=== PATIENT | female | born 1960 ===

== ENCOUNTER 2017-08-26 16:12 | Inpatient (IN) | payer OTHER ==
[~2017-08-26 16:12] MED LIST: Piperacill/Tazo 3.375gm in Dex 3.375 GM/50 ML BAG IVPB SCH
[2017-08-26 16:23] VITALS: BMI 40.3
[2017-08-26] MEDS ORDERED: Sodium Chloride 0.9% 1,000 ML ONE ×3 (16:48→23:51)
[2017-08-26] MEDS ORDERED: (Novolin R) Insulin Human Regular 100 units/ml vial ONE (16:48)
[2017-08-26] MEDS ORDERED: Sodium Chloride 0.9% 1,000 ML IV ONE ×3 (17:03→18:15)
[2017-08-26] MEDS ORDERED: Piperacillin/Tazobact 3.375 gm 100 ML IV STA (17:04)
[2017-08-26 17:17] LABS: EOS # 0.1 K/uL (0.0-0.7); EOS % 0.4 % (0.0-4.0); HEMOGLOBIN 13.6 g/dL (11.0-16.0); LYMPH # 0.3 K/uL (1.0-4.3); LYMPH % 1.9 % (20.0-40.0); MEAN CELL VOLUME 81.1 fL (81.0-99.0); MEAN CORPUSCULAR HEMOGLOBIN 29.1 pg (27.0-31.0); MEAN CORPUSCULAR HGB CONC 35.9 g/dL (33.0-37.0); MEAN PLATELET VOLUME 11.7 fL (7.2-11.7); MONO # 0.2 K/uL (0.0-0.8); MONO % 1.1 % (0.0-10.0); NEUT # 18.1 K/uL (1.8-7.0); NEUT % 96.6 % (50.0-75.0); RBC 4.66 Mil/uL (3.80-5.20); RED CELL DISTRIBUTION WIDTH 13.1 % (11.5-14.5); WHITE BLOOD COUNT 18.7 K/uL (4.8-10.8)
[2017-08-26 17:23] LABS: SQUAMOUS EPITHIAL 3 /hpf (0-5); URINE BACTERIA MANY (<OCC); URINE BILIRUBIN NEGATIVE (NEGATIVE); URINE BLOOD 3+ (NEGATIVE); URINE CLARITY Hazy (Clear); URINE COLOR Red (YELLOW); URINE GLUCOSE (UA) 3+ mg/dL (Normal); URINE LEUKOCYTE ESTERASE 2+ Leu/uL (Negative); URINE NITRATE NEGATIVE (NEGATIVE); URINE PROTEIN NEGATIVE (NEGATIVE); URINE UROBILINOGEN NORMAL mg/dL (0.2-1.0); WBC CLUMPS MOD /hpf
[2017-08-26 17:24] LABS: INR 1.2; PLATELET COUNT 41 K/uL (130-400); PROTHROMBIN TIME 13.6 SECONDS (9.7-12.2)
[2017-08-26 17:29] LABS: VENOUS BLOOD GAS BASE EXCESS 0.7 mmol/L (0.0-2.0); VENOUS BLOOD GAS PCO2 35 mmHg (40-60); VENOUS BLOOD GAS PO2 25 mm/Hg (30-55); VENOUS BLOOD PH 7.45 (7.32-7.43)
[2017-08-26 17:38] LABS: ALB/GLOB RATIO 0.8 (1.0-2.1); ALBUMIN 2.3 g/dL (3.5-5.0); ALT/SGPT 25 U/L (9-52); AST/SGOT 22 U/L (14-36); BLOOD UREA NITROGEN 14 mg/dL (7-17); CALCIUM 7.8 mg/dl (8.6-10.4); GFR AFRICAN-AMERICAN > 60; GFR NON-AFRICAN AMERICAN > 60
[2017-08-26 17:47] LABS: B-TYPE NATRIURETIC PEPTIDE 391 pg/mL (0-900)
[2017-08-26 17:59] LABS: BANDS 27 % (0-2); LYMPHOCYTE 3 % (20-40); MONOCYTE 1 % (0-10); NEUTROPHIL 68 % (50-75); PLATELET ESTIMATE MARKEDLY DECREASED (NORMAL); REACTIVE LYMPHOCYTES 1 % (0-0); TOTAL CELLS COUNTED 100
[2017-08-26] MEDS ORDERED: (Novolin R) Insulin Human Regular 100 units/ml vial IV STA (18:15)
--- NOTE | 2017-08-26 18:27 | C.PDOC ---
History Of Present Illness 56 year old female is brought to the ED from home for evaluation of fever and generalized weakness which began 8 days ago but worstening over the past 3 days. Patient has history of Diabetes with poor control. Poor PO intake due to persistent vomiting. Stopped her Metformin PO due to n/v and not taking food. + polyuria due to poor glucose control. Patient has been slumping to the ground at home without injuryies due to weakness. Lives @ home with and 3 children who have cared for her essentially bendbound except for bathroom trips. Denies abdominal pain, diarrhea. Went to [facility] 2 nights ago (Sunday night) and was evaled overnight in ED but not admitted, as glucose was brought down below 350. Time Seen by Provider: 08/26/17 16:41 Chief Complaint (Nursing): Altered Mental Status History Per: Patient History/Exam Limitations: None Current Symptoms Are (Timing): Still Present Usual Baseline: Unknown Past Medical History Reviewed: Historical Data, Nursing Documentation, Vital Signs Vital Signs: Last Vital Signs Temp 98.1 F 08/27/17 06:30 Pulse 117 H 08/27/17 11:00 Resp 16 08/27/17 11:00 BP 142/59 L 08/27/17 11:00 Pulse Ox 100 08/27/17 11:00 - Medical History PMH: No Chronic Diseases Surgical History: No Surg Hx Family History: States: Unknown Family Hx - Social History Hx Alcohol Use: Yes (''Parties'') Hx Substance Use: No - Immunization History Hx Tetanus Toxoid Vaccination: No Review Of Systems Constitutional: Positive for: Fever, Weakness Gastrointestinal: Negative for: Nausea, Vomiting, Abdominal Pain Physical Exam - Physical Exam Appears: Non-toxic Skin: Normal Color, Warm, Dry Head: Atraumatic, Normacephalic Eye(s): bilateral: Normal Inspection Throat: Other (dry oropharynx ) Neck: Supple Chest: Symmetrical, No Deformity, No Tenderness Cardiovascular: Rhythm Regular, No Murmur Respiratory: Normal Breath Sounds, No Rales, No Rhonchi, No Wheezing Extremity: Normal ROM, Capillary Refill (less than 2 seconds ) Neurological/Psych: Other (lethargic ) ED Course And Treatment - Laboratory Results Result Diagrams: 08/27/17 07:24 08/27/17 11:35 ECG: Interpreted By Me ECG Rhythm: Sinus Tachycardia ECG Interpretation: Abnormal Rate From EC O2 Sat by Pulse Oximetry: 100 (on RA) Pulse Ox Interpretation: Normal - Radiology CXR: Interpreted by Me CXR Interpretation: Yes: No Acute Disease Progress Note: Bloodwork, urinalysis, CXR, EKG, and Flu swab ordered and reviewed. Novolin IV, Zosyn IV, Tylenol IL, Zofran IVP, and IV Fluids administered. 0000: repeat labs, potassium improving, continue KCL runs ( insulin held until improved). lacate decreasing. Bandemia decreasing from 27-- > 20. Leukocytosis increasing 19--> 27. thrombocytopenia worstening plts 41-- > 29. Vanco/zosyn had been given empirically. Remains boarderline hypotensive/ tachycardic after 3L NS. LOW susp of symptomatic hyponatremia, probably acute change c/w dehydration and corrects well with increased glucose. Exam: belly benign, no further vomiting in ED, pt lethargic but not confused. urine w hematuria. diminished mental status. belly benign. slight bruising. Though pt clinically improved, labs continue concerning trends. ? TTP vs HUS considered, considering hematuria, smear pending (prob in AM). ? recent head injury due to recent falls. abd infection, though belly benign. Called to d/w Dr. Ivet Burk 0100- pending call-back. 0130: d/w ICU consult, Dr. Waters- eval pending. CT head/abd/pelvis pending Critical Care Time - Critical Care Note Total Time (in mins): 120 Documented critical care: time excludes all time spent performing seperately billable procedures. Medical Decision Making Medical Decision Making: mild hyponatremia on CMP but corrects somwhat for elevated sugar will repeat when glucose controlled. Potassium supplementation prior to repeat insulin PRN LOW susp of DKA, normal bicarb ? bacteremia Disposition Doctor Will See Patient In The: Hospital Counseled Patient/Family Regarding: Studies Performed, Diagnosis - Disposition Disposition: HOSPITALIZED Disposition Time: 18:30 Condition: GOOD - Clinical Impression Clinical Impression: Vomiting, Dehydration - Scribe Statement The provider has reviewed the documentation as recorded by the Scribe (Izabel Burk) Provider Attestation: All medical record entries made by the Scribe were at my direction and personally dictated by me. I have reviewed the chart and agree that the record accurately reflects my personal performance of the history, physical exam, medical decision making, and the department course for this patient. I have also personally directed, reviewed, and agree with the discharge instructions and disposition.
[2017-08-26 22:17] LABS: VENOUS BLOOD GAS BASE EXCESS 0.8 mmol/L (0.0-2.0); VENOUS BLOOD GAS PCO2 34 mmHg (40-60); VENOUS BLOOD GAS PO2 52 mm/Hg (30-55); VENOUS BLOOD PH 7.46 (7.32-7.43)
--- NOTE | 2017-08-26 22:37 | CP.PCM.HP ---
Past Patient History - Past Social History Smoking Status: Never Smoked - ENDOCRINE/METABOLIC Hx Endocrine Disorders: Yes Hx Diabetes Mellitus Type 2: Yes - PSYCHIATRIC Hx Substance Use: No - SURGICAL HISTORY Hx Surgeries: No Meds Allergies/Adverse Reactions: Allergies Allergy/AdvReac Type Severity Reaction Status Date / Time No Known Allergies Allergy Verified 08/26/17 16:23 Results - Vital Signs Recent Vital Signs: Last Vital Signs Temp 102.1 F H 08/26/17 16:29 Pulse 106 H 08/26/17 21:08 Resp 16 08/26/17 21:08 BP 106/54 L 08/26/17 21:08 Pulse Ox 96 08/26/17 21:08 - Labs Result Diagrams: 08/26/17 17:12 08/26/17 17:12 Labs: Laboratory Results - last 24 hr 08/26/17 08/26/17 08/26/17 16:27 17:12 17:12 WBC 18.7 H RBC 4.66 Hgb 13.6 Hct 37.8 MCV 81.1 MCH 29.1 MCHC 35.9 RDW 13.1 Plt Count 41 L MPV 11.7 Neut % (Auto) 96.6 H Lymph % (Auto) 1.9 L Ponce % (Auto) 1.1 Eos % (Auto) 0.4 Baso % (Auto) 0.0 Neut # (Auto) 18.1 H Lymph # (Auto) 0.3 L Ponce # (Auto) 0.2 Eos # (Auto) 0.1 Baso # (Auto) 0.0 Neutrophils % (Manual) 68 Band Neutrophils % 27 H* Lymphocytes % (Manual) 3 L Reactive Lymphs % 1 H Monocytes % (Manual) 1 Platelet Estimate Markedly decreased L PT 13.6 H INR 1.2 APTT 22 pO2 VBG pH VBG pCO2 VBG HCO3 VBG Total CO2 VBG O2 Sat (Calc) VBG Base Excess VBG Potassium Glucose Lactate Crit Value Called To Crit Value Called By Crit Value Read Back Blood Gas Notified Time Sodium Potassium Chloride Carbon Dioxide Anion Gap BUN Creatinine Est GFR ( Amer) Est GFR (Non-Af Amer) POC Glucose (mg/dL) 443 H* Random Glucose Calcium Total Bilirubin AST ALT Alkaline Phosphatase Troponin I NT-Pro-B Natriuret Pep Total Protein Albumin Globulin Albumin/Globulin Ratio Venous Blood Potassium Urine Color Urine Clarity Urine pH Ur Specific Fence Urine Protein Urine Glucose (UA) Urine Ketones Urine Blood Urine Nitrate Urine Bilirubin Urine Urobilinogen Ur Leukocyte Esterase Urine WBC (Auto) Urine RBC (Auto) Urine WBC Clumps (Auto) Ur Squamous Epith Cells Urine Bacteria Influenza Typ A,B (EIA) 08/26/17 08/26/17 08/26/17 17:12 17:15 17:17 WBC RBC Hgb Hct MCV MCH MCHC RDW Plt Count MPV Neut % (Auto) Lymph % (Auto) Ponce % (Auto) Eos % (Auto) Baso % (Auto) Neut # (Auto) Lymph # (Auto) Ponce # (Auto) Eos # (Auto) Baso # (Auto) Neutrophils % (Manual) Band Neutrophils % Lymphocytes % (Manual) Reactive Lymphs % Monocytes % (Manual) Platelet Estimate PT INR APTT pO2 VBG pH VBG pCO2 VBG HCO3 VBG Total CO2 VBG O2 Sat (Calc) VBG Base Excess VBG Potassium Glucose Lactate Crit Value Called To Crit Value Called By Crit Value Read Back Blood Gas Notified Time Sodium 119 L* Potassium 2.1 L* Chloride 82 L Carbon Dioxide 24 Anion Gap 15 BUN 14 Creatinine 0.6 L Est GFR ( Amer) > 60 Est GFR (Non-Af Amer) > 60 POC Glucose (mg/dL) Random Glucose 446 H* Calcium 7.8 L Total Bilirubin 0.6 AST 22 ALT 25 Alkaline Phosphatase 248 H Troponin I < 0.0120 NT-Pro-B Natriuret Pep 391 Total Protein 5.2 L Albumin 2.3 L Globulin 2.9 Albumin/Globulin Ratio 0.8 L Venous Blood Potassium Urine Color Red Urine Clarity Hazy Urine pH 6.0 Ur Specific Fence 1.008 Urine Protein Negative Urine Glucose (UA) 3+ H Urine Ketones Trace Urine Blood 3+ H Urine Nitrate Negative Urine Bilirubin Negative Urine Urobilinogen Normal Ur Leukocyte Esterase 2+ H Urine WBC (Auto) 14 H Urine RBC (Auto) 212 H Urine WBC Clumps (Auto) Mod H Ur Squamous Epith Cells 3 Urine Bacteria Many H Influenza Typ A,B (EIA) Negative for flu a/b 08/26/17 08/26/17 08/26/17 17:20 17:30 19:24 WBC RBC Hgb Hct MCV MCH MCHC RDW Plt Count MPV Neut % (Auto) Lymph % (Auto) Ponce % (Auto) Eos % (Auto) Baso % (Auto) Neut # (Auto) Lymph # (Auto) Ponce # (Auto) Eos # (Auto) Baso # (Auto) Neutrophils % (Manual) Band Neutrophils % Lymphocytes % (Manual) Reactive Lymphs % Monocytes % (Manual) Platelet Estimate PT INR APTT pO2 25 L VBG pH 7.45 H VBG pCO2 35 L VBG HCO3 24.2 VBG Total CO2 25.4 VBG O2 Sat (Calc) 57.5 VBG Base Excess 0.7 VBG Potassium 2.1 L* Glucose 407 H* Lactate 4.3 H* Crit Value Called To Crit Value Called By Rosa dorado rcp Crit Value Read Back Y Blood Gas Notified Time 1730 Sodium 125.0 L Potassium Chloride 86.0 L Carbon Dioxide Anion Gap BUN Creatinine Est GFR ( Amer) Est GFR (Non-Af Amer) POC Glucose (mg/dL) 345 H 317 H Random Glucose Calcium Total Bilirubin AST ALT Alkaline Phosphatase Troponin I NT-Pro-B Natriuret Pep Total Protein Albumin Globulin Albumin/Globulin Ratio Venous Blood Potassium 2.1 L* Urine Color Urine Clarity Urine pH Ur Specific Fence Urine Protein Urine Glucose (UA) Urine Ketones Urine Blood Urine Nitrate Urine Bilirubin Urine Urobilinogen Ur Leukocyte Esterase Urine WBC (Auto) Urine RBC (Auto) Urine WBC Clumps (Auto) Ur Squamous Epith Cells Urine Bacteria Influenza Typ A,B (EIA) 08/26/17 22:12 WBC RBC Hgb Hct MCV MCH MCHC RDW Plt Count MPV Neut % (Auto) Lymph % (Auto) Ponce % (Auto) Eos % (Auto) Baso % (Auto) Neut # (Auto) Lymph # (Auto) Ponce # (Auto) Eos # (Auto) Baso # (Auto) Neutrophils % (Manual) Band Neutrophils % Lymphocytes % (Manual) Reactive Lymphs % Monocytes % (Manual) Platelet Estimate PT INR APTT pO2 52 VBG pH 7.46 H VBG pCO2 34 L VBG HCO3 25.3 VBG Total CO2 25.2 VBG O2 Sat (Calc) 92.6 H VBG Base Excess 0.8 VBG Potassium 2.0 L* Glucose 352 H Lactate 1.4 Crit Value Called To wally Donald Crit Value Called By digna Toribio Crit Value Read Back Y Blood Gas Notified Time 2216 Sodium 131.0 L Potassium Chloride 98.0 Carbon Dioxide Anion Gap BUN Creatinine Est GFR ( Amer) Est GFR (Non-Af Amer) POC Glucose (mg/dL) Random Glucose Calcium Total Bilirubin AST ALT Alkaline Phosphatase Troponin I NT-Pro-B Natriuret Pep Total Protein Albumin Globulin Albumin/Globulin Ratio Venous Blood Potassium 2.0 L* Urine Color Urine Clarity Urine pH Ur Specific Fence Urine Protein Urine Glucose (UA) Urine Ketones Urine Blood Urine Nitrate Urine Bilirubin Urine Urobilinogen Ur Leukocyte Esterase Urine WBC (Auto) Urine RBC (Auto) Urine WBC Clumps (Auto) Ur Squamous Epith Cells Urine Bacteria Influenza Typ A,B (EIA)
[2017-08-26] MEDS ORDERED: Piperacill/Tazo 3.375gm in Dex 3.375 GM/50 ML BAG IVPB SCH (22:45)
[2017-08-26] MEDS ORDERED: Vancomycin 1 gm/NS 200 ml 1 GM/200 ML BAG IVPB SCH (22:45)
[2017-08-26 23:44] LABS: BASO # 0.1 K/uL (0.0-0.2); BASO % 0.3 % (0.0-2.0); EOS # 0.3 K/uL (0.0-0.7); HEMOGLOBIN 10.9 g/dL (11.0-16.0); LYMPH # 1.2 K/uL (1.0-4.3); LYMPH % 4.6 % (20.0-40.0); MEAN CELL VOLUME 80.5 fL (81.0-99.0); MEAN CORPUSCULAR HEMOGLOBIN 29.5 pg (27.0-31.0); MEAN CORPUSCULAR HGB CONC 36.7 g/dL (33.0-37.0); MONO # 2.3 K/uL (0.0-0.8); MONO % 8.5 % (0.0-10.0); NEUT # 23.4 K/uL (1.8-7.0); NEUT % 85.6 % (50.0-75.0); RBC 3.69 Mil/uL (3.80-5.20); RED CELL DISTRIBUTION WIDTH 12.9 % (11.5-14.5)
[2017-08-26 23:46] LABS: PLATELET COUNT 29 K/uL (130-400); WHITE BLOOD COUNT 27.3 K/uL (4.8-10.8)
[2017-08-27 00:12] LABS: ALB/GLOB RATIO 0.7 (1.0-2.1); ALBUMIN 1.9 g/dL (3.5-5.0); ALT/SGPT 28 U/L (9-52); AST/SGOT 16 U/L (14-36); BLOOD UREA NITROGEN 12 mg/dL (7-17); CALCIUM 6.8 mg/dl (8.6-10.4); GFR AFRICAN-AMERICAN > 60; GFR NON-AFRICAN AMERICAN > 60
[2017-08-27 00:14] LABS: BANDS 20 % (0-2); LYMPHOCYTE 10 % (20-40); MONOCYTE 4 % (0-10); NEUTROPHIL 65 % (50-75); PLATELET ESTIMATE MARKEDLY DECREASED (NORMAL); REACTIVE LYMPHOCYTES 1 % (0-0); TOTAL CELLS COUNTED 100
[2017-08-27] MEDS ORDERED: Sodium Chloride 0.9% 1,000 ML IV ONE ×2 (00:55→02:12)
[2017-08-27] MEDS ORDERED: Iodixanol 320 mg/ml 150 ml Bottle IV ONE (01:13)
[2017-08-27] MEDS ORDERED: Piperacill/Tazo 3.375gm in Dex 3.375 GM/50 ML BAG IVPB SCH (02:00)
[2017-08-27] MEDS ORDERED: Albumin Human 25% (12.5 gm/50 ml) IV ONE (02:11)
[2017-08-27] MEDS ORDERED: Meropenem 1 GM in Sodium Chloride 0.9% 100 ML IVPB STA (02:12)
--- NOTE | 2017-08-27 03:55 | CT ---
EXAM: CT Abdomen and Pelvis With Intravenous Contrast CLINICAL HISTORY: 56 years old, female; Pain; Abdominal pain; Chest pain; Additional info: Abd pain/n/v TECHNIQUE: Axial computed tomography images of the abdomen and pelvis with intravenous contrast. All CT scans at this facility use one or more dose reduction techniques, viz.: automated exposure control; ma/kV adjustment per patient size (including targeted exams where dose is matched to indication; i.e. head); or iterative reconstruction technique. Coronal and sagittal reformatted images were created and reviewed. CONTRAST: 100 mL of [id number] administered intravenously. COMPARISON: No relevant prior studies available. FINDINGS: The liver, spleen, pancreas, gallbladder are normal. Varices are present in the left upper quadrant. The left adrenal gland thickening. There is a fluid collection along the posterior aspect of the upper left kidney, likely subcapsular in location, measuring 14 mm in width. There are linear hypo-densities throughout the renal parenchyma radiating centrally from the fluid collection. A similar pattern can be seen with striated nephrograms of pyelonephritis. There is a small amount of perinephric stranding and fluid. There is a low attenuation lesion in the left kidney measuring 1.5 cm in diameter with units in the 20s slightly greater than would be expected for a simple cyst. Infectious etiology cannot be excluded. Pablo catheter. Urinary bladder wall is thickened and irregular partially due to under distention however underlying hemorrhage, inflammation, or neoplasm cannot be excluded. Air in the urinary bladder that may be secondary to Pablo placement. A normal appendix is identified series 6 images 123 through 143. The uterus is normal. IMPRESSION: Left renal subcapsular fluid collection with radiating linear hypodensities. Infectious/inflammatory process could produce this appearance. Resolving posttraumatic hematoma would also be possible. Infarct also in differential diagnosis. Correlation with clinical history would be helpful (history provided is pain). Correlation w urinalysis is recommended. If prior studies exist, they would be helpful as well. Left adrenal gland thickening. Thickened irregular urinary bladder wall as discussed above. EXAM: CT Chest With Intravenous Contrast EXAM DATE/TIME: 08/27/2017 12:30 AM CLINICAL HISTORY: 56 years old, female; Pain; Abdominal pain; Chest pain; Additional info: Abd pain/n/v TECHNIQUE: Axial computed tomography images of the chest with intravenous contrast. All CT scans at this facility use one or more dose reduction techniques, viz.: automated exposure control; ma/kV adjustment per patient size (including targeted exams where dose is matched to indication; i.e. head); or iterative reconstruction technique. Coronal and sagittal reformatted images were created and reviewed. CONTRAST: 100 mL of [id number] administered intravenously. COMPARISON: No relevant prior studies available. FINDINGS: There are numerous tiny air foci within the right clavicular head and within the surrounding soft tissues. There is a small amount of air in the right sternum. There is significant stranding surrounding the right clavicular head suggesting infectious etiology of the air. Multiple mediastinal lymph nodes are present. Small pleural based nodule mid right lung image 51. Small bibasilar atelectasis greater on the left. No aortic aneurysm or dissection. IMPRESSION: Numerous tiny air foci within the right clavicular head and to lesser degree in the right sternum. Numerous tiny air foci and stranding in the soft tissues surrounding the right clavicular head supportive of acute infectious/inflammatory process.
[2017-08-27 07:27] LABS: BASO % 0.1 % (0.0-2.0); EOS % 0.2 % (0.0-4.0); LYMPH # 1.1 K/uL (1.0-4.3); LYMPH % 5.2 % (20.0-40.0); MONO # 1.3 K/uL (0.0-0.8); NEUT # 19.5 K/uL (1.8-7.0); NEUT % 88.5 % (50.0-75.0); NRBC % 0.1 % (0.0-2.0)
[2017-08-27 07:37] LABS: HEMOGLOBIN 11.4 g/dL (11.0-16.0); MEAN CELL VOLUME 81.5 fL (81.0-99.0); MEAN CORPUSCULAR HEMOGLOBIN 29.3 pg (27.0-31.0); MEAN PLATELET VOLUME 11.6 fL (7.2-11.7); PLATELET COUNT 39 K/uL (130-400); RBC 3.89 Mil/uL (3.80-5.20); RED CELL DISTRIBUTION WIDTH 13.1 % (11.5-14.5)
[2017-08-27 07:42] LABS: MAGNESIUM 1.9 mg/dL (1.6-2.3)
[2017-08-27 07:57] LABS: FREE T4 0.77 ng/dL (0.78-2.19)
[2017-08-27 08:01] LABS: PROLACTIN 14.1 ng/mL (3.0-18.9)
[2017-08-27 08:29] LABS: BANDS 10 % (0-2); LYMPHOCYTE 5 % (20-40); MONOCYTE 3 % (0-10); NEUTROPHIL 82 % (50-75); PLATELET ESTIMATE DECREASED (NORMAL); TOTAL CELLS COUNTED 100
--- NOTE | 2017-08-27 08:29 | CT ---
PROCEDURE: CT HEAD WITHOUT CONTRAST. HISTORY: confusion, falls, ? SDH vs herniation COMPARISON: None available. TECHNIQUE: Axial computed tomography images were obtained through the head/brain without intravenous contrast. Radiation dose: Total exam DLP = 991.15 mGy-cm. This CT exam was performed using one or more of the following dose reduction techniques: Automated exposure control, adjustment of the mA and/or kV according to patient size, and/or use of iterative reconstruction technique. FINDINGS: HEMORRHAGE: No intracranial hemorrhage. BRAIN: Soto-white matter differentiation is preserved. There is no mass, mass effect or abnormal extra-axial fluid collection. VENTRICLES: The ventricles are normal in size, shape and configuration. There is mild asymmetry in the size of the lateral ventricles, left larger than right, an anatomic variant the CALVARIUM: There is no calvarial fracture or extracranial soft tissue swelling. PARANASAL SINUSES: Predominantly clear nges. MASTOID AIR CELLS: Predominantly clear. OTHER FINDINGS: None. IMPRESSION: No acute intracranial abnormality.
--- NOTE | 2017-08-27 08:30 | RAD ---
Chest x-ray single frontal view History: Shortness of breath. Comparison: 08/26/2017 Findings Mild venous congestion. Bilateral hilar prominence. Tortuous aorta. Degenerative changes in the spine and shoulders. Impression Mild venous congestion. Bilateral hilar prominence.
[2017-08-27] MEDS ORDERED: (Novolog) Insulin Aspart, Recombinant 100 u/ml 10 ml vial ONE ×2 (08:49→13:18)
[2017-08-27] MEDS: (Novolog) Insulin Aspart, Recombinant 100 u/ml 10 ml vial SC SCH ×4 (08:49→22:33)
[2017-08-27] MEDS ORDERED: Potassium Phosphate 15 MMOLE in Sodium Chloride 0.9% 250 ML IVPB ONE ×2 (09:00→20:15)
[2017-08-27] MEDS ORDERED: Meropenem 1 GM in Sodium Chloride 0.9% 100 ML IVPB SCH ×2 (10:00→15:00)
[2017-08-27] MEDS ORDERED: Enoxaparin 40 mg Syringe SC SCH (10:00)
--- NOTE | 2017-08-27 10:04 | CP.PCM.CON ---
History of Present Illness - History of Present Illness History of Present Illness: 56 year old female is brought to the ED from home for evaluation of fever and generalized weakness which began 8 days ago but worstening over the past 3 days. Patient has history of Diabetes with poor control. Poor PO intake due to persistent vomiting. Stopped her Metformin PO due to n/v and not taking food. + polyuria due to poor glucose control. Patient has been slumping to the ground at home without injuryies due to weakness. Lives @ home with and 3 children who have cared for her essentially bendbound except for bathroom trips. Denies abdominal pain, diarrhea. Review of Systems - Constitutional Constitutional: As Per HPI - EENT Eyes: absent: As Per HPI, Blind Spots, Blurred Vision, Change in Vision, Decreased Night Vision, Diplopia, Discharge, Dry Eye, Exophthalmos, Floaters, Irritation, Itchy Eyes, Loss of Peripheral Vision, Pain, Photophobia, Requires Corrective Lenses, Sees Flashes, Spots in Vision, Tunnel Vision, Other Visual Disturbances, Loss of Vision, Other Ears: absent: As Per HPI, Decreased Hearing, Ear Discharge, Ear Pain, Tinnitus, Abnormal Hearing, Disequilibrium, Dizziness, Other Nose/Mouth/Throat: absent: As Per HPI, Epistaxis, Nasal Congestion, Nasal Discharge, Nasal Obstruction, Nasal Trauma, Nose Pain, Post Nasal Drip, Sinus Pain, Sinus Pressure, Bleeding Gums, Change in Voice, Dental Pain, Dry Mouth, Dysphagia, Halitosis, Hoarsness, Lip Swelling, Mouth Lesions, Mouth Pain, Odynophagia, Sore Throat, Throat Swelling, Tongue Swelling, Facial Pain, Neck Pain, Neck Mass, Other - Cardiovascular Cardiovascular: absent: As Per HPI, Acrocyanosis, Chest Pain, Chest Pain at Rest , Chest Pain with Activity, Claudication, Diaphoresis, Dyspnea, Dyspnea on Exertion, Edema, Irregular Heart Rhythm, Pain Radiating to Arm/Neck/Jaw, Leg Edema, Leg Ulcers, Lightheadedness, Orthopnea, Palpitations, Paroxysmal Nocturnal Dyspnea, Pedal Edema, Radiating Pain, Rapid Heart Rate, Slow Heart Rate, Syncope, Other - Respiratory Respiratory: absent: As Per HPI, Cough, Dyspnea, Hemoptysis, Dyspnea on Exertion , Wheezing, Snoring, Stridor, Pain on Inspiration, Chest Congestion, Excessive Mucous Production, Change in Mucous Color, Pain with Coughing, Other - Gastrointestinal Gastrointestinal: absent: As Per HPI, Abdominal Pain, Belching, Bloating, Change in Bowel Habits, Change in Stool Character, Coffee Ground Emesis, Constipation, Cramping, Diarrhea, Dyspepsia, Dysphagia, Early Satiety, Excessive Flatus, Fecal Incontinence, Heartburn, Hematemesis, Hematochezia, Loose Stools, Melena, Nausea, Odynophagia, Temesmus, Vomiting, Other - Genitourinary Genitourinary: As Per HPI - Reproductive: Female Reproductive:Female: absent: As Per HPI, Amenorrhea, Amenorrhea/ Control, Currently Menstual, Cycle <21 Days, Cycle >35 Days, Cycle Variable, Menses 1-7 Days, Menses >/= 8 Days, Menses Variable, Cycle > 4 Weeks Between, No Menses for 6 Months, Heavy Menses, Light Menses, Normal Menses, Spotting Between Cycles , S/P Hysterectomy, Menopausal, Post Menopausal, Premenarche, Abnormal Vaginal Bleeding, Dysmenorrhea, Dyspareunia, Genital Lesions, Genital Pruritis, Pelvic Pain, Prolapse Symptoms, Sexual Dysfunction, Vaginal Discharge, Vaginal Dryness , Vaginal Odor, Vaginal Pruritis, Other - Menstruation Menstruation: absent: As Per HPI, Amenorrhea, Amenorrhea/ Control, Currently Menstual, Cycle <21 Days, Cycle >35 Days, Cycle Variable, Menses 1-7 Days, Menses >/= 8 Days, Menses Variable, Cycle > 4 Weeks Between, No Menses for 6 Months, Heavy Menses, Light Menses, Normal Menses, Spotting Between Cycles , S/P Hysterectomy, Menopausal, Post Menopausal, Premenarche, Abnormal Vaginal Bleeding, Dysmenorrhea, Other - Musculoskeletal Musculoskeletal: As Per HPI, Joint Swelling - Integumentary Integumentary: absent: As Per HPI, Acne, Alopecia, Bleeding Lesions, Change in Hair, Change in Nails, Change in Pigmentation, Changing Lesions, Dry Skin, Erythema, Furuncle, Hirsutism, Lesions, New Lesions, Non-Healing Lesions, Photosensitivity, Pruritus, Rash, Skin Pain, Skin Ulcer, Sores, Striae, Swelling , Unusual Bruising, Wounds, Jaundice, Other - Neurological Neurological: absent: As Per HPI, Abnormal Gait, Abnormal Hearing, Abnormal Movements, Abnormal Speech, Behavioral Changes, Burning Sensations, Confusion, Convulsions, Disequilibrium, Dizziness, Numbness, Focal Weakness, Frequent Falls , Headaches, Lack of Coordination, Loss of Vision, Memory Loss, Paresthesias, Radicular Pain, Restless Legs, Sensory Deficit, Syncope, Tingling, Tremor, Vertigo, Weakness, Other Visual Disturbances, Other - Psychiatric Psychiatric: absent: As Per HPI, Abnormal Sleep Pattern, Anhedonia, Anxiety, Auditory Hallucinations, Behavioral Changes, Change in Appetite, Change in Libido, Confusion, Depression, Difficulty Concentrating, Hallucinations, Homicidal Ideation, Hopelessness, Irritability, Memory Loss, Mood Swings, Panic Attacks, Paranoia, Suicidal Ideation, Visual Hallucinations, Tactile Hallucinations, Other - Endocrine Endocrine: absent: As Per HPI, Change in Body Appearance, Change in Libido, Cold Intolorance, Deepening of Voice, Excessive Sweating, Fatigue, Flushing, Heat Intolorance, Increase in Ring/Shoe/Hat Size, Palpitations, Polydipsia, Polyphagia, Polyuria, Other - Hematologic/Lymphatic Hematologic: absent: As Per HPI, Easy Bleeding, Easy Bruising, Lymphadenopathy, Other Past Patient History - Past Social History Smoking Status: Never Smoked - ENDOCRINE/METABOLIC Hx Endocrine Disorders: Yes Hx Diabetes Mellitus Type 2: Yes - PSYCHIATRIC Hx Substance Use: No - SURGICAL HISTORY Hx Surgeries: No Meds Allergies/Adverse Reactions: Allergies Allergy/AdvReac Type Severity Reaction Status Date / Time No Known Allergies Allergy Verified 08/26/17 16:23 - Medications Medications: Current Medications Sodium Chloride (Sodium Chloride 0.9%) 1,000 mls @ 100 mls/hr IV .Q10H ONE Stop: 08/27/17 10:54 Last Admin: 08/27/17 01:45 Dose: 100 mls/hr Potassium Phosphate 15 mmole/ (Sodium Chloride) 255 mls @ 42.5 mls/hr IVPB ONCE ONE Stop: 08/27/17 14:59 Potassium Chloride 20 meq/ (Sodium Chloride) 110 mls @ 50 mls/hr IV Q2H RYAN Stop: 08/27/17 11:59 Meropenem 1 gm/ Sodium (Chloride) 100 mls @ 100 mls/hr IVPB Q8 RYAN Insulin Aspart (Novolog) 0 unit SC ACHS RYAN PRN Reason: Protocol Last Admin: 08/27/17 08:49 Dose: 4 unit Pantoprazole Sodium (Protonix Ec Tab) 40 mg PO DAILY RYAN Physical Exam - Constitutional Appears: Toxic, Chronically Ill - Head Exam Head Exam: NORMOCEPHALIC - Eye Exam Eye Exam: PERRL. absent: Scleral icterus - ENT Exam ENT Exam: Mucous Membranes Dry - Neck Exam Neck exam: Negative for: Lymphadenopathy, Thyromegaly - Respiratory Exam Respiratory Exam: Decreased Breath Sounds, Rhonchi - Cardiovascular Exam Cardiovascular Exam: REGULAR RHYTHM, +S1, +S2 - GI/Abdominal Exam GI & Abdominal Exam: Diminished Bowel Sounds, Soft. absent: Tenderness - Rectal Exam Rectal Exam: Deferred - Exam Exam: NORMAL INSPECTION - Extremities Exam Extremities exam: Positive for: joint swelling, tenderness, pedal pulses present. Negative for: calf tenderness, normal inspection, pedal edema Additional comments: decreased rom right upper extrem - Back Exam Back exam: absent: CVA tenderness (L), CVA tenderness (R) - Neurological Exam Neurological exam: Alert, CN II-XII Intact, Oriented x3, Reflexes Normal - Psychiatric Exam Psychiatric exam: Depressed - Skin Skin Exam: Dry Results - Vital Signs Recent Vital Signs: Last Vital Signs Temp 98.1 F 08/27/17 06:30 Pulse 101 H 08/27/17 06:30 Resp 20 08/27/17 06:30 BP 125/66 08/27/17 06:30 Pulse Ox 100 08/27/17 06:30 - Labs Result Diagrams: 09/02/17 07:37 09/02/17 07:37 Labs: Laboratory Results - last 24 hr 08/26/17 08/26/17 08/26/17 16:27 17:12 17:12 WBC 18.7 H RBC 4.66 Hgb 13.6 Hct 37.8 MCV 81.1 MCH 29.1 MCHC 35.9 RDW 13.1 Plt Count 41 L MPV 11.7 Neut % (Auto) 96.6 H Lymph % (Auto) 1.9 L Allen % (Auto) 1.1 Eos % (Auto) 0.4 Baso % (Auto) 0.0 Neut # (Auto) 18.1 H Lymph # (Auto) 0.3 L Allen # (Auto) 0.2 Eos # (Auto) 0.1 Baso # (Auto) 0.0 Neutrophils % (Manual) 68 Band Neutrophils % 27 H* Lymphocytes % (Manual) 3 L Reactive Lymphs % 1 H Monocytes % (Manual) 1 Platelet Estimate Markedly decreased L RBC Morphology ESR PT 13.6 H INR 1.2 APTT 22 pO2 VBG pH VBG pCO2 VBG HCO3 VBG Total CO2 VBG O2 Sat (Calc) VBG Base Excess VBG Potassium Glucose Lactate Crit Value Called To Crit Value Called By Crit Value Read Back Blood Gas Notified Time Sodium Potassium Chloride Carbon Dioxide Anion Gap BUN Creatinine Est GFR ( Amer) Est GFR (Non-Af Amer) POC Glucose (mg/dL) 443 H* Random Glucose Hemoglobin A1c Lactic Acid Calcium Phosphorus Magnesium Total Bilirubin AST ALT Alkaline Phosphatase Ammonia Troponin I C-React Prot High Sens NT-Pro-B Natriuret Pep Total Protein Albumin Globulin Albumin/Globulin Ratio Vitamin B12 Free T4 TSH 3rd Generation Prolactin Venous Blood Potassium Urine Color Urine Clarity Urine pH Ur Specific Swiss Urine Protein Urine Glucose (UA) Urine Ketones Urine Blood Urine Nitrate Urine Bilirubin Urine Urobilinogen Ur Leukocyte Esterase Urine WBC (Auto) Urine RBC (Auto) Urine WBC Clumps (Auto) Ur Squamous Epith Cells Urine Bacteria Influenza Typ A,B (EIA) 08/26/17 08/26/17 08/26/17 17:12 17:15 17:17 WBC RBC Hgb Hct MCV MCH MCHC RDW Plt Count MPV Neut % (Auto) Lymph % (Auto) Allen % (Auto) Eos % (Auto) Baso % (Auto) Neut # (Auto) Lymph # (Auto) Allen # (Auto) Eos # (Auto) Baso # (Auto) Neutrophils % (Manual) Band Neutrophils % Lymphocytes % (Manual) Reactive Lymphs % Monocytes % (Manual) Platelet Estimate RBC Morphology ESR PT INR APTT pO2 VBG pH VBG pCO2 VBG HCO3 VBG Total CO2 VBG O2 Sat (Calc) VBG Base Excess VBG Potassium Glucose Lactate Crit Value Called To Crit Value Called By Crit Value Read Back Blood Gas Notified Time Sodium 119 L* Potassium 2.1 L* Chloride 82 L Carbon Dioxide 24 Anion Gap 15 BUN 14 Creatinine 0.6 L Est GFR ( Amer) > 60 Est GFR (Non-Af Amer) > 60 POC Glucose (mg/dL) Random Glucose 446 H* Hemoglobin A1c Lactic Acid Calcium 7.8 L Phosphorus Magnesium Total Bilirubin 0.6 AST 22 ALT 25 Alkaline Phosphatase 248 H Ammonia Troponin I < 0.0120 C-React Prot High Sens NT-Pro-B Natriuret Pep 391 Total Protein 5.2 L Albumin 2.3 L Globulin 2.9 Albumin/Globulin Ratio 0.8 L Vitamin B12 Free T4 TSH 3rd Generation Prolactin Venous Blood Potassium Urine Color Red Urine Clarity Hazy Urine pH 6.0 Ur Specific Swiss 1.008 Urine Protein Negative Urine Glucose (UA) 3+ H Urine Ketones Trace Urine Blood 3+ H Urine Nitrate Negative Urine Bilirubin Negative Urine Urobilinogen Normal Ur Leukocyte Esterase 2+ H Urine WBC (Auto) 14 H Urine RBC (Auto) 212 H Urine WBC Clumps (Auto) Mod H Ur Squamous Epith Cells 3 Urine Bacteria Many H Influenza Typ A,B (EIA) Negative for flu a/b 08/26/17 08/26/17 08/26/17 17:20 17:30 19:24 WBC RBC Hgb Hct MCV MCH MCHC RDW Plt Count MPV Neut % (Auto) Lymph % (Auto) Allen % (Auto) Eos % (Auto) Baso % (Auto) Neut # (Auto) Lymph # (Auto) Allen # (Auto) Eos # (Auto) Baso # (Auto) Neutrophils % (Manual) Band Neutrophils % Lymphocytes % (Manual) Reactive Lymphs % Monocytes % (Manual) Platelet Estimate RBC Morphology ESR PT INR APTT pO2 25 L VBG pH 7.45 H VBG pCO2 35 L VBG HCO3 24.2 VBG Total CO2 25.4 VBG O2 Sat (Calc) 57.5 VBG Base Excess 0.7 VBG Potassium 2.1 L* Glucose 407 H* Lactate 4.3 H* Crit Value Called To Crit Value Called By Rosa dorado rcp Crit Value Read Back Y Blood Gas Notified Time 1730 Sodium 125.0 L Potassium Chloride 86.0 L Carbon Dioxide Anion Gap BUN Creatinine Est GFR ( Amer) Est GFR (Non-Af Amer) POC Glucose (mg/dL) 345 H 317 H Random Glucose Hemoglobin A1c Lactic Acid Calcium Phosphorus Magnesium Total Bilirubin AST ALT Alkaline Phosphatase Ammonia Troponin I C-React Prot High Sens NT-Pro-B Natriuret Pep Total Protein Albumin Globulin Albumin/Globulin Ratio Vitamin B12 Free T4 TSH 3rd Generation Prolactin Venous Blood Potassium 2.1 L* Urine Color Urine Clarity Urine pH Ur Specific Swiss Urine Protein Urine Glucose (UA) Urine Ketones Urine Blood Urine Nitrate Urine Bilirubin Urine Urobilinogen Ur Leukocyte Esterase Urine WBC (Auto) Urine RBC (Auto) Urine WBC Clumps (Auto) Ur Squamous Epith Cells Urine Bacteria Influenza Typ A,B (EIA) 08/26/17 08/26/17 08/26/17 22:12 23:41 23:41 WBC 27.3 H RBC 3.69 L Hgb 10.9 L D Hct 29.7 L MCV 80.5 L MCH 29.5 MCHC 36.7 RDW 12.9 Plt Count 29 L* D MPV 12.0 H Neut % (Auto) 85.6 H Lymph % (Auto) 4.6 L Allen % (Auto) 8.5 Eos % (Auto) 1.0 Baso % (Auto) 0.3 Neut # (Auto) 23.4 H Lymph # (Auto) 1.2 Allen # (Auto) 2.3 H Eos # (Auto) 0.3 Baso # (Auto) 0.1 Neutrophils % (Manual) 65 Band Neutrophils % 20 H* Lymphocytes % (Manual) 10 L Reactive Lymphs % 1 H Monocytes % (Manual) 4 Platelet Estimate Markedly decreased L RBC Morphology ESR PT INR APTT pO2 52 VBG pH 7.46 H VBG pCO2 34 L VBG HCO3 25.3 VBG Total CO2 25.2 VBG O2 Sat (Calc) 92.6 H VBG Base Excess 0.8 VBG Potassium 2.0 L* Glucose 352 H Lactate 1.4 Crit Value Called To wally Donald Crit Value Called By digna Toribio Crit Value Read Back Y Blood Gas Notified Time 2216 Sodium 131.0 L 126 L Potassium 2.5 L* Chloride 98.0 92 L Carbon Dioxide 24 Anion Gap 13 BUN 12 Creatinine 0.5 L Est GFR ( Amer) > 60 Est GFR (Non-Af Amer) > 60 POC Glucose (mg/dL) Random Glucose 319 H Hemoglobin A1c Lactic Acid Calcium 6.8 L Phosphorus Magnesium 2.0 Total Bilirubin 0.6 AST 16 ALT 28 Alkaline Phosphatase 107 Ammonia Troponin I C-React Prot High Sens NT-Pro-B Natriuret Pep Total Protein 4.5 L Albumin 1.9 L Globulin 2.6 Albumin/Globulin Ratio 0.7 L Vitamin B12 Free T4 TSH 3rd Generation Prolactin Venous Blood Potassium 2.0 L* Urine Color Urine Clarity Urine pH Ur Specific Swiss Urine Protein Urine Glucose (UA) Urine Ketones Urine Blood Urine Nitrate Urine Bilirubin Urine Urobilinogen Ur Leukocyte Esterase Urine WBC (Auto) Urine RBC (Auto) Urine WBC Clumps (Auto) Ur Squamous Epith Cells Urine Bacteria Influenza Typ A,B (EIA) 08/27/17 08/27/17 08/27/17 07:02 07:03 07:03 WBC RBC Hgb Hct MCV MCH MCHC RDW Plt Count MPV Neut % (Auto) Lymph % (Auto) Allen % (Auto) Eos % (Auto) Baso % (Auto) Neut # (Auto) Lymph # (Auto) Allen # (Auto) Eos # (Auto) Baso # (Auto) Neutrophils % (Manual) Band Neutrophils % Lymphocytes % (Manual) Reactive Lymphs % Monocytes % (Manual) Platelet Estimate RBC Morphology ESR 23 H PT INR APTT pO2 VBG pH VBG pCO2 VBG HCO3 VBG Total CO2 VBG O2 Sat (Calc) VBG Base Excess VBG Potassium Glucose Lactate Crit Value Called To Crit Value Called By Crit Value Read Back Blood Gas Notified Time Sodium Potassium Chloride Carbon Dioxide Anion Gap BUN Creatinine Est GFR ( Amer) Est GFR (Non-Af Amer) POC Glucose (mg/dL) Random Glucose Hemoglobin A1c Lactic Acid 1.0 Calcium Phosphorus 1.2 L Magnesium 1.9 Total Bilirubin AST ALT Alkaline Phosphatase Ammonia Troponin I C-React Prot High Sens NT-Pro-B Natriuret Pep Total Protein Albumin Globulin Albumin/Globulin Ratio Vitamin B12 > 1000 H Free T4 TSH 3rd Generation Prolactin 14.1 Venous Blood Potassium Urine Color Urine Clarity Urine pH Ur Specific Swiss Urine Protein Urine Glucose (UA) Urine Ketones Urine Blood Urine Nitrate Urine Bilirubin Urine Urobilinogen Ur Leukocyte Esterase Urine WBC (Auto) Urine RBC (Auto) Urine WBC Clumps (Auto) Ur Squamous Epith Cells Urine Bacteria Influenza Typ A,B (EIA) 08/27/17 08/27/17 08/27/17 07:03 07:03 07:24 WBC 22.0 H RBC 3.89 Hgb 11.4 Hct 31.7 L MCV 81.5 MCH 29.3 MCHC 36.0 RDW 13.1 Plt Count 39 L MPV 11.6 Neut % (Auto) 88.5 H Lymph % (Auto) 5.2 L Allen % (Auto) 6.0 Eos % (Auto) 0.2 Baso % (Auto) 0.1 Neut # (Auto) 19.5 H Lymph # (Auto) 1.1 Allen # (Auto) 1.3 H Eos # (Auto) 0.0 Baso # (Auto) 0.0 Neutrophils % (Manual) 82 H Band Neutrophils % 10 H Lymphocytes % (Manual) 5 L Reactive Lymphs % Monocytes % (Manual) 3 Platelet Estimate Decreased L RBC Morphology Normal ESR PT INR APTT pO2 VBG pH VBG pCO2 VBG HCO3 VBG Total CO2 VBG O2 Sat (Calc) VBG Base Excess VBG Potassium Glucose Lactate Crit Value Called To Crit Value Called By Crit Value Read Back Blood Gas Notified Time Sodium Potassium Chloride Carbon Dioxide Anion Gap BUN Creatinine Est GFR ( Amer) Est GFR (Non-Af Amer) POC Glucose (mg/dL) Random Glucose Hemoglobin A1c 12.0 H Lactic Acid Calcium Phosphorus Magnesium Total Bilirubin AST ALT Alkaline Phosphatase Ammonia Troponin I C-React Prot High Sens > 15.00 H NT-Pro-B Natriuret Pep Total Protein Albumin Globulin Albumin/Globulin Ratio Vitamin B12 Free T4 0.77 L TSH 3rd Generation 0.27 L Prolactin Venous Blood Potassium Urine Color Urine Clarity Urine pH Ur Specific Swiss Urine Protein Urine Glucose (UA) Urine Ketones Urine Blood Urine Nitrate Urine Bilirubin Urine Urobilinogen Ur Leukocyte Esterase Urine WBC (Auto) Urine RBC (Auto) Urine WBC Clumps (Auto) Ur Squamous Epith Cells Urine Bacteria Influenza Typ A,B (EIA) 08/27/17 08/27/17 08:02 08:15 WBC RBC Hgb Hct MCV MCH MCHC RDW Plt Count MPV Neut % (Auto) Lymph % (Auto) Allen % (Auto) Eos % (Auto) Baso % (Auto) Neut # (Auto) Lymph # (Auto) Allen # (Auto) Eos # (Auto) Baso # (Auto) Neutrophils % (Manual) Band Neutrophils % Lymphocytes % (Manual) Reactive Lymphs % Monocytes % (Manual) Platelet Estimate RBC Morphology ESR PT INR APTT pO2 VBG pH VBG pCO2 VBG HCO3 VBG Total CO2 VBG O2 Sat (Calc) VBG Base Excess VBG Potassium Glucose Lactate Crit Value Called To Crit Value Called By Crit Value Read Back Blood Gas Notified Time Sodium Potassium Chloride Carbon Dioxide Anion Gap BUN Creatinine Est GFR ( Amer) Est GFR (Non-Af Amer) POC Glucose (mg/dL) 281 H Random Glucose Hemoglobin A1c Lactic Acid Calcium Phosphorus Magnesium Total Bilirubin AST ALT Alkaline Phosphatase Ammonia < 9 L Troponin I C-React Prot High Sens NT-Pro-B Natriuret Pep Total Protein Albumin Globulin Albumin/Globulin Ratio Vitamin B12 Free T4 TSH 3rd Generation Prolactin Venous Blood Potassium Urine Color Urine Clarity Urine pH Ur Specific Swiss Urine Protein Urine Glucose (UA) Urine Ketones Urine Blood Urine Nitrate Urine Bilirubin Urine Urobilinogen Ur Leukocyte Esterase Urine WBC (Auto) Urine RBC (Auto) Urine WBC Clumps (Auto) Ur Squamous Epith Cells Urine Bacteria Influenza Typ A,B (EIA) Assessment & Plan (1) Acute osteomyelitis of clavicle Status: Acute (2) Anemia Status: Acute (3) Dehydration Status: Acute (4) Leukocytosis Status: Acute (5) Severe sepsis Status: Acute - Assessment and Plan (Free Text) Assessment: cont iv antibiotics ortho eval consider LEEANNA may need rx for 6-8 weeks
[2017-08-27] MEDS: Pantoprazole 40 mg EC Tab PO SCH (10:21)
[2017-08-27 12:01] LABS: ALB/GLOB RATIO 0.9 (1.0-2.1); ALBUMIN 2.3 g/dL (3.5-5.0); ALT/SGPT 28 U/L (9-52); AST/SGOT 24 U/L (14-36); BLOOD UREA NITROGEN 10 mg/dL (7-17); CALCIUM 7.5 mg/dl (8.6-10.4); GFR AFRICAN-AMERICAN > 60; GFR NON-AFRICAN AMERICAN > 60
--- NOTE | 2017-08-27 12:02 | CP.PCM.PN ---
Subjective - Date & Time of Evaluation Date of Evaluation: 08/27/17 Time of Evaluation: 12:00 - Subjective Subjective: Progress note. Attending: Dr. Kermit Burk. Pt seen and examined at bedside. No acute distress. Workup in progress. No fevers, chills, vomiting, diarrhea. Objective - Vital Signs/Intake and Output Vital Signs (last 24 hours): Temp Pulse Resp BP Pulse Ox 98.1 F 117 H 16 142/59 L 100 08/27/17 06:30 08/27/17 11:00 08/27/17 11:00 08/27/17 11:00 08/27/17 11:00 Intake and Output: 08/27/17 08/27/17 06:59 18:59 Output Total 4000 Balance -4000 - Medications Medications: Current Medications Potassium Phosphate 15 mmole/ (Sodium Chloride) 255 mls @ 42.5 mls/hr IVPB ONCE ONE Stop: 08/27/17 14:59 Meropenem 1 gm/ Sodium (Chloride) 100 mls @ 100 mls/hr IVPB Q8 [facility] Insulin Aspart (Novolog) 0 unit SC ACHS RYAN PRN Reason: Protocol Last Admin: 08/27/17 08:49 Dose: 4 unit Pantoprazole Sodium (Protonix Ec Tab) 40 mg PO DAILY [facility] Last Admin: 08/27/17 10:21 Dose: 40 mg - Labs Labs: 08/27/17 07:24 08/26/17 23:41 PT 13.6 SECONDS (9.7-12.2) H 08/26/17 17:12 INR 1.2 08/26/17 17:12 APTT 22 SECONDS (21-34) 08/26/17 17:12 - Constitutional Appears: No Acute Distress - Head Exam Head Exam: ATRAUMATIC, NORMAL INSPECTION, NORMOCEPHALIC - Eye Exam Eye Exam: EOMI - ENT Exam ENT Exam: Mucous Membranes Moist - Neck Exam Neck Exam: Full ROM, Normal Inspection - Respiratory Exam Respiratory Exam: absent: Respiratory Distress - Cardiovascular Exam Cardiovascular Exam: +S1, +S2 - GI/Abdominal Exam GI & Abdominal Exam: Soft, Normal Bowel Sounds. absent: Tenderness - Extremities Exam Extremities Exam: Full ROM, Normal Inspection - Back Exam Back Exam: NORMAL INSPECTION - Neurological Exam Neurological Exam: Alert, Awake, CN II-XII Intact - Psychiatric Exam Psychiatric exam: Flat Affect - Skin Skin Exam: Dry, Intact, Normal Color, Warm Assessment and Plan - Assessment and Plan (Free Text) Assessment: This is a 56 yo female with 1. Sepsis -ID consult. recs appreciated. -start IV meropenem -cultures pending -ESR -procal 2. Diarrhea -stool c diff -stool culture -stool electrolytes -stool leukocytes 3 Hypokalemia -replete K -cardio consult. recs appreciated -nephro consult. recs appreciated -will start spironolactone -24 hour urinary K -renin level -erin level 4. tachycardia -sinus tach on ekg -cardio consult as above 5. Altered mental status -neurology consult. recs appreciated. -head ct negative 6. R/O Osteo -foci of air in clavicle -may need MRI -ESR 7. GI/DVT ppx -protonix -scds discussed with Dr. Burk.
--- NOTE | 2017-08-27 12:11 | CP.PCM.CON ---
History of Present Illness - History of Present Illness History of Present Illness: 56-year-old lady with history of diabetes, was admitted with sepsis, severe, with bandemia bacteremia and thrombocytopenia. Seen by infectious disease was hydrated with sodium of 126 initially and potassium 2.5. Cardiology consult was called for tachycardia she received 3 L of fluid so far in addition to treatment of diabetes and sepsis. Tachycardia is probably secondary to dehydration and sepsis and evaluate an echocardiogram. No need for treatment of the tachycardia for now observe the blood pressure. Review of Systems - Review of Systems Systems not reviewed;Unavailable: Unstable Vital Signs - Constitutional Constitutional: Anorexia, Weakness - EENT Eyes: absent: Discharge Ears: absent: Ear Discharge, Dizziness Nose/Mouth/Throat: absent: Epistaxis - Cardiovascular Cardiovascular: absent: Acrocyanosis, Chest Pain, Diaphoresis, Leg Edema, Palpitations, Syncope - Respiratory Respiratory: absent: Cough, Dyspnea, Hemoptysis - Gastrointestinal Gastrointestinal: Abdominal Pain, Diarrhea, Vomiting - Genitourinary Genitourinary: Change in Urinary Stream - Menstruation Menstruation: Post Menopausal Past Patient History - Past Social History Smoking Status: Never Smoked - ENDOCRINE/METABOLIC Hx Endocrine Disorders: Yes Hx Diabetes Mellitus Type 2: Yes - PSYCHIATRIC Hx Substance Use: No - SURGICAL HISTORY Hx Surgeries: No Meds Allergies/Adverse Reactions: Allergies Allergy/AdvReac Type Severity Reaction Status Date / Time No Known Allergies Allergy Verified 08/26/17 16:23 - Medications Medications: Current Medications Potassium Phosphate 15 mmole/ (Sodium Chloride) 255 mls @ 42.5 mls/hr IVPB ONCE ONE Stop: 08/27/17 14:59 Meropenem 1 gm/ Sodium (Chloride) 100 mls @ 100 mls/hr IVPB Q8 [facility] Insulin Aspart (Novolog) 0 unit SC ACHS [facility] PRN Reason: Protocol Last Admin: 08/27/17 08:49 Dose: 4 unit Pantoprazole Sodium (Protonix Ec Tab) 40 mg PO DAILY [facility] Last Admin: 08/27/17 10:21 Dose: 40 mg Physical Exam - Constitutional Appears: Toxic - Head Exam Head Exam: ATRAUMATIC - Eye Exam Eye Exam: EOMI - ENT Exam ENT Exam: Mucous Membranes Moist - Neck Exam Neck exam: Negative for: Lymphadenopathy, Thyromegaly - Respiratory Exam Respiratory Exam: Clear to Auscultation Bilateral. absent: Rales - Cardiovascular Exam Cardiovascular Exam: REGULAR RHYTHM, Systolic Murmur - GI/Abdominal Exam GI & Abdominal Exam: Normal Bowel Sounds. absent: Organomegaly - Rectal Exam Rectal Exam: Deferred - Extremities Exam Extremities exam: Positive for: normal capillary refill. Negative for: calf tenderness - Neurological Exam Neurological exam: Alert - Psychiatric Exam Psychiatric exam: Anxious - Skin Skin Exam: Dry Results - Vital Signs Recent Vital Signs: Last Vital Signs Temp 98.1 F 08/27/17 06:30 Pulse 117 H 08/27/17 11:00 Resp 16 08/27/17 11:00 BP 142/59 L 08/27/17 11:00 Pulse Ox 100 08/27/17 11:00 - Labs Result Diagrams: 08/27/17 07:24 08/27/17 15:33 Labs: Laboratory Results - last 24 hr 08/26/17 08/26/17 08/26/17 16:27 17:12 17:12 WBC 18.7 H RBC 4.66 Hgb 13.6 Hct 37.8 MCV 81.1 MCH 29.1 MCHC 35.9 RDW 13.1 Plt Count 41 L MPV 11.7 Neut % (Auto) 96.6 H Lymph % (Auto) 1.9 L [place] % (Auto) 1.1 Eos % (Auto) 0.4 Baso % (Auto) 0.0 Neut # (Auto) 18.1 H Lymph # (Auto) 0.3 L [place] # (Auto) 0.2 Eos # (Auto) 0.1 Baso # (Auto) 0.0 Neutrophils % (Manual) 68 Band Neutrophils % 27 H* Lymphocytes % (Manual) 3 L Reactive Lymphs % 1 H Monocytes % (Manual) 1 Differential Comment Platelet Estimate Markedly decreased L RBC Morphology ESR PT 13.6 H INR 1.2 APTT 22 pO2 VBG pH VBG pCO2 VBG HCO3 VBG Total CO2 VBG O2 Sat (Calc) VBG Base Excess VBG Potassium Glucose Lactate Crit Value Called To Crit Value Called By Crit Value Read Back Blood Gas Notified Time Sodium Potassium Chloride Carbon Dioxide Anion Gap BUN Creatinine Est GFR ( Amer) Est GFR (Non-Af Amer) POC Glucose (mg/dL) 443 H* Random Glucose Hemoglobin A1c Lactic Acid Calcium Phosphorus Magnesium Total Bilirubin AST ALT Alkaline Phosphatase Ammonia Troponin I C-React Prot High Sens NT-Pro-B Natriuret Pep Total Protein Albumin Globulin Albumin/Globulin Ratio Vitamin B12 Procalcitonin Free T4 TSH 3rd Generation Prolactin Venous Blood Potassium Urine Color Urine Clarity Urine pH Ur Specific [place] Urine Protein Urine Glucose (UA) Urine Ketones Urine Blood Urine Nitrate Urine Bilirubin Urine Urobilinogen Ur Leukocyte Esterase Urine WBC (Auto) Urine RBC (Auto) Urine WBC Clumps (Auto) Ur Squamous Epith Cells Urine Bacteria Influenza Typ A,B (EIA) 08/26/17 08/26/17 08/26/17 17:12 17:15 17:17 WBC RBC Hgb Hct MCV MCH MCHC RDW Plt Count MPV Neut % (Auto) Lymph % (Auto) [place] % (Auto) Eos % (Auto) Baso % (Auto) Neut # (Auto) Lymph # (Auto) [place] # (Auto) Eos # (Auto) Baso # (Auto) Neutrophils % (Manual) Band Neutrophils % Lymphocytes % (Manual) Reactive Lymphs % Monocytes % (Manual) Differential Comment Platelet Estimate RBC Morphology ESR PT INR APTT pO2 VBG pH VBG pCO2 VBG HCO3 VBG Total CO2 VBG O2 Sat (Calc) VBG Base Excess VBG Potassium Glucose Lactate Crit Value Called To Crit Value Called By Crit Value Read Back Blood Gas Notified Time Sodium 119 L* Potassium 2.1 L* Chloride 82 L Carbon Dioxide 24 Anion Gap 15 BUN 14 Creatinine 0.6 L Est GFR ( Amer) > 60 Est GFR (Non-Af Amer) > 60 POC Glucose (mg/dL) Random Glucose 446 H* Hemoglobin A1c Lactic Acid Calcium 7.8 L Phosphorus Magnesium Total Bilirubin 0.6 AST 22 ALT 25 Alkaline Phosphatase 248 H Ammonia Troponin I < 0.0120 C-React Prot High Sens NT-Pro-B Natriuret Pep 391 Total Protein 5.2 L Albumin 2.3 L Globulin 2.9 Albumin/Globulin Ratio 0.8 L Vitamin B12 Procalcitonin Free T4 TSH 3rd Generation Prolactin Venous Blood Potassium Urine Color Red Urine Clarity Hazy Urine pH 6.0 Ur Specific [place] 1.008 Urine Protein Negative Urine Glucose (UA) 3+ H Urine Ketones Trace Urine Blood 3+ H Urine Nitrate Negative Urine Bilirubin Negative Urine Urobilinogen Normal Ur Leukocyte Esterase 2+ H Urine WBC (Auto) 14 H Urine RBC (Auto) 212 H Urine WBC Clumps (Auto) Mod H Ur Squamous Epith Cells 3 Urine Bacteria Many H Influenza Typ A,B (EIA) Negative for flu a/b 08/26/17 08/26/17 08/26/17 17:20 17:30 19:24 WBC RBC Hgb Hct MCV MCH MCHC RDW Plt Count MPV Neut % (Auto) Lymph % (Auto) [place] % (Auto) Eos % (Auto) Baso % (Auto) Neut # (Auto) Lymph # (Auto) [place] # (Auto) Eos # (Auto) Baso # (Auto) Neutrophils % (Manual) Band Neutrophils % Lymphocytes % (Manual) Reactive Lymphs % Monocytes % (Manual) Differential Comment Platelet Estimate RBC Morphology ESR PT INR APTT pO2 25 L VBG pH 7.45 H VBG pCO2 35 L VBG HCO3 24.2 VBG Total CO2 25.4 VBG O2 Sat (Calc) 57.5 VBG Base Excess 0.7 VBG Potassium 2.1 L* Glucose 407 H* Lactate 4.3 H* Crit Value Called To Crit Value Called By Rosa dorado rcp Crit Value Read Back Y Blood Gas Notified Time 1730 Sodium 125.0 L Potassium Chloride 86.0 L Carbon Dioxide Anion Gap BUN Creatinine Est GFR ( Amer) Est GFR (Non-Af Amer) POC Glucose (mg/dL) 345 H 317 H Random Glucose Hemoglobin A1c Lactic Acid Calcium Phosphorus Magnesium Total Bilirubin AST ALT Alkaline Phosphatase Ammonia Troponin I C-React Prot High Sens NT-Pro-B Natriuret Pep Total Protein Albumin Globulin Albumin/Globulin Ratio Vitamin B12 Procalcitonin Free T4 TSH 3rd Generation Prolactin Venous Blood Potassium 2.1 L* Urine Color Urine Clarity Urine pH Ur Specific [place] Urine Protein Urine Glucose (UA) Urine Ketones Urine Blood Urine Nitrate Urine Bilirubin Urine Urobilinogen Ur Leukocyte Esterase Urine WBC (Auto) Urine RBC (Auto) Urine WBC Clumps (Auto) Ur Squamous Epith Cells Urine Bacteria Influenza Typ A,B (EIA) 08/26/17 08/26/17 08/26/17 22:12 23:41 23:41 WBC 27.3 H RBC 3.69 L Hgb 10.9 L D Hct 29.7 L MCV 80.5 L MCH 29.5 MCHC 36.7 RDW 12.9 Plt Count 29 L* D MPV 12.0 H Neut % (Auto) 85.6 H Lymph % (Auto) 4.6 L [place] % (Auto) 8.5 Eos % (Auto) 1.0 Baso % (Auto) 0.3 Neut # (Auto) 23.4 H Lymph # (Auto) 1.2 [place] # (Auto) 2.3 H Eos # (Auto) 0.3 Baso # (Auto) 0.1 Neutrophils % (Manual) 65 Band Neutrophils % 20 H* Lymphocytes % (Manual) 10 L Reactive Lymphs % 1 H Monocytes % (Manual) 4 Differential Comment Platelet Estimate Markedly decreased L RBC Morphology ESR PT INR APTT pO2 52 VBG pH 7.46 H VBG pCO2 34 L VBG HCO3 25.3 VBG Total CO2 25.2 VBG O2 Sat (Calc) 92.6 H VBG Base Excess 0.8 VBG Potassium 2.0 L* Glucose 352 H Lactate 1.4 Crit Value Called To wally Donald Crit Value Called By digna Toribio Crit Value Read Back Y Blood Gas Notified Time 2216 Sodium 131.0 L 126 L Potassium 2.5 L* Chloride 98.0 92 L Carbon Dioxide 24 Anion Gap 13 BUN 12 Creatinine 0.5 L Est GFR ( Amer) > 60 Est GFR (Non-Af Amer) > 60 POC Glucose (mg/dL) Random Glucose 319 H Hemoglobin A1c Lactic Acid Calcium 6.8 L Phosphorus Magnesium 2.0 Total Bilirubin 0.6 AST 16 ALT 28 Alkaline Phosphatase 107 Ammonia Troponin I C-React Prot High Sens NT-Pro-B Natriuret Pep Total Protein 4.5 L Albumin 1.9 L Globulin 2.6 Albumin/Globulin Ratio 0.7 L Vitamin B12 Procalcitonin Free T4 TSH 3rd Generation Prolactin Venous Blood Potassium 2.0 L* Urine Color Urine Clarity Urine pH Ur Specific [place] Urine Protein Urine Glucose (UA) Urine Ketones Urine Blood Urine Nitrate Urine Bilirubin Urine Urobilinogen Ur Leukocyte Esterase Urine WBC (Auto) Urine RBC (Auto) Urine WBC Clumps (Auto) Ur Squamous Epith Cells Urine Bacteria Influenza Typ A,B (EIA) 08/27/17 08/27/17 08/27/17 01:00 07:02 07:03 WBC RBC Hgb Hct MCV MCH MCHC RDW Plt Count MPV Neut % (Auto) Lymph % (Auto) [place] % (Auto) Eos % (Auto) Baso % (Auto) Neut # (Auto) Lymph # (Auto) [place] # (Auto) Eos # (Auto) Baso # (Auto) Neutrophils % (Manual) Band Neutrophils % Lymphocytes % (Manual) Reactive Lymphs % Monocytes % (Manual) Differential Comment Platelet Estimate RBC Morphology ESR PT INR APTT pO2 VBG pH VBG pCO2 VBG HCO3 VBG Total CO2 VBG O2 Sat (Calc) VBG Base Excess VBG Potassium Glucose Lactate Crit Value Called To Crit Value Called By Crit Value Read Back Blood Gas Notified Time Sodium Potassium Chloride Carbon Dioxide Anion Gap BUN Creatinine Est GFR ( Amer) Est GFR (Non-Af Amer) POC Glucose (mg/dL) Random Glucose Hemoglobin A1c Lactic Acid 1.0 Calcium Phosphorus Magnesium Total Bilirubin AST ALT Alkaline Phosphatase Ammonia Troponin I C-React Prot High Sens NT-Pro-B Natriuret Pep Total Protein Albumin Globulin Albumin/Globulin Ratio Vitamin B12 Procalcitonin 14.16 H Free T4 TSH 3rd Generation Prolactin Venous Blood Potassium Urine Color Urine Clarity Urine pH Ur Specific [place] Urine Protein Urine Glucose (UA) Urine Ketones Urine Blood Urine Nitrate Urine Bilirubin Urine Urobilinogen Ur Leukocyte Esterase Urine WBC (Auto) Urine RBC (Auto) Urine WBC Clumps (Auto) Ur Squamous Epith Cells Urine Bacteria Influenza Typ A,B (EIA) 08/27/17 08/27/17 08/27/17 07:03 07:03 07:03 WBC RBC Hgb Hct MCV MCH MCHC RDW Plt Count MPV Neut % (Auto) Lymph % (Auto) [place] % (Auto) Eos % (Auto) Baso % (Auto) Neut # (Auto) Lymph # (Auto) [place] # (Auto) Eos # (Auto) Baso # (Auto) Neutrophils % (Manual) Band Neutrophils % Lymphocytes % (Manual) Reactive Lymphs % Monocytes % (Manual) Differential Comment Platelet Estimate RBC Morphology ESR 23 H PT INR APTT pO2 VBG pH VBG pCO2 VBG HCO3 VBG Total CO2 VBG O2 Sat (Calc) VBG Base Excess VBG Potassium Glucose Lactate Crit Value Called To Crit Value Called By Crit Value Read Back Blood Gas Notified Time Sodium Potassium Chloride Carbon Dioxide Anion Gap BUN Creatinine Est GFR ( Amer) Est GFR (Non-Af Amer) POC Glucose (mg/dL) Random Glucose Hemoglobin A1c Lactic Acid Calcium Phosphorus 1.2 L Magnesium 1.9 Total Bilirubin AST ALT Alkaline Phosphatase Ammonia Troponin I C-React Prot High Sens > 15.00 H NT-Pro-B Natriuret Pep Total Protein Albumin Globulin Albumin/Globulin Ratio Vitamin B12 > 1000 H Procalcitonin Free T4 0.77 L TSH 3rd Generation 0.27 L Prolactin 14.1 Venous Blood Potassium Urine Color Urine Clarity Urine pH Ur Specific [place] Urine Protein Urine Glucose (UA) Urine Ketones Urine Blood Urine Nitrate Urine Bilirubin Urine Urobilinogen Ur Leukocyte Esterase Urine WBC (Auto) Urine RBC (Auto) Urine WBC Clumps (Auto) Ur Squamous Epith Cells Urine Bacteria Influenza Typ A,B (EIA) 08/27/17 08/27/17 08/27/17 07:03 07:24 08:02 WBC 22.0 H RBC 3.89 Hgb 11.4 Hct 31.7 L MCV 81.5 MCH 29.3 MCHC 36.0 RDW 13.1 Plt Count 39 L MPV 11.6 Neut % (Auto) 88.5 H Lymph % (Auto) 5.2 L [place] % (Auto) 6.0 Eos % (Auto) 0.2 Baso % (Auto) 0.1 Neut # (Auto) 19.5 H Lymph # (Auto) 1.1 [place] # (Auto) 1.3 H Eos # (Auto) 0.0 Baso # (Auto) 0.0 Neutrophils % (Manual) 82 H Band Neutrophils % 10 H Lymphocytes % (Manual) 5 L Reactive Lymphs % Monocytes % (Manual) 3 Differential Comment Platelet Estimate Decreased L RBC Morphology Normal ESR PT INR APTT pO2 VBG pH VBG pCO2 VBG HCO3 VBG Total CO2 VBG O2 Sat (Calc) VBG Base Excess VBG Potassium Glucose Lactate Crit Value Called To Crit Value Called By Crit Value Read Back Blood Gas Notified Time Sodium Potassium Chloride Carbon Dioxide Anion Gap BUN Creatinine Est GFR ( Amer) Est GFR (Non-Af Amer) POC Glucose (mg/dL) Random Glucose Hemoglobin A1c 12.0 H Lactic Acid Calcium Phosphorus Magnesium Total Bilirubin AST ALT Alkaline Phosphatase Ammonia < 9 L Troponin I C-React Prot High Sens NT-Pro-B Natriuret Pep Total Protein Albumin Globulin Albumin/Globulin Ratio Vitamin B12 Procalcitonin Free T4 TSH 3rd Generation Prolactin Venous Blood Potassium Urine Color Urine Clarity Urine pH Ur Specific [place] Urine Protein Urine Glucose (UA) Urine Ketones Urine Blood Urine Nitrate Urine Bilirubin Urine Urobilinogen Ur Leukocyte Esterase Urine WBC (Auto) Urine RBC (Auto) Urine WBC Clumps (Auto) Ur Squamous Epith Cells Urine Bacteria Influenza Typ A,B (EIA) 08/27/17 08/27/17 08:15 11:35 WBC RBC Hgb Hct MCV MCH MCHC RDW Plt Count MPV Neut % (Auto) Lymph % (Auto) [place] % (Auto) Eos % (Auto) Baso % (Auto) Neut # (Auto) Lymph # (Auto) [place] # (Auto) Eos # (Auto) Baso # (Auto) Neutrophils % (Manual) Band Neutrophils % Lymphocytes % (Manual) Reactive Lymphs % Monocytes % (Manual) Differential Comment Platelet Estimate RBC Morphology ESR PT INR APTT pO2 VBG pH VBG pCO2 VBG HCO3 VBG Total CO2 VBG O2 Sat (Calc) VBG Base Excess VBG Potassium Glucose Lactate Crit Value Called To Crit Value Called By Crit Value Read Back Blood Gas Notified Time Sodium 129 L Potassium 2.5 L* Chloride 94 L Carbon Dioxide 24 Anion Gap 14 BUN 10 Creatinine 0.5 L Est GFR ( Amer) > 60 Est GFR (Non-Af Amer) > 60 POC Glucose (mg/dL) 281 H Random Glucose 297 H Hemoglobin A1c Lactic Acid Calcium 7.5 L Phosphorus 1.2 L Magnesium 2.0 Total Bilirubin 0.6 AST 24 ALT 28 Alkaline Phosphatase 152 H D Ammonia Troponin I C-React Prot High Sens NT-Pro-B Natriuret Pep Total Protein 4.9 L Albumin 2.3 L D Globulin 2.5 Albumin/Globulin Ratio 0.9 L Vitamin B12 Procalcitonin Free T4 TSH 3rd Generation Prolactin Venous Blood Potassium Urine Color Urine Clarity Urine pH Ur Specific [place] Urine Protein Urine Glucose (UA) Urine Ketones Urine Blood Urine Nitrate Urine Bilirubin Urine Urobilinogen Ur Leukocyte Esterase Urine WBC (Auto) Urine RBC (Auto) Urine WBC Clumps (Auto) Ur Squamous Epith Cells Urine Bacteria Influenza Typ A,B (EIA) Assessment & Plan (1) Severe sepsis Status: Acute (2) Tachycardia Status: Acute Comment: Sinus tachycardia probably due to dehydration and sepsis, no need for treatment of the tachycardia for now, observe the blood pressure and evaluate an echocardiogram. Currently she is hemodynamically stable observe sodium for slow correction. (3) Dehydration Status: Acute
[2017-08-27] MEDS ORDERED: Sodium Chloride 0.9% 1,000 ML IV SCH (13:45)
[2017-08-27] MEDS: Potassium & Sodium Phosphate PO SCH ×2 (14:11→18:21)
[2017-08-27] MEDS: Potassium Chloride 20 mEq ER Tab PO SCH ×2 (14:11→16:40)
[2017-08-27] MEDS ORDERED: Sodium Chloride 0.9% 1,000 ML ONE (14:15)
[2017-08-27] MEDS: Meropenem 1 GM in Sodium Chloride 0.9% 100 ML IVPB SCH ×2 (14:27→22:52)
--- NOTE | 2017-08-27 15:20 | CP.PCM.CON ---
History of Present Illness - History of Present Illness History of Present Illness: Initial Nephrology Consultation: Assessment: critical UTI with pyelonephritis and sepsis with GNR Hypokalemia likely due to GI fluid loss, urinary K loss due to glycosuria Hyponatremia, hypophosphatemia uncontrolled DM with hyperglycemia Polyuria likely due to combination of glycosuria and hypokalemia (can lead to nephrogenic DI) Morbid obesity left adrenal thickening Plan No acute need for renal replacement therapy at this time. Will need hormonal work up of left adrenal thickening with edmundo/renin and dexamethasone suppression test later as outpt once pt stable. hence will d/c aldactone as well (to avoid interference with edmundo measurements) Started NS @ 150 ml/hr. supplement K, phos and follow electrolytes closely Monitor Input/Output, daily weights and lytes antibiotics as per ID avoid correction in serum Na >6-8 meq/24 hr. initial corrected Na 125 hence current Na rise in acceptable range Dose meds/antibiotics for normal GFR. Avoid nephrotoxins/NSAIDs Glycemic control Further work up/management as per primary team Thanks for allowing me to participate in care of your patient. Will follow patient with you. Please call if any Qs. d/w team Dr Eleno Middleton Office: [phone] Chief Complaint; feel sick HPI: Pt is a 56 F with hx of diabetes Mellitus (15 years), hypertension (years) , obesity presented with complaints of feeling sick with nausea/vomitting for last few days. also found to have UTI with sepsis and severe electrolytes abnormalities hence renal consulted,. she says DM usually controlled except over las few days when she couldn't take her meds. reports increased thirst and increased fluid intake, increased urine output. denies any recent Wt gains Denies OTC/herbal meds or NSAIDs ROS: Cardiovascular: No chest pain. Pulmonary: No shortness of breath Gastrointestinal: denies abdominal pain No nausea. No vomiting now. loose stool today Genitourinary: No pain while urinating. Denies blood in urine. has malhotra now All other negative except as in HPI Physical Examination: General Appearance: Comfortable, in no acute respiratory distress, co-operative . Vitals reviewed and noted as below Head; Atraumatic, normocephalic ENT: no ulcers has mild thrush. Tongue is midline. Oropharynx: no rash or ulcers. EYES: Pupils are equal, round and reactive to light accommodation. Eye muscles and extraocular movement intact. Sclera is anicteric. Neck; supple no lymphadenopathy, no thyromegaly or bruit Lungs: Normal respiratory rate/effort. Breath sounds bilateral equal and clear Heart: Normal rate. s1s2 normal. No rub or gallop. Extremities: no edema. No varicose veins Neurological: Patient is alert, awake and oriented to person, place and time. No focal deficit. Strength bilateral appropriate and equal Skin: Warm and dry. Normal turgor. No rash. Palpitation: Normal elasticity for age Abdomen: Abdomen is soft. Bowel sounds +. There is no abdominal tenderness, no guarding/rigidity no organomegaly Psych: normal insight and normal affect/mood MSK: no joint tenderness or swelling. Digits and nails normal, no deformity : kidney or bladder not palpable Labs/imaging reviewed. Past medical history, past surgical history, family history, social history, allergy reviewed and noted as below Family hx: no hx of CKD. Rest non-contributory imaging: left adrenal thickening A1c 12 Past Patient History - Past Social History Smoking Status: Never Smoked - ENDOCRINE/METABOLIC Hx Endocrine Disorders: Yes Hx Diabetes Mellitus Type 2: Yes - PSYCHIATRIC Hx Substance Use: No - SURGICAL HISTORY Hx Surgeries: No Meds Allergies/Adverse Reactions: Allergies Allergy/AdvReac Type Severity Reaction Status Date / Time No Known Allergies Allergy Verified 08/26/17 16:23 - Medications Medications: Current Medications Glipizide (Glucotrol) 10 mg PO ACBD [facility] Meropenem 1 gm/ Sodium (Chloride) 100 mls @ 100 mls/hr IVPB Q8 [facility] Last Admin: 08/27/17 14:27 Dose: 100 mls/hr Sodium Chloride (Sodium Chloride 0.9%) 1,000 mls @ 150 mls/hr IV .Q6H40M [facility] Insulin Aspart (Novolog) 0 unit SC ACHS [facility] PRN Reason: Protocol Insulin Human NPH (Novolin N) 20 unit SC HS [facility] Metformin HCl (Glucophage) 850 mg PO BID [facility] Pantoprazole Sodium (Protonix Ec Tab) 40 mg PO DAILY [facility] Last Admin: 08/27/17 10:21 Dose: 40 mg Potassium Chloride (K-Dur 20 Meq Er Tab) 40 meq PO Q4 [facility] Stop: 08/27/17 20:01 Last Admin: 08/27/17 14:11 Dose: 40 meq Potassium Phos/Sodium Phos (Neutra-Phos) 2 pkt PO BID [facility] Stop: 09/01/17 13:01 Last Admin: 08/27/17 14:11 Dose: 2 pkt Results - Vital Signs Recent Vital Signs: Last Vital Signs Temp 98.0 F 08/27/17 14:58 Pulse 128 H 08/27/17 14:02 Resp 18 08/27/17 14:02 BP 153/69 H 08/27/17 14:02 Pulse Ox 100 08/27/17 14:02 - Labs Result Diagrams: 08/27/17 07:24 08/27/17 11:35 Labs: Laboratory Results - last 24 hr 08/26/17 08/26/17 08/26/17 16:27 17:12 17:12 WBC 18.7 H RBC 4.66 Hgb 13.6 Hct 37.8 MCV 81.1 MCH 29.1 MCHC 35.9 RDW 13.1 Plt Count 41 L MPV 11.7 Neut % (Auto) 96.6 H Lymph % (Auto) 1.9 L Hand % (Auto) 1.1 Eos % (Auto) 0.4 Baso % (Auto) 0.0 Neut # (Auto) 18.1 H Lymph # (Auto) 0.3 L Hand # (Auto) 0.2 Eos # (Auto) 0.1 Baso # (Auto) 0.0 Neutrophils % (Manual) 68 Band Neutrophils % 27 H* Lymphocytes % (Manual) 3 L Reactive Lymphs % 1 H Monocytes % (Manual) 1 Differential Comment Platelet Estimate Markedly decreased L RBC Morphology ESR PT 13.6 H INR 1.2 APTT 22 pO2 VBG pH VBG pCO2 VBG HCO3 VBG Total CO2 VBG O2 Sat (Calc) VBG Base Excess VBG Potassium Glucose Lactate Crit Value Called To Crit Value Called By Crit Value Read Back Blood Gas Notified Time Sodium Potassium Chloride Carbon Dioxide Anion Gap BUN Creatinine Est GFR ( Amer) Est GFR (Non-Af Amer) POC Glucose (mg/dL) 443 H* Random Glucose Hemoglobin A1c Lactic Acid Calcium Phosphorus Magnesium Total Bilirubin AST ALT Alkaline Phosphatase Ammonia Troponin I C-React Prot High Sens NT-Pro-B Natriuret Pep Total Protein Albumin Globulin Albumin/Globulin Ratio Vitamin B12 Procalcitonin Free T4 TSH 3rd Generation Prolactin Venous Blood Potassium Urine Color Urine Clarity Urine pH Ur Specific [place] Urine Protein Urine Glucose (UA) Urine Ketones Urine Blood Urine Nitrate Urine Bilirubin Urine Urobilinogen Ur Leukocyte Esterase Urine WBC (Auto) Urine RBC (Auto) Urine WBC Clumps (Auto) Ur Squamous Epith Cells Urine Bacteria Influenza Typ A,B (EIA) 08/26/17 08/26/17 08/26/17 17:12 17:15 17:17 WBC RBC Hgb Hct MCV MCH MCHC RDW Plt Count MPV Neut % (Auto) Lymph % (Auto) Hand % (Auto) Eos % (Auto) Baso % (Auto) Neut # (Auto) Lymph # (Auto) Hand # (Auto) Eos # (Auto) Baso # (Auto) Neutrophils % (Manual) Band Neutrophils % Lymphocytes % (Manual) Reactive Lymphs % Monocytes % (Manual) Differential Comment Platelet Estimate RBC Morphology ESR PT INR APTT pO2 VBG pH VBG pCO2 VBG HCO3 VBG Total CO2 VBG O2 Sat (Calc) VBG Base Excess VBG Potassium Glucose Lactate Crit Value Called To Crit Value Called By Crit Value Read Back Blood Gas Notified Time Sodium 119 L* Potassium 2.1 L* Chloride 82 L Carbon Dioxide 24 Anion Gap 15 BUN 14 Creatinine 0.6 L Est GFR ( Amer) > 60 Est GFR (Non-Af Amer) > 60 POC Glucose (mg/dL) Random Glucose 446 H* Hemoglobin A1c Lactic Acid Calcium 7.8 L Phosphorus Magnesium Total Bilirubin 0.6 AST 22 ALT 25 Alkaline Phosphatase 248 H Ammonia Troponin I < 0.0120 C-React Prot High Sens NT-Pro-B Natriuret Pep 391 Total Protein 5.2 L Albumin 2.3 L Globulin 2.9 Albumin/Globulin Ratio 0.8 L Vitamin B12 Procalcitonin Free T4 TSH 3rd Generation Prolactin Venous Blood Potassium Urine Color Red Urine Clarity Hazy Urine pH 6.0 Ur Specific [place] 1.008 Urine Protein Negative Urine Glucose (UA) 3+ H Urine Ketones Trace Urine Blood 3+ H Urine Nitrate Negative Urine Bilirubin Negative Urine Urobilinogen Normal Ur Leukocyte Esterase 2+ H Urine WBC (Auto) 14 H Urine RBC (Auto) 212 H Urine WBC Clumps (Auto) Mod H Ur Squamous Epith Cells 3 Urine Bacteria Many H Influenza Typ A,B (EIA) Negative for flu a/b 08/26/17 08/26/17 08/26/17 17:20 17:30 19:24 WBC RBC Hgb Hct MCV MCH MCHC RDW Plt Count MPV Neut % (Auto) Lymph % (Auto) Hand % (Auto) Eos % (Auto) Baso % (Auto) Neut # (Auto) Lymph # (Auto) Hand # (Auto) Eos # (Auto) Baso # (Auto) Neutrophils % (Manual) Band Neutrophils % Lymphocytes % (Manual) Reactive Lymphs % Monocytes % (Manual) Differential Comment Platelet Estimate RBC Morphology ESR PT INR APTT pO2 25 L VBG pH 7.45 H VBG pCO2 35 L VBG HCO3 24.2 VBG Total CO2 25.4 VBG O2 Sat (Calc) 57.5 VBG Base Excess 0.7 VBG Potassium 2.1 L* Glucose 407 H* Lactate 4.3 H* Crit Value Called To Crit Value Called By Rosa dorado rcp Crit Value Read Back Y Blood Gas Notified Time 1730 Sodium 125.0 L Potassium Chloride 86.0 L Carbon Dioxide Anion Gap BUN Creatinine Est GFR ( Amer) Est GFR (Non-Af Amer) POC Glucose (mg/dL) 345 H 317 H Random Glucose Hemoglobin A1c Lactic Acid Calcium Phosphorus Magnesium Total Bilirubin AST ALT Alkaline Phosphatase Ammonia Troponin I C-React Prot High Sens NT-Pro-B Natriuret Pep Total Protein Albumin Globulin Albumin/Globulin Ratio Vitamin B12 Procalcitonin Free T4 TSH 3rd Generation Prolactin Venous Blood Potassium 2.1 L* Urine Color Urine Clarity Urine pH Ur Specific [place] Urine Protein Urine Glucose (UA) Urine Ketones Urine Blood Urine Nitrate Urine Bilirubin Urine Urobilinogen Ur Leukocyte Esterase Urine WBC (Auto) Urine RBC (Auto) Urine WBC Clumps (Auto) Ur Squamous Epith Cells Urine Bacteria Influenza Typ A,B (EIA) 08/26/17 08/26/17 08/26/17 22:12 23:41 23:41 WBC 27.3 H RBC 3.69 L Hgb 10.9 L D Hct 29.7 L MCV 80.5 L MCH 29.5 MCHC 36.7 RDW 12.9 Plt Count 29 L* D MPV 12.0 H Neut % (Auto) 85.6 H Lymph % (Auto) 4.6 L Hand % (Auto) 8.5 Eos % (Auto) 1.0 Baso % (Auto) 0.3 Neut # (Auto) 23.4 H Lymph # (Auto) 1.2 Hand # (Auto) 2.3 H Eos # (Auto) 0.3 Baso # (Auto) 0.1 Neutrophils % (Manual) 65 Band Neutrophils % 20 H* Lymphocytes % (Manual) 10 L Reactive Lymphs % 1 H Monocytes % (Manual) 4 Differential Comment Platelet Estimate Markedly decreased L RBC Morphology ESR PT INR APTT pO2 52 VBG pH 7.46 H VBG pCO2 34 L VBG HCO3 25.3 VBG Total CO2 25.2 VBG O2 Sat (Calc) 92.6 H VBG Base Excess 0.8 VBG Potassium 2.0 L* Glucose 352 H Lactate 1.4 Crit Value Called To wally Donald Crit Value Called By digna Toribio Crit Value Read Back Y Blood Gas Notified Time 221 Sodium 131.0 L 126 L Potassium 2.5 L* Chloride 98.0 92 L Carbon Dioxide 24 Anion Gap 13 BUN 12 Creatinine 0.5 L Est GFR ( Amer) > 60 Est GFR (Non-Af Amer) > 60 POC Glucose (mg/dL) Random Glucose 319 H Hemoglobin A1c Lactic Acid Calcium 6.8 L Phosphorus Magnesium 2.0 Total Bilirubin 0.6 AST 16 ALT 28 Alkaline Phosphatase 107 Ammonia Troponin I C-React Prot High Sens NT-Pro-B Natriuret Pep Total Protein 4.5 L Albumin 1.9 L Globulin 2.6 Albumin/Globulin Ratio 0.7 L Vitamin B12 Procalcitonin Free T4 TSH 3rd Generation Prolactin Venous Blood Potassium 2.0 L* Urine Color Urine Clarity Urine pH Ur Specific [place] Urine Protein Urine Glucose (UA) Urine Ketones Urine Blood Urine Nitrate Urine Bilirubin Urine Urobilinogen Ur Leukocyte Esterase Urine WBC (Auto) Urine RBC (Auto) Urine WBC Clumps (Auto) Ur Squamous Epith Cells Urine Bacteria Influenza Typ A,B (EIA) 08/27/17 08/27/17 08/27/17 01:00 07:02 07:03 WBC RBC Hgb Hct MCV MCH MCHC RDW Plt Count MPV Neut % (Auto) Lymph % (Auto) Hand % (Auto) Eos % (Auto) Baso % (Auto) Neut # (Auto) Lymph # (Auto) Hand # (Auto) Eos # (Auto) Baso # (Auto) Neutrophils % (Manual) Band Neutrophils % Lymphocytes % (Manual) Reactive Lymphs % Monocytes % (Manual) Differential Comment Platelet Estimate RBC Morphology ESR PT INR APTT pO2 VBG pH VBG pCO2 VBG HCO3 VBG Total CO2 VBG O2 Sat (Calc) VBG Base Excess VBG Potassium Glucose Lactate Crit Value Called To Crit Value Called By Crit Value Read Back Blood Gas Notified Time Sodium Potassium Chloride Carbon Dioxide Anion Gap BUN Creatinine Est GFR ( Amer) Est GFR (Non-Af Amer) POC Glucose (mg/dL) Random Glucose Hemoglobin A1c Lactic Acid 1.0 Calcium Phosphorus Magnesium Total Bilirubin AST ALT Alkaline Phosphatase Ammonia Troponin I C-React Prot High Sens NT-Pro-B Natriuret Pep Total Protein Albumin Globulin Albumin/Globulin Ratio Vitamin B12 Procalcitonin 14.16 H Free T4 TSH 3rd Generation Prolactin Venous Blood Potassium Urine Color Urine Clarity Urine pH Ur Specific [place] Urine Protein Urine Glucose (UA) Urine Ketones Urine Blood Urine Nitrate Urine Bilirubin Urine Urobilinogen Ur Leukocyte Esterase Urine WBC (Auto) Urine RBC (Auto) Urine WBC Clumps (Auto) Ur Squamous Epith Cells Urine Bacteria Influenza Typ A,B (EIA) 08/27/17 08/27/17 08/27/17 07:03 07:03 07:03 WBC RBC Hgb Hct MCV MCH MCHC RDW Plt Count MPV Neut % (Auto) Lymph % (Auto) Hand % (Auto) Eos % (Auto) Baso % (Auto) Neut # (Auto) Lymph # (Auto) Hand # (Auto) Eos # (Auto) Baso # (Auto) Neutrophils % (Manual) Band Neutrophils % Lymphocytes % (Manual) Reactive Lymphs % Monocytes % (Manual) Differential Comment Platelet Estimate RBC Morphology ESR 23 H PT INR APTT pO2 VBG pH VBG pCO2 VBG HCO3 VBG Total CO2 VBG O2 Sat (Calc) VBG Base Excess VBG Potassium Glucose Lactate Crit Value Called To Crit Value Called By Crit Value Read Back Blood Gas Notified Time Sodium Potassium Chloride Carbon Dioxide Anion Gap BUN Creatinine Est GFR ( Amer) Est GFR (Non-Af Amer) POC Glucose (mg/dL) Random Glucose Hemoglobin A1c Lactic Acid Calcium Phosphorus 1.2 L Magnesium 1.9 Total Bilirubin AST ALT Alkaline Phosphatase Ammonia Troponin I C-React Prot High Sens > 15.00 H NT-Pro-B Natriuret Pep Total Protein Albumin Globulin Albumin/Globulin Ratio Vitamin B12 > 1000 H Procalcitonin Free T4 0.77 L TSH 3rd Generation 0.27 L Prolactin 14.1 Venous Blood Potassium Urine Color Urine Clarity Urine pH Ur Specific [place] Urine Protein Urine Glucose (UA) Urine Ketones Urine Blood Urine Nitrate Urine Bilirubin Urine Urobilinogen Ur Leukocyte Esterase Urine WBC (Auto) Urine RBC (Auto) Urine WBC Clumps (Auto) Ur Squamous Epith Cells Urine Bacteria Influenza Typ A,B (EIA) 08/27/17 08/27/17 08/27/17 07:03 07:24 08:02 WBC 22.0 H RBC 3.89 Hgb 11.4 Hct 31.7 L MCV 81.5 MCH 29.3 MCHC 36.0 RDW 13.1 Plt Count 39 L MPV 11.6 Neut % (Auto) 88.5 H Lymph % (Auto) 5.2 L Hand % (Auto) 6.0 Eos % (Auto) 0.2 Baso % (Auto) 0.1 Neut # (Auto) 19.5 H Lymph # (Auto) 1.1 Hand # (Auto) 1.3 H Eos # (Auto) 0.0 Baso # (Auto) 0.0 Neutrophils % (Manual) 82 H Band Neutrophils % 10 H Lymphocytes % (Manual) 5 L Reactive Lymphs % Monocytes % (Manual) 3 Differential Comment Platelet Estimate Decreased L RBC Morphology Normal ESR PT INR APTT pO2 VBG pH VBG pCO2 VBG HCO3 VBG Total CO2 VBG O2 Sat (Calc) VBG Base Excess VBG Potassium Glucose Lactate Crit Value Called To Crit Value Called By Crit Value Read Back Blood Gas Notified Time Sodium Potassium Chloride Carbon Dioxide Anion Gap BUN Creatinine Est GFR ( Amer) Est GFR (Non-Af Amer) POC Glucose (mg/dL) Random Glucose Hemoglobin A1c 12.0 H Lactic Acid Calcium Phosphorus Magnesium Total Bilirubin AST ALT Alkaline Phosphatase Ammonia < 9 L Troponin I C-React Prot High Sens NT-Pro-B Natriuret Pep Total Protein Albumin Globulin Albumin/Globulin Ratio Vitamin B12 Procalcitonin Free T4 TSH 3rd Generation Prolactin Venous Blood Potassium Urine Color Urine Clarity Urine pH Ur Specific [place] Urine Protein Urine Glucose (UA) Urine Ketones Urine Blood Urine Nitrate Urine Bilirubin Urine Urobilinogen Ur Leukocyte Esterase Urine WBC (Auto) Urine RBC (Auto) Urine WBC Clumps (Auto) Ur Squamous Epith Cells Urine Bacteria Influenza Typ A,B (EIA) 08/27/17 08/27/17 08/27/17 08:15 11:35 13:37 WBC RBC Hgb Hct MCV MCH MCHC RDW Plt Count MPV Neut % (Auto) Lymph % (Auto) Hand % (Auto) Eos % (Auto) Baso % (Auto) Neut # (Auto) Lymph # (Auto) Hand # (Auto) Eos # (Auto) Baso # (Auto) Neutrophils % (Manual) Band Neutrophils % Lymphocytes % (Manual) Reactive Lymphs % Monocytes % (Manual) Differential Comment Platelet Estimate RBC Morphology ESR 22 H PT INR APTT pO2 VBG pH VBG pCO2 VBG HCO3 VBG Total CO2 VBG O2 Sat (Calc) VBG Base Excess VBG Potassium Glucose Lactate Crit Value Called To Crit Value Called By Crit Value Read Back Blood Gas Notified Time Sodium 129 L Potassium 2.5 L* Chloride 94 L Carbon Dioxide 24 Anion Gap 14 BUN 10 Creatinine 0.5 L Est GFR ( Amer) > 60 Est GFR (Non-Af Amer) > 60 POC Glucose (mg/dL) 281 H Random Glucose 297 H Hemoglobin A1c Lactic Acid Calcium 7.5 L Phosphorus 1.2 L Magnesium 2.0 Total Bilirubin 0.6 AST 24 ALT 28 Alkaline Phosphatase 152 H D Ammonia Troponin I C-React Prot High Sens NT-Pro-B Natriuret Pep Total Protein 4.9 L Albumin 2.3 L D Globulin 2.5 Albumin/Globulin Ratio 0.9 L Vitamin B12 Procalcitonin Free T4 TSH 3rd Generation Prolactin Venous Blood Potassium Urine Color Urine Clarity Urine pH Ur Specific [place] Urine Protein Urine Glucose (UA) Urine Ketones Urine Blood Urine Nitrate Urine Bilirubin Urine Urobilinogen Ur Leukocyte Esterase Urine WBC (Auto) Urine RBC (Auto) Urine WBC Clumps (Auto) Ur Squamous Epith Cells Urine Bacteria Influenza Typ A,B (EIA)
[2017-08-27] MEDS: Sodium Chloride 0.9% 1,000 ML IV SCH ×2 (15:42→22:37)
[2017-08-27 16:17] LABS: BLOOD UREA NITROGEN 8 mg/dL (7-17); CALCIUM 7.2 mg/dl (8.6-10.4); GFR AFRICAN-AMERICAN > 60; GFR NON-AFRICAN AMERICAN > 60
[2017-08-27] MEDS ORDERED: Potassium Chloride 20 mEq ER Tab PO ONE ×3 (16:42→21:00)
--- NOTE | 2017-08-27 17:41 | CP.PCM.PN ---
Subjective - Date & Time of Evaluation Date of Evaluation: 08/27/17 Time of Evaluation: 15:20 - Subjective Subjective: pt clinically same s/p CT Chest/Abd/Pelvis s/p Head CT BCx +Gram Neg Chip s/p Dr Monroy ID eval s/p Nephro eval iv meropenem in progress awaiting other art consultant evals Objective - Vital Signs/Intake and Output Vital Signs (last 24 hours): Temp Pulse Resp BP Pulse Ox 98.0 F 128 H 18 153/69 H 100 08/27/17 14:58 08/27/17 14:02 08/27/17 14:02 08/27/17 14:02 08/27/17 14:02 Intake and Output: 08/27/17 08/27/17 06:59 18:59 Output Total 4000 3000 Balance -4000 -3000 - Medications Medications: Current Medications Glipizide (Glucotrol) 10 mg PO ACBD [facility] Meropenem 1 gm/ Sodium (Chloride) 100 mls @ 100 mls/hr IVPB Q8 [facility] Last Admin: 08/27/17 14:27 Dose: 100 mls/hr Sodium Chloride (Sodium Chloride 0.9%) 1,000 mls @ 150 mls/hr IV .Q6H40M [facility] Last Admin: 08/27/17 15:42 Dose: 150 mls/hr Insulin Aspart (Novolog) 0 unit SC ACHS [facility] PRN Reason: Protocol Insulin Human NPH (Novolin N) 20 unit SC HS [facility] Metformin HCl (Glucophage) 850 mg PO BID [facility] Pantoprazole Sodium (Protonix Ec Tab) 40 mg PO DAILY [facility] Last Admin: 08/27/17 10:21 Dose: 40 mg Potassium Chloride (K-Dur 20 Meq Er Tab) 40 meq PO Q4 [facility] Stop: 08/27/17 20:01 Last Admin: 08/27/17 16:40 Dose: 40 meq Potassium Phos/Sodium Phos (Neutra-Phos) 2 pkt PO BID [facility] Stop: 09/01/17 13:01 Last Admin: 08/27/17 14:11 Dose: 2 pkt - Labs Labs: 08/27/17 07:24 08/27/17 15:33 PT 13.6 SECONDS (9.7-12.2) H 08/26/17 17:12 INR 1.2 08/26/17 17:12 APTT 22 SECONDS (21-34) 08/26/17 17:12 - Constitutional Appears: No Acute Distress - Head Exam Head Exam: ATRAUMATIC, NORMAL INSPECTION, NORMOCEPHALIC - Eye Exam Eye Exam: EOMI, Normal appearance, PERRL Pupil Exam: NORMAL ACCOMODATION, PERRL - ENT Exam ENT Exam: Mucous Membranes Moist - Neck Exam Neck Exam: Full ROM - Respiratory Exam Respiratory Exam: Decreased Breath Sounds - Cardiovascular Exam Cardiovascular Exam: REGULAR RHYTHM, +S1, +S2 - GI/Abdominal Exam GI & Abdominal Exam: Soft, Diminished Bowel Sounds - Rectal Exam Rectal Exam: Deferred - Neurological Exam Neurological Exam: Alert Assessment and Plan (1) Dehydration Status: Acute (2) Severe sepsis Status: Acute (3) Tachycardia Status: Acute (4) Vomiting Status: Acute - Assessment and Plan (Free Text) Plan: BCx +gram negative chip CT Head and CT Chest/Abd/Pelvis noted meds reviewed and d/w staff kaden iv meropenem Dr Monroy ID on board monitor for fever f/u labs
--- NOTE | 2017-08-27 18:08 | CON ---
DATE: 08/27/2017 TIME OF EVALUATION: 06:15 a.m. NEUROLOGICAL PROBLEM: Change in mental status. CHIEF COMPLAINT: The patient was brought in by family members with a history of inability to take food and vomiting for the last 2 weeks. From neurological point of view, I was called in to evaluate her for change in mental status. There is no documentation of change in her mental status as per the documentation. HISTORY OF PRESENTING ILLNESS: Ms. Radha Ruiz is a 56-year-old right-handed female being brought in for the last 2 weeks of having vomiting sensation, been evaluated at [facility] 2 weeks as per the documentation. She was kept there for observation and she was sent home. She was told that her sugar was high. Patient is complaining of persistent vomiting for the last 2 weeks. She was not able to keep her food in the stomach. She denies headaches. She denies visual or bulbar dysfunction. She denies any focal weakness. Denies change in mental status. Denies fall. PAST MEDICAL HISTORY: Hypertension, dyslipidemia, uncontrolled diabetes mellitus. PERSONAL HISTORY: Denies smoking or alcohol use. ALLERGIES: NO KNOWN ALLERGIES. REVIEW OF SYSTEMS: 12-point system has been reviewed. From neuro, change in mental status. MEDICATIONS: Meropenem, insulin, potassium supplements, Protonix, IV fluids. PHYSICAL EXAMINATION: VITAL SIGNS: Blood pressure 125/66, mean artery pressure of 85, respiratory rate 18, temperature 98.1 with a pulse rate of 101. NECK: Supple. No meningismus. Brudzinski sign and Kernig sign, both are negative. NEUROLOGIC: Her speech is fluent. Follows one to two-step command, no right and left confusion. No retrograde or antegrade amnesia. No confabulation. No sign of depression. Cranial Nerve Examination: Visual zapata are intact. Pupils are reactive to light. Extraocular movements are normal. No nystagmus. No facial sensory deficit. No facial asymmetry. Hearing is normal. Tongue is midline. Good gag. Motor Examination: Outstretched hand with eyes closed, no drift noted. Power is symmetric on either side. No asterixis. Deep tendon reflexes are absent throughout. Plantars are downgoing. 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 WORKUP: CT of the head being reviewed, no acute pathology is noted. Mild periventricular ischemic changes. LABORATORY DATA: WBC 27.3, hemoglobin 10.9, hematocrit 39.7, platelet of 229. Bands are 20. PT 13.6, INR 1.2, PTT 22. Blood gas; pH is 7.46, pO2 of 52, pCO2 of 34, bicarbonate 25.3 with oxygen saturation of 92.6. Sodium 126, potassium 2.5, chloride 92, bicarbonate 24, BUN at 12, creatinine 0.5, GFR more than 60, glucose 317, calcium 6.8, alkaline phosphatase 248, total protein 4.5, albumin 1.9, globulin 2.6. Urine shows 3+ glucosuria, 3+ hematuria, large amount of bacteria. CONCLUSION: 1. Ms. Radha Ruiz is being presenting with possible episodic bilateral cerebral dysfunction, which is all probably related to her metabolic derangement and electrolyte derangement. The patient seems to be septic; however, there is no clear evidence of meningitis or encephalitis. 2. Current examination shows a mild distal sensory motor neuropathy, this is also a concern to her. RECOMMENDATIONS: 1. EEG to be done to rule out any paroxysmal activities or focal slowing. 2. Correct all electrolytes, particularly the potassium. 3. Proper antibiotic as per Infectious Disease recommendation. Continue hydration and control the blood sugar. The patient will be followed closely with you. Toni Nguyen MD
[2017-08-27] MEDS ORDERED: (Novolin R) Insulin Human Regular 100 units/ml vial ONE (18:15)
--- NOTE | 2017-08-27 20:38 | CP.PCM.CON ---
History of Present Illness - History of Present Illness History of Present Illness: 56 year old female with a history of DM, admitted with gram negative sepsis, dehydration, found to have leukocytosis, anemia, and thrombocytopenia. She reports to persistent N/V and increased thirst. She has been urinating a lot and notes to progressive fatigue. She denies abnormal bleeding and bruising. Past medical history: DM Past surgical history: Denies Family history: Denies hematologic and oncologic problems Social history: Denies tobacco, alcohol, and illicit drug use. Allergies: NKA Review of systems: All remaining review of systems including HEENT, cardiovascular, respiratory, gastrointestinal, genitourinary, musculoskeletal, dermatologic, neurologic, and psychiatric are negative unless mentioned in the HPI. Past Patient History - Past Social History Smoking Status: Never Smoked - ENDOCRINE/METABOLIC Hx Endocrine Disorders: Yes Hx Diabetes Mellitus Type 2: Yes - PSYCHIATRIC Hx Substance Use: No - SURGICAL HISTORY Hx Surgeries: No Meds Allergies/Adverse Reactions: Allergies Allergy/AdvReac Type Severity Reaction Status Date / Time No Known Allergies Allergy Verified 08/26/17 16:23 - Medications Medications: Current Medications Glipizide (Glucotrol) 10 mg PO ACBD [facility] Last Admin: 08/27/17 18:20 Dose: 10 mg Meropenem 1 gm/ Sodium (Chloride) 100 mls @ 100 mls/hr IVPB Q8 [facility] Last Admin: 08/27/17 14:27 Dose: 100 mls/hr Sodium Chloride (Sodium Chloride 0.9%) 1,000 mls @ 150 mls/hr IV .Q6H40M [facility] Last Admin: 08/27/17 15:42 Dose: 150 mls/hr Potassium Phosphate 15 mmole/ (Sodium Chloride) 255 mls @ 42.5 mls/hr IVPB ONCE ONE Stop: 08/28/17 02:14 Insulin Aspart (Novolog) 0 unit SC ACHS [facility] PRN Reason: Protocol Last Admin: 08/27/17 18:20 Dose: 5 unit Insulin Human NPH (Novolin N) 20 unit SC HS [facility] Metformin HCl (Glucophage) 850 mg PO BID [facility] Last Admin: 08/27/17 18:21 Dose: 850 mg Pantoprazole Sodium (Protonix Ec Tab) 40 mg PO DAILY [facility] Last Admin: 08/27/17 10:21 Dose: 40 mg Potassium Chloride (K-Dur 20 Meq Er Tab) 40 meq PO Q4 [facility] Stop: 08/28/17 08:01 Potassium Phos/Sodium Phos (Neutra-Phos) 2 pkt PO BID [facility] Stop: 09/01/17 13:01 Last Admin: 08/27/17 18:21 Dose: 2 pkt Physical Exam - Head Exam Head Exam: ATRAUMATIC - Eye Exam Eye Exam: Normal appearance - ENT Exam ENT Exam: Mucous Membranes Dry - Respiratory Exam Respiratory Exam: NORMAL BREATHING PATTERN - Cardiovascular Exam Cardiovascular Exam: +S1, +S2 - GI/Abdominal Exam GI & Abdominal Exam: Normal Bowel Sounds Results - Vital Signs Recent Vital Signs: Last Vital Signs Temp 98.0 F 08/27/17 14:58 Pulse 119 H 08/27/17 18:23 Resp 18 08/27/17 18:23 BP 147/66 08/27/17 18:23 Pulse Ox 100 08/27/17 18:23 - Labs Result Diagrams: 08/27/17 07:24 08/27/17 15:33 Labs: Laboratory Results - last 24 hr 08/26/17 08/26/17 08/26/17 22:12 23:41 23:41 WBC 27.3 H RBC 3.69 L Hgb 10.9 L D Hct 29.7 L MCV 80.5 L MCH 29.5 MCHC 36.7 RDW 12.9 Plt Count 29 L* D MPV 12.0 H Neut % (Auto) 85.6 H Lymph % (Auto) 4.6 L Hooker % (Auto) 8.5 Eos % (Auto) 1.0 Baso % (Auto) 0.3 Neut # (Auto) 23.4 H Lymph # (Auto) 1.2 Hooker # (Auto) 2.3 H Eos # (Auto) 0.3 Baso # (Auto) 0.1 Neutrophils % (Manual) 65 Band Neutrophils % 20 H* Lymphocytes % (Manual) 10 L Reactive Lymphs % 1 H Monocytes % (Manual) 4 Differential Comment Platelet Estimate Markedly decreased L RBC Morphology ESR pO2 52 VBG pH 7.46 H VBG pCO2 34 L VBG HCO3 25.3 VBG Total CO2 25.2 VBG O2 Sat (Calc) 92.6 H VBG Base Excess 0.8 VBG Potassium 2.0 L* Sodium 131.0 L 126 L Chloride 98.0 92 L Glucose 352 H Lactate 1.4 Crit Value Called To wally Donald Crit Value Called By digna Toribio Crit Value Read Back Y Blood Gas Notified Time 2216 Potassium 2.5 L* Carbon Dioxide 24 Anion Gap 13 BUN 12 Creatinine 0.5 L Est GFR ( Amer) > 60 Est GFR (Non-Af Amer) > 60 POC Glucose (mg/dL) Random Glucose 319 H Hemoglobin A1c Lactic Acid Calcium 6.8 L Phosphorus Magnesium 2.0 Total Bilirubin 0.6 AST 16 ALT 28 Alkaline Phosphatase 107 Ammonia C-React Prot High Sens Total Protein 4.5 L Albumin 1.9 L Globulin 2.6 Albumin/Globulin Ratio 0.7 L Vitamin B12 Procalcitonin Free T4 TSH 3rd Generation Prolactin Venous Blood Potassium 2.0 L* RPR 08/27/17 08/27/17 08/27/17 01:00 07:02 07:03 WBC RBC Hgb Hct MCV MCH MCHC RDW Plt Count MPV Neut % (Auto) Lymph % (Auto) Hooker % (Auto) Eos % (Auto) Baso % (Auto) Neut # (Auto) Lymph # (Auto) Hooker # (Auto) Eos # (Auto) Baso # (Auto) Neutrophils % (Manual) Band Neutrophils % Lymphocytes % (Manual) Reactive Lymphs % Monocytes % (Manual) Differential Comment Platelet Estimate RBC Morphology ESR pO2 VBG pH VBG pCO2 VBG HCO3 VBG Total CO2 VBG O2 Sat (Calc) VBG Base Excess VBG Potassium Sodium Chloride Glucose Lactate Crit Value Called To Crit Value Called By Crit Value Read Back Blood Gas Notified Time Potassium Carbon Dioxide Anion Gap BUN Creatinine Est GFR ( Amer) Est GFR (Non-Af Amer) POC Glucose (mg/dL) Random Glucose Hemoglobin A1c Lactic Acid 1.0 Calcium Phosphorus Magnesium Total Bilirubin AST ALT Alkaline Phosphatase Ammonia C-React Prot High Sens Total Protein Albumin Globulin Albumin/Globulin Ratio Vitamin B12 Procalcitonin 14.16 H Free T4 TSH 3rd Generation Prolactin Venous Blood Potassium RPR 08/27/17 08/27/17 08/27/17 07:03 07:03 07:03 WBC RBC Hgb Hct MCV MCH MCHC RDW Plt Count MPV Neut % (Auto) Lymph % (Auto) Hooker % (Auto) Eos % (Auto) Baso % (Auto) Neut # (Auto) Lymph # (Auto) Hooker # (Auto) Eos # (Auto) Baso # (Auto) Neutrophils % (Manual) Band Neutrophils % Lymphocytes % (Manual) Reactive Lymphs % Monocytes % (Manual) Differential Comment Platelet Estimate RBC Morphology ESR 23 H pO2 VBG pH VBG pCO2 VBG HCO3 VBG Total CO2 VBG O2 Sat (Calc) VBG Base Excess VBG Potassium Sodium Chloride Glucose Lactate Crit Value Called To Crit Value Called By Crit Value Read Back Blood Gas Notified Time Potassium Carbon Dioxide Anion Gap BUN Creatinine Est GFR ( Amer) Est GFR (Non-Af Amer) POC Glucose (mg/dL) Random Glucose Hemoglobin A1c Lactic Acid Calcium Phosphorus 1.2 L Magnesium 1.9 Total Bilirubin AST ALT Alkaline Phosphatase Ammonia C-React Prot High Sens > 15.00 H Total Protein Albumin Globulin Albumin/Globulin Ratio Vitamin B12 > 1000 H Procalcitonin Free T4 0.77 L TSH 3rd Generation 0.27 L Prolactin 14.1 Venous Blood Potassium RPR 08/27/17 08/27/17 08/27/17 07:03 07:03 07:24 WBC 22.0 H RBC 3.89 Hgb 11.4 Hct 31.7 L MCV 81.5 MCH 29.3 MCHC 36.0 RDW 13.1 Plt Count 39 L MPV 11.6 Neut % (Auto) 88.5 H Lymph % (Auto) 5.2 L Hooker % (Auto) 6.0 Eos % (Auto) 0.2 Baso % (Auto) 0.1 Neut # (Auto) 19.5 H Lymph # (Auto) 1.1 Hooker # (Auto) 1.3 H Eos # (Auto) 0.0 Baso # (Auto) 0.0 Neutrophils % (Manual) 82 H Band Neutrophils % 10 H Lymphocytes % (Manual) 5 L Reactive Lymphs % Monocytes % (Manual) 3 Differential Comment Platelet Estimate Decreased L RBC Morphology Normal ESR pO2 VBG pH VBG pCO2 VBG HCO3 VBG Total CO2 VBG O2 Sat (Calc) VBG Base Excess VBG Potassium Sodium Chloride Glucose Lactate Crit Value Called To Crit Value Called By Crit Value Read Back Blood Gas Notified Time Potassium Carbon Dioxide Anion Gap BUN Creatinine Est GFR ( Amer) Est GFR (Non-Af Amer) POC Glucose (mg/dL) Random Glucose Hemoglobin A1c 12.0 H Lactic Acid Calcium Phosphorus Magnesium Total Bilirubin AST ALT Alkaline Phosphatase Ammonia C-React Prot High Sens Total Protein Albumin Globulin Albumin/Globulin Ratio Vitamin B12 Procalcitonin Free T4 TSH 3rd Generation Prolactin Venous Blood Potassium RPR Nonreactive 08/27/17 08/27/17 08/27/17 08:02 08:15 11:35 WBC RBC Hgb Hct MCV MCH MCHC RDW Plt Count MPV Neut % (Auto) Lymph % (Auto) Hooker % (Auto) Eos % (Auto) Baso % (Auto) Neut # (Auto) Lymph # (Auto) Hooker # (Auto) Eos # (Auto) Baso # (Auto) Neutrophils % (Manual) Band Neutrophils % Lymphocytes % (Manual) Reactive Lymphs % Monocytes % (Manual) Differential Comment Platelet Estimate RBC Morphology ESR pO2 VBG pH VBG pCO2 VBG HCO3 VBG Total CO2 VBG O2 Sat (Calc) VBG Base Excess VBG Potassium Sodium 129 L Chloride 94 L Glucose Lactate Crit Value Called To Crit Value Called By Crit Value Read Back Blood Gas Notified Time Potassium 2.5 L* Carbon Dioxide 24 Anion Gap 14 BUN 10 Creatinine 0.5 L Est GFR ( Amer) > 60 Est GFR (Non-Af Amer) > 60 POC Glucose (mg/dL) 281 H Random Glucose 297 H Hemoglobin A1c Lactic Acid Calcium 7.5 L Phosphorus 1.2 L Magnesium 2.0 Total Bilirubin 0.6 AST 24 ALT 28 Alkaline Phosphatase 152 H D Ammonia < 9 L C-React Prot High Sens Total Protein 4.9 L Albumin 2.3 L D Globulin 2.5 Albumin/Globulin Ratio 0.9 L Vitamin B12 Procalcitonin Free T4 TSH 3rd Generation Prolactin Venous Blood Potassium RPR 08/27/17 08/27/17 08/27/17 13:04 13:37 15:33 WBC RBC Hgb Hct MCV MCH MCHC RDW Plt Count MPV Neut % (Auto) Lymph % (Auto) Hooker % (Auto) Eos % (Auto) Baso % (Auto) Neut # (Auto) Lymph # (Auto) Hooker # (Auto) Eos # (Auto) Baso # (Auto) Neutrophils % (Manual) Band Neutrophils % Lymphocytes % (Manual) Reactive Lymphs % Monocytes % (Manual) Differential Comment Platelet Estimate RBC Morphology ESR 22 H pO2 VBG pH VBG pCO2 VBG HCO3 VBG Total CO2 VBG O2 Sat (Calc) VBG Base Excess VBG Potassium Sodium 130 L Chloride 92 L Glucose Lactate Crit Value Called To Crit Value Called By Crit Value Read Back Blood Gas Notified Time Potassium 2.7 L Carbon Dioxide 24 Anion Gap 16 BUN 8 Creatinine 0.5 L Est GFR ( Amer) > 60 Est GFR (Non-Af Amer) > 60 POC Glucose (mg/dL) 333 H Random Glucose 340 H Hemoglobin A1c Lactic Acid Calcium 7.2 L Phosphorus 1.1 L Magnesium Total Bilirubin AST ALT Alkaline Phosphatase Ammonia C-React Prot High Sens Total Protein Albumin Globulin Albumin/Globulin Ratio Vitamin B12 Procalcitonin Free T4 TSH 3rd Generation Prolactin Venous Blood Potassium RPR 08/27/17 18:04 WBC RBC Hgb Hct MCV MCH MCHC RDW Plt Count MPV Neut % (Auto) Lymph % (Auto) Hooker % (Auto) Eos % (Auto) Baso % (Auto) Neut # (Auto) Lymph # (Auto) Hooker # (Auto) Eos # (Auto) Baso # (Auto) Neutrophils % (Manual) Band Neutrophils % Lymphocytes % (Manual) Reactive Lymphs % Monocytes % (Manual) Differential Comment Platelet Estimate RBC Morphology ESR pO2 VBG pH VBG pCO2 VBG HCO3 VBG Total CO2 VBG O2 Sat (Calc) VBG Base Excess VBG Potassium Sodium Chloride Glucose Lactate Crit Value Called To Crit Value Called By Crit Value Read Back Blood Gas Notified Time Potassium Carbon Dioxide Anion Gap BUN Creatinine Est GFR ( Amer) Est GFR (Non-Af Amer) POC Glucose (mg/dL) 362 H Random Glucose Hemoglobin A1c Lactic Acid Calcium Phosphorus Magnesium Total Bilirubin AST ALT Alkaline Phosphatase Ammonia C-React Prot High Sens Total Protein Albumin Globulin Albumin/Globulin Ratio Vitamin B12 Procalcitonin Free T4 TSH 3rd Generation Prolactin Venous Blood Potassium RPR Assessment & Plan (1) Thrombocytopenia Assessment and Plan: likely sepsis related will repeat coags and fibrinogen to rule out evolving DIC will review peripheral smear Status: Acute (2) Leukocytosis Assessment and Plan: on antibiotics Status: Acute (3) Anemia Assessment and Plan: will check retic count, b12, folate, ferritin to further characterize likely anemia of chronic disease from sepsis Thank you for this interesting consult. Status: Acute
[2017-08-27] MEDS: (Novolin N) Insulin Human Isophane (NPH) 100 u/ml 10 ml vial SC SCH (22:37)
[2017-08-28] MEDS ORDERED: Potassium Chloride 20 mEq ER Tab PO SCH ×2
--- NOTE | 2017-08-28 02:29 | CON ---
DATE: ENDOCRINOLOGY CONSULT LOCATION: ER Holding, room 6. HISTORY OF PRESENT ILLNESS: This is a 56-year-old female with known history of type 2 diabetes, presenting here with intractable vomiting, and supervening fever and generalized body weakness with slightly altered mental status and is now being referred for diabetic evaluation and management. PAST MEDICAL HISTORY: As mentioned above, history of type 2 diabetes, on metformin taken as 500 mg b.i.d., history of hypertension and dyslipidemia. FAMILY HISTORY: Positive for diabetes and hypertension. SOCIAL HISTORY: The patient has a supportive family with three children. No known substance use. REVIEW OF SYSTEMS: As mentioned above. Admits to generalized body weakness with severe bouts of dizziness and lightheadedness and frequent new syncopal episodes as noted. No chest pains, palpitations, but admits to episodic shortness of breath especially on exertion. Her oral intake has been variable with nausea, dyspepsia and intractable vomiting episodes, but are subsided now in the hospital as noted. Also admits to occasional bouts of nocturia and polyuria especially worse on the day of admission. PHYSICAL EXAMINATION: GENERAL: This is an obese female, in no apparent distress. VITAL SIGNS: Blood pressure of 140/90, pulse of 100 beats per minute and regular, temperature 98, respirations 20. Height is 5 feet 6 inches, weight is 250 pounds. HEENT: Head is normocephalic. Eyes anicteric with pink conjunctivae. Funduscopy not possible at this time. Ears, nose, and throat otherwise normal. NECK: Supple. Thyroid gland is normal in size. No carotid bruits or any cervical adenopathy. CARDIOPULMONARY: Adynamic precordium. S1 and S2 is rapid and regular. LUNGS: Clear to auscultation. ABDOMEN: Flat, soft with positive bowel sounds. EXTREMITIES: No peripheral edema. Pulses are +2 bilaterally. LABORATORY DATA: Chemistries showed a BUN of 10, sodium 129, potassium 2.5, chloride 94, CO2 of 24, glucose 297, and creatinine 0.5. Her A1c level is 12.0%. TSH is 0.27 and free T4 of 0.77. ASSESSMENT: This is a 56-year-old female with history of type 2 insulin-requiring diabetes, presenting here with intractable nausea, dyspepsia and vomiting, with supervening hyperglycemic accelerations, and clearly insulin requiring at this time. There is also underlying obesity which will contribute to the increased insulin resistance thereof. PLAN OF MANAGEMENT: As discussed with the patient and staff, we will modify her current insulin regimen and switch over to much lower insulin dose coverage scale using a low-dose algorithm which has also been modified otherwise to hypoglycemia and detailed orders have been given. We will add basal insulin with Novolin NPH given as 20 units subcu at bedtime daily as ordered to start tonight. Because of the lack of medical insurance, we will give her the more affordable and conventional insulin medications as ordered. The insulin analogue, slight Lantus and Levemir are extremely expensive costing 400 dollars or more per month, so this will clearly not be feasible for the patient at this time. We will also add glipizide given as 10 mg b.i.d. before meals and metformin 850 mg b.i.d. after meals to start tonight. We will reinforce diabetic education and dietary instructions at the time of this admission. We will obtain serum chemistries especially continue to potassium supplementation as ordered at this time and we will adjust her fluids accordingly as indicated. We will initiate diabetic education and dietary instructions and also to include healthier food choices and weight loss efforts at this time. We will also add insulin self-administration techniques for the patient by the nursing staff. We will follow with you. Marta Fox MD
[2017-08-28] MEDS: Meropenem 1 GM in Sodium Chloride 0.9% 100 ML IVPB SCH ×3 (05:42→22:05)
[2017-08-28] MEDS: (Novolog) Insulin Aspart, Recombinant 100 u/ml 10 ml vial SC SCH ×4 (08:02→22:05)
[2017-08-28 08:58] LABS: INR 1.2; PROTHROMBIN TIME 13.4 SECONDS (9.7-12.2)
[2017-08-28] MEDS: Pantoprazole 40 mg EC Tab PO SCH (09:42)
[2017-08-28] MEDS: Potassium & Sodium Phosphate PO SCH (09:43)
--- NOTE | 2017-08-28 11:02 | CP.PCM.PN ---
Subjective - Date & Time of Evaluation Date of Evaluation: 08/28/17 Time of Evaluation: 11:01 - Subjective Subjective: Nephrology Consultation: Assessment: critical UTI with pyelonephritis and sepsis with GNR Hypokalemia likely due to GI fluid loss, urinary K loss due to glycosuria Hyponatremia, hypophosphatemia uncontrolled DM with hyperglycemia Polyuria likely due to combination of glycosuria and hypokalemia (can lead to nephrogenic DI) Morbid obesity left adrenal thickening Plan labs from today pending Will need hormonal work up of left adrenal thickening with edmundo/renin and dexamethasone suppression test later as outpt once pt stable. hence will d/c aldactone as well (to avoid interference with edmundo measurements) Started NS @ 150 ml/hr. supplement K, phos and follow electrolytes closely Monitor Input/Output, daily weights and lytes antibiotics as per ID avoid correction in serum Na >6-8 meq/24 hr. initial corrected Na 125 hence current Na rise in acceptable range Dose meds/antibiotics for normal GFR. Avoid nephrotoxins/NSAIDs Glycemic control Further work up/management as per primary team Thanks for allowing me to participate in care of your patient. Will follow patient with you. Please call if any Qs. Dr Eleno Middleton Office: [phone] Chief Complaint; feel sick HPI: Pt is a 56 F with hx of diabetes Mellitus (15 years), hypertension (years) , obesity presented with complaints of feeling sick with nausea/vomitting for last few days. also found to have UTI with sepsis and severe electrolytes abnormalities hence renal consulted,. she says DM usually controlled except over las few days when she couldn't take her meds. reports increased thirst and increased fluid intake, increased urine output. denies any recent Wt gains Denies OTC/herbal meds or NSAIDs ROS: Cardiovascular: No chest pain. Pulmonary: No shortness of breath Gastrointestinal: denies abdominal pain No nausea. No vomiting now. loose stool today Genitourinary: No pain while urinating. Denies blood in urine. has malhotra now All other negative except as in HPI Physical Examination: General Appearance: Comfortable, in no acute respiratory distress, co-operative . Vitals reviewed and noted as below Head; Atraumatic, normocephalic ENT: no ulcers has mild thrush. Tongue is midline. Oropharynx: no rash or ulcers. EYES: Pupils are equal, round and reactive to light accommodation. Eye muscles and extraocular movement intact. Sclera is anicteric. Neck; supple no lymphadenopathy, no thyromegaly or bruit Lungs: Normal respiratory rate/effort. Breath sounds bilateral equal and clear Heart: Normal rate. s1s2 normal. No rub or gallop. Extremities: no edema. No varicose veins Neurological: Patient is alert, awake and oriented to person, place and time. No focal deficit. Strength bilateral appropriate and equal Skin: Warm and dry. Normal turgor. No rash. Palpitation: Normal elasticity for age Abdomen: Abdomen is soft. Bowel sounds +. There is no abdominal tenderness, no guarding/rigidity no organomegaly Psych: normal insight and normal affect/mood MSK: no joint tenderness or swelling. Digits and nails normal, no deformity : kidney or bladder not palpable Labs/imaging reviewed. Past medical history, past surgical history, family history, social history, allergy reviewed and noted as below Family hx: no hx of CKD. Rest non-contributory imaging: left adrenal thickening A1c 12 Objective - Vital Signs/Intake and Output Vital Signs (last 24 hours): Temp Pulse Resp BP Pulse Ox 97.5 F L 86 20 159/75 H 100 08/28/17 08:00 08/28/17 08:00 08/28/17 08:00 08/28/17 08:00 08/28/17 08:00 Intake and Output: 08/28/17 08/28/17 06:59 18:59 Intake Total 1800 Output Total 3800 Balance -2000 - Medications Medications: Current Medications Glipizide (Glucotrol) 10 mg PO ACBD [facility] Last Admin: 08/28/17 08:20 Dose: 10 mg Meropenem 1 gm/ Sodium (Chloride) 100 mls @ 100 mls/hr IVPB Q8 [facility] Last Admin: 08/28/17 05:42 Dose: 100 mls/hr Sodium Chloride (Sodium Chloride 0.9%) 1,000 mls @ 150 mls/hr IV .Q6H40M [facility] Last Admin: 08/27/17 22:37 Dose: 150 mls/hr Insulin Aspart (Novolog) 0 unit SC ACHS [facility] PRN Reason: Protocol Last Admin: 08/28/17 08:02 Dose: 3 unit Insulin Human NPH (Novolin N) 20 unit SC HS [facility] Last Admin: 08/27/17 22:37 Dose: 20 unit Metformin HCl (Glucophage) 850 mg PO BID [facility] Last Admin: 08/28/17 09:42 Dose: 850 mg Pantoprazole Sodium (Protonix Ec Tab) 40 mg PO DAILY [facility] Last Admin: 08/28/17 09:42 Dose: 40 mg Pneumococcal Polyvalent Vaccine (Pneumovax 23 Vaccine) 0.5 ml IM .ONCE ONE Stop: 08/29/17 10:01 Potassium Phos/Sodium Phos (Neutra-Phos) 2 pkt PO BID [facility] Stop: 09/01/17 13:01 Last Admin: 08/28/17 09:43 Dose: 2 pkt - Labs Labs: 08/27/17 07:24 08/27/17 15:33 PT 13.4 SECONDS (9.7-12.2) H 08/28/17 08:22 INR 1.2 08/28/17 08:22 APTT 25 SECONDS (21-34) 08/28/17 08:22
--- NOTE | 2017-08-28 11:25 | CP.PCM.PN ---
Subjective - Date & Time of Evaluation Date of Evaluation: 08/28/17 Time of Evaluation: 11:20 - Subjective Subjective: Progress note. Attending: DR BURK Pt seen and examined at bedside. No acute distress. Nephro workup pending, labs pending. No fevers, chills, vomiting. Some diarrhea. Objective - Vital Signs/Intake and Output Vital Signs (last 24 hours): Temp Pulse Resp BP Pulse Ox 97.5 F L 86 20 159/75 H 100 08/28/17 08:00 08/28/17 08:00 08/28/17 08:00 08/28/17 08:00 08/28/17 08:00 Intake and Output: 08/28/17 08/28/17 06:59 18:59 Intake Total 1800 Output Total 3800 Balance -2000 - Medications Medications: Current Medications Glipizide (Glucotrol) 10 mg PO ACBD [facility] Last Admin: 08/28/17 08:20 Dose: 10 mg Meropenem 1 gm/ Sodium (Chloride) 100 mls @ 100 mls/hr IVPB Q8 [facility] Last Admin: 08/28/17 05:42 Dose: 100 mls/hr Sodium Chloride (Sodium Chloride 0.9%) 1,000 mls @ 150 mls/hr IV .Q6H40M [facility] Last Admin: 08/27/17 22:37 Dose: 150 mls/hr Insulin Aspart (Novolog) 0 unit SC ACHS [facility] PRN Reason: Protocol Last Admin: 08/28/17 08:02 Dose: 3 unit Insulin Human NPH (Novolin N) 20 unit SC HS [facility] Last Admin: 08/27/17 22:37 Dose: 20 unit Metformin HCl (Glucophage) 850 mg PO BID [facility] Last Admin: 08/28/17 09:42 Dose: 850 mg Pantoprazole Sodium (Protonix Ec Tab) 40 mg PO DAILY [facility] Last Admin: 08/28/17 09:42 Dose: 40 mg Pneumococcal Polyvalent Vaccine (Pneumovax 23 Vaccine) 0.5 ml IM .ONCE ONE Stop: 08/29/17 10:01 Potassium Phos/Sodium Phos (Neutra-Phos) 2 pkt PO BID [facility] Stop: 09/01/17 13:01 Last Admin: 08/28/17 09:43 Dose: 2 pkt - Labs Labs: 08/27/17 07:24 08/27/17 15:33 PT 13.4 SECONDS (9.7-12.2) H 08/28/17 08:22 INR 1.2 08/28/17 08:22 APTT 25 SECONDS (21-34) 08/28/17 08:22 - Constitutional Appears: Chronically Ill - Head Exam Head Exam: ATRAUMATIC, NORMAL INSPECTION, NORMOCEPHALIC - Eye Exam Eye Exam: EOMI - ENT Exam ENT Exam: Mucous Membranes Moist - Neck Exam Neck Exam: Full ROM, Normal Inspection - Respiratory Exam Respiratory Exam: NORMAL BREATHING PATTERN. absent: Respiratory Distress - Cardiovascular Exam Cardiovascular Exam: +S1, +S2 - GI/Abdominal Exam GI & Abdominal Exam: Soft, Normal Bowel Sounds. absent: Tenderness - Extremities Exam Extremities Exam: Full ROM, Normal Inspection - Neurological Exam Neurological Exam: Alert, Awake, Oriented x3 - Psychiatric Exam Psychiatric exam: Flat Affect - Skin Skin Exam: Dry, Intact, Normal Color, Warm Assessment and Plan - Assessment and Plan (Free Text) Assessment: This is a 56 yo female with 1. Sepsis -ID consult. recs appreciated. -start IV meropenem -2 blood cultures positive for gram negative anna. -ESR -procal -likely urosepsis 2. Diarrhea -stool c diff -stool culture -stool electrolytes -stool leukocytes 3 Hypokalemia -replete K -cardio consult. recs appreciated -nephro consult. recs appreciated -will start spironolactone>>> discontinued today -24 hour urinary K -renin level -erin level 4. tachycardia -sinus tach on ekg -cardio consult as above -likely secondary to dehydration 5. Altered mental status -neurology consult. recs appreciated. -head ct negative -EEG pending 6. R/O Osteo -foci of air in clavicle -may need MRI -ESR 7. Adrenal thickening -will need dexamethasone suppression test once stable. -endo consult. recs appreciated. DR CALLE 8. Hx of DM -poorly controlled -we will start metformin -continue glipizide -continue novolin NPH -endocrinology consult. Dr. Fox. recs appreciated. 9. Anemia -likely anemia of chronic disease -B12, ferritin, retic count pending -heme/onc consult. DR. Ballard. Recs appreciated. 9. GI/DVT ppx -protonix -scds discussed with Dr. Burk.
[2017-08-28 11:27] LABS: BASO # 0.1 K/uL (0.0-0.2); BASO % 0.4 % (0.0-2.0); EOS % 0.2 % (0.0-4.0); HEMOGLOBIN 12.2 g/dL (11.0-16.0); LYMPH # 0.8 K/uL (1.0-4.3); LYMPH % 4.5 % (20.0-40.0); MEAN CELL VOLUME 82.5 fL (81.0-99.0); MEAN CORPUSCULAR HEMOGLOBIN 29.2 pg (27.0-31.0); MEAN CORPUSCULAR HGB CONC 35.4 g/dL (33.0-37.0); MEAN PLATELET VOLUME 10.6 fL (7.2-11.7); MONO # 1.1 K/uL (0.0-0.8); MONO % 5.8 % (0.0-10.0); NEUT # 16.6 K/uL (1.8-7.0); NEUT % 89.1 % (50.0-75.0); PLATELET COUNT 44 K/uL (130-400); RBC 4.17 Mil/uL (3.80-5.20); RED CELL DISTRIBUTION WIDTH 13.2 % (11.5-14.5); WHITE BLOOD COUNT 18.6 K/uL (4.8-10.8)
--- NOTE | 2017-08-28 11:57 | CP.PCM.PN ---
Subjective - Date & Time of Evaluation Date of Evaluation: 08/28/17 Time of Evaluation: 07:00 - Subjective Subjective: DR CALLAWAY ON BOARD GRAM NEG SEPSIS POSSIBLE UTI SOURCE IV RX IN PROGRESS CONSIDER ORTHO EVAL- R/O EMBOLIC OSTEOMYELITIS TO RIGHT CLAVICLE Objective - Vital Signs/Intake and Output Vital Signs (last 24 hours): Temp Pulse Resp BP Pulse Ox 97.5 F L 86 20 159/75 H 100 08/28/17 08:00 08/28/17 08:00 08/28/17 08:00 08/28/17 08:00 08/28/17 08:00 Intake and Output: 08/28/17 08/28/17 06:59 18:59 Intake Total 1800 Output Total 3800 Balance -2000 - Medications Medications: Current Medications Glipizide (Glucotrol) 10 mg PO ACBD [facility] Last Admin: 08/28/17 08:20 Dose: 10 mg Meropenem 1 gm/ Sodium (Chloride) 100 mls @ 100 mls/hr IVPB Q8 [facility] Last Admin: 08/28/17 05:42 Dose: 100 mls/hr Sodium Chloride (Sodium Chloride 0.9%) 1,000 mls @ 150 mls/hr IV .[id number] [facility] Last Admin: 08/27/17 22:37 Dose: 150 mls/hr Insulin Aspart (Novolog) 0 unit SC ACHS [facility] PRN Reason: Protocol Last Admin: 08/28/17 11:36 Dose: 4 unit Insulin Human NPH (Novolin N) 20 unit SC HS [facility] Last Admin: 08/27/17 22:37 Dose: 20 unit Metformin HCl (Glucophage) 850 mg PO BID [facility] Last Admin: 08/28/17 09:42 Dose: 850 mg Pantoprazole Sodium (Protonix Ec Tab) 40 mg PO DAILY [facility] Last Admin: 08/28/17 09:42 Dose: 40 mg Pneumococcal Polyvalent Vaccine (Pneumovax 23 Vaccine) 0.5 ml IM .ONCE ONE Stop: 08/29/17 10:01 Potassium Phos/Sodium Phos (Neutra-Phos) 2 pkt PO BID [facility] Stop: 09/01/17 13:01 Last Admin: 08/28/17 09:43 Dose: 2 pkt - Labs Labs: 08/28/17 11:22 08/27/17 15:33 PT 13.4 SECONDS (9.7-12.2) H 08/28/17 08:22 INR 1.2 08/28/17 08:22 APTT 25 SECONDS (21-34) 08/28/17 08:22 - Constitutional Appears: Non-toxic, Chronically Ill - Head Exam Head Exam: NORMOCEPHALIC - Eye Exam Eye Exam: PERRL. absent: Scleral icterus - ENT Exam ENT Exam: Mucous Membranes Dry - Neck Exam Neck Exam: absent: Lymphadenopathy - Respiratory Exam Respiratory Exam: Decreased Breath Sounds, Clear to Ausculation Bilateral - Cardiovascular Exam Cardiovascular Exam: REGULAR RHYTHM, +S1, +S2 - GI/Abdominal Exam GI & Abdominal Exam: Distended, Soft. absent: Tenderness - Rectal Exam Rectal Exam: Deferred - Exam Exam: NORMAL INSPECTION - Extremities Exam Extremities Exam: absent: Pedal Edema - Back Exam Back Exam: absent: CVA tenderness (L), CVA tenderness (R) - Neurological Exam Neurological Exam: Alert, Awake, Oriented x3 - Psychiatric Exam Psychiatric exam: Depressed - Skin Skin Exam: Dry, Intact Assessment and Plan (1) Acute osteomyelitis of clavicle Status: Acute (2) Severe sepsis Status: Acute - Assessment and Plan (Free Text) Assessment: consider LEEANNA cont iv rx for 6 weeks
[2017-08-28 12:05] LABS: BANDS 13 % (0-2); LYMPHOCYTE 5 % (20-40); MONOCYTE 3 % (0-10); NEUTROPHIL 79 % (50-75); TOTAL CELLS COUNTED 100
[2017-08-28 12:06] LABS: PLATELET ESTIMATE DECREASED (NORMAL)
[2017-08-28 12:10] LABS: ALB/GLOB RATIO 0.8 (1.0-2.1); ALBUMIN 2.2 g/dL (3.5-5.0); ALT/SGPT 22 U/L (9-52); AST/SGOT 15 U/L (14-36); BLOOD UREA NITROGEN 4 mg/dL (7-17); GFR AFRICAN-AMERICAN > 60; GFR NON-AFRICAN AMERICAN > 60; MAGNESIUM 1.8 mg/dL (1.6-2.3)
[2017-08-28] MEDS: Sodium Chloride 0.9% 1,000 ML IV SCH (12:49)
[2017-08-28] MEDS ORDERED: Potassium Phosphate 15 MMOLE in Sodium Chloride 0.9% 250 ML IVPB ONE (13:00)
--- NOTE | 2017-08-28 13:08 | CP.PCM.PN ---
Subjective - Date & Time of Evaluation Date of Evaluation: 08/28/17 Time of Evaluation: 13:00 - Subjective Subjective: Improved sodium to 133, potassium to 3.1, still mildly elevated liver enzymes with low calcium. On treatment for sepsis in addition to hydration more alert Objective - Vital Signs/Intake and Output Vital Signs (last 24 hours): Temp Pulse Resp BP Pulse Ox 97.5 F L 86 20 159/75 H 100 08/28/17 08:00 08/28/17 08:00 08/28/17 08:00 08/28/17 08:00 08/28/17 08:00 Intake and Output: 08/28/17 08/28/17 06:59 18:59 Intake Total 1800 Output Total 3800 Balance -1999 - Medications Medications: Current Medications Glipizide (Glucotrol) 10 mg PO ACBD [facility] Last Admin: 08/28/17 08:20 Dose: 10 mg Meropenem 1 gm/ Sodium (Chloride) 100 mls @ 100 mls/hr IVPB Q8 [facility] Last Admin: 08/28/17 05:42 Dose: 100 mls/hr Sodium Chloride (Sodium Chloride 0.9%) 1,000 mls @ 75 mls/hr IV .[id number] [facility] Last Admin: 08/28/17 12:49 Dose: 75 mls/hr Potassium Chloride (Potassium Chloride 20 Meq/100 Ml) 20 meq in 100 mls @ 50 mls/hr IVPB ONCE ONE Stop: 08/28/17 14:24 Last Admin: 08/28/17 12:40 Dose: 50 mls/hr Potassium Phosphate 15 mmole/ (Sodium Chloride) 255 mls @ 42.5 mls/hr IVPB ONCE ONE Stop: 08/28/17 18:59 Insulin Aspart (Novolog) 0 unit SC ACHS [facility] PRN Reason: Protocol Last Admin: 08/28/17 11:36 Dose: 4 unit Insulin Human NPH (Novolin N) 20 unit SC HS [facility] Last Admin: 08/27/17 22:37 Dose: 20 unit Metformin HCl (Glucophage) 850 mg PO BID [facility] Last Admin: 08/28/17 09:42 Dose: 850 mg Pantoprazole Sodium (Protonix Ec Tab) 40 mg PO DAILY [facility] Last Admin: 08/28/17 09:42 Dose: 40 mg Pneumococcal Polyvalent Vaccine (Pneumovax 23 Vaccine) 0.5 ml IM .ONCE ONE Stop: 08/29/17 10:01 - Labs Labs: 08/28/17 11:22 08/28/17 11:22 PT 13.4 SECONDS (9.7-12.2) H 08/28/17 08:22 INR 1.2 08/28/17 08:22 APTT 25 SECONDS (21-34) 08/28/17 08:22 - Constitutional Appears: Non-toxic - Head Exam Head Exam: ATRAUMATIC - Eye Exam Eye Exam: EOMI - ENT Exam ENT Exam: Mucous Membranes Moist - Neck Exam Neck Exam: absent: Lymphadenopathy, Thyromegaly - Respiratory Exam Respiratory Exam: Clear to Ausculation Bilateral. absent: Rales - Cardiovascular Exam Cardiovascular Exam: REGULAR RHYTHM, Murmur - GI/Abdominal Exam GI & Abdominal Exam: Soft, Normal Bowel Sounds - Rectal Exam Rectal Exam: Deferred - Extremities Exam Extremities Exam: Normal Capillary Refill. absent: Calf Tenderness - Neurological Exam Neurological Exam: Alert, Oriented x3 - Psychiatric Exam Psychiatric exam: Normal Mood - Skin Skin Exam: Dry Assessment and Plan (1) Severe sepsis Status: Acute (2) Tachycardia Status: Acute (3) Dehydration Status: Acute
[2017-08-28 13:24] LABS: FOLATE 6.9 ng/mL
--- NOTE | 2017-08-28 14:00 | CARD ---
APPROVED REPORT EKG Measurement Heart [id number] <Conclusion> Sinus tachycardia Rightward axis Low voltage QRS Cannot rule out Anterior infarct, age undetermined Abnormal ECG
[2017-08-28] MEDS ORDERED: (Novolin 70/30) NPH/Regular 70/30 Units/ml 10 ml vial SC SCH (16:30)
--- NOTE | 2017-08-28 17:57 | CP.PCM.PN ---
Subjective - Date & Time of Evaluation Date of Evaluation: 08/28/17 Time of Evaluation: 16:00 - Subjective Subjective: clinically same Objective - Vital Signs/Intake and Output Vital Signs (last 24 hours): Temp Pulse Resp BP Pulse Ox 97.8 F 121 H 20 113/60 98 08/28/17 15:15 08/28/17 16:10 08/28/17 15:15 08/28/17 15:15 08/28/17 15:15 Intake and Output: 08/28/17 08/28/17 06:59 18:59 Intake Total 1800 1050 Output Total 6800 Balance -5000 1050 - Medications Medications: Current Medications Meropenem 1 gm/ Sodium (Chloride) 100 mls @ 100 mls/hr IVPB Q8 [facility] Last Admin: 08/28/17 13:29 Dose: 100 mls/hr Sodium Chloride (Sodium Chloride 0.9%) 1,000 mls @ 75 mls/hr IV .[id number] [facility] Last Admin: 08/28/17 12:49 Dose: 75 mls/hr Potassium Phosphate 15 mmole/ (Sodium Chloride) 255 mls @ 42.5 mls/hr IVPB ONCE ONE Stop: 08/28/17 18:59 Last Admin: 08/28/17 13:32 Dose: 42.5 mls/hr Insulin Aspart (Novolog) 0 unit SC ACHS [facility] PRN Reason: Protocol Last Admin: 08/28/17 11:36 Dose: 4 unit Insulin Human Isoph/Insulin Regular (Novolin 70/30 (70/30 Units/Ml) 10 Ml) 16 units SC ACB [facility] Insulin Human Isoph/Insulin Regular (Novolin 70/30 (70/30 Units/Ml) 10 Ml) 10 units SC ACD [facility] Insulin Human NPH (Novolin N) 20 unit SC HS [facility] Last Admin: 08/27/17 22:37 Dose: 20 unit Metformin HCl (Glucophage) 850 mg PO BID [facility] Last Admin: 08/28/17 09:42 Dose: 850 mg Pantoprazole Sodium (Protonix Ec Tab) 40 mg PO DAILY [facility] Last Admin: 08/28/17 09:42 Dose: 40 mg Pneumococcal Polyvalent Vaccine (Pneumovax 23 Vaccine) 0.5 ml IM .ONCE ONE Stop: 08/29/17 10:01 - Labs Labs: 08/28/17 11:22 08/28/17 11:22 PT 13.4 SECONDS (9.7-12.2) H 08/28/17 08:22 INR 1.2 08/28/17 08:22 APTT 25 SECONDS (21-34) 08/28/17 08:22 - Constitutional Appears: Well - Head Exam Head Exam: ATRAUMATIC, NORMAL INSPECTION, NORMOCEPHALIC - Eye Exam Eye Exam: EOMI, Normal appearance, PERRL Pupil Exam: NORMAL ACCOMODATION, PERRL - ENT Exam ENT Exam: Mucous Membranes Moist, Normal Exam - Neck Exam Neck Exam: Full ROM, Normal Inspection. absent: Lymphadenopathy - Respiratory Exam Respiratory Exam: Decreased Breath Sounds - Cardiovascular Exam Cardiovascular Exam: REGULAR RHYTHM, +S1, +S2 - GI/Abdominal Exam GI & Abdominal Exam: Soft, Diminished Bowel Sounds - Rectal Exam Rectal Exam: Deferred Assessment and Plan (1) Dehydration Status: Acute (2) Severe sepsis Status: Acute (3) Tachycardia Status: Acute (4) Vomiting Status: Acute
--- NOTE | 2017-08-28 19:35 | CP.PCM.PN ---
Subjective - Date & Time of Evaluation Date of Evaluation: 08/28/17 Time of Evaluation: 18:45 - Subjective Subjective: Mental status improved Objective - Vital Signs/Intake and Output Vital Signs (last 24 hours): Temp Pulse Resp BP Pulse Ox 97.8 F 121 H 20 113/60 98 08/28/17 15:15 08/28/17 16:10 08/28/17 15:15 08/28/17 15:15 08/28/17 15:15 Intake and Output: 08/28/17 08/29/17 18:59 06:59 Intake Total 1050 Balance 1050 - Medications Medications: Current Medications Meropenem 1 gm/ Sodium (Chloride) 100 mls @ 100 mls/hr IVPB Q8 [facility] Last Admin: 08/28/17 13:29 Dose: 100 mls/hr Sodium Chloride (Sodium Chloride 0.9%) 1,000 mls @ 75 mls/hr IV .[id number] [facility] Last Admin: 08/28/17 12:49 Dose: 75 mls/hr Insulin Aspart (Novolog) 0 unit SC ACHS [facility] PRN Reason: Protocol Last Admin: 08/28/17 18:11 Dose: Not Given Insulin Human Isoph/Insulin Regular (Novolin 70/30 (70/30 Units/Ml) 10 Ml) 16 units SC ACB [facility] Insulin Human Isoph/Insulin Regular (Novolin 70/30 (70/30 Units/Ml) 10 Ml) 10 units SC ACD [facility] Last Admin: 08/28/17 18:10 Dose: 10 units Insulin Human NPH (Novolin N) 20 unit SC HS [facility] Last Admin: 08/27/17 22:37 Dose: 20 unit Metformin HCl (Glucophage) 850 mg PO BID [facility] Last Admin: 08/28/17 18:10 Dose: 850 mg Pantoprazole Sodium (Protonix Ec Tab) 40 mg PO DAILY [facility] Last Admin: 08/28/17 09:42 Dose: 40 mg Pneumococcal Polyvalent Vaccine (Pneumovax 23 Vaccine) 0.5 ml IM .ONCE ONE Stop: 08/29/17 10:01 - Labs Labs: 08/28/17 11:22 08/28/17 11:22 PT 13.4 SECONDS (9.7-12.2) H 08/28/17 08:22 INR 1.2 08/28/17 08:22 APTT 25 SECONDS (21-34) 08/28/17 08:22 - Head Exam Head Exam: ATRAUMATIC - Eye Exam Eye Exam: Normal appearance - ENT Exam ENT Exam: Mucous Membranes Dry - Respiratory Exam Respiratory Exam: NORMAL BREATHING PATTERN - Cardiovascular Exam Cardiovascular Exam: +S1, +S2 - GI/Abdominal Exam GI & Abdominal Exam: Normal Bowel Sounds Assessment and Plan (1) Thrombocytopenia Assessment & Plan: improving sepsis related Status: Acute (2) Leukocytosis Assessment & Plan: improving with antibiotics Status: Acute (3) Anemia Assessment & Plan: anemia of chronic disease Status: Acute
[2017-08-28] MEDS: (Novolin N) Insulin Human Isophane (NPH) 100 u/ml 10 ml vial SC SCH (22:04)
--- NOTE | 2017-08-28 23:09 | CARD ---
APPROVED REPORT EXAM: Two-dimensional and M-mode echocardiogram with Doppler and color Doppler. Other Information Quality : GoodRhythm : Tachycardia RISK FACTORS Diabetes 2D DIMENSIONS IVSd0.9 (0.7-1.1cm)LVDd4.0 (3.9-5.9cm) PWd1.1 (0.7-1.1cm)LVDs2.5 (2.5-4.0cm) FS (%) 38.2 %LVEF (%)69.0 (>50%) M-Mode DIMENSIONS Left Atrium (MM)3.94 (2.5-4.0cm)Aortic Root3.23 (2.2-3.7cm) Aortic Cusp Exc.2.08 (1.5-2.0cm) Mitral Valve MV E Jcuqqked11.1cm/sMV A Xynwivte50.2cm/sE/A ratio0.8 TDI E/Lateral E'0.0E/Medial E'0.0 Tricuspid Valve TR Peak Adktfqmy293xz/sTR Peak [id number] <Conclusion> Left ventricle: thickness: normal; size: normal; overall ejection fraction: 60%: diastolic filling pressures: normal Mitral valve: annulus: normal: leaflets: normal: excursion: normal; no significant trans-mitral gradient: no significant incompetence: left atrium: normal Aortic valve: leaflets: normal: excursion: normal; no significant trans-aortic gradient: No significant incompetence: aortic root: normal Right sided Structures: Pulmonary valve: normal; no significant incompetence; Tricuspid valve: normal; no significant incompetence: Intra-cardiac hemodynamics: pulmonary systolic pressures: normal; central venous pressures: normal No pericardial effusion
[2017-08-29] MEDS: Sodium Chloride 0.9% 1,000 ML IV SCH (02:00)
[2017-08-29] MEDS: Meropenem 1 GM in Sodium Chloride 0.9% 100 ML IVPB SCH ×3 (06:51→22:05)
--- NOTE | 2017-08-29 07:04 | PN ---
DATE: LOCATION: Room 657. SUBJECTIVE: This is a 56-year-old female with recently controlled type 2 insulin-requiring diabetes, now being followed closely for metabolic management. Her glycemic lab works are fluctuating, has improved on the latest glucose levels overnight, showed glucose values trending from 271 to 324, 346 mg/dL. Her latest chemistries shows a BUN of 4, sodium 136, potassium 3.5, chloride 97, of 25, glucose 196, creatinine of . There is clearly evidence of hyperglycemic accelerations with meal time requiring also insulin coverage for this meal time accelerations ____. We will be adding a premixed insulin ____ 16 units before breakfast. . Marta Fox MD
[2017-08-29] MEDS: (Novolog) Insulin Aspart, Recombinant 100 u/ml 10 ml vial SC SCH ×3 (07:29→22:05)
[2017-08-29] MEDS ORDERED: (Novolin 70/30) NPH/Regular 70/30 Units/ml 10 ml vial SC SCH (07:30)
[2017-08-29] MEDS: Pantoprazole 40 mg EC Tab PO SCH (09:13)
--- NOTE | 2017-08-29 09:45 | PN ---
DATE: 08/29/2017. TIME OF EVALUATION: 6:20 a.m. NEUROLOGICAL PROBLEM: Toxic encephalopathy which has been completely resolved at present. PHYSICAL EXAMINATION: VITAL SIGNS: Blood pressure 104/60, mean artery pressure of 74, respiratory rate 16, temperature afebrile. NEUROLOGIC: The patient is more awake, alert, oriented to person, place and time. Communicable in Chinese. She moves all four extremities against gravity as per the command. Cranial nerve examination is normal. 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 Her electroencephalogram is normal for her age. No acute electrographic activities noted. The patient seems to be neurologically intact. Definitely, the patient should need follow-up neurological evaluation as outpatient to workup for her neuropathy. In meantime, I would like her to sign off from neurological followup. If any changes, please do not hesitate to call me. Toni Nguyen MD
--- NOTE | 2017-08-29 09:57 | CP.PCM.PN ---
Subjective - Date & Time of Evaluation Date of Evaluation: 08/29/17 Time of Evaluation: 09:55 - Subjective Subjective: Progress note. Attending: Dr. Burk. Pt seen and examined at bedside. No acute distress. No events overnight. No fevers, chills, vomiting, diarrhea. Objective - Vital Signs/Intake and Output Vital Signs (last 24 hours): Temp Pulse Resp BP Pulse Ox 98.2 F 122 H 20 116/59 L 97 08/29/17 08:45 08/29/17 08:45 08/29/17 08:45 08/29/17 08:45 08/29/17 08:45 Intake and Output: 08/29/17 08/29/17 06:59 18:59 Intake Total 2600 Output Total 5720 Balance -3120 - Medications Medications: Current Medications Meropenem 1 gm/ Sodium (Chloride) 100 mls @ 100 mls/hr IVPB Q8 [facility] Last Admin: 08/29/17 06:51 Dose: 100 mls/hr Sodium Chloride (Sodium Chloride 0.9%) 1,000 mls @ 75 mls/hr IV .[id number] [facility] Last Admin: 08/29/17 02:00 Dose: 75 mls/hr Insulin Aspart (Novolog) 0 unit SC ACHS [facility] PRN Reason: Protocol Last Admin: 08/29/17 07:29 Dose: Not Given Insulin Human Isoph/Insulin Regular (Novolin 70/30 (70/30 Units/Ml) 10 Ml) 16 units SC ACB [facility] Last Admin: 08/29/17 08:03 Dose: 16 units Insulin Human Isoph/Insulin Regular (Novolin 70/30 (70/30 Units/Ml) 10 Ml) 10 units SC ACD [facility] Last Admin: 08/28/17 18:10 Dose: 10 units Insulin Human NPH (Novolin N) 20 unit SC HS [facility] Last Admin: 08/28/17 22:04 Dose: 20 unit Metformin HCl (Glucophage) 850 mg PO BID [facility] Last Admin: 08/29/17 09:13 Dose: 850 mg Pantoprazole Sodium (Protonix Ec Tab) 40 mg PO DAILY [facility] Last Admin: 08/29/17 09:13 Dose: 40 mg Pneumococcal Polyvalent Vaccine (Pneumovax 23 Vaccine) 0.5 ml IM .ONCE ONE Stop: 08/29/17 10:01 Last Admin: 08/29/17 09:22 Dose: 0.5 ml - Labs Labs: 08/28/17 11:22 08/28/17 11:22 PT 13.4 SECONDS (9.7-12.2) H 08/28/17 08:22 INR 1.2 08/28/17 08:22 APTT 25 SECONDS (21-34) 08/28/17 08:22 - Constitutional Appears: No Acute Distress, Chronically Ill - Head Exam Head Exam: ATRAUMATIC, NORMAL INSPECTION, NORMOCEPHALIC - Eye Exam Eye Exam: EOMI - ENT Exam ENT Exam: Mucous Membranes Moist - Neck Exam Neck Exam: Full ROM, Normal Inspection - Respiratory Exam Respiratory Exam: NORMAL BREATHING PATTERN. absent: Respiratory Distress - Cardiovascular Exam Cardiovascular Exam: +S1, +S2 - GI/Abdominal Exam GI & Abdominal Exam: Soft, Normal Bowel Sounds. absent: Tenderness - Extremities Exam Extremities Exam: Full ROM, Normal Inspection - Back Exam Back Exam: NORMAL INSPECTION - Neurological Exam Neurological Exam: Alert, Awake, CN II-XII Intact - Psychiatric Exam Psychiatric exam: Flat Affect - Skin Skin Exam: Dry, Intact, Normal Color, Warm Assessment and Plan - Assessment and Plan (Free Text) Assessment: This is a 56 yo female with 1. Sepsis -ID consult. recs appreciated. -start IV meropenem -2 blood cultures positive for gram negative anna. >>> cultures positive for E. Coli -ESR mildly elevated -procal elevated at 14 -likely urosepsis/ gram negative bacteremia 1.5 Air foci in clavicle/sternum. -will get MRI of chest to rule out osteomyelitis 2. Diarrhea -stool c diff -stool culture -stool electrolytes -stool leukocytes 3 Hypokalemia -replete K -cardio consult. recs appreciated -nephro consult. recs appreciated -will start spironolactone>>> discontinued today -24 hour urinary K -renin level -erin level 4. tachycardia -sinus tach on ekg -cardio consult as above -likely secondary to dehydration 5. Altered mental status -neurology consult. recs appreciated. -head ct negative -EEG normal for patient's age -neurology has signed off -will need follow up outpatient for neuropathy 6. R/O Osteo -foci of air in clavicle -MRI of chest is positive for osteomyelitis of clavicle until proven otherwise -continue merrem -will likely need LEEANNA. -ESR elevated 7. Adrenal thickening -will need dexamethasone suppression test once stable. -endo consult. recs appreciated. DR CAAL. 8. Hx of DM -poorly controlled -we will start metformin -continue glipizide -continue novolin NPH -endocrinology consult. Dr. Caal. recs appreciated. 9. Anemia -likely anemia of chronic disease -B12, ferritin, retic count pending -heme/onc consult. DR. Ballard. Recs appreciated. 9. GI/DVT ppx -protonix -scds discussed with Dr. Burk.
[2017-08-29] MEDS ORDERED: Pneumococcal 23-Valent Vaccine IM ONE (10:00)
[2017-08-29] MEDS ORDERED: Influenza Vaccine 60 mcg/0.5 mL SYR (4YR UP) IM ONE (10:00)
[2017-08-29 11:47] LABS: BASO # 0.1 K/uL (0.0-0.2); BASO % 0.5 % (0.0-2.0); EOS # 0.1 K/uL (0.0-0.7); EOS % 0.6 % (0.0-4.0); HEMOGLOBIN 11.5 g/dL (11.0-16.0); LYMPH # 0.8 K/uL (1.0-4.3); LYMPH % 4.6 % (20.0-40.0); MEAN CELL VOLUME 83.9 fL (81.0-99.0); MEAN CORPUSCULAR HEMOGLOBIN 29.5 pg (27.0-31.0); MEAN CORPUSCULAR HGB CONC 35.2 g/dL (33.0-37.0); MEAN PLATELET VOLUME 10.4 fL (7.2-11.7); MONO # 0.8 K/uL (0.0-0.8); NEUT % 89.3 % (50.0-75.0); PLATELET COUNT 63 K/uL (130-400); RBC 3.91 Mil/uL (3.80-5.20); RED CELL DISTRIBUTION WIDTH 13.1 % (11.5-14.5); WHITE BLOOD COUNT 16.8 K/uL (4.8-10.8)
[2017-08-29 12:02] LABS: ALB/GLOB RATIO 0.8 (1.0-2.1); ALBUMIN 2.1 g/dL (3.5-5.0); ALT/SGPT 16 U/L (9-52); AST/SGOT 21 U/L (14-36); BLOOD UREA NITROGEN 4 mg/dL (7-17); CALCIUM 6.7 mg/dl (8.6-10.4); GFR AFRICAN-AMERICAN > 60; GFR NON-AFRICAN AMERICAN > 60; MAGNESIUM 1.7 mg/dL (1.6-2.3)
[2017-08-29 12:17] LABS: ANISOCYTOSIS SLIGHT; BANDS 7 % (0-2); HYPOCHROMIC SLIGHT; LYMPHOCYTE 8 % (20-40); MONOCYTE 4 % (0-10); NEUTROPHIL 81 % (50-75); PLATELET ESTIMATE DECREASED (NORMAL); POIKILOCYTOSIS SLIGHT; TOTAL CELLS COUNTED 100
--- NOTE | 2017-08-29 12:42 | CP.PCM.PN ---
Subjective - Date & Time of Evaluation Date of Evaluation: 08/29/17 Time of Evaluation: 13:00 - Subjective Subjective: Still with sinus tachycardia, echocardiogram with normal left ventricular contractility no aortic stenosis and no pericardial effusion. With dehydration and likely pulmonary embolus, oxygenating well, on treatment for sepsis Objective - Vital Signs/Intake and Output Vital Signs (last 24 hours): Temp Pulse Resp BP Pulse Ox 98.2 F 122 H 20 116/59 L 97 08/29/17 08:45 08/29/17 08:45 08/29/17 08:45 08/29/17 08:45 08/29/17 08:45 Intake and Output: 08/29/17 08/29/17 06:59 18:59 Intake Total 2600 Output Total 5720 Balance -3120 - Medications Medications: Current Medications Meropenem 1 gm/ Sodium (Chloride) 100 mls @ 100 mls/hr IVPB Q8 [facility] Last Admin: 08/29/17 06:51 Dose: 100 mls/hr Sodium Chloride (Sodium Chloride 0.9%) 1,000 mls @ 75 mls/hr IV .[id number] [facility] Last Admin: 08/29/17 02:00 Dose: 75 mls/hr Insulin Aspart (Novolog) 0 unit SC ACHS [facility] PRN Reason: Protocol Last Admin: 08/29/17 07:29 Dose: Not Given Insulin Human Isoph/Insulin Regular (Novolin 70/30 (70/30 Units/Ml) 10 Ml) 16 units SC ACB [facility] Last Admin: 08/29/17 08:03 Dose: 16 units Insulin Human Isoph/Insulin Regular (Novolin 70/30 (70/30 Units/Ml) 10 Ml) 10 units SC ACD [facility] Last Admin: 08/28/17 18:10 Dose: 10 units Insulin Human NPH (Novolin N) 20 unit SC HS [facility] Last Admin: 08/28/17 22:04 Dose: 20 unit Metformin HCl (Glucophage) 850 mg PO BID [facility] Last Admin: 08/29/17 09:13 Dose: 850 mg Pantoprazole Sodium (Protonix Ec Tab) 40 mg PO DAILY [facility] Last Admin: 08/29/17 09:13 Dose: 40 mg - Labs Labs: 08/29/17 11:31 08/29/17 11:31 PT 13.4 SECONDS (9.7-12.2) H 08/28/17 08:22 INR 1.2 08/28/17 08:22 APTT 25 SECONDS (21-34) 08/28/17 08:22 - Constitutional Appears: Non-toxic - Head Exam Head Exam: ATRAUMATIC - Eye Exam Eye Exam: EOMI - ENT Exam ENT Exam: Mucous Membranes Moist - Neck Exam Neck Exam: absent: Lymphadenopathy, Thyromegaly - Respiratory Exam Respiratory Exam: Clear to Ausculation Bilateral. absent: Rales - Cardiovascular Exam Cardiovascular Exam: REGULAR RHYTHM, Murmur - GI/Abdominal Exam GI & Abdominal Exam: Normal Bowel Sounds. absent: Organomegaly - Rectal Exam Rectal Exam: Deferred - Extremities Exam Extremities Exam: Normal Capillary Refill. absent: Calf Tenderness - Neurological Exam Neurological Exam: Alert, Oriented x3 - Psychiatric Exam Psychiatric exam: Normal Mood - Skin Skin Exam: Dry Assessment and Plan (1) Severe sepsis Status: Acute (2) Tachycardia Status: Acute (3) Dehydration Status: Acute
[2017-08-29] MEDS: Potassium Chloride 20 mEq ER Tab PO SCH ×4 (14:27→20:28)
--- NOTE | 2017-08-29 14:28 | MRI ---
PROCEDURE: MRI of the RIGHT CLAVICLE AND STERNUM WITHOUT CONTRAST HISTORY: air foci in clavicle/ rule out osteomyelitis COMPARISON: CT chest, abdomen and pelvis with contrast 08/27/2017. TECHNIQUE: Multi quite plantar multisequential MR imaging of the right clavicle and sternum was performed without intravenous gadolinium as requested. There is a clinical concern for possible osteomyelitis. FINDINGS: Examination is relatively indeterminate due the presence of gas within the Marrow, highly suspicious feature alone for osteomyelitis. Gas does not retain signal and in fact diminishes the average signal of the medial head of the right clavicle. There are bright foci seen within the head of the right clavicle nevertheless. No suspicious signal changes seen at the sternum. On the basis of MRI alone, the pattern is indeterminate for osteomyelitis. IMPRESSION: Indeterminate MR result at medial right clavicle. The presence of gas in the Marrow limits interpretation. However, presence of gas in the Marrow the medial right clavicle seen in prior CT 08/27/2017 is rather suspicious for osteomyelitis and until proven otherwise this should be considered likely positive for osteomyelitis. Bone Marrow biopsy can be performed to confirm. No definite pattern of osteomyelitis is seen the visualized sternum.
[2017-08-29] MEDS ORDERED: Potassium Phosphate 15 MMOLE in Sodium Chloride 0.9% 250 ML IVPB ONE ×2 (15:00→18:00)
--- NOTE | 2017-08-29 17:24 | CP.PCM.PN ---
Subjective - Date & Time of Evaluation Date of Evaluation: 08/29/17 Time of Evaluation: 17:22 - Subjective Subjective: Nephrology Consultation: Assessment: Stable UTI with pyelonephritis and sepsis with GNR Hypokalemia likely due to GI fluid loss, urinary K loss due to glycosuria Hyponatremia, hypophosphatemia uncontrolled DM with hyperglycemia Polyuria likely due to combination of glycosuria and hypokalemia (can lead to nephrogenic DI) Morbid obesity left adrenal thickening Plan Will need hormonal work up of left adrenal thickening with edmundo/renin and dexamethasone suppression test later as outpt once pt stable. hence will d/c aldactone as well (to avoid interference with edmundo measurements) Started NS @ 75 ml/hr. supplement K, phos As ordered and follow electrolytes closely Monitor Input/Output, daily weights and lytes antibiotics as per ID Dose meds/antibiotics for normal GFR. Avoid nephrotoxins/NSAIDs Glycemic control Further work up/management as per primary team Thanks for allowing me to participate in care of your patient. Will follow patient with you. Please call if any Qs. Was discussed with the family bedside Dr Eleno Middleton Office: [phone] HPI: Pt is a 56 F with hx of diabetes Mellitus (15 years), hypertension (years) , obesity presented with complaints of feeling sick with nausea/vomitting for last few days. also found to have UTI with sepsis and severe electrolytes abnormalities hence renal consulted,. she says DM usually controlled except over las few days when she couldn't take her meds. reports increased thirst and increased fluid intake, increased urine output. denies any recent Wt gains Denies OTC/herbal meds or NSAIDs ROS: Cardiovascular: No chest pain. Pulmonary: No shortness of breath Gastrointestinal: denies abdominal pain No nausea. No vomiting now. Genitourinary: No pain while urinating. Denies blood in urine. All other negative except as in HPI Physical Examination: General Appearance: Comfortable, in no acute respiratory distress, co-operative . Vitals reviewed and noted as below Head; Atraumatic, normocephalic ENT: no ulcers no thrush. Tongue is midline. Oropharynx: no rash or ulcers. EYES: Pupils are equal, round and reactive to light accommodation. Eye muscles and extraocular movement intact. Sclera is anicteric. Neck; supple no lymphadenopathy, no thyromegaly or bruit Lungs: Normal respiratory rate/effort. Breath sounds bilateral equal and clear Heart: Normal rate. s1s2 normal. No rub or gallop. Extremities: no edema. No varicose veins Neurological: Patient is alert, awake and oriented to person, place and time. No focal deficit. Strength bilateral appropriate and equal Skin: Warm and dry. Normal turgor. No rash. Palpitation: Normal elasticity for age Abdomen: Abdomen is soft. Bowel sounds +. There is no abdominal tenderness, no guarding/rigidity no organomegaly Psych: normal insight and normal affect/mood MSK: no joint tenderness or swelling. Digits and nails normal, no deformity : kidney or bladder not palpable Labs/imaging reviewed. Past medical history, past surgical history, family history, social history, allergy reviewed and noted as below Family hx: no hx of CKD. Rest non-contributory imaging: left adrenal thickening A1c 12 Objective - Vital Signs/Intake and Output Vital Signs (last 24 hours): Temp Pulse Resp BP Pulse Ox 98.7 F 139 H 20 135/68 96 08/29/17 15:35 08/29/17 15:35 08/29/17 15:35 08/29/17 15:35 08/29/17 15:35 Intake and Output: 08/29/17 08/29/17 06:59 18:59 Intake Total 2600 1200 Output Total 5720 3900 Balance -3120 -2700 - Medications Medications: Current Medications Meropenem 1 gm/ Sodium (Chloride) 100 mls @ 100 mls/hr IVPB Q8 [facility] Last Admin: 08/29/17 14:13 Dose: 100 mls/hr Sodium Chloride (Sodium Chloride 0.9%) 1,000 mls @ 75 mls/hr IV .[id number] [facility] Last Admin: 08/29/17 02:00 Dose: 75 mls/hr Potassium Phosphate 15 mmole/ (Sodium Chloride) 255 mls @ 42.5 mls/hr IVPB ONCE ONE Stop: 08/29/17 23:59 Insulin Aspart (Novolog) 0 unit SC ACHS [facility] PRN Reason: Protocol Last Admin: 08/29/17 11:30 Dose: Not Given Insulin Human Isoph/Insulin Regular (Novolin 70/30 (70/30 Units/Ml) 10 Ml) 20 units SC ACB [facility] Insulin Human Isoph/Insulin Regular (Novolin 70/30 (70/30 Units/Ml) 10 Ml) 14 units SC ACD [facility] Insulin Human NPH (Novolin N) 20 unit SC HS [facility] Last Admin: 08/28/17 22:04 Dose: 20 unit Metformin HCl (Glucophage) 850 mg PO BID [facility] Last Admin: 08/29/17 09:13 Dose: 850 mg Pantoprazole Sodium (Protonix Ec Tab) 40 mg PO DAILY [facility] Last Admin: 08/29/17 09:13 Dose: 40 mg Potassium Chloride (K-Dur 20 Meq Er Tab) 40 meq PO Q4 [facility] Stop: 08/29/17 20:01 Last Admin: 08/29/17 16:36 Dose: 40 meq - Labs Labs: 08/29/17 11:31 08/29/17 11:31 PT 13.4 SECONDS (9.7-12.2) H 08/28/17 08:22 INR 1.2 08/28/17 08:22 APTT 25 SECONDS (21-34) 08/28/17 08:22
--- NOTE | 2017-08-29 17:36 | PN ---
DATE: LOCATION: Room 657. SUBJECTIVE: This is a 56-year-old female with recent uncontrolled type 2 insulin-requiring diabetes, now being followed closely for metabolic management. Her glycemic levels are fluctuating, but improved and the latest glucose values have ranged from 202 to 261 mg/dL. Her latest chemistries shows a BUN of 4, sodium 134, potassium 3.2, chloride 98, CO2 27, glucose 179, and creatinine 0.4, so at this time we will modify once again her baseline bolus insulin regimen and increase the Novolin 70/30 to 20 units a.c. breakfast and 14 units a.c. dinner to start today. We will also continue the basal insulin given overnight with Novolin NPH at 20 units subcu at bedtime daily was given. We will continue the low dose correction scale using Novolog insulin as ordered. We will also continue her metformin given 850 mg b.i.d. as ordered. We will titrate incrementally as indicated to optimize metabolic control. We will follow. Marta Fox MD
--- NOTE | 2017-08-29 17:50 | CP.PCM.PN ---
Subjective - Date & Time of Evaluation Date of Evaluation: 08/29/17 Time of Evaluation: 15:20 - Subjective Subjective: clinically same Objective - Vital Signs/Intake and Output Vital Signs (last 24 hours): Temp Pulse Resp BP Pulse Ox 98.7 F 139 H 20 135/68 96 08/29/17 15:35 08/29/17 15:35 08/29/17 15:35 08/29/17 15:35 08/29/17 15:35 Intake and Output: 08/29/17 08/29/17 06:59 18:59 Intake Total 2600 1200 Output Total 5720 3900 Balance -3120 -2700 - Medications Medications: Current Medications Meropenem 1 gm/ Sodium (Chloride) 100 mls @ 100 mls/hr IVPB Q8 [facility] Last Admin: 08/29/17 14:13 Dose: 100 mls/hr Sodium Chloride (Sodium Chloride 0.9%) 1,000 mls @ 75 mls/hr IV .[id number] [facility] Last Admin: 08/29/17 02:00 Dose: 75 mls/hr Potassium Phosphate 15 mmole/ (Sodium Chloride) 255 mls @ 42.5 mls/hr IVPB ONCE ONE Stop: 08/29/17 23:59 Insulin Aspart (Novolog) 0 unit SC ACHS [facility] PRN Reason: Protocol Last Admin: 08/29/17 11:30 Dose: Not Given Insulin Human Isoph/Insulin Regular (Novolin 70/30 (70/30 Units/Ml) 10 Ml) 20 units SC ACB [facility] Insulin Human Isoph/Insulin Regular (Novolin 70/30 (70/30 Units/Ml) 10 Ml) 14 units SC ACD [facility] Insulin Human NPH (Novolin N) 20 unit SC HS [facility] Last Admin: 08/28/17 22:04 Dose: 20 unit Metformin HCl (Glucophage) 850 mg PO BID [facility] Last Admin: 08/29/17 09:13 Dose: 850 mg Pantoprazole Sodium (Protonix Ec Tab) 40 mg PO DAILY [facility] Last Admin: 08/29/17 09:13 Dose: 40 mg Potassium Chloride (K-Dur 20 Meq Er Tab) 40 meq PO Q4 [facility] Stop: 08/29/17 20:01 Last Admin: 08/29/17 16:36 Dose: 40 meq - Labs Labs: 08/29/17 11:31 08/29/17 11:31 PT 13.4 SECONDS (9.7-12.2) H 08/28/17 08:22 INR 1.2 08/28/17 08:22 APTT 25 SECONDS (21-34) 08/28/17 08:22 Assessment and Plan (1) Dehydration Status: Acute (2) Severe sepsis Status: Acute (3) Tachycardia Status: Acute (4) Vomiting Status: Acute
[2017-08-29] MEDS: (Novolin 70/30) NPH/Regular 70/30 Units/ml 10 ml vial SC SCH (18:08)
--- NOTE | 2017-08-29 18:23 | CP.PCM.PN ---
Subjective - Date & Time of Evaluation Date of Evaluation: 08/29/17 Time of Evaluation: 08:00 - Subjective Subjective: c/o pain alert nad + OM right clavicle- likely hematogenous source needs LEEANNA and eventual drainage/ debridement if feasible cont iv rx for 6-8 weeks Objective - Vital Signs/Intake and Output Vital Signs (last 24 hours): Temp Pulse Resp BP Pulse Ox 98.7 F 139 H 20 135/68 96 08/29/17 15:35 08/29/17 15:35 08/29/17 15:35 08/29/17 15:35 08/29/17 15:35 Intake and Output: 08/29/17 08/29/17 06:59 18:59 Intake Total 2600 1200 Output Total 5720 3900 Balance -3120 -2700 - Medications Medications: Current Medications Meropenem 1 gm/ Sodium (Chloride) 100 mls @ 100 mls/hr IVPB Q8 [facility] Last Admin: 08/29/17 14:13 Dose: 100 mls/hr Sodium Chloride (Sodium Chloride 0.9%) 1,000 mls @ 75 mls/hr IV .[id number] [facility] Last Admin: 08/29/17 02:00 Dose: 75 mls/hr Potassium Phosphate 15 mmole/ (Sodium Chloride) 255 mls @ 42.5 mls/hr IVPB ONCE ONE Stop: 08/29/17 23:59 Last Admin: 08/29/17 18:08 Dose: 42.5 mls/hr Insulin Aspart (Novolog) 0 unit SC ACHS [facility] PRN Reason: Protocol Last Admin: 08/29/17 11:30 Dose: Not Given Insulin Human Isoph/Insulin Regular (Novolin 70/30 (70/30 Units/Ml) 10 Ml) 20 units SC ACB [facility] Insulin Human Isoph/Insulin Regular (Novolin 70/30 (70/30 Units/Ml) 10 Ml) 14 units SC ACD [facility] Last Admin: 08/29/17 18:08 Dose: 14 units Insulin Human NPH (Novolin N) 20 unit SC HS [facility] Last Admin: 08/28/17 22:04 Dose: 20 unit Metformin HCl (Glucophage) 850 mg PO BID [facility] Last Admin: 08/29/17 18:16 Dose: 850 mg Pantoprazole Sodium (Protonix Ec Tab) 40 mg PO DAILY [facility] Last Admin: 08/29/17 09:13 Dose: 40 mg Potassium Chloride (K-Dur 20 Meq Er Tab) 40 meq PO Q4 [facility] Stop: 08/29/17 20:01 Last Admin: 08/29/17 16:36 Dose: 40 meq - Labs Labs: 08/29/17 11:31 08/29/17 11:31 PT 13.4 SECONDS (9.7-12.2) H 08/28/17 08:22 INR 1.2 08/28/17 08:22 APTT 25 SECONDS (21-34) 08/28/17 08:22 - Constitutional Appears: Non-toxic, Chronically Ill - Head Exam Head Exam: NORMOCEPHALIC - Eye Exam Eye Exam: PERRL - ENT Exam ENT Exam: Mucous Membranes Dry - Neck Exam Neck Exam: absent: Lymphadenopathy - Respiratory Exam Respiratory Exam: Decreased Breath Sounds - Cardiovascular Exam Cardiovascular Exam: REGULAR RHYTHM - GI/Abdominal Exam GI & Abdominal Exam: Distended - Rectal Exam Rectal Exam: Deferred - Exam Exam: NORMAL INSPECTION - Extremities Exam Extremities Exam: absent: Pedal Edema Additional comments: selling left clavicle / tender at sternoclavicular joint - Back Exam Back Exam: absent: CVA tenderness (L), CVA tenderness (R) - Neurological Exam Neurological Exam: Alert, Awake, Oriented x3 Neuro motor strength exam: Left Upper Extremity: 5, Right Upper Extremity: 5, Left Lower Extremity: 5, Right Lower Extremity: 5 - Psychiatric Exam Psychiatric exam: Depressed - Skin Skin Exam: Dry Assessment and Plan - Assessment and Plan (Free Text) Assessment: need ortho consult- possible drainage LEEANNA to r/o endocarditis IV antibiotics for 6-8 weeks min
[2017-08-29] MEDS: (Novolin N) Insulin Human Isophane (NPH) 100 u/ml 10 ml vial SC SCH (22:20)
--- NOTE | 2017-08-29 23:35 | CP.PCM.PN ---
Subjective - Date & Time of Evaluation Date of Evaluation: 08/29/17 Time of Evaluation: 13:40 - Subjective Subjective: Feeling better Objective - Vital Signs/Intake and Output Vital Signs (last 24 hours): Temp Pulse Resp BP Pulse Ox 98.7 F 139 H 20 135/68 96 08/29/17 15:35 08/29/17 15:35 08/29/17 15:35 08/29/17 15:35 08/29/17 15:35 Intake and Output: 08/29/17 08/30/17 18:59 06:59 Intake Total 1200 Output Total 3900 Balance -2700 - Medications Medications: Current Medications Meropenem 1 gm/ Sodium (Chloride) 100 mls @ 100 mls/hr IVPB Q8 [facility] Last Admin: 08/29/17 22:05 Dose: 100 mls/hr Sodium Chloride (Sodium Chloride 0.9%) 1,000 mls @ 75 mls/hr IV .[id number] [facility] Last Admin: 08/29/17 02:00 Dose: 75 mls/hr Potassium Phosphate 15 mmole/ (Sodium Chloride) 255 mls @ 42.5 mls/hr IVPB ONCE ONE Stop: 08/29/17 23:59 Last Admin: 08/29/17 18:08 Dose: 42.5 mls/hr Fluconazole (Diflucan Iv 100 Mg/50 Ml Ns) 50 mls @ 100 mls/hr IVPB DAILY [facility] Insulin Aspart (Novolog) 0 unit SC ACHS [facility] PRN Reason: Protocol Last Admin: 08/29/17 22:05 Dose: Not Given Insulin Human Isoph/Insulin Regular (Novolin 70/30 (70/30 Units/Ml) 10 Ml) 20 units SC ACB [facility] Insulin Human Isoph/Insulin Regular (Novolin 70/30 (70/30 Units/Ml) 10 Ml) 14 units SC ACD [facility] Last Admin: 08/29/17 18:08 Dose: 14 units Insulin Human NPH (Novolin N) 20 unit SC HS [facility] Last Admin: 08/29/17 22:20 Dose: 20 unit Metformin HCl (Glucophage) 850 mg PO BID [facility] Last Admin: 08/29/17 18:16 Dose: 850 mg Pantoprazole Sodium (Protonix Ec Tab) 40 mg PO DAILY [facility] Last Admin: 08/29/17 09:13 Dose: 40 mg - Labs Labs: 08/29/17 11:31 08/29/17 11:31 PT 13.4 SECONDS (9.7-12.2) H 08/28/17 08:22 INR 1.2 08/28/17 08:22 APTT 25 SECONDS (21-34) 08/28/17 08:22 - Head Exam Head Exam: ATRAUMATIC - Eye Exam Eye Exam: Normal appearance - ENT Exam ENT Exam: Mucous Membranes Dry - Respiratory Exam Respiratory Exam: NORMAL BREATHING PATTERN - Cardiovascular Exam Cardiovascular Exam: +S1, +S2 - GI/Abdominal Exam GI & Abdominal Exam: Normal Bowel Sounds Assessment and Plan (1) Thrombocytopenia Assessment & Plan: secondary to infection improving Status: Acute (2) Leukocytosis Assessment & Plan: on antibiotics Status: Acute (3) Anemia Assessment & Plan: chronic disease Status: Acute
--- NOTE | 2017-08-30 02:36 | EEG ---
DATE: 08/27/2017 This is a 16-channel electroencephalogram of awake and drowsy adult. During the study, photic stimulation was performed. Hyperventilation was not performed. The resting electroencephalogram consists of low amplitude theta activities noted at parietal and occipital leads. Anteriorly, fast activity superimposed with 2 to 3 Hz of delta activity seen at frontal and central leads. There is some lead artifact noted on her right cerebral cortical leads. Most of the time, the activities are 3 to 4 Hz of delta activities noted with the superimposed fast beta activities. The photic stimulation did not evoke driving response noted at 2 to 20 Hz. IMPRESSION: This is a mildly abnormal electroencephalogram because of persistent slowing throughout the record suggestive of bilateral cerebral dysfunction. This is probably secondary to metabolic, vascular, or degenerative process. Please correlate the findings with the neurological and the radiological studies. Toni Nguyen MD
[2017-08-30] MEDS: Sodium Chloride 0.9% 1,000 ML IV SCH ×2 (03:00→20:36)
[2017-08-30] MEDS: Meropenem 1 GM in Sodium Chloride 0.9% 100 ML IVPB SCH ×3 (05:18→21:46)
[2017-08-30] MEDS: (Novolog) Insulin Aspart, Recombinant 100 u/ml 10 ml vial SC SCH ×4 (07:34→21:41)
[2017-08-30] MEDS: (Novolin 70/30) NPH/Regular 70/30 Units/ml 10 ml vial SC SCH ×2 (08:05→16:35)
--- NOTE | 2017-08-30 09:18 | CP.PCM.PN ---
Subjective - Date & Time of Evaluation Date of Evaluation: 08/30/17 Time of Evaluation: 09:15 - Subjective Subjective: Orthopedic evaluation Dr. Dangelo, full consult to follow 56F complains of weakness/fever/vomiting x 3 days prior to admission, and presented to ER. At this time, patient complains of right chest pain x 1 week. Patient found to have ?osteomyelitis of proximal right clavicle and sternum. Patient also found to have UTI and pyelonephritis, ID on case as well. Objective - Vital Signs/Intake and Output Vital Signs (last 24 hours): Temp Pulse Resp BP Pulse Ox 97.9 F 108 H 20 121/76 97 08/29/17 23:40 08/29/17 23:40 08/29/17 23:40 08/29/17 23:40 08/29/17 23:40 Intake and Output: 08/30/17 08/30/17 06:59 18:59 Intake Total 1100 Output Total 5800 Balance -4700 - Medications Medications: Current Medications Meropenem 1 gm/ Sodium (Chloride) 100 mls @ 100 mls/hr IVPB Q8 [facility] Last Admin: 08/30/17 05:18 Dose: 100 mls/hr Sodium Chloride (Sodium Chloride 0.9%) 1,000 mls @ 75 mls/hr IV .[id number] [facility] Last Admin: 08/30/17 03:00 Dose: 75 mls/hr Fluconazole (Diflucan Iv 100 Mg/50 Ml Ns) 50 mls @ 100 mls/hr IVPB DAILY [facility] Insulin Aspart (Novolog) 0 unit SC ACHS [facility] PRN Reason: Protocol Last Admin: 08/30/17 07:34 Dose: Not Given Insulin Human Isoph/Insulin Regular (Novolin 70/30 (70/30 Units/Ml) 10 Ml) 20 units SC ACB [facility] Last Admin: 08/30/17 08:05 Dose: 20 units Insulin Human Isoph/Insulin Regular (Novolin 70/30 (70/30 Units/Ml) 10 Ml) 14 units SC ACD [facility] Last Admin: 08/29/17 18:08 Dose: 14 units Insulin Human NPH (Novolin N) 20 unit SC HS [facility] Last Admin: 08/29/17 22:20 Dose: 20 unit Metformin HCl (Glucophage) 850 mg PO BID [facility] Last Admin: 08/29/17 18:16 Dose: 850 mg Pantoprazole Sodium (Protonix Ec Tab) 40 mg PO DAILY [facility] Last Admin: 08/29/17 09:13 Dose: 40 mg - Labs Labs: 08/29/17 11:31 08/29/17 11:31 PT 13.4 SECONDS (9.7-12.2) H 08/28/17 08:22 INR 1.2 08/28/17 08:22 APTT 25 SECONDS (21-34) 08/28/17 08:22 - Constitutional Appears: Well, No Acute Distress - Extremities Exam Additional comments: Mild swelling to proximal clavicle. skin intact no erythema no obvious fluctuation tender to this area - Neurological Exam Neurological Exam: Alert, Awake, Oriented x3 - Psychiatric Exam Psychiatric exam: Normal Affect, Normal Mood Assessment and Plan (1) Acute osteomyelitis of clavicle Assessment & Plan: D/w Dr. Dangelo consider IR consult for bone biopsy for pathology, cultures not likely to give more information as patient on antibiotics ID consult appreciated, would recommend at least 6 weeks IV antibiotics for osteomyelitis Status: Acute Results - Vital Signs Recent Vital Signs: Last Vital Signs Temp 97.9 F 08/29/17 23:40 Pulse 108 H 08/29/17 23:40 Resp 20 08/29/17 23:40 BP 121/76 08/29/17 23:40 Pulse Ox 97 08/29/17 23:40 - Labs Result Diagrams: 08/30/17 11:09 08/30/17 11:09 Labs: Laboratory Results - last 24 hr 08/29/17 08/29/17 08/29/17 11:31 11:31 17:14 WBC 16.8 H RBC 3.91 Hgb 11.5 Hct 32.8 L MCV 83.9 MCH 29.5 MCHC 35.2 RDW 13.1 Plt Count 63 L MPV 10.4 Neut % (Auto) 89.3 H Lymph % (Auto) 4.6 L [place] % (Auto) 5.0 Eos % (Auto) 0.6 Baso % (Auto) 0.5 Neut # (Auto) 15.0 H Lymph # (Auto) 0.8 L [place] # (Auto) 0.8 Eos # (Auto) 0.1 Baso # (Auto) 0.1 Neutrophils % (Manual) 81 H Band Neutrophils % 7 H Lymphocytes % (Manual) 8 L Monocytes % (Manual) 4 Platelet Estimate Decreased L Hypochromasia (manual) Slight Poikilocytosis (manual Slight Anisocytosis (manual) Slight Sodium 134 Potassium 3.2 L Chloride 98 Carbon Dioxide 27 Anion Gap 12 BUN 4 L Creatinine 0.4 L Est GFR ( Amer) > 60 Est GFR (Non-Af Amer) > 60 POC Glucose (mg/dL) 205 H Random Glucose 179 H Calcium 6.7 L Phosphorus 2.4 L Magnesium 1.7 Total Bilirubin 0.3 AST 21 ALT 16 Alkaline Phosphatase 112 Total Protein 4.6 L Albumin 2.1 L Globulin 2.6 Albumin/Globulin Ratio 0.8 L 08/29/17 08/30/17 21:01 06:25 WBC RBC Hgb Hct MCV MCH MCHC RDW Plt Count MPV Neut % (Auto) Lymph % (Auto) [place] % (Auto) Eos % (Auto) Baso % (Auto) Neut # (Auto) Lymph # (Auto) [place] # (Auto) Eos # (Auto) Baso # (Auto) Neutrophils % (Manual) Band Neutrophils % Lymphocytes % (Manual) Monocytes % (Manual) Platelet Estimate Hypochromasia (manual) Poikilocytosis (manual Anisocytosis (manual) Sodium Potassium Chloride Carbon Dioxide Anion Gap BUN Creatinine Est GFR ( Amer) Est GFR (Non-Af Amer) POC Glucose (mg/dL) 181 H 137 H Random Glucose Calcium Phosphorus Magnesium Total Bilirubin AST ALT Alkaline Phosphatase Total Protein Albumin Globulin Albumin/Globulin Ratio - Impressions Impression: Patient Name / ID : YOSELYN BOLANOS / [id number] Exam Date : 08/29/2017 11:36:15 ( Approved ) Study Comment : Sex / Age : F / 56Y Creator : Jose Cannon MD Dictator : Jose Cannon MD Rating Specialist : Strategic Manager : Jose Cannon MD Approver2 : Report Date : 08/29/2017 14:21:39 My Comment : PROCEDURE: MRI of the RIGHT CLAVICLE AND STERNUM WITHOUT CONTRAST HISTORY: air foci in clavicle/ rule out osteomyelitis COMPARISON: CT chest, abdomen and pelvis with contrast 08/27/2017. TECHNIQUE: Multi quite plantar multisequential MR imaging of the right clavicle and sternum was performed without intravenous gadolinium as requested. There is a clinical concern for possible osteomyelitis. FINDINGS: Examination is relatively indeterminate due the presence of gas within the Marrow, highly suspicious feature alone for osteomyelitis. Gas does not retain signal and in fact diminishes the average signal of the medial head of the right clavicle. There are bright foci seen within the head of the right clavicle nevertheless. No suspicious signal changes seen at the sternum. On the basis of MRI alone, the pattern is indeterminate for osteomyelitis. IMPRESSION: Indeterminate MR result at medial right clavicle. The presence of gas in the Marrow limits interpretation. However, presence of gas in the Marrow the medial right clavicle seen in prior CT 08/27/2017 is rather suspicious for osteomyelitis and until proven otherwise this should be considered likely positive for osteomyelitis. Bone Marrow biopsy can be performed to confirm. No definite pattern of osteomyelitis is seen the visualized sternum. Patient Name / ID : YOSELYN BOLANOS / [id number] Exam Date : 08/27/2017 02:36:16 ( Approved ) Study Comment : Sex / Age : F / 56Y Creator : Citlali Villarreal Dictator : Rating Specialist : Strategic Manager : Citlali Villarreal Approver2 : Report Date : 08/27/2017 03:54:00 My Comment : [facility] Division of Radiology [address] [place] [address] Tel. no. Patient Name: LUIS MIGUEL TOPETE Pt. Address: [address] [place] [address]. Rec #: [id number] [place] [address]: Sixto VINCENT,Wesley Wen Pt [place] [facility] [place] 1960 [place] Age: 56 Order #: [id number] Reason for exam: abd pain/n/v CT Scan CHEST,ABD,PEL W/IV CONT ONLY Exam Date: 08/27/17 This imaging exam was performed at [facility] EXAM: CT Abdomen and Pelvis With Intravenous Contrast CLINICAL HISTORY: 56 years old, female; Pain; Abdominal pain; Chest pain; Additional info: Abd pain/n/v TECHNIQUE: Axial computed tomography images of the abdomen and pelvis with intravenous contrast. All CT scans at this facility use one or more dose reduction techniques, viz.: automated exposure control; ma/kV adjustment per patient size (including targeted exams where dose is matched to indication; i.e. head); or iterative reconstruction technique. Coronal and sagittal reformatted images were created and reviewed. CONTRAST: 100 mL of administered intravenously. COMPARISON: No relevant prior studies available. FINDINGS: The liver, spleen, pancreas, gallbladder are normal. Varices are present in the left upper quadrant. The left adrenal gland thickening. There is a fluid collection along the posterior aspect of the upper left kidney, likely subcapsular in location, measuring 14 mm in width. There are linear hypo-densities throughout the renal parenchyma radiating centrally from the fluid collection. A similar pattern can be seen with striated nephrograms of pyelonephritis. There is a small amount of perinephric stranding and fluid. There is a low attenuation lesion in the left kidney measuring 1.5 cm in diameter with units in the 20s slightly greater than would be expected for a simple cyst. Infectious etiology cannot be excluded. Pablo catheter. Urinary bladder wall is thickened and irregular partially due to under distention however underlying hemorrhage, inflammation, or neoplasm cannot be excluded. Air in the urinary bladder that may be secondary to Pablo placement. A normal appendix is identified series 6 images 123 through 143. The uterus is normal. IMPRESSION: Left renal subcapsular fluid collection with radiating linear hypodensities. Infectious/inflammatory process could produce this appearance. Resolving posttraumatic hematoma would also be possible. Infarct also in differential diagnosis. Correlation with clinical history would be helpful (history provided is pain). Correlation w urinalysis is recommended. If prior studies exist, they would be helpful as well. Left adrenal gland thickening. Thickened irregular urinary bladder wall as discussed above. EXAM: CT Chest With Intravenous Contrast EXAM DATE/TIME: 08/27/2017 12:30 AM CLINICAL HISTORY: 56 years old, female; Pain; Abdominal pain; Chest pain; Additional info: Abd pain/n/v TECHNIQUE: Axial computed tomography images of the chest with intravenous contrast. All CT scans at this facility use one or more dose reduction techniques, viz.: automated exposure control; ma/kV adjustment per patient size (including targeted exams where dose is matched to indication; i.e. head); or iterative reconstruction technique. Coronal and sagittal reformatted images were created and reviewed. CONTRAST: 100 mL of [id number] administered intravenously. COMPARISON: No relevant prior studies available. FINDINGS: There are numerous tiny air foci within the right clavicular head and within the surrounding soft tissues. There is a small amount of air in the right sternum. There is significant stranding surrounding the right clavicular head suggesting infectious etiology of the air. Multiple mediastinal lymph nodes are present. Small pleural based nodule mid right lung image 51. Small bibasilar atelectasis greater on the left. No aortic aneurysm or dissection. IMPRESSION: Numerous tiny air foci within the right clavicular head and to lesser degree in the right sternum. Numerous tiny air foci and stranding in the soft tissues surrounding the right clavicular head supportive of acute infectious/inflammatory process. Dictated By: Citlali Villarreal MD Dictated Date/Time: 08/27/17353 Signed By: Citlali Villarreal MD Date Signed: [id number] Transcribed By: [facility] Transcribe Date/Time : 08/27/17353 [id number]
[2017-08-30] MEDS: Fluconazole IV 100mg/50 ml NS 50 ML IVPB SCH (09:36)
[2017-08-30] MEDS: Pantoprazole 40 mg EC Tab PO SCH (09:37)
--- NOTE | 2017-08-30 10:05 | CP.PCM.PN ---
Subjective - Date & Time of Evaluation Date of Evaluation: 08/30/17 Time of Evaluation: 10:13 - Subjective Subjective: PGY2 Medicine Note for Dr. Joseph Burk, all management as per Dr. Joseph Burk Patient seen and examined at bedside this AM without attending physician; denies any acute complaints and states she feels much better than previously; she denies any fevers/chills, BRISCOE< CP, SOB, abdominal pain, N/V/D, dysuria/freq/ urg or lower extremity henrietta/swelling. Objective - Vital Signs/Intake and Output Vital Signs (last 24 hours): Temp Pulse Resp BP Pulse Ox 98.4 F 90 20 105/59 L 97 08/30/17 08:00 08/30/17 08:00 08/30/17 08:00 08/30/17 08:00 08/30/17 08:00 Intake and Output: 08/30/17 08/30/17 06:59 18:59 Intake Total 1100 Output Total 5800 Balance -4700 - Medications Medications: Current Medications Meropenem 1 gm/ Sodium (Chloride) 100 mls @ 100 mls/hr IVPB Q8 [facility] Last Admin: 08/30/17 05:18 Dose: 100 mls/hr Sodium Chloride (Sodium Chloride 0.9%) 1,000 mls @ 75 mls/hr IV .[id number] [facility] Last Admin: 08/30/17 03:00 Dose: 75 mls/hr Fluconazole (Diflucan Iv 100 Mg/50 Ml Ns) 50 mls @ 100 mls/hr IVPB DAILY [facility] Last Admin: 08/30/17 09:36 Dose: 100 mls/hr Insulin Aspart (Novolog) 0 unit SC ACHS [facility] PRN Reason: Protocol Last Admin: 08/30/17 07:34 Dose: Not Given Insulin Human Isoph/Insulin Regular (Novolin 70/30 (70/30 Units/Ml) 10 Ml) 20 units SC ACB [facility] Last Admin: 08/30/17 08:05 Dose: 20 units Insulin Human Isoph/Insulin Regular (Novolin 70/30 (70/30 Units/Ml) 10 Ml) 14 units SC ACD [facility] Last Admin: 08/29/17 18:08 Dose: 14 units Insulin Human NPH (Novolin N) 20 unit SC HS [facility] Last Admin: 02/28/18 22:20 Dose: 20 unit Metformin HCl (Glucophage) 850 mg PO BID [facility] Last Admin: 08/30/17 09:36 Dose: 850 mg Nystatin (Nystop Topical Powder) 1 applic TOP BID [facility] Pantoprazole Sodium (Protonix Ec Tab) 40 mg PO DAILY [facility] Last Admin: 08/30/17 09:37 Dose: 40 mg - Labs Labs: 08/29/17 11:31 08/29/17 11:31 PT 13.4 SECONDS (9.7-12.2) H 08/28/17 08:22 INR 1.2 08/28/17 08:22 APTT 25 SECONDS (21-34) 08/28/17 08:22 - Constitutional Appears: Non-toxic - Head Exam Head Exam: ATRAUMATIC - Eye Exam Eye Exam: EOMI, Scleral icterus - ENT Exam ENT Exam: Mucous Membranes Moist - Neck Exam Neck Exam: Full ROM. absent: Lymphadenopathy - Respiratory Exam Respiratory Exam: Clear to Ausculation Bilateral, NORMAL BREATHING PATTERN. absent: Rales, Rhonchi, Wheezes - Cardiovascular Exam Cardiovascular Exam: REGULAR RHYTHM, +S1, +S2. absent: Tachycardia, Diastolic murmur, Murmur - GI/Abdominal Exam GI & Abdominal Exam: Soft, Normal Bowel Sounds. absent: Tenderness - Extremities Exam Extremities Exam: Full ROM. absent: Calf Tenderness - Back Exam Back Exam: NORMAL INSPECTION. absent: CVA tenderness (L), CVA tenderness (R) - Neurological Exam Neurological Exam: Alert, Awake, Oriented x3 - Psychiatric Exam Psychiatric exam: Normal Affect - Skin Skin Exam: Warm Assessment and Plan - Assessment and Plan (Free Text) Assessment: This is a 56 yo female admitted for sepsis 2/2 to UTI complicated by bacteremia 2/2 to gram negative rods Sepsis 2/2 to UTI complicated by bacteremia 2/2 to gram negative anna -ID consult. recs appreciated. -IV meropenem -2 blood cultures positive for gram negative anna. >>> cultures positive for E. Coli -procal elevated at 14; patient has responded clinically to abx tx Air foci in clavicle/sternum -foci of air in clavicle -MRI of chest is positive for osteomyelitis of clavicle until proven otherwise -consult for IR for bone biopsy; appreciate results -continue merrem -will likely need LEEANNA to r/o endocarditits -transthoracic echo negative for vegetations; LEEANNA test of choice for endocarditis -ESR elevated Diarrhea; acute -stool c diff; negative -stool culture; negative to date -stool electrolytes; WNL -stool leukocytes; negative -will give florastor and loperamide to help control diarrhea Hypokalemia -replete K as necessary -cardio consult. recs appreciated -nephro consult. recs appreciated -will start spironolactone>>> discontinued today -24 hour urinary K -renin level -erin level Adrenal thickening -will need dexamethasone suppression test once stable. -endo consult. recs appreciated. DR CAAL. Altered mental status; resolved -neurology consult. recs appreciated. -head ct negative -EEG normal for patient's age -neurology has signed off -will need follow up outpatient for neuropathy Hx of DM -poorly controlled -we will start metformin -continue glipizide -continue novolin NPH -keep blood sugar between 140-180 while in the hospital -endocrinology consult. Dr. Caal. recs appreciated. Anemia -likely anemia of chronic disease -B12 WNL, ferritin wnl, retic count WNL -heme/onc consult. DR. Ballard. Recs appreciated. GI/DVT ppx -protonix -scds discussed with Dr. Burk.
[2017-08-30 11:21] LABS: BASO # 0.1 K/uL (0.0-0.2); BASO % 0.4 % (0.0-2.0); EOS # 0.1 K/uL (0.0-0.7); HEMOGLOBIN 10.4 g/dL (11.0-16.0); LYMPH # 0.8 K/uL (1.0-4.3); LYMPH % 6.1 % (20.0-40.0); MEAN CELL VOLUME 85.3 fL (81.0-99.0); MEAN CORPUSCULAR HEMOGLOBIN 29.3 pg (27.0-31.0); MEAN CORPUSCULAR HGB CONC 34.4 g/dL (33.0-37.0); MEAN PLATELET VOLUME 9.6 fL (7.2-11.7); MONO # 0.6 K/uL (0.0-0.8); NEUT % 87.5 % (50.0-75.0); PLATELET COUNT 89 K/uL (130-400); RBC 3.55 Mil/uL (3.80-5.20); RED CELL DISTRIBUTION WIDTH 12.8 % (11.5-14.5); WHITE BLOOD COUNT 12.6 K/uL (4.8-10.8)
[2017-08-30 11:38] LABS: ALB/GLOB RATIO 0.7 (1.0-2.1); ALBUMIN 1.9 g/dL (3.5-5.0); ALT/SGPT 24 U/L (9-52); AST/SGOT 27 U/L (14-36); BLOOD UREA NITROGEN 4 mg/dL (7-17); CALCIUM 6.9 mg/dl (8.6-10.4); GFR AFRICAN-AMERICAN > 60; GFR NON-AFRICAN AMERICAN > 60
[2017-08-30 11:51] LABS: BANDS 3 % (0-2); EOSINOPHIL 2 % (0-4); HYPOCHROMIC SLIGHT; LYMPHOCYTE 8 % (20-40); MONOCYTE 2 % (0-10); NEUTROPHIL 85 % (50-75); PLATELET ESTIMATE DECREASED (NORMAL); POLYCHROMIC SLIGHT; TOTAL CELLS COUNTED 100
[2017-08-30] MEDS: Saccharomyces Boulardi 250 mg Cap PO SCH ×2 (12:00→17:37)
--- NOTE | 2017-08-30 14:05 | CP.PCM.HP ---
Addendum entered and electronically signed by Dexter Moralez DO 08/30/17 15:48: will hold hep sc 2/2 to thrombocytopenia Original Note: <Dexter Moralez - Last Filed: 08/30/17 14:18> History of Present Illness - History of Present Illness History of Present Illness: CC: Lethargy and not feeling like self This patient is a 56yo F, without insurance, who originally came to the hospital here after she was d/c from [facility] ER for dysuria/frequency/urgency and lethargy and just not feeling like self. She had been vomiting, with suprapubic pain for around 8 days before she went to [facility]. For a more complete record of her ER visit, please refer to the EMR for her ER visit. At the time of this HnP the patient states she is feeling remarkably better than when she came in; she currently denies fevers/chills, BRISCOE, CP, SOB, abdominal pain, N/V/D, dysuria/freq/urg, or lower extremity pain/swelling. In the ED a code sepsis was called, for a lactate of 4.3, WBC of 22, and fever. Blood cultures grew gram negative rods in two bottles as well. The patient responded to fluids and antibiotics, and is now on telemetry. PMhx: Diabetes, on metformin FamHx: Diabetes on both sides Allergies: denies Surgeries: Denies Meds: Metformin 1000mg BID Socia: Denies smoking, drinking, illicit drug use; independent in all ADL and IADL, 2 children, lives with Present on Admission - Present on Admission Any Indicators Present on Admission: Yes History of DVT/PE: No History of Uncontrolled Diabetes: Yes Urinary Catheter: Yes (for UTI) Decubitus Ulcer Present: No Review of Systems - Constitutional Constitutional: As Per HPI Past Patient History - Past Medical History & Family History Past Medical History?: Yes - Past Social History Smoking Status: Never Smoked - ENDOCRINE/METABOLIC Hx Endocrine Disorders: Yes Hx Diabetes Mellitus Type 2: Yes - MUSCULOSKELETAL/RHEUMATOLOGICAL Hx Falls: No - PSYCHIATRIC Hx Substance Use: No - SURGICAL HISTORY Hx Surgeries: No - ANESTHESIA Hx Anesthesia: No Meds Allergies/Adverse Reactions: Allergies Allergy/AdvReac Type Severity Reaction Status Date / Time No Known Allergies Allergy Verified 08/26/17 16:23 Physical Exam - Constitutional Appears: Well, Non-toxic, No Acute Distress - Head Exam Head Exam: ATRAUMATIC - Eye Exam Eye Exam: EOMI, Normal appearance, Scleral icterus (patient has minor scleral and skin icterus ) - ENT Exam ENT Exam: Mucous Membranes Moist - Neck Exam Neck exam: Positive for: Full Rom. Negative for: Lymphadenopathy - Respiratory Exam Respiratory Exam: Clear to Auscultation Bilateral, NORMAL BREATHING PATTERN. absent: Rales, Rhonchi, Wheezes - Cardiovascular Exam Cardiovascular Exam: REGULAR RHYTHM. absent: +S1, +S2 - GI/Abdominal Exam GI & Abdominal Exam: Normal Bowel Sounds, Soft. absent: Tenderness (no suprapubic pain, malhotra in place draining yellow2 urine ) - Extremities Exam Extremities exam: Positive for: full ROM, normal inspection. Negative for: calf tenderness, pedal edema - Back Exam Back exam: NORMAL INSPECTION. absent: CVA tenderness (L), CVA tenderness (R) - Neurological Exam Neurological exam: Alert, CN II-XII Intact, Oriented x3 - Psychiatric Exam Psychiatric exam: Normal Affect - Skin Skin Exam: Warm Results - Vital Signs Recent Vital Signs: Last Vital Signs Temp 98.4 F 08/30/17 08:00 Pulse 90 08/30/17 08:00 Resp 20 08/30/17 08:00 BP 105/59 L 08/30/17 08:00 Pulse Ox 97 08/30/17 08:00 - Labs Result Diagrams: 08/30/17 11:09 08/30/17 11:09 Labs: Laboratory Results - last 24 hr 08/29/17 08/29/17 08/30/17 17:14 21:01 06:25 WBC RBC Hgb Hct MCV MCH MCHC RDW Plt Count MPV Neut % (Auto) Lymph % (Auto) [place] % (Auto) Eos % (Auto) Baso % (Auto) Neut # (Auto) Lymph # (Auto) [place] # (Auto) Eos # (Auto) Baso # (Auto) Neutrophils % (Manual) Band Neutrophils % Lymphocytes % (Manual) Monocytes % (Manual) Eosinophils % (Manual) Platelet Estimate Polychromasia Hypochromasia (manual) Sodium Potassium Chloride Carbon Dioxide Anion Gap BUN Creatinine Est GFR ( Amer) Est GFR (Non-Af Amer) POC Glucose (mg/dL) 205 H 181 H 137 H Random Glucose Calcium Total Bilirubin AST ALT Alkaline Phosphatase Total Protein Albumin Globulin Albumin/Globulin Ratio 08/30/17 08/30/17 08/30/17 11:09 11:09 11:45 WBC 12.6 H RBC 3.55 L Hgb 10.4 L Hct 30.3 L MCV 85.3 MCH 29.3 MCHC 34.4 RDW 12.8 Plt Count 89 L D MPV 9.6 Neut % (Auto) 87.5 H Lymph % (Auto) 6.1 L [place] % (Auto) 5.0 Eos % (Auto) 1.0 Baso % (Auto) 0.4 Neut # (Auto) 11.0 H Lymph # (Auto) 0.8 L [place] # (Auto) 0.6 Eos # (Auto) 0.1 Baso # (Auto) 0.1 Neutrophils % (Manual) 85 H Band Neutrophils % 3 H Lymphocytes % (Manual) 8 L Monocytes % (Manual) 2 Eosinophils % (Manual) 2 Platelet Estimate Decreased L Polychromasia Slight Hypochromasia (manual) Slight Sodium 132 Potassium 4.1 Chloride 98 Carbon Dioxide 26 Anion Gap 12 BUN 4 L Creatinine 0.4 L Est GFR ( Amer) > 60 Est GFR (Non-Af Amer) > 60 POC Glucose (mg/dL) 198 H Random Glucose 183 H Calcium 6.9 L Total Bilirubin 0.2 AST 27 ALT 24 Alkaline Phosphatase 93 Total Protein 4.5 L Albumin 1.9 L Globulin 2.6 Albumin/Globulin Ratio 0.7 L Assessment & Plan - Assessment and Plan (Free Text) Assessment: This is a 56 yo female admitted for sepsis 2/2 to UTI complicated by bacteremia 2/2 to gram negative rods Sepsis 2/2 to UTI complicated by bacteremia 2/2 to gram negative anna -ID consult. recs appreciated. -IV meropenem -2 blood cultures positive for gram negative anna. >>> cultures positive for E. Coli -procal elevated at 14; patient has responded clinically to abx tx Air foci in clavicle/sternum -foci of air in clavicle -MRI of chest is positive for osteomyelitis of clavicle until proven otherwise -consult for IR for bone biopsy; appreciate results -continue merrem -will likely need LEEANNA to r/o endocarditits -transthoracic echo negative for vegetations -ESR elevated Diarrhea; acute -stool c diff; negative -stool culture; negative to date -stool electrolytes; WNL -stool leukocytes; negative -will give florastor and loperamide to help control diarrhea Hypokalemia -replete K as necessary -cardio consult. recs appreciated -nephro consult. recs appreciated -will start spironolactone>>> discontinued today -24 hour urinary K -renin level -erin level Adrenal thickening -will need dexamethasone suppression test as per Nephro; appreciate recs -endo consult. recs appreciated. Dr Fox Altered mental status; resolved -neurology consult. recs appreciated. 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 Dr. Fox. recs appreciated. Anemia -likely anemia of chronic disease -B12 WNL, ferritin wnl, retic count WNL -heme/onc consult. DR. Ballard. Recs appreciated. 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 Deal Decision To Admit - Pt Status Changed To: Hospital Disposition Of: Inpatient - Admit Certification Admit to Inpatient:: After my assessment, the patient will require hospitalization for at least two midnights. This is because of the severity of symptoms shown, intensity of services needed, and/or the medical risk in this patient being treated as an outpatient. - InPatient: Physician Admission Certification:: bacteremia, Severe sepsis 2/2 to UTI - . Bed Request Type: Telemetry Admitting Physician: Radha Deal <Radha Deal V - Last Filed: 08/31/17 17:34> Results - Vital Signs Recent Vital Signs: Last Vital Signs Temp 98.3 F 08/30/17 23:25 Pulse 110 H 08/30/17 23:30 Resp 20 08/30/17 23:25 BP 111/68 08/30/17 23:25 Pulse Ox 98 08/30/17 23:25 - Labs Result Diagrams: 08/31/17 06:18 08/31/17 06:18 Labs: Laboratory Results - last 24 hr 08/30/17 08/30/17 08/30/17 06:25 11:09 11:09 WBC 12.6 H RBC 3.55 L Hgb 10.4 L Hct 30.3 L MCV 85.3 MCH 29.3 MCHC 34.4 RDW 12.8 Plt Count 89 L D MPV 9.6 Neut % (Auto) 87.5 H Lymph % (Auto) 6.1 L [place] % (Auto) 5.0 Eos % (Auto) 1.0 Baso % (Auto) 0.4 Neut # (Auto) 11.0 H Lymph # (Auto) 0.8 L [place] # (Auto) 0.6 Eos # (Auto) 0.1 Baso # (Auto) 0.1 Neutrophils % (Manual) 85 H Band Neutrophils % 3 H Lymphocytes % (Manual) 8 L Monocytes % (Manual) 2 Eosinophils % (Manual) 2 Platelet Estimate Decreased L Polychromasia Slight Hypochromasia (manual) Slight PT INR Sodium 132 Potassium 4.1 Chloride 98 Carbon Dioxide 26 Anion Gap 12 BUN 4 L Creatinine 0.4 L Est GFR ( Amer) > 60 Est GFR (Non-Af Amer) > 60 POC Glucose (mg/dL) 137 H Random Glucose 183 H Calcium 6.9 L Total Bilirubin 0.2 AST 27 ALT 24 Alkaline Phosphatase 93 Total Protein 4.5 L Albumin 1.9 L Globulin 2.6 Albumin/Globulin Ratio 0.7 L Urine Osmolality Ur Random Sodium 08/30/17 08/30/17 08/30/17 11:45 16:15 18:21 WBC RBC Hgb Hct MCV MCH MCHC RDW Plt Count MPV Neut % (Auto) Lymph % (Auto) [place] % (Auto) Eos % (Auto) Baso % (Auto) Neut # (Auto) Lymph # (Auto) [place] # (Auto) Eos # (Auto) Baso # (Auto) Neutrophils % (Manual) Band Neutrophils % Lymphocytes % (Manual) Monocytes % (Manual) Eosinophils % (Manual) Platelet Estimate Polychromasia Hypochromasia (manual) PT INR Sodium Potassium Chloride Carbon Dioxide Anion Gap BUN Creatinine Est GFR ( Amer) Est GFR (Non-Af Amer) POC Glucose (mg/dL) 198 H 204 H Random Glucose Calcium Total Bilirubin AST ALT Alkaline Phosphatase Total Protein Albumin Globulin Albumin/Globulin Ratio Urine Osmolality 177 L Ur Random Sodium 64 08/30/17 08/31/17 08/31/17 21:22 06:12 06:18 WBC RBC Hgb Hct MCV MCH MCHC RDW Plt Count MPV Neut % (Auto) Lymph % (Auto) [place] % (Auto) Eos % (Auto) Baso % (Auto) Neut # (Auto) Lymph # (Auto) [place] # (Auto) Eos # (Auto) Baso # (Auto) Neutrophils % (Manual) Band Neutrophils % Lymphocytes % (Manual) Monocytes % (Manual) Eosinophils % (Manual) Platelet Estimate Polychromasia Hypochromasia (manual) PT 13.5 H INR 1.2 Sodium Potassium Chloride Carbon Dioxide Anion Gap BUN Creatinine Est GFR ( Amer) Est GFR (Non-Af Amer) POC Glucose (mg/dL) 241 H 136 H Random Glucose Calcium Total Bilirubin AST ALT Alkaline Phosphatase Total Protein Albumin Globulin Albumin/Globulin Ratio Urine Osmolality Ur Random Sodium Attending/Attestation - Attestation I have personally seen and examined this patient.: Yes I have fully participated in the care of the patient.: Yes I have reviewed all pertinent clinical information: Yes Notes (Text): This is late computer entry for 08/30/17. This is transfer of service from Dr. Joseph Burk's service to hospitalist service for 08/30/17 at 13:56 given patient's lack of insurance. Prior time noted under private attending; hospitalist service will resume from after 13:56. Patient is a very nice lady who reported she had felt nausea and vomitting and lethargy and was recently seen at [facility] prior to arrival to [facility] from review of EMR. Patient reports known history of only diabetes. At present, patient denies headache, denies chest pain excepted localized at right medial aspect of clavicle upon palpation, denies shortness of breathe, denies abdominal pain, denies dysuria, denies frequency, reports she is having loose stool. NurseKristy has clarified the stool is soft and formed. We will repeat blood cultures to see if infection has cleared we will consult interventional radiology to check for bone biopsy of noted osteomyelitis clavicle. I have reviewed patient's hospital course prior to hospitalist service taking over the patient is reviewed below. Assessment/plan. #1. Sepsis Pyleonephritis/Urinary Tract Infection Bacteremia Osteomyelitis Criteria: WBC; 27.3, Tmax: 102.1F, Lactate: 4.3-->1.4 Etiology: Bandemia, bacteremia, urinary tract infection, and possible osteomyelitis of the clavicle Infectious disease (Dr. Monroy) on consult hope appreciated Blood culture (08/26/17): E. Coli Blood culture (08/26/17): E. Coli Repeat blood cultures ordered (08/30/17) Urine culture (08/26/17): gram negative anna Stool (08/27): No salmonella, shigella, or camplobacter isolated Urine (08/28): Yeast species Dilfucan 100mg IVPB daily (active since 08/30/17) Meropenem 1 gm IVPB Q8H (active since 08/27/17) NS 75 cc/hr Florastor 250mg PO BID CT Abdomen/Pelvis: Left renal subscapular fluid collection with radiating linear hypodensities infectious/inflammatory processes could produce this appearance resolving posttraumatic hematoma which also possible infarct and differential diagnosis also noted left adrenal gland thickening. Thickened irregular urinary bladder wall as discussed above 2. Osteomyelitis of clavicle Chest MRI (08/29/17): Presence of gas in the marrow limits indirect interpretation presence of gas in the marrow medial right clavicle seen prior CAT scan 08/27/2017 is rather suspicious for ostial malaise until proven otherwise. Bone biopsy came be performed to confirm this no definite pattern of osteomalacia seen initial sternum. CT Chest/Abdomen/Pelvis (08/27/17): Numerous tiny air foci within the right clavicle head and lesser degree in the right sternum. Numerous tire tiny air foci and stranding of soft tissue surrounding the right clavicular head supportive work of acute infectious/inflammatory process. We will seek out interventional radiology for bone biopsy for osteomyelitis of clavicle. Orthopedic (Dr. Dangelo): Had recommended for IR consult for bone biopsy for pathology, cultures not likely to get more information as patient on antibiotics Please refer #1. 3. Electrolyte imbalance Nephrology (Dr. Middleton) on consult help appreciated Noted in prior no acute need for renal replacement therapy at this time recommended for hormonal workup of left adrenal thickening with all don't run in an dexamethasone suppression test later as an outpatient once patient is stable. Since admission hyponatremia has resolved, hypokalemia has resolved 4. Thrombocytopenia, anemia Hematology/oncology (Dr. Lux Ballard) on consult help appreciated Likely secondary to sepsis noted #1. 5. Tachycardia Cardiology (Dr. Grace) on consult--help appreciated Likely secondary to dehydration and sepsis noted #[address] no noted PE noted. Cardio has reviewed echocardiogram with normal left ventricular contractility no aortic stenosis is no pericardial effusion with dehydration and likely pulmonary embolus she will on treatment for sepsis 6. Lethargy Neurology (Dr. Nguyen) on consult-->help appreciated CT Head (08/27/17): no acute abnormality EEG: Mildly abnormal EEG because of persistent slowing throughout the record suggestive of bilateral cerebral dysfunction probably secondary to mid metabolic , vascular or degenerative processes correlate. In his progress note has noted normal EEG for age and has signed off stable from neurologic perspective. Nonreactive RPR Likely secondary to #1 and #3 7. Uncontrolled diabetic Endocrinology (Dr. Fox) on consult-->help appreciated Hemoglobin A1c 12.0 Novolin 70/30 14 units sub ACD Novolin 70/30 20 units sub ACB Novolin N 20 units sub HS Novolog sliding scale subq ACHS Metformin 850mg PO BID Crestor 5mg POqHS Aspirin 81mg PO daily 8. Diarrhea No Salmonella, Shigella, or Campylobacter isolated negative Stool occult blood Stool Leukocytes negative C. Dif negative 9. Adrenal Thickening Noted on CT abdomen and pelvis in light of persistent hypokalemia. Aldactone was discontinued. Nephrotic nephrology on board. Recommended for possible dexamethasone test. 10. Prophylactic measure Protonix 40mg PO daily NS 75 cc/hr chemical anticoagulation secondary to thrombocytopenia
--- NOTE | 2017-08-30 15:37 | CP.PCM.PN ---
Subjective - Date & Time of Evaluation Date of Evaluation: 08/30/17 Time of Evaluation: 15:36 - Subjective Subjective: Nephrology Consultation: Assessment: Stable UTI with pyelonephritis and sepsis with GNR Hypokalemia likely due to GI fluid loss, urinary K loss due to glycosuria Hyponatremia, hypophosphatemia uncontrolled DM with hyperglycemia Polyuria likely due to combination of glycosuria and hypokalemia (can lead to nephrogenic DI) Morbid obesity left adrenal thickening clavicle Osteomyelitis Plan Will need hormonal work up of left adrenal thickening with edmundo/renin and dexamethasone suppression test later as outpt once pt stable. hence will d/c aldactone as well (to avoid interference with edmundo measurements) will check UA, urine osmo and urine Na started nasal DDAVP to decrease urinary fluid loss supplement K, phos As needed and follow electrolytes closely Monitor Input/Output, daily weights and lytes antibiotics as per ID Dose meds/antibiotics for normal GFR. Avoid nephrotoxins/NSAIDs Glycemic control Further work up/management as per primary team Thanks for allowing me to participate in care of your patient. Will follow patient with you. Please call if any Qs. Dr Eleno Middleton Office: [phone] HPI: Pt is a 56 F with hx of diabetes Mellitus (15 years), hypertension (years) , obesity presented with complaints of feeling sick with nausea/vomitting for last few days. also found to have UTI with sepsis and severe electrolytes abnormalities hence renal consulted,. she says DM usually controlled except over las few days when she couldn't take her meds. reports increased thirst and increased fluid intake, increased urine output. denies any recent Wt gains Denies OTC/herbal meds or NSAIDs ROS: Cardiovascular: No chest pain. Pulmonary: No shortness of breath Gastrointestinal: denies abdominal pain No nausea. No vomiting now. Genitourinary: No pain while urinating. Denies blood in urine. All other negative except as in HPI Physical Examination: General Appearance: Comfortable, in no acute respiratory distress, co-operative . Vitals reviewed and noted as below Head; Atraumatic, normocephalic ENT: no ulcers no thrush. Tongue is midline. Oropharynx: no rash or ulcers. EYES: Pupils are equal, round and reactive to light accommodation. Eye muscles and extraocular movement intact. Sclera is anicteric. Neck; supple no lymphadenopathy, no thyromegaly or bruit Lungs: Normal respiratory rate/effort. Breath sounds bilateral equal and clear Heart: Normal rate. s1s2 normal. No rub or gallop. Rt clavicular/sternal tenderness Extremities: no edema. No varicose veins Neurological: Patient is alert, awake and oriented to person, place and time. No focal deficit. Strength bilateral appropriate and equal Skin: Warm and dry. Normal turgor. No rash. Palpitation: Normal elasticity for age Abdomen: Abdomen is soft. Bowel sounds +. There is no abdominal tenderness, no guarding/rigidity no organomegaly Psych: normal insight and normal affect/mood MSK: no joint tenderness or swelling. Digits and nails normal, no deformity : kidney or bladder not palpable Labs/imaging reviewed. Past medical history, past surgical history, family history, social history, allergy reviewed and noted as below Family hx: no hx of CKD. Rest non-contributory imaging: left adrenal thickening A1c 12 Objective - Vital Signs/Intake and Output Vital Signs (last 24 hours): Temp Pulse Resp BP Pulse Ox 98.4 F 90 20 105/59 L 97 08/30/17 08:00 08/30/17 08:00 08/30/17 08:00 08/30/17 08:00 08/30/17 08:00 Intake and Output: 08/30/17 08/30/17 06:59 18:59 Intake Total 1100 1350 Output Total 5800 Balance -4700 1350 - Medications Medications: Current Medications Aspirin (Ecotrin) 81 mg PO DAILY [facility] Desmopressin Acetate (Ddavp) 10 mcg ALEKSANDRA BID [facility] Stop: 09/02/17 11:31 Heparin Sodium (Porcine) (Heparin) 5,000 units SC Q8 [facility] Last Admin: 08/30/17 13:29 Dose: 5,000 units Meropenem 1 gm/ Sodium (Chloride) 100 mls @ 100 mls/hr IVPB Q8 [facility] Last Admin: 08/30/17 13:29 Dose: 100 mls/hr Sodium Chloride (Sodium Chloride 0.9%) 1,000 mls @ 75 mls/hr IV .[id number] [facility] Last Admin: 08/30/17 03:00 Dose: 75 mls/hr Fluconazole (Diflucan Iv 100 Mg/50 Ml Ns) 50 mls @ 100 mls/hr IVPB DAILY [facility] Stop: 09/01/17 15:00 Last Admin: 08/30/17 09:36 Dose: 100 mls/hr Insulin Aspart (Novolog) 0 unit SC ACHS [facility] PRN Reason: Protocol Last Admin: 08/30/17 12:00 Dose: Not Given Insulin Human Isoph/Insulin Regular (Novolin 70/30 (70/30 Units/Ml) 10 Ml) 20 units SC ACB [facility] Last Admin: 08/30/17 08:05 Dose: 20 units Insulin Human Isoph/Insulin Regular (Novolin 70/30 (70/30 Units/Ml) 10 Ml) 14 units SC ACD [facility] Last Admin: 08/29/17 18:08 Dose: 14 units Insulin Human NPH (Novolin N) 20 unit SC HS [facility] Last Admin: 08/29/17 22:20 Dose: 20 unit Loperamide HCl (Imodium) 2 mg PO QID PRN PRN Reason: Diarrhea Metformin HCl (Glucophage) 850 mg PO BID [facility] Last Admin: 08/30/17 09:36 Dose: 850 mg Nystatin (Nystop Topical Powder) 1 applic TOP BID [facility] Last Admin: 08/30/17 12:00 Dose: 1 applic Pantoprazole Sodium (Protonix Ec Tab) 40 mg PO DAILY [facility] Last Admin: 08/30/17 09:37 Dose: 40 mg Rosuvastatin Calcium (Crestor) 5 mg PO [facility] Saccharomyces Boulardii (Florastor) 250 mg PO BID [facility] Last Admin: 08/30/17 12:00 Dose: 250 mg - Labs Labs: 08/30/17 11:09 08/30/17 11:09 PT 13.4 SECONDS (9.7-12.2) H 08/28/17 08:22 INR 1.2 08/28/17 08:22 APTT 25 SECONDS (21-34) 08/28/17 08:22
--- NOTE | 2017-08-30 15:45 | CP.PCM.PN ---
Subjective - Date & Time of Evaluation Date of Evaluation: 08/30/17 Time of Evaluation: 11:10 - Subjective Subjective: clinically same Objective - Vital Signs/Intake and Output Vital Signs (last 24 hours): Temp Pulse Resp BP Pulse Ox 98.4 F 90 20 105/59 L 97 08/30/17 08:00 08/30/17 08:00 08/30/17 08:00 08/30/17 08:00 08/30/17 08:00 Intake and Output: 08/30/17 08/30/17 06:59 18:59 Intake Total 1100 1350 Output Total 5800 Balance -4700 1350 - Medications Medications: Current Medications Aspirin (Ecotrin) 81 mg PO DAILY [facility] Desmopressin Acetate (Ddavp) 10 mcg ALEKSANDRA BID [facility] Stop: 09/02/17 11:31 Heparin Sodium (Porcine) (Heparin) 5,000 units SC Q8 [facility] Last Admin: 08/30/17 13:29 Dose: 5,000 units Meropenem 1 gm/ Sodium (Chloride) 100 mls @ 100 mls/hr IVPB Q8 [facility] Last Admin: 08/30/17 13:29 Dose: 100 mls/hr Sodium Chloride (Sodium Chloride 0.9%) 1,000 mls @ 75 mls/hr IV .[id number] [facility] Last Admin: 08/30/17 03:00 Dose: 75 mls/hr Fluconazole (Diflucan Iv 100 Mg/50 Ml Ns) 50 mls @ 100 mls/hr IVPB DAILY [facility] Stop: 09/01/17 15:00 Last Admin: 08/30/17 09:36 Dose: 100 mls/hr Insulin Aspart (Novolog) 0 unit SC ACHS [facility] PRN Reason: Protocol Last Admin: 08/30/17 12:00 Dose: Not Given Insulin Human Isoph/Insulin Regular (Novolin 70/30 (70/30 Units/Ml) 10 Ml) 20 units SC ACB [facility] Last Admin: 08/30/17 08:05 Dose: 20 units Insulin Human Isoph/Insulin Regular (Novolin 70/30 (70/30 Units/Ml) 10 Ml) 14 units SC ACD [facility] Last Admin: 08/29/17 18:08 Dose: 14 units Insulin Human NPH (Novolin N) 20 unit SC HS [facility] Last Admin: 08/29/17 22:20 Dose: 20 unit Loperamide HCl (Imodium) 2 mg PO QID PRN PRN Reason: Diarrhea Metformin HCl (Glucophage) 850 mg PO BID [facility] Last Admin: 08/30/17 09:36 Dose: 850 mg Nystatin (Nystop Topical Powder) 1 applic TOP BID [facility] Last Admin: 08/30/17 12:00 Dose: 1 applic Pantoprazole Sodium (Protonix Ec Tab) 40 mg PO DAILY [facility] Last Admin: 08/30/17 09:37 Dose: 40 mg Rosuvastatin Calcium (Crestor) 5 mg PO [facility] Saccharomyces Boulardii (Florastor) 250 mg PO BID [facility] Last Admin: 08/30/17 12:00 Dose: 250 mg - Labs Labs: 08/30/17 11:09 08/30/17 11:09 PT 13.4 SECONDS (9.7-12.2) H 08/28/17 08:22 INR 1.2 08/28/17 08:22 APTT 25 SECONDS (21-34) 08/28/17 08:22 - Constitutional Appears: Well - Head Exam Head Exam: ATRAUMATIC, NORMAL INSPECTION, NORMOCEPHALIC - Eye Exam Eye Exam: EOMI, Normal appearance, PERRL Pupil Exam: NORMAL ACCOMODATION, PERRL - ENT Exam ENT Exam: Mucous Membranes Moist, Normal Exam - Neck Exam Neck Exam: Full ROM, Normal Inspection. absent: Lymphadenopathy - Respiratory Exam Respiratory Exam: Decreased Breath Sounds - Cardiovascular Exam Cardiovascular Exam: REGULAR RHYTHM, +S1, +S2 - GI/Abdominal Exam GI & Abdominal Exam: Soft, Diminished Bowel Sounds - Rectal Exam Rectal Exam: Deferred Assessment and Plan (1) Dehydration Status: Acute (2) Severe sepsis Status: Acute (3) Tachycardia Status: Acute (4) Vomiting Status: Acute
[2017-08-30] MEDS: Desmopressin Nasal 10 mcg/Spray (5 ml) NAS SCH (17:37)
--- NOTE | 2017-08-30 18:11 | CP.PCM.PN ---
Subjective - Date & Time of Evaluation Date of Evaluation: 08/30/17 Time of Evaluation: 09:00 - Subjective Subjective: iv rx in progres cont same await echo no fever + pain Objective - Vital Signs/Intake and Output Vital Signs (last 24 hours): Temp Pulse Resp BP Pulse Ox 98.4 F 90 20 105/59 L 97 08/30/17 08:00 08/30/17 08:00 08/30/17 08:00 08/30/17 08:00 08/30/17 08:00 Intake and Output: 08/30/17 08/30/17 06:59 18:59 Intake Total 1100 1350 Output Total 5800 Balance -4700 1350 - Medications Medications: Current Medications Aspirin (Ecotrin) 81 mg PO DAILY [facility] Desmopressin Acetate (Ddavp) 10 mcg ALEKSANDRA BID [facility] Stop: 09/02/17 11:31 Last Admin: 08/30/17 17:37 Dose: 1 spr Meropenem 1 gm/ Sodium (Chloride) 100 mls @ 100 mls/hr IVPB Q8 [facility] Last Admin: 08/30/17 13:29 Dose: 100 mls/hr Sodium Chloride (Sodium Chloride 0.9%) 1,000 mls @ 75 mls/hr IV .[id number] [facility] Last Admin: 08/30/17 03:00 Dose: 75 mls/hr Fluconazole (Diflucan Iv 100 Mg/50 Ml Ns) 50 mls @ 100 mls/hr IVPB DAILY [facility] Stop: 09/01/17 15:00 Last Admin: 08/30/17 09:36 Dose: 100 mls/hr Insulin Aspart (Novolog) 0 unit SC ACHS [facility] PRN Reason: Protocol Last Admin: 08/30/17 16:38 Dose: Not Given Insulin Human Isoph/Insulin Regular (Novolin 70/30 (70/30 Units/Ml) 10 Ml) 20 units SC ACB [facility] Last Admin: 08/30/17 08:05 Dose: 20 units Insulin Human Isoph/Insulin Regular (Novolin 70/30 (70/30 Units/Ml) 10 Ml) 14 units SC ACD [facility] Last Admin: 08/30/17 16:35 Dose: 14 units Insulin Human NPH (Novolin N) 20 unit SC HS [facility] Last Admin: 08/29/17 22:20 Dose: 20 unit Loperamide HCl (Imodium) 2 mg PO QID PRN PRN Reason: Diarrhea Metformin HCl (Glucophage) 850 mg PO BID [facility] Last Admin: 08/30/17 17:37 Dose: 850 mg Nystatin (Nystop Topical Powder) 1 applic TOP BID [facility] Last Admin: 08/30/17 17:38 Dose: 1 applic Pantoprazole Sodium (Protonix Ec Tab) 40 mg PO DAILY [facility] Last Admin: 08/30/17 09:37 Dose: 40 mg Rosuvastatin Calcium (Crestor) 5 mg PO [facility] Saccharomyces Boulardii (Florastor) 250 mg PO BID [facility] Last Admin: 08/30/17 17:37 Dose: 250 mg - Labs Labs: 08/30/17 11:09 08/30/17 11:09 PT 13.4 SECONDS (9.7-12.2) H 08/28/17 08:22 INR 1.2 08/28/17 08:22 APTT 25 SECONDS (21-34) 08/28/17 08:22 - Constitutional Appears: Non-toxic, Chronically Ill - Head Exam Head Exam: NORMOCEPHALIC - Eye Exam Eye Exam: PERRL - ENT Exam ENT Exam: Mucous Membranes Dry - Neck Exam Neck Exam: absent: Lymphadenopathy - Respiratory Exam Respiratory Exam: Decreased Breath Sounds - Cardiovascular Exam Cardiovascular Exam: REGULAR RHYTHM - GI/Abdominal Exam GI & Abdominal Exam: Distended, Soft. absent: Tenderness - Rectal Exam Rectal Exam: Deferred - Exam Exam: NORMAL INSPECTION Assessment and Plan - Assessment and Plan (Free Text) Plan: r/o endocarditis OM right sternoclavicular await Ortho and cardio
[2017-08-30 20:35] LABS: OSMOLALITY,URINE 177 mosm/kg (300-1000)
[2017-08-30] MEDS: Lidocaine 5% Patch TD SCH (20:37)
[2017-08-30] MEDS: (Novolin N) Insulin Human Isophane (NPH) 100 u/ml 10 ml vial SC SCH (21:45)
--- NOTE | 2017-08-30 22:20 | CP.PCM.PN ---
Subjective - Date & Time of Evaluation Date of Evaluation: 08/30/17 Time of Evaluation: 14:15 - Subjective Subjective: Feeling better. Objective - Vital Signs/Intake and Output Vital Signs (last 24 hours): Temp Pulse Resp BP Pulse Ox 98.4 F 90 20 105/59 L 97 08/30/17 08:00 08/30/17 16:00 08/30/17 08:00 08/30/17 08:00 08/30/17 08:00 Intake and Output: 08/30/17 08/31/17 18:59 06:59 Intake Total 1350 Output Total 1950 Balance 1350 -1950 - Medications Medications: Current Medications Aspirin (Ecotrin) 81 mg PO DAILY [facility] Desmopressin Acetate (Ddavp) 10 mcg ALEKSANDRA BID [facility] Stop: 09/02/17 11:31 Last Admin: 08/30/17 17:37 Dose: 1 spr Meropenem 1 gm/ Sodium (Chloride) 100 mls @ 100 mls/hr IVPB Q8 [facility] Last Admin: 08/30/17 21:46 Dose: 100 mls/hr Sodium Chloride (Sodium Chloride 0.9%) 1,000 mls @ 75 mls/hr IV .[id number] [facility] Last Admin: 08/30/17 20:36 Dose: 75 mls/hr Fluconazole (Diflucan Iv 100 Mg/50 Ml Ns) 50 mls @ 100 mls/hr IVPB DAILY [facility] Stop: 09/01/17 15:00 Last Admin: 08/30/17 09:36 Dose: 100 mls/hr Insulin Aspart (Novolog) 0 unit SC ACHS [facility] PRN Reason: Protocol Last Admin: 08/30/17 21:41 Dose: Not Given Insulin Human Isoph/Insulin Regular (Novolin 70/30 (70/30 Units/Ml) 10 Ml) 20 units SC ACB [facility] Last Admin: 08/30/17 08:05 Dose: 20 units Insulin Human Isoph/Insulin Regular (Novolin 70/30 (70/30 Units/Ml) 10 Ml) 14 units SC ACD [facility] Last Admin: 08/30/17 16:35 Dose: 14 units Insulin Human NPH (Novolin N) 20 unit SC HS [facility] Last Admin: 08/30/17 21:45 Dose: 20 unit Lidocaine (Lidoderm) 1 ea TD DAILY [facility] Last Admin: 03/01/18 20:37 Dose: 1 ea Loperamide HCl (Imodium) 2 mg PO QID PRN PRN Reason: Diarrhea Metformin HCl (Glucophage) 850 mg PO BID [facility] Last Admin: 08/30/17 17:37 Dose: 850 mg Nystatin (Nystop Topical Powder) 1 applic TOP BID [facility] Last Admin: 08/30/17 17:38 Dose: 1 applic Pantoprazole Sodium (Protonix Ec Tab) 40 mg PO DAILY [facility] Last Admin: 08/30/17 09:37 Dose: 40 mg Rosuvastatin Calcium (Crestor) 5 mg PO [facility] Saccharomyces Boulardii (Florastor) 250 mg PO BID [facility] Last Admin: 08/30/17 17:37 Dose: 250 mg - Labs Labs: 08/30/17 11:09 08/30/17 11:09 PT 13.4 SECONDS (9.7-12.2) H 08/28/17 08:22 INR 1.2 08/28/17 08:22 APTT 25 SECONDS (21-34) 08/28/17 08:22 - Head Exam Head Exam: ATRAUMATIC - Eye Exam Eye Exam: Normal appearance - ENT Exam ENT Exam: Mucous Membranes Dry - Respiratory Exam Respiratory Exam: NORMAL BREATHING PATTERN - Cardiovascular Exam Cardiovascular Exam: +S1, +S2 - GI/Abdominal Exam GI & Abdominal Exam: Normal Bowel Sounds Assessment and Plan (1) Thrombocytopenia Assessment & Plan: improving secondary to infection Status: Acute (2) Leukocytosis Assessment & Plan: improving with antibiotics Status: Acute (3) Anemia Assessment & Plan: chronic disease Status: Acute
--- NOTE | 2017-08-30 23:16 | CARD ---
APPROVED REPORT EKG Measurement Heart [id number] <Conclusion> Normal sinus rhythm Inferior infarct, possibly acute ACUTE CT / STEMI Consider right ventricular involvement in acute inferior infarct Abnormal ECG
[2017-08-31] MEDS: Meropenem 1 GM in Sodium Chloride 0.9% 100 ML IVPB SCH ×3 (05:28→21:09)
--- NOTE | 2017-08-31 06:06 | CON ---
DATE: HISTORY OF PRESENT ILLNESS: The patient presented with history of chills and fever. She has multiple medical problems including uncontrolled diabetes. She is also complaining of pain over the right sternoclavicular area. No history of trauma. Onset was 4 days ago and currently she is admitted with the diagnosis for nausea, vomiting for 3 days. PHYSICAL EXAMINATION: Examination revealed mild erythema over the right sternoclavicular joint. Moderate tenderness noted. No crepitus noted. MRI of the right clavicle area revealed changes suggestive of possible osteomyelitis and currently the patient is on antibiotic therapy. DIAGNOSIS: Possible osteomyelitis of the proximal, medial clavicle. I would recommend interventional radiologist to do an aspirational biopsy for cultures. We will follow the patient. Tiki Dangelo MD
[2017-08-31 06:39] LABS: INR 1.2; PROTHROMBIN TIME 13.5 SECONDS (9.7-12.2)
[2017-08-31 06:59] LABS: BASO % 0.2 % (0.0-2.0); EOS # 0.1 K/uL (0.0-0.7); EOS % 0.6 % (0.0-4.0); HEMOGLOBIN 10.8 g/dL (11.0-16.0); LYMPH # 1.1 K/uL (1.0-4.3); LYMPH % 9.4 % (20.0-40.0); MEAN CELL VOLUME 84.9 fL (81.0-99.0); MEAN CORPUSCULAR HEMOGLOBIN 29.5 pg (27.0-31.0); MEAN CORPUSCULAR HGB CONC 34.8 g/dL (33.0-37.0); MEAN PLATELET VOLUME 9.1 fL (7.2-11.7); MONO # 1.1 K/uL (0.0-0.8); MONO % 9.3 % (0.0-10.0); NEUT # 9.4 K/uL (1.8-7.0); NEUT % 80.5 % (50.0-75.0); RBC 3.65 Mil/uL (3.80-5.20); RED CELL DISTRIBUTION WIDTH 12.9 % (11.5-14.5); WHITE BLOOD COUNT 11.7 K/uL (4.8-10.8)
[2017-08-31 07:00] LABS: ALB/GLOB RATIO 0.8 (1.0-2.1); ALBUMIN 2.1 g/dL (3.5-5.0); ALT/SGPT 30 U/L (9-52); AST/SGOT 18 U/L (14-36); BLOOD UREA NITROGEN 6 mg/dL (7-17); CALCIUM 7.6 mg/dl (8.6-10.4); GFR AFRICAN-AMERICAN > 60; GFR NON-AFRICAN AMERICAN > 60; MAGNESIUM 1.8 mg/dL (1.6-2.3)
[2017-08-31] MEDS: Sodium Chloride 0.9% 1,000 ML IV SCH ×3 (07:05→21:00)
[2017-08-31 07:09] LABS: PLATELET COUNT 128 K/uL (130-400)
[2017-08-31] MEDS: (Novolin 70/30) NPH/Regular 70/30 Units/ml 10 ml vial SC SCH ×2 (08:07→17:17)
[2017-08-31] MEDS: (Novolog) Insulin Aspart, Recombinant 100 u/ml 10 ml vial SC SCH ×4 (08:09→22:09)
[2017-08-31 08:40] LABS: EOSINOPHIL 1 % (0-4); LYMPHOCYTE 6 % (20-40); MONOCYTE 2 % (0-10); NEUTROPHIL 91 % (50-75); PLATELET ESTIMATE NORMAL (NORMAL); TOTAL CELLS COUNTED 100
[2017-08-31] MEDS: Lidocaine 5% Patch TD SCH (09:27)
[2017-08-31] MEDS: Saccharomyces Boulardi 250 mg Cap PO SCH ×2 (09:28→17:14)
[2017-08-31] MEDS: Pantoprazole 40 mg EC Tab PO SCH (09:28)
[2017-08-31] MEDS: Desmopressin Nasal 10 mcg/Spray (5 ml) NAS SCH ×2 (10:00→17:54)
--- NOTE | 2017-08-31 10:32 | PCM.IRP ---
History of Present Illness - History of Present Illness History of Present Illness: IR requested to biopsy clavicle for possible Osteomyletis. Biopsy of the clavicle is not performed by IR department. There is also no drainable colleciton at the clavicular head that can be aspirated. Agree that findings are very suspicious for osteomyelitis. Objective - Vital Signs/Intake and Output Vital Signs (last 24 hours): Vital Signs - 24 hr 08/30/17 08/30/17 08/30/17 16:00 23:25 23:30 Temperature 98.3 F Pulse Rate 90 125 H 110 H Respiratory 20 Rate Blood Pressure 111/68 O2 Sat by Pulse 98 Oximetry 08/31/17 08/31/17 07:00 08:57 Temperature 98.7 F Pulse Rate 110 H 112 H Respiratory 20 Rate Blood Pressure 111/73 O2 Sat by Pulse 95 Oximetry Intake and Output (last 12 hours): Intake & Output 08/30/17 08/31/17 08/31/17 18:59 06:59 18:59 Intake Total 1350 1200 Output Total 4350 Balance 1350 -3150 Intake: Intake, IV Amount 600 600 Left Antecubital 600 600 Oral 750 600 Output: Urine 4350 Urethral (Pablo) 4350 Other: # Voids Urethral (Pablo) 4,000 # Bowel Movements 1 - Medications Medications: Current Medications Aspirin (Ecotrin) 81 mg PO DAILY [facility] Last Admin: 08/31/17 09:34 Dose: 81 mg Desmopressin Acetate (Ddavp) 10 mcg ALEKSANDRA BID [facility] Stop: 09/02/17 11:31 Last Admin: 08/30/17 17:37 Dose: 1 spr Meropenem 1 gm/ Sodium (Chloride) 100 mls @ 100 mls/hr IVPB Q8 [facility] Last Admin: 08/31/17 05:28 Dose: 100 mls/hr Sodium Chloride (Sodium Chloride 0.9%) 1,000 mls @ 75 mls/hr IV .[id number] [facility] Last Admin: 08/30/17 20:36 Dose: 75 mls/hr Fluconazole (Diflucan Iv 100 Mg/50 Ml Ns) 50 mls @ 100 mls/hr IVPB DAILY [facility] Stop: 09/01/17 15:00 Last Admin: 08/30/17 09:36 Dose: 100 mls/hr Insulin Aspart (Novolog) 0 unit SC ACHS [facility] PRN Reason: Protocol Last Admin: 08/31/17 08:09 Dose: Not Given Insulin Human Isoph/Insulin Regular (Novolin 70/30 (70/30 Units/Ml) 10 Ml) 20 units SC ACB [facility] Last Admin: 08/31/17 08:07 Dose: 20 units Insulin Human Isoph/Insulin Regular (Novolin 70/30 (70/30 Units/Ml) 10 Ml) 14 units SC ACD [facility] Last Admin: 08/30/17 16:35 Dose: 14 units Insulin Human NPH (Novolin N) 20 unit SC HS [facility] Last Admin: 08/30/17 21:45 Dose: 20 unit Lidocaine (Lidoderm) 1 ea TD DAILY [facility] Last Admin: 08/31/17 09:27 Dose: 1 ea Loperamide HCl (Imodium) 2 mg PO QID PRN PRN Reason: Diarrhea Metformin HCl (Glucophage) 850 mg PO BID [facility] Last Admin: 08/31/17 09:28 Dose: 850 mg Nystatin (Nystop Topical Powder) 1 applic TOP BID [facility] Last Admin: 08/30/17 17:38 Dose: 1 applic Pantoprazole Sodium (Protonix Ec Tab) 40 mg PO DAILY [facility] Last Admin: 08/31/17 09:28 Dose: 40 mg Rosuvastatin Calcium (Crestor) 5 mg PO [facility] Saccharomyces Boulardii (Florastor) 250 mg PO BID [facility] Last Admin: 08/31/17 09:28 Dose: 250 mg - Labs Labs (last 24 hours): Laboratory Results - last 24 hr 08/30/17 08/30/17 08/30/17 11:09 11:09 11:45 WBC 12.6 H RBC 3.55 L Hgb 10.4 L Hct 30.3 L MCV 85.3 MCH 29.3 MCHC 34.4 RDW 12.8 Plt Count 89 L D MPV 9.6 Neut % (Auto) 87.5 H Lymph % (Auto) 6.1 L [place] % (Auto) 5.0 Eos % (Auto) 1.0 Baso % (Auto) 0.4 Neut # (Auto) 11.0 H Lymph # (Auto) 0.8 L [place] # (Auto) 0.6 Eos # (Auto) 0.1 Baso # (Auto) 0.1 Neutrophils % (Manual) 85 H Band Neutrophils % 3 H Lymphocytes % (Manual) 8 L Monocytes % (Manual) 2 Eosinophils % (Manual) 2 Platelet Estimate Decreased L RBC Morphology Polychromasia Slight Hypochromasia (manual) Slight PT INR Sodium 132 Potassium 4.1 Chloride 98 Carbon Dioxide 26 Anion Gap 12 BUN 4 L Creatinine 0.4 L Est GFR ( Amer) > 60 Est GFR (Non-Af Amer) > 60 POC Glucose (mg/dL) 198 H Random Glucose 183 H Calcium 6.9 L Phosphorus Magnesium Total Bilirubin 0.2 AST 27 ALT 24 Alkaline Phosphatase 93 Total Protein 4.5 L Albumin 1.9 L Globulin 2.6 Albumin/Globulin Ratio 0.7 L Urine Osmolality Ur Random Sodium 08/30/17 08/30/17 08/30/17 16:15 18:21 21:22 WBC RBC Hgb Hct MCV MCH MCHC RDW Plt Count MPV Neut % (Auto) Lymph % (Auto) [place] % (Auto) Eos % (Auto) Baso % (Auto) Neut # (Auto) Lymph # (Auto) [place] # (Auto) Eos # (Auto) Baso # (Auto) Neutrophils % (Manual) Band Neutrophils % Lymphocytes % (Manual) Monocytes % (Manual) Eosinophils % (Manual) Platelet Estimate RBC Morphology Polychromasia Hypochromasia (manual) PT INR Sodium Potassium Chloride Carbon Dioxide Anion Gap BUN Creatinine Est GFR ( Amer) Est GFR (Non-Af Amer) POC Glucose (mg/dL) 204 H 241 H Random Glucose Calcium Phosphorus Magnesium Total Bilirubin AST ALT Alkaline Phosphatase Total Protein Albumin Globulin Albumin/Globulin Ratio Urine Osmolality 177 L Ur Random Sodium 64 08/31/17 08/31/17 08/31/17 06:12 06:18 06:18 WBC 11.7 H RBC 3.65 L Hgb 10.8 L Hct 31.0 L MCV 84.9 MCH 29.5 MCHC 34.8 RDW 12.9 Plt Count 128 L D MPV 9.1 Neut % (Auto) 80.5 H Lymph % (Auto) 9.4 L [place] % (Auto) 9.3 Eos % (Auto) 0.6 Baso % (Auto) 0.2 Neut # (Auto) 9.4 H Lymph # (Auto) 1.1 [place] # (Auto) 1.1 H Eos # (Auto) 0.1 Baso # (Auto) 0.0 Neutrophils % (Manual) 91 H Band Neutrophils % Lymphocytes % (Manual) 6 L Monocytes % (Manual) 2 Eosinophils % (Manual) 1 Platelet Estimate Normal RBC Morphology Normal Polychromasia Hypochromasia (manual) PT INR Sodium 132 Potassium 4.0 Chloride 98 Carbon Dioxide 29 Anion Gap 9 L BUN 6 L Creatinine 0.5 L Est GFR ( Amer) > 60 Est GFR (Non-Af Amer) > 60 POC Glucose (mg/dL) 136 H Random Glucose 128 H Calcium 7.6 L Phosphorus 3.4 Magnesium 1.8 Total Bilirubin 0.5 AST 18 ALT 30 Alkaline Phosphatase 80 Total Protein 4.8 L Albumin 2.1 L Globulin 2.7 Albumin/Globulin Ratio 0.8 L Urine Osmolality Ur Random Sodium 08/31/17 06:18 WBC RBC Hgb Hct MCV MCH MCHC RDW Plt Count MPV Neut % (Auto) Lymph % (Auto) [place] % (Auto) Eos % (Auto) Baso % (Auto) Neut # (Auto) Lymph # (Auto) [place] # (Auto) Eos # (Auto) Baso # (Auto) Neutrophils % (Manual) Band Neutrophils % Lymphocytes % (Manual) Monocytes % (Manual) Eosinophils % (Manual) Platelet Estimate RBC Morphology Polychromasia Hypochromasia (manual) PT 13.5 H INR 1.2 Sodium Potassium Chloride Carbon Dioxide Anion Gap BUN Creatinine Est GFR ( Amer) Est GFR (Non-Af Amer) POC Glucose (mg/dL) Random Glucose Calcium Phosphorus Magnesium Total Bilirubin AST ALT Alkaline Phosphatase Total Protein Albumin Globulin Albumin/Globulin Ratio Urine Osmolality Ur Random Sodium
--- NOTE | 2017-08-31 11:37 | CP.PCM.PN ---
Subjective - Date & Time of Evaluation Date of Evaluation: 08/31/17 Time of Evaluation: 11:35 - Subjective Subjective: Nephrology Consultation: Assessment: Stable UTI with pyelonephritis and sepsis with GNR Hypokalemia likely due to GI fluid loss, urinary K loss due to glycosuria Hyponatremia, hypophosphatemia uncontrolled DM with hyperglycemia Polyuria likely due to combination of glycosuria and hypokalemia (can lead to nephrogenic DI) Morbid obesity left adrenal thickening clavicle Osteomyelitis Plan Will need hormonal work up of left adrenal thickening with edmundo/renin and dexamethasone suppression test later as outpt once pt stable. hence will d/c aldactone as well (to avoid interference with edmundo measurements) started nasal DDAVP x 3 days to decrease urinary fluid loss. please d/c it if serum Na <130. supplement K, phos As needed and follow electrolytes closely Monitor Input/Output, daily weights and lytes antibiotics as per ID Dose meds/antibiotics for normal GFR. Avoid nephrotoxins/NSAIDs Glycemic control Further work up/management as per primary team Thanks for allowing me to participate in care of your patient. Please call if any Qs. Dr Eleno Middleton Office: [phone] HPI: Pt is a 56 F with hx of diabetes Mellitus (15 years), hypertension (years) , obesity presented with complaints of feeling sick with nausea/vomitting for last few days. also found to have UTI with sepsis and severe electrolytes abnormalities hence renal consulted,. she says DM usually controlled except over las few days when she couldn't take her meds. reports increased thirst and increased fluid intake, increased urine output. denies any recent Wt gains Denies OTC/herbal meds or NSAIDs ROS: Cardiovascular: No chest pain. Pulmonary: No shortness of breath Gastrointestinal: denies abdominal pain No nausea. No vomiting now. Genitourinary: No pain while urinating. Denies blood in urine. All other negative except as in HPI Physical Examination: General Appearance: Comfortable, in no acute respiratory distress, co-operative . Vitals reviewed and noted as below Head; Atraumatic, normocephalic ENT: no ulcers no thrush. Tongue is midline. Oropharynx: no rash or ulcers. EYES: Pupils are equal, round and reactive to light accommodation. Eye muscles and extraocular movement intact. Sclera is anicteric. Neck; supple no lymphadenopathy, no thyromegaly or bruit Lungs: Normal respiratory rate/effort. Breath sounds bilateral equal and clear Heart: Normal rate. s1s2 normal. No rub or gallop. Rt clavicular/sternal tenderness Extremities: no edema. No varicose veins Neurological: Patient is alert, awake and oriented to person, place and time. No focal deficit. Strength bilateral appropriate and equal Skin: Warm and dry. Normal turgor. No rash. Palpitation: Normal elasticity for age Abdomen: Abdomen is soft. Bowel sounds +. There is no abdominal tenderness, no guarding/rigidity no organomegaly Psych: normal insight and normal affect/mood MSK: no joint tenderness or swelling. Digits and nails normal, no deformity : kidney or bladder not palpable Labs/imaging reviewed. Past medical history, past surgical history, family history, social history, allergy reviewed and noted as below Family hx: no hx of CKD. Rest non-contributory imaging: left adrenal thickening A1c 12 Objective - Vital Signs/Intake and Output Vital Signs (last 24 hours): Temp Pulse Resp BP Pulse Ox 98.7 F 112 H 20 111/73 95 08/31/17 08:57 08/31/17 08:57 08/31/17 08:57 08/31/17 08:57 08/31/17 08:57 Intake and Output: 08/31/17 08/31/17 06:59 18:59 Intake Total 1200 Output Total 4350 Balance -3150 - Medications Medications: Current Medications Aspirin (Ecotrin) 81 mg PO DAILY [facility] Last Admin: 08/31/17 09:34 Dose: 81 mg Desmopressin Acetate (Ddavp) 10 mcg ALEKSANDRA BID [facility] Stop: 09/02/17 11:31 Last Admin: 08/30/17 17:37 Dose: 1 spr Meropenem 1 gm/ Sodium (Chloride) 100 mls @ 100 mls/hr IVPB Q8 [facility] Last Admin: 08/31/17 05:28 Dose: 100 mls/hr Sodium Chloride (Sodium Chloride 0.9%) 1,000 mls @ 75 mls/hr IV .[id number] [facility] Last Admin: 08/30/17 20:36 Dose: 75 mls/hr Fluconazole (Diflucan Iv 100 Mg/50 Ml Ns) 50 mls @ 100 mls/hr IVPB DAILY [facility] Stop: 09/01/17 15:00 Last Admin: 08/30/17 09:36 Dose: 100 mls/hr Insulin Aspart (Novolog) 0 unit SC ACHS [facility] PRN Reason: Protocol Last Admin: 08/31/17 08:09 Dose: Not Given Insulin Human Isoph/Insulin Regular (Novolin 70/30 (70/30 Units/Ml) 10 Ml) 20 units SC ACB [facility] Last Admin: 08/31/17 08:07 Dose: 20 units Insulin Human Isoph/Insulin Regular (Novolin 70/30 (70/30 Units/Ml) 10 Ml) 14 units SC ACD [facility] Last Admin: 08/30/17 16:35 Dose: 14 units Insulin Human NPH (Novolin N) 20 unit SC HS [facility] Last Admin: 08/30/17 21:45 Dose: 20 unit Lidocaine (Lidoderm) 1 ea TD DAILY [facility] Last Admin: 08/31/17 09:27 Dose: 1 ea Loperamide HCl (Imodium) 2 mg PO QID PRN PRN Reason: Diarrhea Metformin HCl (Glucophage) 850 mg PO BID [facility] Last Admin: 08/31/17 09:28 Dose: 850 mg Nystatin (Nystop Topical Powder) 1 applic TOP BID [facility] Last Admin: 08/30/17 17:38 Dose: 1 applic Pantoprazole Sodium (Protonix Ec Tab) 40 mg PO DAILY [facility] Last Admin: 08/31/17 09:28 Dose: 40 mg Rosuvastatin Calcium (Crestor) 5 mg PO [facility] Saccharomyces Boulardii (Florastor) 250 mg PO BID [facility] Last Admin: 08/31/17 09:28 Dose: 250 mg - Labs Labs: 08/31/17 06:18 08/31/17 06:18 PT 13.5 SECONDS (9.7-12.2) H 08/31/17 06:18 INR 1.2 08/31/17 06:18 APTT 25 SECONDS (21-34) 08/28/17 08:22
[2017-08-31] MEDS: Fluconazole IV 100mg/50 ml NS 50 ML IVPB SCH (11:50)
--- NOTE | 2017-08-31 13:25 | CP.PCM.PN ---
<Gale Marcum - Last Filed: 08/31/17 15:28> Subjective - Date & Time of Evaluation Date of Evaluation: 08/31/17 Time of Evaluation: 09:00 - Subjective Subjective: Medicine Note for Hospitalist Service- Dr. Deal Patient was seen and examined at bedside. Patient reports she tolerates her diet , ambulating well, reported no bowel movement since last night. Denied fever, chills, headache, SOB, chest pain, abdominal pain, n/v/d/c, or urinary symptoms. Objective - Vital Signs/Intake and Output Vital Signs (last 24 hours): Temp Pulse Resp BP Pulse Ox 98.7 F 112 H 20 111/73 95 08/31/17 08:57 08/31/17 08:57 08/31/17 08:57 08/31/17 08:57 08/31/17 08:57 Intake and Output: 08/31/17 08/31/17 06:59 18:59 Intake Total 1200 Output Total 4350 Balance -3150 - Medications Medications: Current Medications Aspirin (Ecotrin) 81 mg PO DAILY [facility] Last Admin: 08/31/17 09:34 Dose: 81 mg Desmopressin Acetate (Ddavp) 10 mcg ALEKSANDRA BID [facility] Stop: 09/02/17 11:31 Last Admin: 08/31/17 10:00 Dose: 1 spr Meropenem 1 gm/ Sodium (Chloride) 100 mls @ 100 mls/hr IVPB Q8 [facility] Last Admin: 08/31/17 12:59 Dose: 100 mls/hr Sodium Chloride (Sodium Chloride 0.9%) 1,000 mls @ 75 mls/hr IV .[id number] [facility] Last Admin: 08/31/17 12:47 Dose: 75 mls/hr Fluconazole (Diflucan Iv 100 Mg/50 Ml Ns) 50 mls @ 100 mls/hr IVPB DAILY [facility] Stop: 09/01/17 15:00 Last Admin: 08/30/17 09:36 Dose: 100 mls/hr Insulin Aspart (Novolog) 0 unit SC ACHS [facility] PRN Reason: Protocol Last Admin: 08/31/17 11:30 Dose: Not Given Insulin Human Isoph/Insulin Regular (Novolin 70/30 (70/30 Units/Ml) 10 Ml) 20 units SC ACB [facility] Last Admin: 08/31/17 08:07 Dose: 20 units Insulin Human Isoph/Insulin Regular (Novolin 70/30 (70/30 Units/Ml) 10 Ml) 14 units SC ACD [facility] Last Admin: 08/30/17 16:35 Dose: 14 units Insulin Human NPH (Novolin N) 20 unit SC HS [facility] Last Admin: 08/30/17 21:45 Dose: 20 unit Lidocaine (Lidoderm) 1 ea TD DAILY [facility] Last Admin: 08/31/17 09:27 Dose: 1 ea Loperamide HCl (Imodium) 2 mg PO QID PRN PRN Reason: Diarrhea Metformin HCl (Glucophage) 850 mg PO BID [facility] Last Admin: 08/31/17 09:28 Dose: 850 mg Nystatin (Nystop Topical Powder) 1 applic TOP BID [facility] Last Admin: 08/31/17 10:00 Dose: 1 applic Pantoprazole Sodium (Protonix Ec Tab) 40 mg PO DAILY [facility] Last Admin: 08/31/17 09:28 Dose: 40 mg Rosuvastatin Calcium (Crestor) 5 mg PO [facility] Saccharomyces Boulardii (Florastor) 250 mg PO BID [facility] Last Admin: 08/31/17 09:28 Dose: 250 mg - Labs Labs: 08/31/17 06:18 08/31/17 06:18 PT 13.5 SECONDS (9.7-12.2) H 08/31/17 06:18 INR 1.2 08/31/17 06:18 APTT 25 SECONDS (21-34) 08/28/17 08:22 - Constitutional Appears: No Acute Distress - Head Exam Head Exam: NORMAL INSPECTION, NORMOCEPHALIC - Eye Exam Eye Exam: EOMI, Normal appearance, PERRL - ENT Exam ENT Exam: Mucous Membranes Moist, Normal Exam - Respiratory Exam Respiratory Exam: Clear to Ausculation Bilateral, NORMAL BREATHING PATTERN. absent: Decreased Breath Sounds, Wheezes - Cardiovascular Exam Cardiovascular Exam: REGULAR RHYTHM - GI/Abdominal Exam GI & Abdominal Exam: Soft, Normal Bowel Sounds. absent: Distended, Tenderness - Extremities Exam Extremities Exam: Normal Inspection. absent: Pedal Edema, Tenderness - Neurological Exam Neurological Exam: Alert, Awake, Oriented x3 - Psychiatric Exam Psychiatric exam: Normal Affect, Normal Mood - Skin Skin Exam: Dry, Intact, Normal Color, Warm Assessment and Plan - Assessment and Plan (Free Text) Plan: This is a 56 yo female admitted for sepsis 2/2 to UTI complicated by bacteremia 2/2 to gram negative rods Sepsis 2/2 to UTI complicated by bacteremia 2/2 to gram negative anna -ID consult. recs appreciated. -IV meropenem -2 blood cultures positive for gram negative anna. >>> cultures positive for E. Coli -procal elevated at 14; patient has responded clinically to abx tx F/U UC, BC Questionable Osteomyelitis R Clavicle CT Thoracics consulted - Dr. Oviedo- help appreciated -foci of air in clavicle -MRI of chest is positive for osteomyelitis of clavicle until proven otherwise -continue merrem -will likely need LEEANNA to r/o endocarditits -transthoracic echo negative for vegetations -ESR elevated Diarrhea; acute -stool c diff; negative -stool culture; negative to date -stool electrolytes; WNL -stool leukocytes; negative -will give florastor and loperamide to help control diarrhea Adrenal thickening -Nephrology consulted - help appreciated - Dr. Middleton -Started DDAVP as per nephro - As per Nephro: Will need hormonal work up of left adrenal thickening with edmundo/renin and dexamethasone suppression test later as outpt once pt stable. hence will d/c aldactone as well (to avoid interference with edmundo measurements) Hypokalemia - resolving -replete K as necessary -cardio consult. recs appreciated -nephro consult. recs appreciated -will start spironolactone>>> discontinued today -24 hour urinary K -renin level -erin level Altered mental status; resolved -neurology consult. recs appreciated. 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 Dr. Fox. recs appreciated. Anemia -likely anemia of chronic disease -B12 WNL, ferritin wnl, retic count WNL -heme/onc consult. DR. Ballard. Recs appreciated. GI/DVT ppx -protonix -heparin SC Q8H DW Dr. Deal, Gale Marcum DO, PGY-1 <Radha Deal V - Last Filed: 08/31/17 17:40> Objective - Vital Signs/Intake and Output Vital Signs (last 24 hours): Temp Pulse Resp BP Pulse Ox 100 F H 125 H 20 102/65 95 08/31/17 15:48 08/31/17 15:48 08/31/17 15:48 08/31/17 15:48 08/31/17 15:48 Intake and Output: 08/31/17 08/31/17 06:59 18:59 Intake Total 1200 1300 Output Total 4350 4400 Balance -3150 -3100 - Medications Medications: Current Medications Aspirin (Ecotrin) 81 mg PO DAILY [facility] Last Admin: 08/31/17 09:34 Dose: 81 mg Desmopressin Acetate (Ddavp) 10 mcg ALEKSANDRA BID [facility] Stop: 09/02/17 11:31 Last Admin: 08/31/17 10:00 Dose: 1 spr Meropenem 1 gm/ Sodium (Chloride) 100 mls @ 100 mls/hr IVPB Q8 [facility] Last Admin: 08/31/17 12:59 Dose: 100 mls/hr Sodium Chloride (Sodium Chloride 0.9%) 1,000 mls @ 75 mls/hr IV .[id number] [facility] Last Admin: 08/31/17 12:47 Dose: 75 mls/hr Fluconazole (Diflucan Iv 100 Mg/50 Ml Ns) 50 mls @ 100 mls/hr IVPB DAILY [facility] Stop: 09/01/17 15:00 Last Admin: 08/30/17 09:36 Dose: 100 mls/hr Insulin Aspart (Novolog) 0 unit SC ACHS [facility] PRN Reason: Protocol Last Admin: 08/31/17 11:30 Dose: Not Given Insulin Human Isoph/Insulin Regular (Novolin 70/30 (70/30 Units/Ml) 10 Ml) 20 units SC ACB [facility] Last Admin: 08/31/17 08:07 Dose: 20 units Insulin Human Isoph/Insulin Regular (Novolin 70/30 (70/30 Units/Ml) 10 Ml) 14 units SC ACD [facility] Last Admin: 08/31/17 17:17 Dose: 14 units Insulin Human NPH (Novolin N) 20 unit SC HS [facility] Last Admin: 08/30/17 21:45 Dose: 20 unit Lidocaine (Lidoderm) 1 ea TD DAILY [facility] Last Admin: 08/31/17 09:27 Dose: 1 ea Loperamide HCl (Imodium) 2 mg PO QID PRN PRN Reason: Diarrhea Metformin HCl (Glucophage) 850 mg PO BID [facility] Last Admin: 08/31/17 17:14 Dose: 850 mg Nystatin (Nystop Topical Powder) 1 applic TOP BID [facility] Last Admin: 08/31/17 10:00 Dose: 1 applic Pantoprazole Sodium (Protonix Ec Tab) 40 mg PO DAILY [facility] Last Admin: 08/31/17 09:28 Dose: 40 mg Rosuvastatin Calcium (Crestor) 5 mg PO HS [facility] Saccharomyces Boulardii (Florastor) 250 mg PO BID [facility] Last Admin: 08/31/17 17:14 Dose: 250 mg - Labs Labs: 08/31/17 06:18 08/31/17 06:18 PT 13.5 SECONDS (9.7-12.2) H 08/31/17 06:18 INR 1.2 08/31/17 06:18 APTT 25 SECONDS (21-34) 08/28/17 08:22 Attending/Attestation - Attestation I have personally seen and examined this patient.: Yes I have fully participated in the care of the patient.: Yes I have reviewed all pertinent clinical information, including history, physical exam and plan: Yes Notes (Text): Patient seen, examined, case discussed with medical editor. Patient seen at bedside this afternoon patient reports she is feeling much better denies any fevers chills shortness of breath chest pain denies abdominal pain denies diarrhea. Reviewed Dr. Corea's note help appreciated interventional radiology does not do a bone biopsy noted. We have consulted thoracic surgery to see with her now bone biopsy is necessary. I've discussed with surgical pathologist who has spoken with a thoracic surgeon indicated primary line is IV antibiotic therapy once infection has cleared he can follow-up outpatient CT bone biopsy is warranted. Patient is to DDVAP per nephrology we will need tomorrow sodium to see and discontinue if it's below 130 per their note. Repeat blood cultures have showed no growth 24 hours 2. Repeat urine cultures were drawn today. Assessment/plan. #1. Sepsis Pyleonephritis/Urinary Tract Infection Bacteremia Osteomyelitis Criteria: WBC; 27.3, Tmax: 102.1F, Lactate: 4.3-->1.4 Etiology: Bandemia, bacteremia, urinary tract infection, and possible osteomyelitis of the clavicle Infectious disease (Dr. Monroy) on consult hope appreciated Blood culture (08/26/17): E. Coli Blood culture (08/26/17): E. Coli Blood cultures (08/30/17): no growth after 24 hours X2 Urine culture (08/26/17): gram negative anna Stool (08/27): No salmonella, shigella, or camplobacter isolated Urine (08/28): Yeast species Urine culture (08/31/17): pending Dilfucan 100mg IVPB daily (active since 08/30/17) Meropenem 1 gm IVPB Q8H (active since 08/27/17) NS 75 cc/hr Florastor 250mg PO BID CT Abdomen/Pelvis: Left renal subscapular fluid collection with radiating linear hypodensities infectious/inflammatory processes could produce this appearance resolving posttraumatic hematoma which also possible infarct and differential diagnosis also noted left adrenal gland thickening. Thickened irregular urinary bladder wall as discussed above 2. Osteomyelitis of clavicle Chest MRI (08/29/17): Presence of gas in the marrow limits indirect interpretation presence of gas in the marrow medial right clavicle seen prior CAT scan 08/27/2017 is rather suspicious for ostial malaise until proven otherwise. Bone biopsy came be performed to confirm this no definite pattern of osteomalacia seen initial sternum. CT Chest/Abdomen/Pelvis (08/27/17): Numerous tiny air foci within the right clavicle head and lesser degree in the right sternum. Numerous tire tiny air foci and stranding of soft tissue surrounding the right clavicular head supportive work of acute infectious/inflammatory process. Orthopedic (Dr. Dangelo): Had recommended for IR consult for bone biopsy for pathology, cultures not likely to get more information as patient on antibiotics We will seek out interventional radiology for bone biopsy for osteomyelitis of clavicle who do not do bone marrow biopsy 08/31/17 Thoracic surgery (Dr. Oviedo) help appreciated Please refer #1. 3. Electrolyte imbalance Nephrology (Dr. Middleton) on consult help appreciated Noted in prior no acute need for renal replacement therapy at this time recommended for hormonal workup of left adrenal thickening with all don't run in an dexamethasone suppression test later as an outpatient once patient is stable. Since admission hyponatremia has resolved, hypokalemia has resolved 4. Thrombocytopenia, anemia Hematology/oncology (Dr. Lux Ballard) on consult help appreciated Improving Likely secondary to sepsis noted #1. 5. Tachycardia Cardiology (Dr. Grace) on consult--help appreciated Likely secondary to dehydration and sepsis noted #[address] no noted PE noted. Cardio has reviewed echocardiogram with normal left ventricular contractility no aortic stenosis is no pericardial effusion with dehydration and likely pulmonary embolus she will on treatment for sepsis 6. Lethargy (resolved) Neurology (Dr. Nguyen) on consult-->help appreciated CT Head (08/27/17): no acute abnormality EEG: Mildly abnormal EEG because of persistent slowing throughout the record suggestive of bilateral cerebral dysfunction probably secondary to mid metabolic , vascular or degenerative processes correlate. In his progress note has noted normal EEG for age and has signed off stable from neurologic perspective. Nonreactive RPR Likely secondary to #1 and #3 7. Uncontrolled diabetic Endocrinology (Dr. Fox) on consult-->help appreciated Hemoglobin A1c 12.0 Novolin 70/30 14 units sub ACD Novolin 70/30 20 units sub ACB Novolin N 20 units sub HS Novolog sliding scale subq ACHS Metformin 850mg PO BID Crestor 5mg POqHS Aspirin 81mg PO daily 8. Diarrhea (resolved) No Salmonella, Shigella, or Campylobacter isolated negative Stool occult blood Stool Leukocytes negative C. Dif negative On immodium PRN 9. Adrenal Thickening Noted on CT abdomen and pelvis in light of persistent hypokalemia. Aldactone was discontinued. Nephrotic nephrology on board. Recommended for possible dexamethasone suppression test as outpatient 10. Prophylactic measure Protonix 40mg PO daily NS 75 cc/hr chemical anticoagulation secondary to thrombocytopenia
--- NOTE | 2017-08-31 17:40 | CP.PCM.PN ---
Subjective - Date & Time of Evaluation Date of Evaluation: 08/31/17 Time of Evaluation: 10:30 - Subjective Subjective: clinically same Objective - Vital Signs/Intake and Output Vital Signs (last 24 hours): Temp Pulse Resp BP Pulse Ox 100 F H 125 H 20 102/65 95 08/31/17 15:48 08/31/17 15:48 08/31/17 15:48 08/31/17 15:48 08/31/17 15:48 Intake and Output: 08/31/17 08/31/17 06:59 18:59 Intake Total 1200 1300 Output Total 4350 4400 Balance -7620 -9240 - Medications Medications: Current Medications Aspirin (Ecotrin) 81 mg PO DAILY [facility] Last Admin: 08/31/17 09:34 Dose: 81 mg Desmopressin Acetate (Ddavp) 10 mcg ALEKSANDRA BID [facility] Stop: 09/02/17 11:31 Last Admin: 08/31/17 10:00 Dose: 1 spr Meropenem 1 gm/ Sodium (Chloride) 100 mls @ 100 mls/hr IVPB Q8 [facility] Last Admin: 08/31/17 12:59 Dose: 100 mls/hr Sodium Chloride (Sodium Chloride 0.9%) 1,000 mls @ 75 mls/hr IV .[id number] [facility] Last Admin: 08/31/17 12:47 Dose: 75 mls/hr Fluconazole (Diflucan Iv 100 Mg/50 Ml Ns) 50 mls @ 100 mls/hr IVPB DAILY [facility] Stop: 09/01/17 15:00 Last Admin: 08/30/17 09:36 Dose: 100 mls/hr Insulin Aspart (Novolog) 0 unit SC ACHS [facility] PRN Reason: Protocol Last Admin: 08/31/17 11:30 Dose: Not Given Insulin Human Isoph/Insulin Regular (Novolin 70/30 (70/30 Units/Ml) 10 Ml) 20 units SC ACB [facility] Last Admin: 08/31/17 08:07 Dose: 20 units Insulin Human Isoph/Insulin Regular (Novolin 70/30 (70/30 Units/Ml) 10 Ml) 14 units SC ACD [facility] Last Admin: 08/31/17 17:17 Dose: 14 units Insulin Human NPH (Novolin N) 20 unit SC HS [facility] Last Admin: 08/30/17 21:45 Dose: 20 unit Lidocaine (Lidoderm) 1 ea TD DAILY [facility] Last Admin: 08/31/17 09:27 Dose: 1 ea Loperamide HCl (Imodium) 2 mg PO QID PRN PRN Reason: Diarrhea Metformin HCl (Glucophage) 850 mg PO BID [facility] Last Admin: 08/31/17 17:14 Dose: 850 mg Nystatin (Nystop Topical Powder) 1 applic TOP BID [facility] Last Admin: 08/31/17 10:00 Dose: 1 applic Pantoprazole Sodium (Protonix Ec Tab) 40 mg PO DAILY [facility] Last Admin: 08/31/17 09:28 Dose: 40 mg Rosuvastatin Calcium (Crestor) 5 mg PO HS [facility] Saccharomyces Boulardii (Florastor) 250 mg PO BID [facility] Last Admin: 08/31/17 17:14 Dose: 250 mg - Labs Labs: 08/31/17 06:18 08/31/17 06:18 PT 13.5 SECONDS (9.7-12.2) H 08/31/17 06:18 INR 1.2 08/31/17 06:18 APTT 25 SECONDS (21-34) 08/28/17 08:22 - Constitutional Appears: Well - Head Exam Head Exam: ATRAUMATIC, NORMAL INSPECTION, NORMOCEPHALIC - Eye Exam Eye Exam: EOMI, Normal appearance, PERRL Pupil Exam: NORMAL ACCOMODATION, PERRL - ENT Exam ENT Exam: Mucous Membranes Moist, Normal Exam - Neck Exam Neck Exam: Full ROM, Normal Inspection. absent: Lymphadenopathy - Respiratory Exam Respiratory Exam: Decreased Breath Sounds - Cardiovascular Exam Cardiovascular Exam: REGULAR RHYTHM, +S1, +S2 - GI/Abdominal Exam GI & Abdominal Exam: Soft, Diminished Bowel Sounds - Rectal Exam Rectal Exam: Deferred Assessment and Plan (1) Dehydration Status: Acute (2) Severe sepsis Status: Acute (3) Tachycardia Status: Acute (4) Vomiting Status: Acute
--- NOTE | 2017-08-31 18:04 | CP.PCM.CON ---
History of Present Illness - History of Present Illness History of Present Illness: CT Surgery: Dr. Oviedo Pt is a 56F with PMHx of DM, HTN, & DLD who presented to [facility] for generalized weakness, N/V x 2 weeks. Pt was being treated conservatively by medicine, however she started complaining of pain around her Right neck/ shoulder. CT scan was obtained and showed air and inflammation around the R clavicle concerning for osteomyelitis. MRI was also done and showed findings concerning for osteomyelitis of the R clavicle. CT surgery called to evaluate. Pt currently resting comfortably in bed. States she feels a lot better. Continues to have some pain around her R clavicle, states she's tolerating her diet. Denies N/V, F/C. Review of Systems - Review of Systems All systems: reviewed and no additional remarkable complaints except (as per HPI ) Past Patient History - Past Medical History & Family History Past Medical History?: Yes - Past Social History Smoking Status: Never Smoked - ENDOCRINE/METABOLIC Hx Endocrine Disorders: Yes Hx Diabetes Mellitus Type 2: Yes - MUSCULOSKELETAL/RHEUMATOLOGICAL Hx Falls: No - PSYCHIATRIC Hx Substance Use: No - SURGICAL HISTORY Hx Surgeries: No - ANESTHESIA Hx Anesthesia: No Meds Allergies/Adverse Reactions: Allergies Allergy/AdvReac Type Severity Reaction Status Date / Time No Known Allergies Allergy Verified 08/26/17 16:23 - Medications Medications: Current Medications Aspirin (Ecotrin) 81 mg PO DAILY [facility] Last Admin: 08/31/17 09:34 Dose: 81 mg Desmopressin Acetate (Ddavp) 10 mcg ALEKSANDRA BID [facility] Stop: 09/02/17 11:31 Last Admin: 08/31/17 17:54 Dose: 1 spr Meropenem 1 gm/ Sodium (Chloride) 100 mls @ 100 mls/hr IVPB Q8 [facility] Last Admin: 08/31/17 12:59 Dose: 100 mls/hr Sodium Chloride (Sodium Chloride 0.9%) 1,000 mls @ 75 mls/hr IV .[id number] [facility] Last Admin: 08/31/17 12:47 Dose: 75 mls/hr Fluconazole (Diflucan Iv 100 Mg/50 Ml Ns) 50 mls @ 100 mls/hr IVPB DAILY [facility] Stop: 09/01/17 15:00 Last Admin: 08/31/17 11:50 Dose: 100 mls/hr Insulin Aspart (Novolog) 0 unit SC ACHS [facility] PRN Reason: Protocol Last Admin: 08/31/17 11:30 Dose: Not Given Insulin Human Isoph/Insulin Regular (Novolin 70/30 (70/30 Units/Ml) 10 Ml) 20 units SC ACB [facility] Last Admin: 08/31/17 08:07 Dose: 20 units Insulin Human Isoph/Insulin Regular (Novolin 70/30 (70/30 Units/Ml) 10 Ml) 14 units SC ACD [facility] Last Admin: 08/31/17 17:17 Dose: 14 units Insulin Human NPH (Novolin N) 20 unit SC HS [facility] Last Admin: 08/30/17 21:45 Dose: 20 unit Lidocaine (Lidoderm) 1 ea TD DAILY [facility] Last Admin: 08/31/17 09:27 Dose: 1 ea Loperamide HCl (Imodium) 2 mg PO QID PRN PRN Reason: Diarrhea Metformin HCl (Glucophage) 850 mg PO BID [facility] Last Admin: 08/31/17 17:14 Dose: 850 mg Nystatin (Nystop Topical Powder) 1 applic TOP BID [facility] Last Admin: 08/31/17 10:00 Dose: 1 applic Pantoprazole Sodium (Protonix Ec Tab) 40 mg PO DAILY [facility] Last Admin: 08/31/17 09:28 Dose: 40 mg Rosuvastatin Calcium (Crestor) 5 mg PO [facility] Saccharomyces Boulardii (Florastor) 250 mg PO BID [facility] Last Admin: 08/31/17 17:14 Dose: 250 mg Physical Exam - Constitutional Appears: Well, No Acute Distress - Head Exam Head Exam: ATRAUMATIC, NORMOCEPHALIC - Eye Exam Eye Exam: Normal appearance - ENT Exam ENT Exam: Mucous Membranes Moist - Neck Exam Additional comments: tenderness to palpation around sternocalvicular joint - Respiratory Exam Respiratory Exam: NORMAL BREATHING PATTERN - Cardiovascular Exam Cardiovascular Exam: Tachycardia - GI/Abdominal Exam GI & Abdominal Exam: Soft. absent: Distended, Tenderness - Neurological Exam Neurological exam: Alert, Oriented x3 - Skin Skin Exam: Dry, Warm Results - Vital Signs Recent Vital Signs: Last Vital Signs Temp 100 F H 08/31/17 15:48 Pulse 125 H 08/31/17 15:48 Resp 20 08/31/17 15:48 BP 102/65 08/31/17 15:48 Pulse Ox 95 08/31/17 15:48 - Labs Result Diagrams: 08/31/17 06:18 08/31/17 06:18 Labs: Laboratory Results - last 24 hr 08/30/17 08/30/17 08/31/17 18:21 21:22 06:12 WBC RBC Hgb Hct MCV MCH MCHC RDW Plt Count MPV Neut % (Auto) Lymph % (Auto) [place]dwell % (Auto) Eos % (Auto) Baso % (Auto) Neut # (Auto) Lymph # (Auto) [place] # (Auto) Eos # (Auto) Baso # (Auto) Neutrophils % (Manual) Lymphocytes % (Manual) Monocytes % (Manual) Eosinophils % (Manual) Platelet Estimate RBC Morphology PT INR Sodium Potassium Chloride Carbon Dioxide Anion Gap BUN Creatinine Est GFR ( Amer) Est GFR (Non-Af Amer) POC Glucose (mg/dL) 241 H 136 H Random Glucose Calcium Phosphorus Magnesium Total Bilirubin AST ALT Alkaline Phosphatase Total Protein Albumin Globulin Albumin/Globulin Ratio Urine Osmolality 177 L Ur Random Sodium 64 08/31/17 08/31/17 08/31/17 06:18 06:18 06:18 WBC 11.7 H RBC 3.65 L Hgb 10.8 L Hct 31.0 L MCV 84.9 MCH 29.5 MCHC 34.8 RDW 12.9 Plt Count 128 L D MPV 9.1 Neut % (Auto) 80.5 H Lymph % (Auto) 9.4 L Caldwell % (Auto) 9.3 Eos % (Auto) 0.6 Baso % (Auto) 0.2 Neut # (Auto) 9.4 H Lymph # (Auto) 1.1 Caldwell # (Auto) 1.1 H Eos # (Auto) 0.1 Baso # (Auto) 0.0 Neutrophils % (Manual) 91 H Lymphocytes % (Manual) 6 L Monocytes % (Manual) 2 Eosinophils % (Manual) 1 Platelet Estimate Normal RBC Morphology Normal PT 13.5 H INR 1.2 Sodium 132 Potassium 4.0 Chloride 98 Carbon Dioxide 29 Anion Gap 9 L BUN 6 L Creatinine 0.5 L Est GFR ( Amer) > 60 Est GFR (Non-Af Amer) > 60 POC Glucose (mg/dL) Random Glucose 128 H Calcium 7.6 L Phosphorus 3.4 Magnesium 1.8 Total Bilirubin 0.5 AST 18 ALT 30 Alkaline Phosphatase 80 Total Protein 4.8 L Albumin 2.1 L Globulin 2.7 Albumin/Globulin Ratio 0.8 L Urine Osmolality Ur Random Sodium 08/31/17 08/31/17 11:26 17:28 WBC RBC Hgb Hct MCV MCH MCHC RDW Plt Count MPV Neut % (Auto) Lymph % (Auto) Caldwell % (Auto) Eos % (Auto) Baso % (Auto) Neut # (Auto) Lymph # (Auto) [place]dwell # (Auto) Eos # (Auto) Baso # (Auto) Neutrophils % (Manual) Lymphocytes % (Manual) Monocytes % (Manual) Eosinophils % (Manual) Platelet Estimate RBC Morphology PT INR Sodium Potassium Chloride Carbon Dioxide Anion Gap BUN Creatinine Est GFR ( Amer) Est GFR (Non-Af Amer) POC Glucose (mg/dL) 126 H 120 H Random Glucose Calcium Phosphorus Magnesium Total Bilirubin AST ALT Alkaline Phosphatase Total Protein Albumin Globulin Albumin/Globulin Ratio Urine Osmolality Ur Random Sodium - Imaging and Cardiology CT scan - chest Status: Image reviewed by me, Report reviewed by me Assessment & Plan - Assessment and Plan (Free Text) Assessment: 56F with suspected osteomyelitis of the clavicle Plan: - cont conservative management with ABX - no surgical intervention indicated at this time - if pt doesn't improve clinically or becomes septic, can consider possible debridement - d/w Dr. Oviedo who agrees with above Ilana Quintero, PGY-3 Surgery
--- NOTE | 2017-08-31 18:58 | CP.PCM.PN ---
Subjective - Date & Time of Evaluation Date of Evaluation: 08/31/17 Time of Evaluation: 09:00 - Subjective Subjective: denies fever pain is less decreased rom right clac=vicle + swelling Objective - Vital Signs/Intake and Output Vital Signs (last 24 hours): Temp Pulse Resp BP Pulse Ox 100 F H 125 H 20 102/65 95 08/31/17 15:48 08/31/17 15:48 08/31/17 15:48 08/31/17 15:48 08/31/17 15:48 Intake and Output: 08/31/17 08/31/17 06:59 18:59 Intake Total 1200 1300 Output Total 4350 4400 Balance -3150 -3100 - Medications Medications: Current Medications Aspirin (Ecotrin) 81 mg PO DAILY [facility] Last Admin: 08/31/17 09:34 Dose: 81 mg Desmopressin Acetate (Ddavp) 10 mcg ALEKSANDRA BID [facility] Stop: 09/02/17 11:31 Last Admin: 08/31/17 17:54 Dose: 1 spr Meropenem 1 gm/ Sodium (Chloride) 100 mls @ 100 mls/hr IVPB Q8 [facility] Last Admin: 08/31/17 12:59 Dose: 100 mls/hr Sodium Chloride (Sodium Chloride 0.9%) 1,000 mls @ 75 mls/hr IV .[id number] [facility] Last Admin: 08/31/17 12:47 Dose: 75 mls/hr Fluconazole (Diflucan Iv 100 Mg/50 Ml Ns) 50 mls @ 100 mls/hr IVPB DAILY [facility] Stop: 09/01/17 15:00 Last Admin: 08/31/17 11:50 Dose: 100 mls/hr Insulin Aspart (Novolog) 0 unit SC ACHS [facility] PRN Reason: Protocol Last Admin: 08/31/17 16:55 Dose: Not Given Insulin Human Isoph/Insulin Regular (Novolin 70/30 (70/30 Units/Ml) 10 Ml) 20 units SC ACB [facility] Last Admin: 08/31/17 08:07 Dose: 20 units Insulin Human Isoph/Insulin Regular (Novolin 70/30 (70/30 Units/Ml) 10 Ml) 14 units SC ACD [facility] Last Admin: 08/31/17 17:17 Dose: 14 units Insulin Human NPH (Novolin N) 20 unit SC HS [facility] Last Admin: 08/30/17 21:45 Dose: 20 unit Lidocaine (Lidoderm) 1 ea TD DAILY [facility] Last Admin: 08/31/17 09:27 Dose: 1 ea Loperamide HCl (Imodium) 2 mg PO QID PRN PRN Reason: Diarrhea Metformin HCl (Glucophage) 850 mg PO BID [facility] Last Admin: 08/31/17 17:14 Dose: 850 mg Nystatin (Nystop Topical Powder) 1 applic TOP BID [facility] Last Admin: 08/31/17 10:00 Dose: 1 applic Pantoprazole Sodium (Protonix Ec Tab) 40 mg PO DAILY [facility] Last Admin: 08/31/17 09:28 Dose: 40 mg Rosuvastatin Calcium (Crestor) 5 mg PO HS [facility] Saccharomyces Boulardii (Florastor) 250 mg PO BID [facility] Last Admin: 08/31/17 17:14 Dose: 250 mg - Labs Labs: 08/31/17 06:18 08/31/17 06:18 PT 13.5 SECONDS (9.7-12.2) H 08/31/17 06:18 INR 1.2 08/31/17 06:18 APTT 25 SECONDS (21-34) 08/28/17 08:22 - Constitutional Appears: Non-toxic, Chronically Ill - Head Exam Head Exam: NORMOCEPHALIC - Eye Exam Eye Exam: PERRL - ENT Exam ENT Exam: Mucous Membranes Dry - Neck Exam Neck Exam: absent: Lymphadenopathy - Respiratory Exam Respiratory Exam: Decreased Breath Sounds - Cardiovascular Exam Cardiovascular Exam: REGULAR RHYTHM - GI/Abdominal Exam GI & Abdominal Exam: Distended - Rectal Exam Rectal Exam: Deferred - Exam Exam: NORMAL INSPECTION - Extremities Exam Extremities Exam: absent: Full ROM - Back Exam Back Exam: absent: CVA tenderness (L), CVA tenderness (R) - Neurological Exam Neurological Exam: Alert, Awake, Oriented x3 - Psychiatric Exam Psychiatric exam: Depressed Assessment and Plan (1) Acute osteomyelitis of clavicle Status: Acute (2) Anemia Status: Acute (3) Dehydration Status: Acute (4) Leukocytosis Status: Acute (5) Severe sepsis Status: Acute - Assessment and Plan (Free Text) Assessment: consider LEEANNA to r/o endocarditis consider renal ultrasound Recc Orhto eval for drainage Cont iv rx min 6-8 weeks
--- NOTE | 2017-08-31 21:29 | CP.PCM.PN ---
Subjective - Date & Time of Evaluation Date of Evaluation: 08/31/17 Time of Evaluation: 13:30 - Subjective Subjective: Feeling better Objective - Vital Signs/Intake and Output Vital Signs (last 24 hours): Temp Pulse Resp BP Pulse Ox 100 F H 125 H 20 102/65 95 08/31/17 15:48 08/31/17 15:48 08/31/17 15:48 08/31/17 15:48 08/31/17 15:48 Intake and Output: 08/31/17 09/01/17 18:59 06:59 Intake Total 1300 Output Total 4400 Balance -3100 - Medications Medications: Current Medications Aspirin (Ecotrin) 81 mg PO DAILY [facility] Last Admin: 08/31/17 09:34 Dose: 81 mg Desmopressin Acetate (Ddavp) 10 mcg ALEKSANDRA BID [facility] Stop: 09/02/17 11:31 Last Admin: 08/31/17 17:54 Dose: 1 spr Meropenem 1 gm/ Sodium (Chloride) 100 mls @ 100 mls/hr IVPB Q8 [facility] Last Admin: 08/31/17 21:09 Dose: 100 mls/hr Sodium Chloride (Sodium Chloride 0.9%) 1,000 mls @ 75 mls/hr IV .[id number] [facility] Last Admin: 08/31/17 12:47 Dose: 75 mls/hr Fluconazole (Diflucan Iv 100 Mg/50 Ml Ns) 50 mls @ 100 mls/hr IVPB DAILY [facility] Stop: 09/01/17 15:00 Last Admin: 08/31/17 11:50 Dose: 100 mls/hr Insulin Aspart (Novolog) 0 unit SC ACHS [facility] PRN Reason: Protocol Last Admin: 08/31/17 16:55 Dose: Not Given Insulin Human Isoph/Insulin Regular (Novolin 70/30 (70/30 Units/Ml) 10 Ml) 20 units SC ACB [facility] Last Admin: 08/31/17 08:07 Dose: 20 units Insulin Human Isoph/Insulin Regular (Novolin 70/30 (70/30 Units/Ml) 10 Ml) 14 units SC ACD [facility] Last Admin: 08/31/17 17:17 Dose: 14 units Insulin Human NPH (Novolin N) 20 unit SC HS [facility] Last Admin: 08/30/17 21:45 Dose: 20 unit Lidocaine (Lidoderm) 1 ea TD DAILY [facility] Last Admin: 08/31/17 09:27 Dose: 1 ea Loperamide HCl (Imodium) 2 mg PO QID PRN PRN Reason: Diarrhea Metformin HCl (Glucophage) 850 mg PO BID [facility] Last Admin: 08/31/17 17:14 Dose: 850 mg Nystatin (Nystop Topical Powder) 1 applic TOP BID [facility] Last Admin: 08/31/17 18:00 Dose: 1 applic Pantoprazole Sodium (Protonix Ec Tab) 40 mg PO DAILY [facility] Last Admin: 08/31/17 09:28 Dose: 40 mg Rosuvastatin Calcium (Crestor) 5 mg PO HS [facility] Last Admin: 08/31/17 21:11 Dose: 5 mg Saccharomyces Boulardii (Florastor) 250 mg PO BID [facility] Last Admin: 08/31/17 17:14 Dose: 250 mg - Labs Labs: 08/31/17 06:18 08/31/17 06:18 PT 13.5 SECONDS (9.7-12.2) H 08/31/17 06:18 INR 1.2 08/31/17 06:18 APTT 25 SECONDS (21-34) 08/28/17 08:22 - Head Exam Head Exam: ATRAUMATIC - Eye Exam Eye Exam: Normal appearance - ENT Exam ENT Exam: Mucous Membranes Dry - Respiratory Exam Respiratory Exam: NORMAL BREATHING PATTERN - Cardiovascular Exam Cardiovascular Exam: +S1, +S2 - GI/Abdominal Exam GI & Abdominal Exam: Normal Bowel Sounds Assessment and Plan (1) Thrombocytopenia Assessment & Plan: secondary to infection improving Status: Acute (2) Leukocytosis Assessment & Plan: improving with antibiotics Status: Acute (3) Anemia Assessment & Plan: chronic disease Status: Acute
[2017-08-31] MEDS: (Novolin N) Insulin Human Isophane (NPH) 100 u/ml 10 ml vial SC SCH (22:27)
[2017-09-01] MEDS: Sodium Chloride 0.9% 1,000 ML IV SCH (04:40)
[2017-09-01] MEDS: Meropenem 1 GM in Sodium Chloride 0.9% 100 ML IVPB SCH ×3 (05:30→21:36)
[2017-09-01] MEDS: (Novolog) Insulin Aspart, Recombinant 100 u/ml 10 ml vial SC SCH ×4 (07:24→22:18)
[2017-09-01] MEDS: (Novolin 70/30) NPH/Regular 70/30 Units/ml 10 ml vial SC SCH ×2 (07:40→17:42)
[2017-09-01 08:08] LABS: SQUAMOUS EPITHIAL < 1 /hpf (0-5); URINE BACTERIA FEW (<OCC); URINE BILIRUBIN NEGATIVE (NEGATIVE); URINE BLOOD 3+ (NEGATIVE); URINE CLARITY Hazy (Clear); URINE GLUCOSE (UA) 1+ mg/dL (Normal); URINE LEUKOCYTE ESTERASE 2+ Leu/uL (Negative); URINE NITRATE NEGATIVE (NEGATIVE); URINE PROTEIN NEGATIVE (NEGATIVE); URINE UROBILINOGEN NORMAL mg/dL (0.2-1.0)
[2017-09-01 08:12] LABS: URINE COLOR LIGHT RED (YELLOW)
[2017-09-01 09:16] LABS: BASO % 0.2 % (0.0-2.0); EOS # 0.1 K/uL (0.0-0.7); EOS % 0.7 % (0.0-4.0); HEMOGLOBIN 10.5 g/dL (11.0-16.0); LYMPH # 0.8 K/uL (1.0-4.3); MEAN CELL VOLUME 84.5 fL (81.0-99.0); MEAN CORPUSCULAR HEMOGLOBIN 29.3 pg (27.0-31.0); MEAN CORPUSCULAR HGB CONC 34.7 g/dL (33.0-37.0); MEAN PLATELET VOLUME 8.7 fL (7.2-11.7); MONO # 0.6 K/uL (0.0-0.8); MONO % 6.1 % (0.0-10.0); NEUT # 8.8 K/uL (1.8-7.0); PLATELET COUNT 167 K/uL (130-400); WHITE BLOOD COUNT 10.4 K/uL (4.8-10.8)
[2017-09-01 09:31] LABS: ALB/GLOB RATIO 0.8 (1.0-2.1); ALBUMIN 2.2 g/dL (3.5-5.0); ALT/SGPT 23 U/L (9-52); AST/SGOT 24 U/L (14-36); BLOOD UREA NITROGEN 7 mg/dL (7-17); CALCIUM 7.7 mg/dl (8.6-10.4); GFR AFRICAN-AMERICAN > 60; GFR NON-AFRICAN AMERICAN > 60; MAGNESIUM 1.9 mg/dL (1.6-2.3)
[2017-09-01] MEDS: Lidocaine 5% Patch TD SCH (10:02)
[2017-09-01] MEDS: Fluconazole IV 100mg/50 ml NS 50 ML IVPB SCH (10:02)
[2017-09-01] MEDS: Pantoprazole 40 mg EC Tab PO SCH (10:02)
[2017-09-01] MEDS: Saccharomyces Boulardi 250 mg Cap PO SCH ×2 (10:03→17:42)
[2017-09-01 10:23] LABS: BANDS 3 % (0-2); LYMPHOCYTE 9 % (20-40); MONOCYTE 3 % (0-10); NEUTROPHIL 82 % (50-75); PLATELET ESTIMATE NORMAL (NORMAL); REACTIVE LYMPHOCYTES 3 % (0-0); TOTAL CELLS COUNTED 100
[2017-09-01] MEDS: Desmopressin Nasal 10 mcg/Spray (5 ml) NAS SCH ×2 (11:19→21:35)
--- NOTE | 2017-09-01 11:19 | CP.PCM.PN ---
<Gale Marcum - Last Filed: 09/01/17 11:09> Subjective - Date & Time of Evaluation Date of Evaluation: 09/01/17 Time of Evaluation: 09:00 - Subjective Subjective: Medicine Note for Hospitalist Service- Dr. Deal Patient was seen and examined at bedside. Patient reports she tolerates her diet , reported no more diarrhea x 2 days. Normal BM. Denied fever, chills, headache , SOB, chest pain, abdominal pain, n/v/d/c, or urinary symptoms. Objective - Vital Signs/Intake and Output Vital Signs (last 24 hours): Temp Pulse Resp BP Pulse Ox 98.3 F 100 H 18 121/57 L 98 09/01/17 08:17 09/01/17 08:17 09/01/17 08:17 09/01/17 08:17 09/01/17 08:17 Intake and Output: 09/01/17 09/01/17 06:59 18:59 Intake Total 1815 Output Total 1200 1300 Balance 615 -1300 - Medications Medications: Current Medications Aspirin (Ecotrin) 81 mg PO DAILY [facility] Last Admin: 09/01/17 10:03 Dose: 81 mg Desmopressin Acetate (Ddavp) 10 mcg ALEKSANDRA BID [facility] Stop: 09/02/17 11:31 Last Admin: 08/31/17 17:54 Dose: 1 spr Meropenem 1 gm/ Sodium (Chloride) 100 mls @ 100 mls/hr IVPB Q8 [facility] Last Admin: 09/01/17 05:30 Dose: 100 mls/hr Sodium Chloride (Sodium Chloride 0.9%) 1,000 mls @ 75 mls/hr IV .[id number] [facility] Last Admin: 09/01/17 04:40 Dose: 75 mls/hr Fluconazole (Diflucan Iv 100 Mg/50 Ml Ns) 50 mls @ 100 mls/hr IVPB DAILY [facility] Stop: 09/01/17 15:00 Last Admin: 09/01/17 10:02 Dose: 100 mls/hr Insulin Aspart (Novolog) 0 unit SC ACHS [facility] PRN Reason: Protocol Last Admin: 09/01/17 07:24 Dose: Not Given Insulin Human Isoph/Insulin Regular (Novolin 70/30 (70/30 Units/Ml) 10 Ml) 20 units SC ACB [facility] Last Admin: 09/01/17 07:40 Dose: 20 units Insulin Human Isoph/Insulin Regular (Novolin 70/30 (70/30 Units/Ml) 10 Ml) 14 units SC ACD [facility] Last Admin: 08/31/17 17:17 Dose: 14 units Insulin Human NPH (Novolin N) 20 unit SC HS [facility] Last Admin: 08/31/17 22:27 Dose: 20 unit Lidocaine (Lidoderm) 1 ea TD DAILY [facility] Last Admin: 09/01/17 10:02 Dose: 1 ea Loperamide HCl (Imodium) 2 mg PO QID PRN PRN Reason: Diarrhea Metformin HCl (Glucophage) 850 mg PO BID [facility] Last Admin: 09/01/17 10:02 Dose: 850 mg Nystatin (Nystop Topical Powder) 1 applic TOP BID [facility] Last Admin: 09/01/17 10:03 Dose: 1 applic Pantoprazole Sodium (Protonix Ec Tab) 40 mg PO DAILY [facility] Last Admin: 09/01/17 10:02 Dose: 40 mg Rosuvastatin Calcium (Crestor) 5 mg PO [facility] Last Admin: 08/31/17 21:11 Dose: 5 mg Saccharomyces Boulardii (Florastor) 250 mg PO BID [facility] Last Admin: 09/01/17 10:03 Dose: 250 mg - Labs Labs: 09/01/17 08:53 09/01/17 08:53 PT 13.5 SECONDS (9.7-12.2) H 08/31/17 06:18 INR 1.2 08/31/17 06:18 APTT 25 SECONDS (21-34) 08/28/17 08:22 - Additional Findings Additional findings: - Constitutional Appears: No Acute Distress - Head Exam Head Exam: NORMAL INSPECTION, NORMOCEPHALIC - Eye Exam Eye Exam: EOMI, Normal appearance, PERRL - ENT Exam ENT Exam: Mucous Membranes Moist, Normal Exam - Respiratory Exam Respiratory Exam: Clear to Ausculation Bilateral, NORMAL BREATHING PATTERN. absent: Decreased Breath Sounds, Wheezes - Cardiovascular Exam Cardiovascular Exam: REGULAR RHYTHM - GI/Abdominal Exam GI & Abdominal Exam: Soft, Normal Bowel Sounds. absent: Distended, Tenderness - Extremities Exam Extremities Exam: Normal Inspection. absent: Pedal Edema, Tenderness - Neurological Exam Neurological Exam: Alert, Awake, Oriented x3 - Psychiatric Exam Psychiatric exam: Normal Affect, Normal Mood - Skin Skin Exam: Dry, Intact, Normal Color, Warm Assessment and Plan - Assessment and Plan (Free Text) Plan: Sepsis 2/2 to UTI Osteomyelitis Bacteremia -E.Coli -ID consult- Dr. Monroy- Recommend 6-8 weeks of IV abx - will wait for UC results to determine IV ABC regimen & length. Patient will need PICC LINE -IV meropenem -2 blood cultures positive for gram negative anna. >>> cultures positive for E. Coli -procal elevated at 14; patient has responded clinically to abx tx Repeat BC - 08/30/17 - negative up to date F/U repeat UC Osteomyelitis R Clavicle CT Thoracics consulted - Dr. Oviedo- help appreciated - no surgical intervention at this time -foci of air in clavicle -MRI of chest is positive for osteomyelitis of clavicle until proven otherwise -continue merrem -Echo negative for vegetations; normal left ventricular contractility no aortic stenosis is no pericardial effusion -ESR elevated Hx of DM -poorly controlled; A1C 12 -we will restart metformin -continue novolin NPH -started on 20units SC ACB, 14 units SC ACD, 20units SC HS, Metformin 850mg PO BID -diabetic education counseling; appreciate recs -patient will need to go home on insulin -keep blood sugar between 140-180 while in the hospital -endocrinology consult. Dr. Fox. recs appreciated. Adrenal thickening -Nephrology consulted - help appreciated - Dr. Middleton -Started DDAVP as per nephro - As per Nephro: Will need hormonal work up of left adrenal thickening with edmundo/renin and dexamethasone suppression test later as outpt once pt stable. hence will d/c aldactone as well (to avoid interference with edmundo measurements) Anemia- stable -likely anemia of chronic disease -B12 WNL, ferritin wnl, retic count WNL -heme/onc consult. DR. Ballard. Recs appreciated. Diarrhea; resolved -stool c diff; negative -stool culture; negative to date -stool electrolytes; WNL -stool leukocytes; negative -will give florastor and loperamide to help control diarrhea Hypokalemia - resolved -replete K as necessary -cardio consult. recs appreciated -nephro consult. recs appreciated -will start spironolactone>>> discontinued today -24 hour urinary K -renin level -erin level Altered mental status; resolved -neurology consult. recs appreciated. 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 Need to clarify if patient has insurance so at home vs outpatient infusion can be set up by case management. As well as scripts for insulin and metformin (via insurance or insulin foundation). DW Gale Russ DO, PGY-1 <Radha Deal V - Last Filed: 09/01/17 22:14> Objective - Vital Signs/Intake and Output Vital Signs (last 24 hours): Temp Pulse Resp BP Pulse Ox 98.3 F 125 H 18 121/57 L 100 09/01/17 08:17 09/01/17 12:45 09/01/17 08:17 09/01/17 08:17 09/01/17 12:45 Intake and Output: 09/01/17 09/01/17 06:59 18:59 Intake Total 1815 817 Output Total 1200 2400 Balance 615 -1583 - Medications Medications: Current Medications Aspirin (Ecotrin) 81 mg PO DAILY [facility] Last Admin: 09/01/17 10:03 Dose: 81 mg Desmopressin Acetate (Ddavp) 10 mcg ALEKSANDRA BID [facility] Stop: 09/02/17 11:31 Last Admin: 09/01/17 11:19 Dose: 1 spr Meropenem 1 gm/ Sodium (Chloride) 100 mls @ 100 mls/hr IVPB Q8 [facility] Last Admin: 09/01/17 05:30 Dose: 100 mls/hr Sodium Chloride (Sodium Chloride 0.9%) 1,000 mls @ 75 mls/hr IV .[id number] [facility] Last Admin: 09/01/17 04:40 Dose: 75 mls/hr Fluconazole (Diflucan Iv 100 Mg/50 Ml Ns) 50 mls @ 100 mls/hr IVPB DAILY [facility] Stop: 09/01/17 15:00 Last Admin: 09/01/17 10:02 Dose: 100 mls/hr Insulin Aspart (Novolog) 0 unit SC ACHS [facility] PRN Reason: Protocol Last Admin: 09/01/17 12:17 Dose: Not Given Insulin Human Isoph/Insulin Regular (Novolin 70/30 (70/30 Units/Ml) 10 Ml) 20 units SC ACB [facility] Last Admin: 09/01/17 07:40 Dose: 20 units Insulin Human Isoph/Insulin Regular (Novolin 70/30 (70/30 Units/Ml) 10 Ml) 14 units SC ACD [facility] Last Admin: 08/31/17 17:17 Dose: 14 units Insulin Human NPH (Novolin N) 20 unit SC HS [facility] Last Admin: 08/31/17 22:27 Dose: 20 unit Lidocaine (Lidoderm) 1 ea TD DAILY [facility] Last Admin: 09/01/17 10:02 Dose: 1 ea Loperamide HCl (Imodium) 2 mg PO QID PRN PRN Reason: Diarrhea Metformin HCl (Glucophage) 850 mg PO BID [facility] Last Admin: 09/01/17 10:02 Dose: 850 mg Nystatin (Nystop Topical Powder) 1 applic TOP BID [facility] Last Admin: 09/01/17 10:03 Dose: 1 applic Pantoprazole Sodium (Protonix Ec Tab) 40 mg PO DAILY [facility] Last Admin: 09/01/17 10:02 Dose: 40 mg Rosuvastatin Calcium (Crestor) 5 mg PO HS [facility] Last Admin: 08/31/17 21:11 Dose: 5 mg Saccharomyces Boulardii (Florastor) 250 mg PO BID [facility] Last Admin: 09/01/17 10:03 Dose: 250 mg - Labs Labs: 09/01/17 08:53 09/01/17 08:53 PT 13.5 SECONDS (9.7-12.2) H 08/31/17 06:18 INR 1.2 08/31/17 06:18 APTT 25 SECONDS (21-34) 08/28/17 08:22 Attending/Attestation - Attestation I have personally seen and examined this patient.: Yes I have fully participated in the care of the patient.: Yes I have reviewed all pertinent clinical information, including history, physical exam and plan: Yes Notes (Text): Patient seen, examined and case discussed with day-time resident. Patient seen this morning. Patient denies acute complaints. Patient reports diarrhea has stopped. 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 Consent for PICC line witnessed by me and her nurse Radha. Patient noted during afternoon, heart rate in upper 120-130s. Repeat EKG shows sinus tachycardia. Order for CT angio r/o PE; no PE noted. Started on IV NS 100cc/hr to end at 600 AM next day. Held metformin. Order for thyroid studies in AM. Patient afebrile. Procalcitonin has improved 0.57 from 14 on admission. Per surgery, no bone marrow biopsy needed. Will follow-up with cardiology if LEEANNA is warranted. Repeat blood cultures are negative Repeat urine culture shows yeast-->will need to f/u with ID; patient is currently on Diflucan. Assessment/plan. #1. Sepsis Pyleonephritis/Urinary Tract Infection Bacteremia Osteomyelitis Criteria: WBC; 27.3, Tmax: 102.1F, Lactate: 4.3-->1.4 Etiology: Bandemia, bacteremia, urinary tract infection, and possible osteomyelitis of the clavicle Infectious disease (Dr. Monroy) on consult hope appreciated Blood culture (08/26/17): E. Coli Blood culture (08/26/17): E. Coli Blood cultures (08/30/17): no growth after 24 hours X2 Urine culture (08/26/17): gram negative anna Stool (08/27): No salmonella, shigella, or camplobacter isolated Urine (08/28): Yeast species Urine culture (08/31/17): Yeast Dilfucan 100mg IVPB daily (active since 08/30/17) Meropenem 1 gm IVPB Q8H (active since 08/27/17) NS 100 cc/hr in light of tachycardia in 120-130s Florastor 250mg PO BID CT Abdomen/Pelvis: Left renal subscapular fluid collection with radiating linear hypodensities infectious/inflammatory processes could produce this appearance resolving posttraumatic hematoma which also possible infarct and differential diagnosis also noted left adrenal gland thickening. Thickened irregular urinary bladder wall as discussed above 2. Osteomyelitis of clavicle Chest MRI (08/29/17): Presence of gas in the marrow limits indirect interpretation presence of gas in the marrow medial right clavicle seen prior CAT scan 08/27/2017 is rather suspicious for ostial malaise until proven otherwise. Bone biopsy came be performed to confirm this no definite pattern of osteomalacia seen initial sternum. CT Chest/Abdomen/Pelvis (08/27/17): Numerous tiny air foci within the right clavicle head and lesser degree in the right sternum. Numerous tire tiny air foci and stranding of soft tissue surrounding the right clavicular head supportive work of acute infectious/inflammatory process. Orthopedic (Dr. Dangelo): Had recommended for IR consult for bone biopsy for pathology, cultures not likely to get more information as patient on antibiotics Interventional radiology for bone biopsy for osteomyelitis of clavicle who do not do bone marrow biopsy 08/31/17 Thoracic surgery (Dr. Oviedo) help appreciated--recommended IV abx Please refer #1. 3. Electrolyte imbalance Nephrology (Dr. Mdidleton) on consult help appreciated Noted in prior no acute need for renal replacement therapy at this time recommended for hormonal workup of left adrenal thickening with all don't run in an dexamethasone suppression test later as an outpatient once patient is stable. Since admission hyponatremia has resolved, hypokalemia has resolved 4. Thrombocytopenia, anemia Hematology/oncology (Dr. Lux Ballard) on consult help appreciated Improving Likely secondary to sepsis noted #1. 5. Tachycardia Cardiology (Dr. Grace) on consult--help appreciated Likely secondary to dehydration and sepsis noted #[address] no noted PE noted. Cardio has reviewed echocardiogram with normal left ventricular contractility no aortic stenosis is no pericardial effusion with dehydration and likely pulmonary embolus she will on treatment for sepsis 6. Lethargy (resolved) Neurology (Dr. Nguyen) on consult-->help appreciated CT Head (08/27/17): no acute abnormality EEG: Mildly abnormal EEG because of persistent slowing throughout the record suggestive of bilateral cerebral dysfunction probably secondary to mid metabolic , vascular or degenerative processes correlate. In his progress note has noted normal EEG for age and has signed off stable from neurologic perspective. Nonreactive RPR Likely secondary to #1 and #3 7. Uncontrolled diabetic Endocrinology (Dr. Fox) on consult-->help appreciated Hemoglobin A1c 12.0 Novolin 70/30 14 units sub ACD Novolin 70/30 20 units sub ACB Novolin N 20 units sub HS Novolog sliding scale subq ACHS held Metformin 850mg PO BID in light of CT angio r/o PE Crestor 5mg POqHS Aspirin 81mg PO daily 8. Diarrhea (resolved) No Salmonella, Shigella, or Campylobacter isolated negative Stool occult blood Stool Leukocytes negative C. Dif negative On immodium PRN 9. Adrenal Thickening Noted on CT abdomen and pelvis in light of persistent hypokalemia. Aldactone was discontinued. Nephrotic nephrology on board. Recommended for possible dexamethasone suppression test as outpatient 10. Prophylactic measure Protonix 40mg PO daily NS 75 cc/hr chemical anticoagulation secondary to thrombocytopenia
--- NOTE | 2017-09-01 15:25 | CP.PCM.PN ---
Subjective - Date & Time of Evaluation Date of Evaluation: 09/01/17 Time of Evaluation: 12:45 - Subjective Subjective: Nephrology Consultation: Assessment: Stable UTI with pyelonephritis and sepsis with GNR Hypokalemia likely due to GI fluid loss, urinary K loss due to glycosuria Hyponatremia, hypophosphatemia uncontrolled DM with hyperglycemia Polyuria likely due to combination of glycosuria and hypokalemia (can lead to nephrogenic DI) Morbid obesity left adrenal thickening clavicle Osteomyelitis Plan Will need hormonal work up of left adrenal thickening with edmundo/renin and dexamethasone suppression test later as outpt once pt stable. on ddavp - d/c if Na < 130 lytes stable abx per id s: seen and examined feels ok Physical Examination: General Appearance: Comfortable, in no acute respiratory distress, co-operative . Vitals reviewed and noted as below Head; Atraumatic, normocephalic ENT: no ulcers no thrush. Tongue is midline. Oropharynx: no rash or ulcers. EYES: Pupils are equal, round and reactive to light accommodation. Eye muscles and extraocular movement intact. Sclera is anicteric. Neck; supple no lymphadenopathy, no thyromegaly or bruit Lungs: Normal respiratory rate/effort. Breath sounds bilateral equal and clear Heart: Normal rate. s1s2 normal. No rub or gallop. Rt clavicular/sternal tenderness Extremities: no edema. No varicose veins Neurological: Patient is alert, awake and oriented to person, place and time. No focal deficit. Strength bilateral appropriate and equal Skin: Warm and dry. Normal turgor. No rash. Palpitation: Normal elasticity for age Abdomen: Abdomen is soft. Bowel sounds +. There is no abdominal tenderness, no guarding/rigidity no organomegaly Psych: normal insight and normal affect/mood MSK: no joint tenderness or swelling. Digits and nails normal, no deformity : kidney or bladder not palpable Labs/imaging reviewed. Past medical history, past surgical history, family history, social history, allergy reviewed and noted as below Family hx: no hx of CKD. Rest non-contributory Objective - Vital Signs/Intake and Output Vital Signs (last 24 hours): Temp Pulse Resp BP Pulse Ox 98.3 F 125 H 18 121/57 L 100 09/01/17 08:17 09/01/17 12:45 09/01/17 08:17 09/01/17 08:17 09/01/17 12:45 Intake and Output: 09/01/17 09/01/17 06:59 18:59 Intake Total 1815 817 Output Total 1200 2400 Balance 615 -1583 - Medications Medications: Current Medications Aspirin (Ecotrin) 81 mg PO DAILY [facility] Last Admin: 09/01/17 10:03 Dose: 81 mg Desmopressin Acetate (Ddavp) 10 mcg ALEKSANDRA BID [facility] Stop: 09/02/17 11:31 Last Admin: 09/01/17 11:19 Dose: 1 spr Meropenem 1 gm/ Sodium (Chloride) 100 mls @ 100 mls/hr IVPB Q8 [facility] Last Admin: 09/01/17 14:05 Dose: 100 mls/hr Sodium Chloride (Sodium Chloride 0.9%) 1,000 mls @ 75 mls/hr IV .[id number] [facility] Last Admin: 09/01/17 04:40 Dose: 75 mls/hr Insulin Aspart (Novolog) 0 unit SC ACHS [facility] PRN Reason: Protocol Last Admin: 09/01/17 12:17 Dose: Not Given Insulin Human Isoph/Insulin Regular (Novolin 70/30 (70/30 Units/Ml) 10 Ml) 20 units SC ACB [facility] Last Admin: 09/01/17 07:40 Dose: 20 units Insulin Human Isoph/Insulin Regular (Novolin 70/30 (70/30 Units/Ml) 10 Ml) 14 units SC ACD [facility] Last Admin: 08/31/17 17:17 Dose: 14 units Insulin Human NPH (Novolin N) 20 unit SC HS [facility] Last Admin: 08/31/17 22:27 Dose: 20 unit Lidocaine (Lidoderm) 1 ea TD DAILY [facility] Last Admin: 09/01/17 10:02 Dose: 1 ea Loperamide HCl (Imodium) 2 mg PO QID PRN PRN Reason: Diarrhea Metformin HCl (Glucophage) 850 mg PO BID [facility] Last Admin: 09/01/17 10:02 Dose: 850 mg Nystatin (Nystop Topical Powder) 1 applic TOP BID [facility] Last Admin: 09/01/17 10:03 Dose: 1 applic Pantoprazole Sodium (Protonix Ec Tab) 40 mg PO DAILY [facility] Last Admin: 09/01/17 10:02 Dose: 40 mg Rosuvastatin Calcium (Crestor) 5 mg PO HS [facility] Last Admin: 08/31/17 21:11 Dose: 5 mg Saccharomyces Boulardii (Florastor) 250 mg PO BID [facility] Last Admin: 09/01/17 10:03 Dose: 250 mg - Labs Labs: 09/01/17 08:53 09/01/17 08:53 PT 13.5 SECONDS (9.7-12.2) H 08/31/17 06:18 INR 1.2 08/31/17 06:18 APTT 25 SECONDS (21-34) 08/28/17 08:22
--- NOTE | 2017-09-01 21:07 | CT ---
EXAM: CT Angiography Chest With Intravenous Contrast EXAM DATE/TIME: Exam ordered 09/01/2017 4:32 PM CLINICAL HISTORY: 56 years old, female; Signs and symptoms; Shortness of breath; Additional info: R/O pe TECHNIQUE: Axial computed tomographic angiography images of the chest with intravenous contrast using pulmonary embolism protocol. All CT scans at this facility use one or more dose reduction techniques, viz.: automated exposure control; ma/kV adjustment per patient size (including targeted exams where dose is matched to indication; i.e. head); or iterative reconstruction technique. MIP reconstructed images were created and reviewed. Coronal and sagittal reformatted images were created and reviewed. CONTRAST: 100 mL of [id number] administered intravenously. COMPARISON: CT - CHEST,ABD,PEL W/IV CONT ONLY 2017-08-27 02:36 FINDINGS: Pulmonary arteries: Unremarkable. No pulmonary embolism. Aorta: No acute findings. No thoracic aortic aneurysm. Lungs: There is a 3 mm groundglass nodule in the lateral basal segment left lower lobe (series 4 image 70). There is a 3 mm nodule in the superior segment of the left lower lobe protheses series 4 image 51). There is a 4 mm nodule in the anterior segment of the right upper lobe (series 3 image 37). Pleural space: There is small bilateral pleural effusions. No pneumothorax. Heart: There is coronary artery calcification. No significant pericardial effusion. No evidence of RV dysfunction. Bones/joints: Gas and inflammatory changes surrounds the right sternoclavicular joint. Gas is noted within the clavicle at the level of the sternoclavicular joint. No acute fracture. No dislocation. Soft tissues: Unremarkable. Lymph nodes: Unremarkable. No enlarged lymph nodes. Adrenals: There is hyperplasia of the adrenal glands. Kidneys and ureters: There is a left perinephric fluid collection with a density measurement of 17 H. Stranding of of the left lateral conal fascia. A trace amount of ascites is noted adjacent to the spleen. IMPRESSION: 1. No pulmonary embolism. 2. Osteomyelitis suggested of the right sternoclavicular joint. 3. Small bilateral pleural effusions, left greater than right with patchy subpleural atelectasis in the dependent portion of both lung bases. 4. Bilateral pulmonary nodules. For low-risk patients, no follow-up is necessary. For high-risk patients (smoking history or other known risk factors) an optional chest CT at 12 months could be performed. 5. Adrenal gland hyperplasia 6. Left perinephric fluid collection.
[2017-09-01] MEDS ORDERED: Sodium Chloride 0.9% 1,000 ML IV SCH (22:15)
[2017-09-01] MEDS: (Novolin N) Insulin Human Isophane (NPH) 100 u/ml 10 ml vial SC SCH (22:20)
[2017-09-02] MEDS: Meropenem 1 GM in Sodium Chloride 0.9% 100 ML IVPB SCH ×2 (05:10→14:05)
[2017-09-02 07:57] LABS: BASO % 0.1 % (0.0-2.0); EOS # 0.1 K/uL (0.0-0.7); EOS % 0.7 % (0.0-4.0); HEMOGLOBIN 10.8 g/dL (11.0-16.0); LYMPH # 1.1 K/uL (1.0-4.3); LYMPH % 10.6 % (20.0-40.0); MEAN CELL VOLUME 84.1 fL (81.0-99.0); MEAN CORPUSCULAR HGB CONC 35.7 g/dL (33.0-37.0); MEAN PLATELET VOLUME 8.6 fL (7.2-11.7); MONO # 0.8 K/uL (0.0-0.8); MONO % 8.5 % (0.0-10.0); NEUT % 80.1 % (50.0-75.0); NRBC % 0.1 % (0.0-2.0); RBC 3.59 Mil/uL (3.80-5.20); RED CELL DISTRIBUTION WIDTH 12.9 % (11.5-14.5)
[2017-09-02] MEDS: (Novolin 70/30) NPH/Regular 70/30 Units/ml 10 ml vial SC SCH ×2 (08:00→17:41)
[2017-09-02 08:03] LABS: ALB/GLOB RATIO 0.7 (1.0-2.1); ALT/SGPT 25 U/L (9-52); AST/SGOT 23 U/L (14-36); BLOOD UREA NITROGEN 8 mg/dL (7-17); CALCIUM 7.5 mg/dl (8.6-10.4); GFR AFRICAN-AMERICAN > 60; GFR NON-AFRICAN AMERICAN > 60
--- NOTE | 2017-09-02 08:55 | CP.PCM.PN ---
Subjective - Date & Time of Evaluation Date of Evaluation: 09/02/17 Time of Evaluation: 08:53 - Subjective Subjective: Nephrology Consultation: Assessment: Stable UTI with pyelonephritis and sepsis with GNR Hypokalemia likely due to GI fluid loss, urinary K loss due to glycosuria Hyponatremia, hypophosphatemia uncontrolled DM with hyperglycemia Polyuria likely due to combination of glycosuria and hypokalemia (can lead to nephrogenic DI) Morbid obesity left adrenal thickening clavicle Osteomyelitis Plan Will need hormonal work up of left adrenal thickening with edmundo/renin and dexamethasone suppression test later as outpt once pt stable. on ddavp - d/c if Na < 130 lytes otherwise stable no need for replacement today abx per primary team s: seen and examined feels ok denies diarrhea Physical Examination: General Appearance: Comfortable, in no acute respiratory distress, co-operative . Vitals reviewed and noted as below Head; Atraumatic, normocephalic ENT: no ulcers no thrush. Tongue is midline. Oropharynx: no rash or ulcers. EYES: Pupils are equal, round and reactive to light accommodation. Eye muscles and extraocular movement intact. Sclera is anicteric. Neck; supple no lymphadenopathy, no thyromegaly or bruit Lungs: Normal respiratory rate/effort. Breath sounds bilateral equal and clear Heart: Normal rate. s1s2 normal. No rub or gallop. Rt clavicular/sternal tenderness Extremities: no edema. No varicose veins Neurological: Patient is alert, awake and oriented to person, place and time. No focal deficit. Strength bilateral appropriate and equal Skin: Warm and dry. Normal turgor. No rash. Palpitation: Normal elasticity for age Abdomen: Abdomen is soft. Bowel sounds +. There is no abdominal tenderness, no guarding/rigidity no organomegaly Psych: normal insight and normal affect/mood MSK: no joint tenderness or swelling. Digits and nails normal, no deformity : kidney or bladder not palpable Labs/imaging reviewed. Past medical history, past surgical history, family history, social history, allergy reviewed and noted as below Family hx: no hx of CKD. Rest non-contributory Objective - Vital Signs/Intake and Output Vital Signs (last 24 hours): Temp Pulse Resp BP Pulse Ox 98.6 F 103 H 20 113/72 98 09/02/17 04:00 09/02/17 04:21 09/02/17 04:00 09/02/17 04:00 09/02/17 04:00 Intake and Output: 09/02/17 09/02/17 06:59 18:59 Intake Total 1370 Output Total 1200 1600 Balance 170 -1600 - Medications Medications: Current Medications Aspirin (Ecotrin) 81 mg PO DAILY [facility] Last Admin: 09/01/17 10:03 Dose: 81 mg Desmopressin Acetate (Ddavp) 10 mcg ALEKSANDRA BID [facility] Stop: 09/02/17 11:31 Last Admin: 09/01/17 21:35 Dose: 1 spr Fluconazole (Diflucan) 100 mg PO DAILY [facility] Meropenem 1 gm/ Sodium (Chloride) 100 mls @ 100 mls/hr IVPB Q8 [facility] Last Admin: 09/02/17 05:10 Dose: 100 mls/hr Insulin Aspart (Novolog) 0 unit SC ACHS [facility] PRN Reason: Protocol Last Admin: 09/01/17 22:18 Dose: Not Given Insulin Human Isoph/Insulin Regular (Novolin 70/30 (70/30 Units/Ml) 10 Ml) 20 units SC ACB [facility] Last Admin: 09/02/17 08:00 Dose: 20 units Insulin Human Isoph/Insulin Regular (Novolin 70/30 (70/30 Units/Ml) 10 Ml) 14 units SC ACD [facility] Last Admin: 09/01/17 17:42 Dose: 14 units Insulin Human NPH (Novolin N) 20 unit SC HS [facility] Last Admin: 09/01/17 22:20 Dose: 20 unit Lidocaine (Lidoderm) 1 ea TD DAILY [facility] Last Admin: 09/01/17 10:02 Dose: 1 ea Loperamide HCl (Imodium) 2 mg PO QID PRN PRN Reason: Diarrhea Last Admin: 09/01/17 21:35 Dose: 2 mg Metformin HCl (Glucophage) 850 mg PO BID [facility] Last Admin: 09/01/17 17:43 Dose: 850 mg Nystatin (Nystop Topical Powder) 1 applic TOP BID [facility] Last Admin: 09/01/17 17:43 Dose: 1 applic Pantoprazole Sodium (Protonix Ec Tab) 40 mg PO DAILY [facility] Last Admin: 09/01/17 10:02 Dose: 40 mg Rosuvastatin Calcium (Crestor) 5 mg PO HS [facility] Last Admin: 09/01/17 21:35 Dose: 5 mg Saccharomyces Boulardii (Florastor) 250 mg PO BID [facility] Last Admin: 09/01/17 17:42 Dose: 250 mg - Labs Labs: 09/02/17 07:37 09/02/17 07:37 PT 13.5 SECONDS (9.7-12.2) H 08/31/17 06:18 INR 1.2 08/31/17 06:18 APTT 25 SECONDS (21-34) 08/28/17 08:22
[2017-09-02] MEDS: Saccharomyces Boulardi 250 mg Cap PO SCH ×2 (09:25→17:40)
[2017-09-02] MEDS: Lidocaine 5% Patch TD SCH (09:25)
[2017-09-02] MEDS: Pantoprazole 40 mg EC Tab PO SCH (09:25)
[2017-09-02] MEDS: (Novolog) Insulin Aspart, Recombinant 100 u/ml 10 ml vial SC SCH ×4 (09:25→17:41)
--- NOTE | 2017-09-02 10:13 | CP.PCM.PN ---
<Gale Marcum - Last Filed: 09/02/17 11:36> Subjective - Date & Time of Evaluation Date of Evaluation: 09/02/17 Time of Evaluation: 09:00 - Subjective Subjective: Medicine Note for Hospitalist Service- Dr. Deal Patient was seen and examined at bedside. Patient reports she overall feels. She reported a slight rash on her chest- only erythematous and itchy. Denied fever, chills, headache, SOB, chest pain, abdominal pain, n/v/d/c, or urinary symptoms. Objective - Vital Signs/Intake and Output Vital Signs (last 24 hours): Temp Pulse Resp BP Pulse Ox 98.6 F 118 H 20 113/72 98 09/02/17 04:00 09/02/17 08:00 09/02/17 04:00 09/02/17 04:00 09/02/17 04:00 Intake and Output: 09/02/17 09/02/17 06:59 18:59 Intake Total 1370 Output Total 1200 1600 Balance 170 -1600 - Medications Medications: Current Medications Aspirin (Ecotrin) 81 mg PO DAILY [facility] Last Admin: 09/02/17 09:25 Dose: 81 mg Desmopressin Acetate (Ddavp) 10 mcg ALEKSANDRA BID [facility] Stop: 09/02/17 11:31 Last Admin: 09/01/17 21:35 Dose: 1 spr Fluconazole (Diflucan) 100 mg PO DAILY [facility] Meropenem 1 gm/ Sodium (Chloride) 100 mls @ 100 mls/hr IVPB Q8 [facility] Last Admin: 09/02/17 05:10 Dose: 100 mls/hr Insulin Aspart (Novolog) 0 unit SC ACHS [facility] PRN Reason: Protocol Last Admin: 09/02/17 09:25 Dose: Not Given Insulin Human Isoph/Insulin Regular (Novolin 70/30 (70/30 Units/Ml) 10 Ml) 20 units SC ACB [facility] Last Admin: 09/02/17 08:00 Dose: 20 units Insulin Human Isoph/Insulin Regular (Novolin 70/30 (70/30 Units/Ml) 10 Ml) 14 units SC ACD [facility] Last Admin: 09/01/17 17:42 Dose: 14 units Insulin Human NPH (Novolin N) 20 unit SC HS [facility] Last Admin: 09/01/17 22:20 Dose: 20 unit Lidocaine (Lidoderm) 1 ea TD DAILY [facility] Last Admin: 09/02/17 09:25 Dose: 1 ea Loperamide HCl (Imodium) 2 mg PO QID PRN PRN Reason: Diarrhea Last Admin: 09/01/17 21:35 Dose: 2 mg Metformin HCl (Glucophage) 850 mg PO BID [facility] Last Admin: 09/01/17 17:43 Dose: 850 mg Nystatin (Nystop Topical Powder) 1 applic TOP BID [facility] Last Admin: 09/02/17 09:25 Dose: 1 applic Pantoprazole Sodium (Protonix Ec Tab) 40 mg PO DAILY [facility] Last Admin: 09/02/17 09:25 Dose: 40 mg Rosuvastatin Calcium (Crestor) 5 mg PO HS [facility] Last Admin: 09/01/17 21:35 Dose: 5 mg Saccharomyces Boulardii (Florastor) 250 mg PO BID [facility] Last Admin: 09/02/17 09:25 Dose: 250 mg Vitamin A (Vitamin A & D Oint Ud Foilpak) 1 ea TOP BID [facility] - Labs Labs: 09/02/17 07:37 09/02/17 07:37 PT 13.5 SECONDS (9.7-12.2) H 08/31/17 06:18 INR 1.2 08/31/17 06:18 APTT 25 SECONDS (21-34) 08/28/17 08:22 - Additional Findings Additional findings: - Constitutional Appears: No Acute Distress - Head Exam Head Exam: NORMAL INSPECTION, NORMOCEPHALIC - Eye Exam Eye Exam: EOMI, Normal appearance, PERRL - ENT Exam ENT Exam: Mucous Membranes Moist, Normal Exam - Respiratory Exam Respiratory Exam: Clear to Ausculation Bilateral, NORMAL BREATHING PATTERN. absent: Decreased Breath Sounds, Wheezes - Cardiovascular Exam Cardiovascular Exam: REGULAR RHYTHM - GI/Abdominal Exam GI & Abdominal Exam: Soft, Normal Bowel Sounds. absent: Distended, Tenderness - Extremities Exam Extremities Exam: Normal Inspection. absent: Pedal Edema, Tenderness - Neurological Exam Neurological Exam: Alert, Awake, Oriented x3 - Psychiatric Exam Psychiatric exam: Normal Affect, Normal Mood - Skin Skin Exam: Dry, Intact, Normal Color, Warm Assessment and Plan - Assessment and Plan (Free Text) Plan: Sepsis 2/2 to UTI Osteomyelitis Bacteremia -E.Coli -ID consult- Dr. Monroy- Recommend 6-8 weeks of IV abx - will wait for repeat UC results to determine IV ABX regimen & length Patient will need PICC Line- consent in chart -IV meropenem - 08/27/17 -2 blood cultures positive for gram negative anna >>> cultures positive for E. Coli -procal elevated at 14; patient has responded clinically to abx tx Repeat BC - 08/30/17 - negative up to date UA shows +3 LE, with budding yeast Repeat UC - continues to have yeast- VAUGHN will be removed - and repeat Urine Culture (clean catch)- patient is asymptomatic at this time; Osteomyelitis R Clavicle CT Thoracics consulted - Dr. Oviedo- help appreciated - no surgical intervention at this time -foci of air in clavicle -MRI of chest is positive for osteomyelitis of clavicle until proven otherwise -continue merrem -Echo negative for vegetations; normal left ventricular contractility no aortic stenosis is no pericardial effusion -ESR elevated Tachycardia EKG: Sinus tachy @124 BPM CTA: No PE F/U Upper and Lower Extremity dopplers to r/o DVT Pulmonary Nodules 3mm nodule in LLL, 3mm nodule in Superior aspect of LL, 4mm nodule in RUL Patient will need repeat CT Scan in 12 months to evaluate Hx of DM -poorly controlled; A1C 12 -started on 20units SC ACB, 14 units SC ACD, 20units SC HS, Metformin 850mg PO BID -HELD will resume 09/04/17. -diabetic education counseling; appreciate recs -patient will need to go home on insulin -keep blood sugar between 140-180 while in the hospital -endocrinology consult. Dr. Cam. strong appreciated. Adrenal thickening -Nephrology consulted - help appreciated - Dr. Middleton -Started DDAVP as per nephro - As per Nephro: Will need hormonal work up of left adrenal thickening with edmundo/renin and dexamethasone suppression test later as outpt once pt stable. hence will d/c aldactone as well (to avoid interference with edmundo measurements) Anemia- stable -likely anemia of chronic disease -B12 WNL, ferritin wnl, retic count WNL -heme/onc consult. DR. Ballard. Recs appreciated. Diarrhea; resolved -stool c diff; negative -stool culture; negative to date -stool electrolytes; WNL -stool leukocytes; negative -will give florastor and loperamide to help control diarrhea Hypokalemia - resolved -replete K as necessary -cardio consult. recs appreciated -nephro consult. recs appreciated -will start spironolactone>>> discontinued today -24 hour urinary K -renin level -erin level Altered mental status; resolved -neurology consult. recs appreciated. 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 Need to clarify if patient has insurance so at home vs outpatient infusion can be set up by case management. As well as scripts for insulin and metformin (via insurance or insulin foundation). DW Dr. Deal, Gale Marcum DO, PGY-1 <Radha Deal V - Last Filed: 09/02/17 20:35> Objective - Vital Signs/Intake and Output Vital Signs (last 24 hours): Temp Pulse Resp BP Pulse Ox 97.8 F 100 H 20 103/68 97 09/02/17 09:00 09/02/17 09:00 09/02/17 09:00 09/02/17 09:00 09/02/17 09:00 Intake and Output: 09/02/17 09/03/17 18:59 06:59 Output Total 1600 Balance -1600 - Medications Medications: Current Medications Aspirin (Ecotrin) 81 mg PO DAILY [facility] Last Admin: 09/02/17 09:25 Dose: 81 mg Fluconazole (Diflucan) 100 mg PO DAILY [facility] Last Admin: 09/02/17 10:32 Dose: 100 mg Ceftriaxone Sodium 2 gm/ (Sodium Chloride) 100 mls @ 100 mls/hr IVPB Q24H [facility] Last Admin: 09/02/17 17:03 Dose: 100 mls/hr Insulin Aspart (Novolog) 0 unit SC ACHS [facility] PRN Reason: Protocol Last Admin: 09/02/17 17:41 Dose: 4 unit Insulin Human Isoph/Insulin Regular (Novolin 70/30 (70/30 Units/Ml) 10 Ml) 20 units SC ACB [facility] Last Admin: 09/02/17 08:00 Dose: 20 units Insulin Human Isoph/Insulin Regular (Novolin 70/30 (70/30 Units/Ml) 10 Ml) 14 units SC ACD [facility] Last Admin: 09/02/17 17:41 Dose: 14 units Insulin Human NPH (Novolin N) 20 unit SC HS [facility] Last Admin: 09/01/17 22:20 Dose: 20 unit Lidocaine (Lidoderm) 1 ea TD DAILY [facility] Last Admin: 09/02/17 09:25 Dose: 1 ea Loperamide HCl (Imodium) 2 mg PO QID PRN PRN Reason: Diarrhea Last Admin: 09/02/17 17:40 Dose: 2 mg Metformin HCl (Glucophage) 850 mg PO BID [facility] Last Admin: 09/01/17 17:43 Dose: 850 mg Nystatin (Nystop Topical Powder) 1 applic TOP BID [facility] Last Admin: 09/02/17 17:04 Dose: 1 applic Pantoprazole Sodium (Protonix Ec Tab) 40 mg PO DAILY [facility] Last Admin: 09/02/17 09:25 Dose: 40 mg Rosuvastatin Calcium (Crestor) 5 mg PO HS [facility] Last Admin: 09/01/17 21:35 Dose: 5 mg Saccharomyces Boulardii (Florastor) 250 mg PO BID [facility] Last Admin: 09/02/17 17:40 Dose: 250 mg Vitamin A (Vitamin A & D Oint Ud Foilpak) 1 ea TOP BID [facility] Last Admin: 09/02/17 17:40 Dose: 1 ea - Labs Labs: 09/02/17 07:37 09/02/17 07:37 PT 13.5 SECONDS (9.7-12.2) H 08/31/17 06:18 INR 1.2 08/31/17 06:18 APTT 25 SECONDS (21-34) 08/28/17 08:22 Attending/Attestation - Attestation I have personally seen and examined this patient.: Yes I have fully participated in the care of the patient.: Yes I have reviewed all pertinent clinical information, including history, physical exam and plan: Yes Notes (Text): Patient seen, examined and case discussed with day-time resident. Patient seen this morning. Patient denies acute complaints. Patient reports diarrhea has stopped. Patient has mild erythema, no pruritus. patient on the telemetry is in the low 100s. Patient is ordered for TSH, Free T4 for tomorrow. * Early in the admission she had low TSH. Please follow-up with endocrinology to see if hyperthyroidism is contributing to her tachycardia. Patient is amenable for PICC line to setup for buttermaker IV antibiotics. Consent for PICC line witnessed by me and her nurse Radha. * ID recommends to Rocephin 2gm IV Q daily for 6 weeks start 09/03/17-10/15/17 * Please follow-up with patient in regards to preference for rehab or outpatient transfusion center since she will need buttermaker antibiotics Procalcitonin has improved 0.57 from 14 on admission. Per surgery, no bone marrow biopsy needed during hospitalization. Follow-up as outpatient after completion for IV Abx. Will follow-up with cardiology if LEEANNA is warranted. Note: patient repeat blood cultures are negative, white count has normal, afebrile. Repeat urine culture shows yeast-->will need to f/u with ID; patient is currently on Diflucan. Assessment/plan. #1. Sepsis Pyleonephritis/Urinary Tract Infection Bacteremia Osteomyelitis Criteria: WBC; 27.3, Tmax: 102.1F, Lactate: 4.3-->1.4 Etiology: Bandemia, bacteremia, urinary tract infection, and possible osteomyelitis of the clavicle Infectious disease (Dr. Monroy) on consult hope appreciated Blood culture (08/26/17): E. Coli Blood culture (08/26/17): E. Coli Blood cultures (08/30/17): no growth after 3 days Urine culture (08/26/17): gram negative anna Stool (08/27): No salmonella, shigella, or camplobacter isolated Urine (08/28): Yeast species Urine culture (08/31/17): Yeast Urine culture (09/01/17): yeast Dilfucan 100mg IVPB daily (active since 08/30/17) -->urine culture persistent yeast inspite of therapy; vaughn discontinued on 09/02/17 Meropenem 1 gm IVPB Q8H (active since 08/27/17) * Switch to Rocephin 2g IV q daily (09/03/17-10/15/17) and setup for PICC line NS 100 cc/hr in light of tachycardia in 120-130s on 09/01/17 * Heart rate improved to mid 100s Florastor 250mg PO BID CT Abdomen/Pelvis: Left renal subscapular fluid collection with radiating linear hypodensities infectious/inflammatory processes could produce this appearance resolving posttraumatic hematoma which also possible infarct and differential diagnosis also noted left adrenal gland thickening. Thickened irregular urinary bladder wall as discussed above 2. Osteomyelitis of clavicle Chest MRI (08/29/17): Presence of gas in the marrow limits indirect interpretation presence of gas in the marrow medial right clavicle seen prior CAT scan 08/27/2017 is rather suspicious for ostial malaise until proven otherwise. Bone biopsy came be performed to confirm this no definite pattern of osteomalacia seen initial sternum. CT Chest/Abdomen/Pelvis (08/27/17): Numerous tiny air foci within the right clavicle head and lesser degree in the right sternum. Numerous tire tiny air foci and stranding of soft tissue surrounding the right clavicular head supportive work of acute infectious/inflammatory process. Orthopedic (Dr. Dangelo): Had recommended for IR consult for bone biopsy for pathology, cultures not likely to get more information as patient on antibiotics Interventional radiology for bone biopsy for osteomyelitis of clavicle who do not do bone marrow biopsy 08/31/17 Thoracic surgery (Dr. Oviedo) help appreciated--recommended IV abx and follow- up outpatient for bone biopsy Please refer #1. 3. Electrolyte imbalance Nephrology (Dr. Middleton) on consult help appreciated Noted in prior no acute need for renal replacement therapy at this time recommended for hormonal workup of left adrenal thickening with all don't run in an dexamethasone suppression test later as an outpatient once patient is stable. Since admission hyponatremia has resolved, hypokalemia has resolved DDVAP held on 09/01/17 in light of sodium 131 NS 100cc/hr started on 09/01/17 given tachycardia; suspecting dehydration 4. Thrombocytopenia, anemia Hematology/oncology (Dr. Lux Ballard) on consult help appreciated Improving Likely secondary to sepsis noted #1. 5. Tachycardia Cardiology (Dr. Grace) on consult--help appreciated Likely secondary to dehydration and sepsis noted #[address] no noted PE noted. Cardio has reviewed echocardiogram with normal left ventricular contractility no aortic stenosis is no pericardial effusion with dehydration and likely pulmonary embolus she will on treatment for sepsis Ordered for TSH, Free T4 in AM-->check if element hyperthyroidism contributing; prior TSH is low 6. Lethargy (resolved) Neurology (Dr. Nguyen) on consult-->help appreciated CT Head (08/27/17): no acute abnormality EEG: Mildly abnormal EEG because of persistent slowing throughout the record suggestive of bilateral cerebral dysfunction probably secondary to mid metabolic , vascular or degenerative processes correlate. In his progress note has noted normal EEG for age and has signed off stable from neurologic perspective. Nonreactive RPR Likely secondary to #1 and #3 7. Uncontrolled diabetic Endocrinology (Dr. Fox) on consult-->help appreciated Hemoglobin A1c 12.0 Novolin 70/30 14 units sub ACD Novolin 70/30 20 units sub ACB Novolin N 20 units sub HS Novolog sliding scale subq ACHS held Metformin 850mg PO BID in light of CT angio r/o PE-->restart 09/04/17 to reduce risk effect to kidneys Crestor 5mg POqHS Aspirin 81mg PO daily 8. Diarrhea (resolved) No Salmonella, Shigella, or Campylobacter isolated negative Stool occult blood Stool Leukocytes negative C. Dif negative On immodium PRN 9. Adrenal Thickening Noted on CT abdomen and pelvis in light of persistent hypokalemia. Aldactone was discontinued. Nephrotic nephrology on board. Recommended for possible dexamethasone suppression test as outpatient 10. Prophylactic measure Protonix 40mg PO daily NS 75 cc/hr Thrombocytopenia secondary to sepsis; normalized; restart DVT ppx Disposition: * Patient consented for PICC line to setup for tomorrow given repeat blood cultures are negative. * Please check with case management and social work to confirm what insurance status patient has. This is will determine if patient is being setup for outpatient transfusion center or subacute rehab. Rocephin 2gm IV q daily (09/03/17 -10/15/17) for 6 weeks per ID. * Patient will need to follow-up for bone biopsy with Dr. Oviedo (thoracic) upon completion of IV abx. * Will need to follow-up with ID regards to persistent yeast in UTI * Restart patient's metformin on Sunday to avoid kidney failure in light of CT angio * Follow-up TSH, Free T4 given persistent tachycardia * Patient is on IV fluids since 09/01/17 given tachycardia of 130s; and element of dehydration * Pending venous dopplers upper and lower given tachycardia
[2017-09-02] MEDS: Vitamins A & D Oint UD Foilpak TOP SCH ×2 (10:33→17:40)
--- NOTE | 2017-09-02 14:42 | CP.PCM.PN ---
Subjective - Date & Time of Evaluation Date of Evaluation: 09/02/17 Time of Evaluation: 10:00 - Subjective Subjective: doing well will switch to rocephin 2 g daily cont same for 6 weeks Objective - Vital Signs/Intake and Output Vital Signs (last 24 hours): Temp Pulse Resp BP Pulse Ox 97.8 F 100 H 20 103/68 97 09/02/17 09:00 09/02/17 09:00 09/02/17 09:00 09/02/17 09:00 09/02/17 09:00 Intake and Output: 09/02/17 09/02/17 06:59 18:59 Intake Total 1370 Output Total 1200 1600 Balance 170 -1600 - Medications Medications: Current Medications Aspirin (Ecotrin) 81 mg PO DAILY [facility] Last Admin: 09/02/17 09:25 Dose: 81 mg Fluconazole (Diflucan) 100 mg PO DAILY [facility] Last Admin: 09/02/17 10:32 Dose: 100 mg Meropenem 1 gm/ Sodium (Chloride) 100 mls @ 100 mls/hr IVPB Q8 [facility] Last Admin: 09/02/17 14:05 Dose: 100 mls/hr Insulin Aspart (Novolog) 0 unit SC ACHS [facility] PRN Reason: Protocol Last Admin: 09/02/17 12:45 Dose: Not Given Insulin Human Isoph/Insulin Regular (Novolin 70/30 (70/30 Units/Ml) 10 Ml) 20 units SC ACB [facility] Last Admin: 09/02/17 08:00 Dose: 20 units Insulin Human Isoph/Insulin Regular (Novolin 70/30 (70/30 Units/Ml) 10 Ml) 14 units SC ACD [facility] Last Admin: 09/01/17 17:42 Dose: 14 units Insulin Human NPH (Novolin N) 20 unit SC HS [facility] Last Admin: 09/01/17 22:20 Dose: 20 unit Lidocaine (Lidoderm) 1 ea TD DAILY [facility] Last Admin: 09/02/17 09:25 Dose: 1 ea Loperamide HCl (Imodium) 2 mg PO QID PRN PRN Reason: Diarrhea Last Admin: 09/01/17 21:35 Dose: 2 mg Metformin HCl (Glucophage) 850 mg PO BID [facility] Last Admin: 09/01/17 17:43 Dose: 850 mg Nystatin (Nystop Topical Powder) 1 applic TOP BID [facility] Last Admin: 09/02/17 09:25 Dose: 1 applic Pantoprazole Sodium (Protonix Ec Tab) 40 mg PO DAILY [facility] Last Admin: 09/02/17 09:25 Dose: 40 mg Rosuvastatin Calcium (Crestor) 5 mg PO HS [facility] Last Admin: 09/01/17 21:35 Dose: 5 mg Saccharomyces Boulardii (Florastor) 250 mg PO BID [facility] Last Admin: 09/02/17 09:25 Dose: 250 mg Vitamin A (Vitamin A & D Oint Ud Foilpak) 1 ea TOP BID [facility] Last Admin: 09/02/17 10:33 Dose: 1 ea - Labs Labs: 09/02/17 07:37 09/02/17 07:37 PT 13.5 SECONDS (9.7-12.2) H 08/31/17 06:18 INR 1.2 08/31/17 06:18 APTT 25 SECONDS (21-34) 08/28/17 08:22 - Constitutional Appears: Non-toxic, Chronically Ill - Head Exam Head Exam: NORMOCEPHALIC - Eye Exam Eye Exam: PERRL. absent: Scleral icterus - ENT Exam ENT Exam: Mucous Membranes Dry - Neck Exam Neck Exam: absent: Lymphadenopathy - Respiratory Exam Respiratory Exam: Decreased Breath Sounds - Cardiovascular Exam Cardiovascular Exam: REGULAR RHYTHM - GI/Abdominal Exam GI & Abdominal Exam: Distended, Soft - Rectal Exam Rectal Exam: Deferred - Exam Exam: NORMAL INSPECTION Assessment and Plan (1) Acute osteomyelitis of clavicle Status: Acute (2) Severe sepsis Status: Acute - Assessment and Plan (Free Text) Assessment: cont iv Rocephin for 6 weeks
[2017-09-02] MEDS ORDERED: cefTRIAXone 2 GM in Sodium Chloride 0.9% 100 ML IVPB SCH (14:45)
[2017-09-02] MEDS: cefTRIAXone 2 GM in Sodium Chloride 0.9% 100 ML IVPB SCH (17:03)
[2017-09-02] MEDS: (Novolin N) Insulin Human Isophane (NPH) 100 u/ml 10 ml vial SC SCH (22:15)
[2017-09-03] MEDS: (Novolog) Insulin Aspart, Recombinant 100 u/ml 10 ml vial SC SCH ×4 (07:30→23:00)
[2017-09-03 08:25] LABS: BASO # 0.1 K/uL (0.0-0.2); BASO % 0.7 % (0.0-2.0); EOS # 0.1 K/uL (0.0-0.7); EOS % 0.9 % (0.0-4.0); HEMOGLOBIN 11.6 g/dL (11.0-16.0); LYMPH # 1.2 K/uL (1.0-4.3); LYMPH % 14.1 % (20.0-40.0); MEAN CELL VOLUME 83.6 fL (81.0-99.0); MEAN CORPUSCULAR HEMOGLOBIN 29.6 pg (27.0-31.0); MEAN CORPUSCULAR HGB CONC 35.4 g/dL (33.0-37.0); MEAN PLATELET VOLUME 8.6 fL (7.2-11.7); MONO # 0.8 K/uL (0.0-0.8); MONO % 8.9 % (0.0-10.0); NEUT # 6.6 K/uL (1.8-7.0); NEUT % 75.4 % (50.0-75.0); RBC 3.91 Mil/uL (3.80-5.20); WHITE BLOOD COUNT 8.8 K/uL (4.8-10.8)
[2017-09-03 08:50] LABS: ALB/GLOB RATIO 0.8 (1.0-2.1); ALBUMIN 2.2 g/dL (3.5-5.0); ALT/SGPT 31 U/L (9-52); AST/SGOT 22 U/L (14-36); BLOOD UREA NITROGEN 7 mg/dL (7-17); CALCIUM 7.9 mg/dl (8.6-10.4); GFR AFRICAN-AMERICAN > 60; GFR NON-AFRICAN AMERICAN > 60; MAGNESIUM 2.1 mg/dL (1.6-2.3)
[2017-09-03] MEDS: Saccharomyces Boulardi 250 mg Cap PO SCH ×2 (09:26→17:46)
[2017-09-03] MEDS: Lidocaine 5% Patch TD SCH (09:26)
[2017-09-03] MEDS: Pantoprazole 40 mg EC Tab PO SCH (09:27)
[2017-09-03] MEDS: (Novolin 70/30) NPH/Regular 70/30 Units/ml 10 ml vial SC SCH ×2 (09:27→17:46)
[2017-09-03] MEDS: Vitamins A & D Oint UD Foilpak TOP SCH ×2 (10:00→17:46)
--- NOTE | 2017-09-03 10:59 | RAD ---
PROCEDURE: CHEST RADIOGRAPH, 1 VIEW HISTORY: verify right PICC COMPARISON: 08/26/2017 FINDINGS: LUNGS: Clear. PLEURA: No pneumothorax or pleural fluid seen. CARDIOVASCULAR: Normal. OSSEOUS STRUCTURES: No significant abnormalities. VISUALIZED UPPER ABDOMEN: Normal. OTHER FINDINGS: None. IMPRESSION: No active disease. No acute/significant interval changes.
--- NOTE | 2017-09-03 11:59 | CP.PCM.PN ---
Subjective - Date & Time of Evaluation Date of Evaluation: 09/03/17 Time of Evaluation: 09:00 - Subjective Subjective: Medicine Note for Hospitalist Service- Dr. Heller Patient was seen and examined at bedside. Patient reports she overall feels better. No acute complaints. Denied fever, chills, headache, SOB, chest pain, abdominal pain, n/v/d/c, or urinary symptoms. Objective - Vital Signs/Intake and Output Vital Signs (last 24 hours): Temp Pulse Resp BP Pulse Ox 97.8 F 121 H 18 102/66 98 09/03/17 07:50 09/03/17 07:50 09/03/17 07:50 09/03/17 07:50 09/03/17 07:50 Intake and Output: 09/03/17 09/03/17 06:59 18:59 Intake Total 400 Output Total 400 Balance 0 - Medications Medications: Current Medications Aspirin (Ecotrin) 81 mg PO DAILY [facility] Last Admin: 09/03/17 09:26 Dose: 81 mg Fluconazole (Diflucan) 100 mg PO DAILY [facility] Last Admin: 09/03/17 09:26 Dose: 100 mg Heparin Sodium (Porcine) (Heparin) 5,000 units SC Q8 [facility] Last Admin: 09/03/17 05:21 Dose: 5,000 units Ceftriaxone Sodium 2 gm/ (Sodium Chloride) 100 mls @ 100 mls/hr IVPB Q24H [facility] Last Admin: 09/02/17 17:03 Dose: 100 mls/hr Insulin Aspart (Novolog) 0 unit SC ACHS [facility] PRN Reason: Protocol Last Admin: 09/03/17 07:30 Dose: Not Given Insulin Human Isoph/Insulin Regular (Novolin 70/30 (70/30 Units/Ml) 10 Ml) 20 units SC ACB [facility] Last Admin: 09/03/17 09:27 Dose: 20 units Insulin Human Isoph/Insulin Regular (Novolin 70/30 (70/30 Units/Ml) 10 Ml) 14 units SC ACD [facility] Last Admin: 09/02/17 17:41 Dose: 14 units Insulin Human NPH (Novolin N) 20 unit SC HS [facility] Last Admin: 09/02/17 22:15 Dose: 20 unit Lidocaine (Lidoderm) 1 ea TD DAILY [facility] Last Admin: 09/03/17 09:26 Dose: 1 ea Loperamide HCl (Imodium) 2 mg PO QID PRN PRN Reason: Diarrhea Last Admin: 09/02/17 17:40 Dose: 2 mg Metformin HCl (Glucophage) 850 mg PO BID [facility] Last Admin: 09/01/17 17:43 Dose: 850 mg Nystatin (Nystop Topical Powder) 1 applic TOP BID [facility] Last Admin: 09/02/17 17:04 Dose: 1 applic Pantoprazole Sodium (Protonix Ec Tab) 40 mg PO DAILY [facility] Last Admin: 09/03/17 09:27 Dose: 40 mg Rosuvastatin Calcium (Crestor) 5 mg PO HS [facility] Last Admin: 09/02/17 22:15 Dose: 5 mg Saccharomyces Boulardii (Florastor) 250 mg PO BID [facility] Last Admin: 09/03/17 09:26 Dose: 250 mg Vitamin A (Vitamin A & D Oint Ud Foilpak) 1 ea TOP BID [facility] Last Admin: 09/02/17 17:40 Dose: 1 ea - Labs Labs: 09/03/17 08:16 09/03/17 08:16 PT 13.5 SECONDS (9.7-12.2) H 08/31/17 06:18 INR 1.2 08/31/17 06:18 APTT 25 SECONDS (21-34) 08/28/17 08:22 - Additional Findings Additional findings: - Constitutional Appears: No Acute Distress - Head Exam Head Exam: NORMAL INSPECTION, NORMOCEPHALIC - Eye Exam Eye Exam: EOMI, Normal appearance, PERRL - ENT Exam ENT Exam: Mucous Membranes Moist, Normal Exam - Respiratory Exam Respiratory Exam: Clear to Ausculation Bilateral, NORMAL BREATHING PATTERN. absent: Decreased Breath Sounds, Wheezes - Cardiovascular Exam Cardiovascular Exam: REGULAR RHYTHM - GI/Abdominal Exam GI & Abdominal Exam: Soft, Normal Bowel Sounds. absent: Distended, Tenderness - Extremities Exam Extremities Exam: Normal Inspection. absent: Pedal Edema, Tenderness - Neurological Exam Neurological Exam: Alert, Awake, Oriented x3 - Psychiatric Exam Psychiatric exam: Normal Affect, Normal Mood - Skin Skin Exam: Dry, Intact, Normal Color, Warm Assessment and Plan - Assessment and Plan (Free Text) Plan: Sepsis 2/2 to UTI Osteomyelitis Bacteremia -E.Coli -ID consult- Dr. Monroy- Recommend 6-8 weeks of IV abx - will wait for repeat UC results to determine IV ABX regimen & length -2 blood cultures positive for gram negative anna >>> cultures positive for E. Coli -procal elevated at 14; patient has responded clinically to abx tx PICC line placed 09/03/17 IV meropenem - 08/27/17- 09/03/17 -->> switched to Rocephin 2grams IVP daily Repeat BC - 08/30/17 - negative up to date UA shows +3 LE, with budding yeast Repeat UC - continues to have yeast- VAUGHN will be removed - patient is asymptomatic at this time Repeat Urine Culture (clean catch)- without vaughn Osteomyelitis R Clavicle CT Thoracics consulted - Dr. Oviedo- help appreciated - no surgical intervention at this time -foci of air in clavicle -MRI of chest is positive for osteomyelitis of clavicle until proven otherwise -continue merrem -Echo negative for vegetations; normal left ventricular contractility no aortic stenosis is no pericardial effusion -ESR elevated Right Lower Extremity DVT Tachycardia Fever EKG: Sinus tachy @124 BPM CTA: No PE Upper Extremity dopplers: no DVT Lower Extremity dopplers: DVT in RIGHT lower extremity 09/03/17 Started on Therapeutic Lovenox 120mg SC Q12H Pulmonary Nodules 3mm nodule in LLL, 3mm nodule in Superior aspect of LL, 4mm nodule in RUL Patient will need repeat CT Scan in 12 months to evaluate Hx of DM -poorly controlled; A1C 12 -started on 20units SC ACB, 14 units SC ACD, 20units SC HS, Metformin 850mg PO BID -HELD will resume 09/04/17. -diabetic education counseling; appreciate recs -patient will need to go home on insulin -keep blood sugar between 140-180 while in the hospital -endocrinology consult. Dr. Fox. tae appreciated. Adrenal thickening -Nephrology consulted - help appreciated - Dr. Middleton -Started DDAVP as per nephro - As per Nephro: Will need hormonal work up of left adrenal thickening with edmundo/renin and dexamethasone suppression test later as outpt once pt stable. hence will d/c aldactone as well (to avoid interference with edmundo measurements) Anemia- stable -likely anemia of chronic disease -B12 WNL, ferritin wnl, retic count WNL -heme/onc consult. DR. Ballard. Recs appreciated. Diarrhea; resolved -stool c diff; negative -stool culture; negative to date -stool electrolytes; WNL -stool leukocytes; negative -will give florastor and loperamide to help control diarrhea Hypokalemia - resolved -replete K as necessary -cardio consult. recs appreciated -nephro consult. recs appreciated -will start spironolactone>>> discontinued today -24 hour urinary K -renin level -erin level Altered mental status; resolved -neurology consult. recs appreciated. 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 As well as scripts for insulin and metformin (via insurance or [employer] foundation). RAUDEL Heller, Gale Marcum DO, PGY-1
[2017-09-03] MEDS ORDERED: Enoxaparin 120 mg Syringe SC STA (12:10)
--- NOTE | 2017-09-03 12:37 | VASCLAB ---
PROCEDURE: Upper Extremity Venous Duplex Exam HISTORY: DVT PRIORS: None. TECHNIQUE: Bilateral upper extremity, internal jugular, subclavian, axillary, brachial, ulnar, radial, basilic and upper cephalic veins were evaluated. Flow was assessed with color Doppler, compressibility, assessment of phasic flow and augmentation response. Report prepared by Gelacio Granados, BERNIE, RVT FINDINGS: RIGHT: 1. Internal Jugular: 1.1. Compressibility - Fully compressible: Thrombus - None : Flow - Phasic: Augmentation -Normal: Reflux - None. 2. Subclavian: 2.1. Compressibility - Fully compressible: Thrombus - None : Flow - Phasic: Augmentation -Normal: Reflux - None. 3. Axillary: 3.1. Compressibility - Fully compressible: Thrombus - None : Flow - Phasic: Augmentation -Normal: Reflux - None. 4. Brachial: 4.1. Compressibility - Fully compressible: Thrombus - None: Flow - Phasic: Augmentation -Normal: Reflux - None. 5. Ulnar: 5.1. Compressibility - Fully compressible: Thrombus - None: Flow - Phasic: Augmentation -Normal: Reflux - None. 6. Radial: 6.1. Compressibility - Fully compressible: Thrombus - None: Flow - Phasic: Augmentation - Normal: Reflux - None. 7. Cephalic: 7.1. Compressibility - Fully compressible: Thrombus - None: Flow - Phasic: Augmentation -Normal: Reflux - None. 8. Basilic: 8.1. Compressibility - Fully compressible: Thrombus - None: Flow - Phasic: Augmentation -Normal: Reflux - None. LEFT: 1. Internal Jugular: 1.1. Compressibility - Fully compressible: Thrombus - None : Flow - Phasic: Augmentation -Normal: Reflux - None. 2. Subclavian: 2.1. Compressibility - Fully compressible: Thrombus - None : Flow - Phasic: Augmentation -Normal: Reflux - None. 3. Axillary: 3.1. Compressibility - Fully compressible: Thrombus - None : Flow - Phasic: Augmentation -Normal: Reflux - None. 4. Brachial: 4.1. Compressibility - Fully compressible: Thrombus - None: Flow - Phasic: Augmentation -Normal: Reflux - None. 5. Ulnar: 5.1. Compressibility - Fully compressible: Thrombus - None: Flow - Phasic: Augmentation -Normal: Reflux - None. 6. Radial: 6.1. Compressibility - Fully compressible: Thrombus - None: Flow - Phasic: Augmentation - Normal: Reflux - None. 7. Cephalic: 7.1. Compressibility - Fully compressible: Thrombus - None: Flow - Phasic: Augmentation -Normal: Reflux - None. 8. Basilic: 8.1. Compressibility - Fully compressible: Thrombus - None: Flow - Phasic: Augmentation -Normal: Reflux - None. OTHER FINDINGS: Right: Patent PICC line noted in the right brachial vein. Left: None. IMPRESSION: Right: No evidence of vein thrombosis of the right upper extremity with excellent venous flow. Normal valve function noted of the right side. Left: No evidence of vein thrombosis of the left upper extremity with excellent venous flow. Normal valve function noted of the left side.
--- NOTE | 2017-09-03 12:38 | VASCLAB ---
PROCEDURE: Lower Extremity Venous Duplex Exam. HISTORY: DVT PRIORS: None. TECHNIQUE: Bilateral common femoral, femoral, popliteal and posterior tibial, peroneal and great saphenous veins were evaluated. Flow was assessed with color Doppler, compressibility, assessment of phasic flow and augmentation response. Report prepared by BERNIE Rocha, RVT FINDINGS: RIGHT: 1. Common Femoral Vein: 1.1. Compressibility - Fully compressible: Thrombus - None : Flow - Phasic: Augmentation -Normal: Reflux - None. 2. Femoral Vein: 2.1. Compressibility - Fully compressible: Thrombus - None : Flow - Phasic: Augmentation -Normal: Reflux - None. 3. Popliteal Vein: 3.1. Compressibility - Fully compressible: Thrombus - None : Flow - Phasic: Augmentation -Normal: Reflux - None. 4. Posterior Tibial Vein: 4.1. Compressibility - Fully compressible: Thrombus - None: Flow - Phasic: Augmentation -Normal: Reflux - None. 5. Peroneal Vein: 5.1. Compressibility - Fully compressible: Thrombus - None: Flow - Phasic: Augmentation -Normal: Reflux - None. 6. Great Saphenous Vein: 6.1. Compressibility - Fully compressible: Thrombus - None: Flow - Phasic: Augmentation - Normal: Reflux - None. LEFT: 1. Common Femoral Vein: 1.1. Compressibility - Fully compressible: Thrombus - None: Flow - Phasic: Augmentation -Normal: Reflux - None. 2. Femoral Vein: 2.1. Compressibility - Fully compressible: Thrombus - None: Flow - Phasic: Augmentation -Normal: Reflux - None. 3. Popliteal Vein: 3.1. Compressibility - Fully compressible: Thrombus - None : Flow - Phasic: Augmentation -Normal: Reflux - None. 4. Posterior Tibial Vein: 4.1. Compressibility - Fully compressible: Thrombus - None: Flow - Phasic: Augmentation -Normal: Reflux - None. 5. Peroneal Vein: 5.1. Compressibility - Fully compressible: Thrombus - None: Flow - Phasic: Augmentation -Normal: Reflux - None. 6. Great Saphenous Vein: 6.1. Compressibility - Fully compressible: Thrombus - None: Flow - Phasic: Augmentation - Normal: Reflux - None. OTHER FINDINGS: Right: Acute deep vein thrombosis of the right gastrocnemius veins, with severe reduction of the venous return. Left: None significant. IMPRESSION: Right: Acute deep vein thrombosis of the right gastrocnemius veins, with severe reduction of the venous return. Left: No evidence of deep or superficial vein thrombosis of the left lower extremity. Normal valve function noted of the left side. The above findings were reported by the mammography technologist, to Vernon Morales at 11:17 am.
[2017-09-03] MEDS: cefTRIAXone 2 GM in Sodium Chloride 0.9% 100 ML IVPB SCH (16:04)
[2017-09-03 18:44] VITALS: RESP 20
--- NOTE | 2017-09-03 21:39 | CP.PCM.PN ---
Subjective - Date & Time of Evaluation Date of Evaluation: 09/03/17 Time of Evaluation: 19:50 - Subjective Subjective: Feeling better Objective - Vital Signs/Intake and Output Vital Signs (last 24 hours): Temp Pulse Resp BP Pulse Ox 98.4 F 109 H 20 96/64 L 97 09/03/17 16:00 09/03/17 16:00 09/03/17 16:00 09/03/17 16:00 09/03/17 16:00 - Medications Medications: Current Medications Aspirin (Ecotrin) 81 mg PO DAILY [facility] Last Admin: 09/03/17 09:26 Dose: 81 mg Enoxaparin Sodium (Lovenox) 120 mg SC Q12 [facility] Fluconazole (Diflucan) 100 mg PO DAILY [facility] Last Admin: 09/03/17 09:26 Dose: 100 mg Ceftriaxone Sodium 2 gm/ (Sodium Chloride) 100 mls @ 100 mls/hr IVPB Q24H [facility] Last Admin: 09/03/17 16:04 Dose: 100 mls/hr Insulin Aspart (Novolog) 0 unit SC ACHS [facility] PRN Reason: Protocol Last Admin: 09/03/17 17:18 Dose: Not Given Insulin Human Isoph/Insulin Regular (Novolin 70/30 (70/30 Units/Ml) 10 Ml) 20 units SC ACB [facility] Last Admin: 09/03/17 09:27 Dose: 20 units Insulin Human Isoph/Insulin Regular (Novolin 70/30 (70/30 Units/Ml) 10 Ml) 14 units SC ACD [facility] Last Admin: 09/03/17 17:46 Dose: 14 units Insulin Human NPH (Novolin N) 20 unit SC HS [facility] Last Admin: 09/02/17 22:15 Dose: 20 unit Lidocaine (Lidoderm) 1 ea TD DAILY [facility] Last Admin: 09/03/17 09:26 Dose: 1 ea Loperamide HCl (Imodium) 2 mg PO QID PRN PRN Reason: Diarrhea Last Admin: 09/03/17 10:55 Dose: 2 mg Metformin HCl (Glucophage) 850 mg PO BID [facility] Last Admin: 09/01/17 17:43 Dose: 850 mg Nystatin (Nystop Topical Powder) 1 applic TOP BID [facility] Last Admin: 09/03/17 17:46 Dose: 1 applic Pantoprazole Sodium (Protonix Ec Tab) 40 mg PO DAILY [facility] Last Admin: 09/03/17 09:27 Dose: 40 mg Rosuvastatin Calcium (Crestor) 5 mg PO HS [facility] Last Admin: 09/02/17 22:15 Dose: 5 mg Saccharomyces Boulardii (Florastor) 250 mg PO BID [facility] Last Admin: 09/03/17 17:46 Dose: 250 mg Vitamin A (Vitamin A & D Oint Ud Foilpak) 1 ea TOP BID [facility] Last Admin: 09/03/17 17:46 Dose: 1 ea - Labs Labs: 09/03/17 08:16 09/03/17 08:16 PT 13.5 SECONDS (9.7-12.2) H 08/31/17 06:18 INR 1.2 08/31/17 06:18 APTT 25 SECONDS (21-34) 08/28/17 08:22 - Head Exam Head Exam: ATRAUMATIC - Eye Exam Eye Exam: Normal appearance - ENT Exam ENT Exam: Mucous Membranes Dry - Respiratory Exam Respiratory Exam: NORMAL BREATHING PATTERN - Cardiovascular Exam Cardiovascular Exam: +S1, +S2 - GI/Abdominal Exam GI & Abdominal Exam: Normal Bowel Sounds Assessment and Plan (1) Anemia Assessment & Plan: improving Status: Acute (2) Thrombocytopenia Assessment & Plan: resolved Status: Acute (3) Leukocytosis Assessment & Plan: resolved Status: Acute
[2017-09-03] MEDS ORDERED: Enoxaparin 120 mg Syringe SC SCH (22:00)
[2017-09-03] MEDS: (Novolin N) Insulin Human Isophane (NPH) 100 u/ml 10 ml vial SC SCH (22:15)
[2017-09-03] MEDS ORDERED: DiphenhydrAMINE 50 mg/ml Inj IVP STA (22:37)
[2017-09-04 01:53] VITALS: O2SAT 100
[2017-09-04 05:01] VITALS: TEMP 98.3
--- NOTE | 2017-09-04 06:49 | PN ---
DATE: Afebrile. White count is normal, and no erythema noted over the sternoclavicular joint. No significant swelling noted. Responding well to Lidoderm patches and intravenous antibiotics. We will follow the patient. At this time, the treatment is non-operative. Tiki Dangelo MD
[2017-09-04 07:11] LABS: BASO % 0.5 % (0.0-2.0); EOS # 0.1 K/uL (0.0-0.7); EOS % 1.2 % (0.0-4.0); HEMOGLOBIN 10.6 g/dL (11.0-16.0); LYMPH # 1.5 K/uL (1.0-4.3); LYMPH % 18.4 % (20.0-40.0); MEAN CELL VOLUME 83.6 fL (81.0-99.0); MEAN CORPUSCULAR HEMOGLOBIN 29.3 pg (27.0-31.0); MEAN CORPUSCULAR HGB CONC 35.1 g/dL (33.0-37.0); MEAN PLATELET VOLUME 8.9 fL (7.2-11.7); MONO # 0.8 K/uL (0.0-0.8); MONO % 10.2 % (0.0-10.0); NEUT # 5.8 K/uL (1.8-7.0); NEUT % 69.7 % (50.0-75.0); RBC 3.61 Mil/uL (3.80-5.20); WHITE BLOOD COUNT 8.3 K/uL (4.8-10.8)
[2017-09-04 07:42] LABS: ALB/GLOB RATIO 0.8 (1.0-2.1); ALBUMIN 2.1 g/dL (3.5-5.0); ALT/SGPT 34 U/L (9-52); AST/SGOT 25 U/L (14-36); BLOOD UREA NITROGEN 9 mg/dL (7-17); CALCIUM 7.7 mg/dl (8.6-10.4); GFR AFRICAN-AMERICAN > 60; GFR NON-AFRICAN AMERICAN > 60; MAGNESIUM 2.2 mg/dL (1.6-2.3)
[2017-09-04 08:05] VITALS: BP 98/62
[2017-09-04] MEDS ORDERED: Meropenem 1 GM in Sodium Chloride 0.9% 100 ML IVPB SCH (09:00)
[2017-09-04] MEDS: (Novolin 70/30) NPH/Regular 70/30 Units/ml 10 ml vial SC SCH (09:03)
[2017-09-04] MEDS: (Novolog) Insulin Aspart, Recombinant 100 u/ml 10 ml vial SC SCH ×2 (09:04→12:41)
[2017-09-04] MEDS: Lidocaine 5% Patch TD SCH (09:53)
[2017-09-04] MEDS: Vitamins A & D Oint UD Foilpak TOP SCH (09:54)
[2017-09-04] MEDS: Saccharomyces Boulardi 250 mg Cap PO SCH (09:54)
[2017-09-04] MEDS: Pantoprazole 40 mg EC Tab PO SCH (09:54)
--- NOTE | 2017-09-04 11:37 | CP.PCM.DIS ---
Provider - Provider Date of Admission: 08/26/17 18:32 Attending physician: David Burk MD Time Spent in preparation of Discharge (in minutes): 55 Hospital Course - Lab Results Lab Results: Micro Results 08/30/17 16:45 Blood-Venous Blood Culture - Preliminary NO GROWTH AFTER 4 DAYS 08/30/17 16:15 Blood-Venous Blood Culture - Preliminary NO GROWTH AFTER 4 DAYS 09/01/17 Unknown Urine,Vaughn Urine Culture - Final Yeast Species 08/31/17 15:20 Urine,Catheterized Urine Culture - Final Yeast Species 08/27/17 21:58 Stool Stool Culture - Final NO SALMONELLA, SHIGELLA OR CAMPYLOBACTER ISOLATED. 08/28/17 05:32 Urine,Vaughn Urine Culture - Final Yeast Species 08/26/17 17:05 Blood Blood Culture - Final Escherichia Coli 08/26/17 17:05 Blood Gram Stain - Final 08/26/17 16:35 Blood Blood Culture - Final Escherichia Coli 08/26/17 16:35 Blood Gram Stain - Final 08/26/17 19:00 Urine,Catheterized Urine Culture - Final Gram Negative Chip Most Recent Lab Values WBC 8.3 K/uL (4.8-10.8) 09/04/17 06:53 RBC 3.61 Mil/uL (3.80-5.20) L 09/04/17 06:53 Hgb 10.6 g/dL (11.0-16.0) L 09/04/17 06:53 Hct 30.2 % (34.0-47.0) L 09/04/17 06:53 MCV 83.6 fL (81.0-99.0) 09/04/17 06:53 MCH 29.3 pg (27.0-31.0) 09/04/17 06:53 MCHC 35.1 g/dL (33.0-37.0) 09/04/17 06:53 RDW 13.0 % (11.5-14.5) 09/04/17 06:53 Plt Count 246 K/uL (130-400) 09/04/17 06:53 MPV 8.9 fL (7.2-11.7) 09/04/17 06:53 Neut % (Auto) 69.7 % (50.0-75.0) 09/04/17 06:53 Lymph % (Auto) 18.4 % (20.0-40.0) L 09/04/17 06:53 Crawford % (Auto) 10.2 % (0.0-10.0) H 09/04/17 06:53 Eos % (Auto) 1.2 % (0.0-4.0) 09/04/17 06:53 Baso % (Auto) 0.5 % (0.0-2.0) 09/04/17 06:53 Neut # (Auto) 5.8 K/uL (1.8-7.0) 09/04/17 06:53 Lymph # (Auto) 1.5 K/uL (1.0-4.3) 09/04/17 06:53 Crawford # (Auto) 0.8 K/uL (0.0-0.8) 09/04/17 06:53 Eos # (Auto) 0.1 K/uL (0.0-0.7) 09/04/17 06:53 Baso # (Auto) 0.0 K/uL (0.0-0.2) 09/04/17 06:53 Neutrophils % (Manual) 82 % (50-75) H 09/01/17 08:53 Band Neutrophils % 3 % (0-2) H 09/01/17 08:53 Lymphocytes % (Manual) 9 % (20-40) L 09/01/17 08:53 Reactive Lymphs % 3 % (0-0) H 09/01/17 08:53 Monocytes % (Manual) 3 % (0-10) 09/01/17 08:53 Eosinophils % (Manual) 1 % (0-4) 08/31/17 06:18 Differential Comment 08/27/17 01:00 Platelet Estimate Normal (NORMAL) 09/01/17 08:53 RBC Morphology Normal 09/01/17 08:53 Polychromasia Slight 08/30/17 11:09 Hypochromasia (manual) Slight 08/30/17 11:09 Poikilocytosis (manual Slight 08/29/17 11:31 Anisocytosis (manual) Slight 08/29/17 11:31 ESR 50 mm/hr (0-20) H 09/01/17 08:53 Retic Count 1.5 % (0.5-1.5) 08/28/17 08:22 PT 13.5 SECONDS (9.7-12.2) H 08/31/17 06:18 INR 1.2 08/31/17 06:18 APTT 25 SECONDS (21-34) 08/28/17 08:22 Fibrinogen 633 mg/dL (200-400) H 08/28/17 08:22 pO2 52 mm/Hg (30-55) 08/26/17 22:12 VBG pH 7.46 (7.32-7.43) H 08/26/17 22:12 VBG pCO2 34 mmHg (40-60) L 08/26/17 22:12 VBG HCO3 25.3 mmol/L 08/26/17 22:12 VBG Total CO2 25.2 mmol/L (22-28) 08/26/17 22:12 VBG O2 Sat (Calc) 92.6 % (40-65) H 08/26/17 22:12 VBG Base Excess 0.8 mmol/L (0.0-2.0) 08/26/17 22:12 VBG Potassium 2.0 mmol/L (3.6-5.2) L* 08/26/17 22:12 Sodium 131.0 mmol/l (132-148) L 08/26/17 22:12 Chloride 98.0 mmol/L (98-107) 08/26/17 22:12 Glucose 352 mg/dl (65-105) H 08/26/17 22:12 Lactate 1.4 mmol/L (0.7-2.1) 08/26/17 22:12 Crit Value Called To wally Donald 08/26/17 22:12 Crit Value Called By digna Toribio 08/26/17 22:12 Crit Value Read Back Y 08/26/17 22:12 Blood Gas Notified Time 221508/26/17 22:12 Sodium 134 mmol/L (132-148) 09/04/17 06:53 Potassium 4.0 mmol/L (3.6-5.2) 09/04/17 06:53 Chloride 97 mmol/L (98-107) L 09/04/17 06:53 Carbon Dioxide 29 mmol/L (22-30) 09/04/17 06:53 Anion Gap 12 (10-20) 09/04/17 06:53 BUN 9 mg/dL (7-17) 09/04/17 06:53 Creatinine 0.5 mg/dL (0.7-1.2) L 09/04/17 06:53 Est GFR ( Amer) > 60 09/04/17 06:53 Est GFR (Non-Af Amer) > 60 09/04/17 06:53 POC Glucose (mg/dL) 237 mg/dL (65-110) H 09/04/17 11:06 Random Glucose 93 mg/dL (65-105) 09/04/17 06:53 Hemoglobin A1c 12.0 % (4.2-6.5) H 08/27/17 07:03 Lactic Acid 1.0 mmol/L (0.7-2.1) 08/27/17 07:02 Calcium 7.7 mg/dl (8.6-10.4) L 09/04/17 06:53 Ionized Calcium 5.1 mg/dL (4.80-5.60) 08/27/17 07:03 Phosphorus 3.8 mg/dL (2.5-4.5) 09/04/17 06:53 Magnesium 2.2 mg/dL (1.6-2.3) 09/04/17 06:53 Ferritin 439.0 ng/mL 08/28/17 11:22 Total Bilirubin 0.2 mg/dL (0.2-1.3) 09/04/17 06:53 AST 25 U/L (14-36) 09/04/17 06:53 ALT 34 U/L (9-52) 09/04/17 06:53 Alkaline Phosphatase 87 U/L (38-126) 09/04/17 06:53 Ammonia < 9 umol/L (9-33) L 08/27/17 08:02 Troponin I < 0.0120 ng/mL (0.00-0.120) 08/26/17 17:12 C-React Prot High Sens > 15.00 mg/L (1.00-3.00) H 09/01/17 08:53 NT-Pro-B Natriuret Pep 391 pg/mL (0-900) 08/26/17 17:12 Total Protein 4.9 g/dL (6.3-8.3) L 09/04/17 06:53 Albumin 2.1 g/dL (3.5-5.0) L 09/04/17 06:53 Globulin 2.8 gm/dL (2.2-3.9) 09/04/17 06:53 Albumin/Globulin Ratio 0.8 (1.0-2.1) L 09/04/17 06:53 Vitamin B12 > 1000 pg/mL (239-931) H 08/28/17 11:22 Folate 6.9 ng/mL 08/28/17 11:22 Procalcitonin 0.57 NG/ML (0.19-0.49) H 09/01/17 08:53 Free T4 1.11 ng/dL (0.78-2.19) 09/03/17 08:16 TSH 3rd Generation 2.82 mIU/L (0.46-4.68) 09/03/17 08:16 Prolactin 14.1 ng/mL (3.0-18.9) 08/27/17 07:03 Venous Blood Potassium 2.0 mmol/L (3.6-5.2) L* 08/26/17 22:12 Urine Color Light red (YELLOW) 09/01/17 07:22 Urine Clarity Hazy (Clear) 09/01/17 07:22 Urine pH 7.0 (5.0-8.0) 09/01/17 07:22 Ur Specific [place] 1.006 (1.003-1.030) 09/01/17 07:22 Urine Protein Negative mg/dL (NEGATIVE) 09/01/17 07:22 Urine Glucose (UA) 1+ mg/dL (Normal) 09/01/17 07:22 Urine Ketones Negative mg/dL (NEGATIVE) 09/01/17 07:22 Urine Blood 3+ (NEGATIVE) H 09/01/17 07:22 Urine Nitrate Negative (NEGATIVE) 09/01/17 07:22 Urine Bilirubin Negative (NEGATIVE) 09/01/17 07:22 Urine Urobilinogen Normal mg/dL (0.2-1.0) 09/01/17 07:22 Ur Leukocyte Esterase 2+ Paula/uL (Negative) H 09/01/17 07:22 Urine WBC (Auto) 32 /hpf (0-5) H 09/01/17 07:22 Urine RBC (Auto) 122 /hpf (0-3) H 09/01/17 07:22 Urine WBC Clumps (Auto) Mod /hpf (NONE) H 08/26/17 17:15 Ur Squamous Epith Cells < 1 /hpf (0-5) 09/01/17 07:22 Urine Bacteria Few (<OCC) H 09/01/17 07:22 Urine Yeast (Budding) Few /hpf (NEGATIVE) H 09/01/17 07:22 Urine Osmolality 177 mosm/kg (300-1000) L 08/30/17 18:21 Ur Random Sodium 64 mmol/L 08/30/17 18:21 Stool Occult Blood Negative (NEGATIVE) 08/27/17 12:47 Stool Leukocytes, Qual Negative (NEGATIVE) 08/27/17 Unknown RPR Nonreactive (NONREACTIVE) 08/27/17 07:03 C. difficile Ag & Toxin Negative (NEGATIVE) 08/27/17 Unknown Influenza Typ A,B (EIA) Negative for flu a/b (NEGATIVE) 08/26/17 17:17 - Hospital Course Hospital Course: Upon Admission: CC: Lethargy and not feeling like self This patient is a 56yo F, without insurance, who originally came to the hospital here after she was d/c from [facility] [place] [place] ER for dysuria/frequency/urgency and lethargy and just not feeling like self. She had been vomiting, with suprapubic pain for around 8 days before she went to [facility] [place] [place]. For a more complete record of her ER visit, please refer to the EMR for her ER visit. At the time of this HnP the patient states she is feeling remarkably better than when she came in; she currently denies fevers/chills, BRISCOE, CP, SOB, abdominal pain, N/V/D, dysuria/freq/urg, or lower extremity pain/swelling. In the ED a code sepsis was called, for a lactate of 4.3, WBC of 22, and fever. Blood cultures grew gram negative rods in two bottles as well. The patient responded to fluids and antibiotics, and is now on telemetry. PMhx: Diabetes, on metformin FamHx: Diabetes on both sides Allergies: denies Surgeries: Denies Meds: Metformin 1000mg BID Socia: Denies smoking, drinking, illicit drug use; independent in all ADL and IADL, 2 children, lives with Throughout Hospital Course: Sepsis 2/2 to UTI Osteomyelitis Bacteremia -E.Coli -ID consult- Dr. Monroy- Recommend 6-8 weeks of IV abx - will wait for repeat UC results to determine IV ABX regimen & length -2 blood cultures positive for gram negative chip >>> cultures positive for E. Coli -procal elevated at 14; patient has responded clinically to abx tx PICC line placed 09/03/17 IV meropenem - 08/27/17- 09/03/17 -->> switched to Rocephin 2grams IVP daily - DC due to allergic reaction- changed to Invanz 1 gram daily x 6 weeks Repeat BC - 08/30/17 - negative up to date UA shows +3 LE, with budding yeast Repeat UC - continues to have yeast- VAUGHN will be removed - patient is asymptomatic at this time Repeat Urine Culture (clean catch)- without vaughn - continues with yeast - will be discharged Diflucan 100mg PO daily x 5 days Osteomyelitis R Clavicle CT Thoracics consulted - Dr. Oviedo- help appreciated - no surgical intervention at this time -foci of air in clavicle -MRI of chest is positive for osteomyelitis of clavicle until proven otherwise -continue merrem -Echo negative for vegetations; normal left ventricular contractility no aortic stenosis is no pericardial effusion -ESR elevated Right Lower Extremity DVT Tachycardia Fever EKG: Sinus tachy @124 BPM CTA: No PE Upper Extremity dopplers: no DVT Lower Extremity dopplers: DVT in RIGHT lower extremity 09/03/17 - will discharged with Eliquis 5mg PO BID Started on Therapeutic Lovenox 120mg SC Q12H Pulmonary Nodules 3mm nodule in LLL, 3mm nodule in Superior aspect of LL, 4mm nodule in RUL Patient will need repeat CT Scan in 12 months to evaluate Hx of DM -poorly controlled; A1C 12 -started on 20units SC ACB, 14 units SC ACD, 20units SC HS, Metformin 850mg PO BID -diabetic education counseling; appreciate recs -patient will need to go home on insulin -keep blood sugar between 140-180 while in the hospital -endocrinology consult. Dr. Cam. strong appreciated. Adrenal thickening -Nephrology consulted - help appreciated - Dr. Middleton -Started DDAVP as per nephro - As per Nephro: Will need hormonal work up of left adrenal thickening with edmundo/renin and dexamethasone suppression test later as outpt once pt stable. hence will d/c aldactone as well (to avoid interference with edmundo measurements) Anemia- stable -likely anemia of chronic disease -B12 WNL, ferritin wnl, retic count WNL -heme/onc consult. DR. Ballard. Recs appreciated. Diarrhea; resolved -stool c diff; negative -stool culture; negative to date -stool electrolytes; WNL -stool leukocytes; negative -will give florastor and loperamide to help control diarrhea Hypokalemia - resolved -replete K as necessary -cardio consult. recs appreciated -nephro consult. recs appreciated -will start spironolactone>>> discontinued today -24 hour urinary K -renin level -erin level Altered mental status; resolved -neurology consult. recs appreciated. 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 Please review EMR for full record. Discharge Exam - Additional Findings Additional findings: - Constitutional Appears: No Acute Distress - Head Exam Head Exam: NORMAL INSPECTION, NORMOCEPHALIC - Eye Exam Eye Exam: EOMI, Normal appearance, PERRL - ENT Exam ENT Exam: Mucous Membranes Moist, Normal Exam - Respiratory Exam Respiratory Exam: Clear to Ausculation Bilateral, NORMAL BREATHING PATTERN. absent: Decreased Breath Sounds, Wheezes - Cardiovascular Exam Cardiovascular Exam: REGULAR RHYTHM - GI/Abdominal Exam GI & Abdominal Exam: Soft, Normal Bowel Sounds. absent: Distended, Tenderness - Extremities Exam Extremities Exam: Normal Inspection. absent: Pedal Edema, Tenderness - Neurological Exam Neurological Exam: Alert, Awake, Oriented x3 - Psychiatric Exam Psychiatric exam: Normal Affect, Normal Mood - Skin Skin Exam: Dry, Intact, Normal Color, Warm Discharge Plan - Discharge Medications Prescriptions: RX: Aspirin [Ecotrin] 81 mg PO DAILY #30 tabec RX: Atorvastatin [Lipitor] 10 mg PO DIN #30 tab RX: Fluconazole [Diflucan] 100 mg PO DAILY #5 tab RX: Insulin Human (NPH)/Regular [Novolin 70/30 (70/30 units/ml) 10 ml] 20 units SC ACB #1 bottle RX: Insulin Human (NPH)/Regular [Novolin 70/30 (70/30 units/ml) 10 ml] 14 units SC ACD #1 bottle RX: Insulin Human Isophane (NPH) [Novolin N] 20 unit SC HS #1 bottle RX: Lisinopril 2.5 mg PO DAILY #30 tab RX: metFORMIN [glucOPHAGE] 850 mg PO BID #60 tab RX: Saccharomyces Boulardi [Florastor] 250 mg PO BID #144 cap - Follow Up Plan Condition: GOOD Disposition: HOME/ ROUTINE Instructions: Sepsis (DC), Sepsis (GEN) Referrals: Marta Fox MD [Medical Doctor] - Eleno Middleton MD [Staff Provider] - Carroll Gupta Jr., MD [Medical Doctor] - Gelacio Monroy MD [Staff Provider] -
[2017-09-04 12:13] VITALS: PULSE 99
[2017-09-06 05:48] LABS: STOOL SODIUM 36.4 mEq/L
--- NOTE | 2017-09-06 18:16 | CARD ---
APPROVED REPORT EKG Measurement Heart [id number] <Conclusion> Sinus tachycardia Rightward axis Borderline ECG
--- NOTE | 2017-09-06 19:02 | CARD ---
APPROVED REPORT EKG Measurement Heart [id number] <Conclusion> Sinus tachycardia Otherwise normal ECG
== END 2017-09-04 16:36 | disposition home health service (06) | DRG 871 ==
LOC: C.ER 16:12 → C.9E 18:32 → C.6T 08-27 20:26
PROVIDERS: ADMIT Family Medicine; ATTEND Family Medicine
PROC: 02HV33Z Insertion of Infusion Device into Superior Vena Cava, Percutaneous Approach (ICD-10-PCS; principal; 2017-09-03)
DX: A41.51 Sepsis due to Escherichia coli [E. coli] (principal); E11.10 Type 2 diabetes mellitus with ketoacidosis without coma; G92 Toxic encephalopathy; D69.59 Other secondary thrombocytopenia; M86.111 Other acute osteomyelitis, right shoulder; E11.40 Type 2 diabetes mellitus with diabetic neuropathy, unspecified; N12 Tubulo-interstitial nephritis, not specified as acute or chronic; E87.1 Hypo-osmolality and hyponatremia; R65.20 Severe sepsis without septic shock; D69.6 Thrombocytopenia, unspecified; E83.39 Other disorders of phosphorus metabolism; E86.0 Dehydration; D63.8 Anemia in other chronic diseases classified elsewhere; E87.6 Hypokalemia; E11.69 Type 2 diabetes mellitus with other specified complication; I10 Essential (primary) hypertension; R19.7 Diarrhea, unspecified; E27.9 Disorder of adrenal gland, unspecified; E78.5 Hyperlipidemia, unspecified; E66.9 Obesity, unspecified; Z79.84 Long term (current) use of oral hypoglycemic drugs; Z91.14 Patient's other noncompliance with medication regimen; Z79.4 Long term (current) use of insulin; Z74.01 Bed confinement status

== ENCOUNTER 2017-09-26 12:35 | Inpatient (IN) | payer OTHER ==
[2017-09-26 12:45] VITALS: BMI 28.3
[2017-09-26] MEDS ORDERED: Sodium Chloride 0.9% 1,000 ML IV ONE (13:07)
--- NOTE | 2017-09-26 13:18 | C.PDOC ---
History Of Present Illness Patient is a 56 year old female with a PMHx of osteomyelitis near the right clavicle area, and s/p PICC line placement in the right upper arm. She was seen here earlier in August and has been receiving IV antibiotics at home. Patient presents to the ED today with 2 days of increasing redness and swelling to area. No fever. PMD: Carroll Gupta Jr. Time Seen by Provider: 09/26/17 12:53 Chief Complaint (Nursing): Abnormal Skin Integrity History Per: Patient History/Exam Limitations: no limitations Onset/Duration Of Symptoms: Days (x2) Current Symptoms Are (Timing): Still Present Severity: None Past Medical History Reviewed: Historical Data, Nursing Documentation, Vital Signs Vital Signs: Last Vital Signs Temp 98.1 F 09/26/17 14:36 Pulse 104 H 09/26/17 14:36 Resp 16 09/26/17 14:36 BP 129/80 09/26/17 14:36 Pulse Ox 100 09/26/17 14:36 - Medical History PMH: Diabetes, HTN, Hypercholesterolemia Other PMH: osteomylitis right clavicle Surgical History: (x2) - [facility] Procedures INSERTION OF INFUSION DEV INTO SUP VENA CAVA, PERC APPROACH (08/26/17) Family History: States: No Known Family Hx - Social History Hx Tobacco Use: No Hx Alcohol Use: No Hx Substance Use: No - Immunization History Hx Tetanus Toxoid Vaccination: No Hx Influenza Vaccination: No Hx Pneumococcal Vaccination: No Review Of Systems Constitutional: Negative for: Fever, Chills Skin: Positive for: Rash (redness and swelling over right clavicle) Physical Exam - Physical Exam Appears: Non-toxic, No Acute Distress Skin: Warm, Dry Head: Atraumatic, Normacephalic Eye(s): bilateral: Normal Inspection, PERRL, EOMI Nose: Normal Oral Mucosa: Moist Neck: Normal ROM, Supple Chest: Symmetrical, Other (erythema with moderate swelling to the right clavicle , + tender to palpation) Cardiovascular: Rhythm Regular, No Murmur Respiratory: Normal Breath Sounds, No Rhonchi, No Wheezing Gastrointestinal/Abdominal: Soft, No Tenderness, No Distention Extremity: Bilateral: Atraumatic, Normal Color And Temperature, Normal ROM Neurological/Psych: Oriented x3, Normal Speech Gait: Steady ED Course And Treatment - Laboratory Results Result Diagrams: 09/26/17 13:34 09/26/17 13:34 Lab Interpretation: Abnormal O2 Sat by Pulse Oximetry: 100 (RA) Pulse Ox Interpretation: Normal - Radiology CXR: Interpreted by Me CXR Interpretation: Yes: No Acute Disease - Other Rad CXR X-Ray: Viewed By Me, Read By Radiologist Interpretation: FINDINGS: LUNGS: No active pulmonary disease. PLEURA: No significant pleural effusion identified. No pneumothorax apparent. CARDIOVASCULAR: Normal. OSSEOUS STRUCTURES: No significant abnormalities. VISUALIZED UPPER ABDOMEN: Normal. OTHER FINDINGS: Right upper extremity PICC , unchanged. IMPRESSION: No active disease. Medical Decision Making Medical Decision Making: Time: 13:07 Initial Plan: * CMP * CBC * Lactic acid * Urinalysis * Chest x-ray * Blood culture * IV fluids * Reevaluation Disposition Discussed With Dr.: Carroll Gupta Jr. Doctor Will See Patient In The: Hospital - Disposition Disposition: HOSPITALIZED Disposition Time: 14:00 Condition: STABLE - POA Present On Arrival: None - Clinical Impression Clinical Impression: Osteomyelitis, Cellulitis, Acute osteomyelitis of clavicle - PA / ROLL REPAIRER / Resident Statement MD/DO has reviewed & agrees with the documentation as recorded. - Scribe Statement The provider has reviewed the documentation as recorded by the Scribe (Aleena Del Cid) All medical record entries made by the Scribe were at my direction and personally dictated by me. I have reviewed the chart and agree that the record accurately reflects my personal performance of the history, physical exam, medical decision making, and the department course for this patient. I have also personally directed, reviewed, and agree with the discharge instructions and disposition. Decision To Admit - Pt Status Changed To: Hospital Disposition Of: Inpatient - Admit Certification Admit to Inpatient:: After my assessment, the patient will require hospitalization for at least two midnights. This is because of the severity of symptoms shown, intensity of services needed, and/or the medical risk in this patient being treated as an outpatient. - InPatient: Physician Admission Certification: I certify that this patient requires 2 or more midnights of care for the following reason:: Cellulitis. Failed outpatient - . Bed Request Type: Regular Admitting Physician: Carroll Gupta Jr. Patient Diagnosis: Cellulitis, Osteomyelitis, Acute osteomyelitis of clavicle
--- NOTE | 2017-09-26 13:28 | RAD ---
HISTORY: SOB COMPARISON: Chest radiograph dated 09/03/2017. TECHNIQUE: Chest PA and lateral FINDINGS: LUNGS: No active pulmonary disease. PLEURA: No significant pleural effusion identified. No pneumothorax apparent. CARDIOVASCULAR: Normal. OSSEOUS STRUCTURES: No significant abnormalities. VISUALIZED UPPER ABDOMEN: Normal. OTHER FINDINGS: Right upper extremity PICC, unchanged. IMPRESSION: No active disease.
[2017-09-26 13:40] LABS: BASO # 0.1 K/uL (0.0-0.2); EOS # 1.5 K/uL (0.0-0.7); EOS % 11.7 % (0.0-4.0); HEMOGLOBIN 10.4 g/dL (11.0-16.0); LYMPH % 24.1 % (20.0-40.0); MEAN CELL VOLUME 85.2 fL (81.0-99.0); MEAN CORPUSCULAR HEMOGLOBIN 28.8 pg (27.0-31.0); MEAN CORPUSCULAR HGB CONC 33.8 g/dL (33.0-37.0); MONO # 0.9 K/uL (0.0-0.8); MONO % 7.6 % (0.0-10.0); NEUT % 55.6 % (50.0-75.0); RBC 3.61 Mil/uL (3.80-5.20); RED CELL DISTRIBUTION WIDTH 14.4 % (11.5-14.5)
[2017-09-26 13:41] LABS: WHITE BLOOD COUNT 12.5 K/uL (4.8-10.8)
[2017-09-26 13:55] LABS: ALBUMIN 3.4 g/dL (3.5-5.0); ALT/SGPT 18 U/L (9-52); AST/SGOT 18 U/L (14-36); BLOOD UREA NITROGEN 10 mg/dL (7-17); CALCIUM 8.4 mg/dl (8.6-10.4); GFR AFRICAN-AMERICAN > 60; GFR NON-AFRICAN AMERICAN > 60
[2017-09-26 14:08] LABS: SQUAMOUS EPITHIAL 2 /hpf (0-5); URINE BACTERIA RARE (<OCC); URINE BILIRUBIN NEGATIVE (NEGATIVE); URINE BLOOD 2+ (NEGATIVE); URINE CLARITY Hazy (Clear); URINE COLOR Yellow (YELLOW); URINE GLUCOSE (UA) NORMAL (Normal); URINE LEUKOCYTE ESTERASE 3+ Leu/uL (Negative); URINE PROTEIN NEGATIVE (NEGATIVE); URINE UROBILINOGEN NORMAL mg/dL (0.2-1.0)
--- NOTE | 2017-09-26 14:53 | CP.PCM.HP ---
History of Present Illness - History of Present Illness History of Present Illness: PGY-1 H&P for Dr. Gupta CC: Right clavicle swelling This is a 56 year old female with PMHx Diabetes, right clavicle osteomyelitis, DVT who presented complaining of swelling above the proximal right clavicle. Patient was admitted a month prior due to right clavicle osteomyelitis. She was discharged on 6 week course of Invanz. Patient states that she has constantly been dealing with pain over the entire region overlying the right clavicle from end to end. She states that as of 2 days ago, there was some erythema in the region; however, today, patient noticed swelling in the proximal clavicle as well. She was advised by her nurse to come into the ED. Patient has no other complaints at this time. PMHx: Diabetes, right clavicle osteomyelitis, Right LE DVT PSHx: denies Allergies: Ceftriaxone-rash Social: Denies smoking, drinking, illicit drug use; independent in all ADL and IADL, 2 children, lives with Family Hx: Diabetes in multiple family members on both sides PMD: Dr. Gupta Home meds: Metformin 850 mg PO BID (last taken at 11AM on date of admission), NPH/Regular 15 units in the AM and 14 units PM. Lipitor 10 mg HS, Eliquis 5 mg BID, Lisinopril 2.5 mg daily, ASA 81 mg daily Present on Admission - Present on Admission Any Indicators Present on Admission: Yes History of DVT/PE: Yes Review of Systems - Constitutional Constitutional: absent: Chills, Fever - EENT Eyes: absent: Change in Vision Ears: absent: Decreased Hearing Nose/Mouth/Throat: absent: Nasal Congestion - Cardiovascular Cardiovascular: absent: Chest Pain - Respiratory Respiratory: absent: Dyspnea - Gastrointestinal Gastrointestinal: absent: Abdominal Pain, Nausea, Vomiting - Genitourinary Genitourinary: absent: Dysuria - Musculoskeletal Musculoskeletal: Other (right clavicular tenderness) - Integumentary Integumentary: Rash (on skin overlying the proximal right clavicle) - Neurological Neurological: absent: Dizziness, Weakness - Psychiatric Psychiatric: absent: Anxiety - Endocrine Endocrine: absent: Palpitations Past Patient History - Past Medical History & Family History Past Medical History?: Yes - Past Social History Smoking Status: Never Smoked - CARDIAC Hx Hypercholesterolemia: Yes Hx Hypertension: Yes - ENDOCRINE/METABOLIC Hx Endocrine Disorders: Yes Hx Diabetes Mellitus Type 2: Yes - MUSCULOSKELETAL/RHEUMATOLOGICAL Hx Falls: No - PSYCHIATRIC Hx Substance Use: No - SURGICAL HISTORY Hx Surgeries: Yes Hx Section: Yes (x2) - ANESTHESIA Hx Anesthesia: Yes Meds Allergies/Adverse Reactions: Allergies Allergy/AdvReac Type Severity Reaction Status Date / Time ceftriaxone [From Rocephin] AdvReac ITCHING Verified 09/26/17 12:43 Physical Exam - Constitutional Appears: No Acute Distress - Head Exam Head Exam: ATRAUMATIC, NORMOCEPHALIC - Eye Exam Eye Exam: EOMI, PERRL - ENT Exam ENT Exam: Mucous Membranes Moist - Respiratory Exam Respiratory Exam: Clear to Auscultation Bilateral, NORMAL BREATHING PATTERN. absent: Rales, Rhonchi, Wheezes - Cardiovascular Exam Cardiovascular Exam: REGULAR RHYTHM, +S1, +S2 - GI/Abdominal Exam GI & Abdominal Exam: Normal Bowel Sounds, Soft. absent: Distended, Tenderness - Extremities Exam Extremities exam: Positive for: pedal pulses present. Negative for: pedal edema Additional comments: Right Arm PICC placed on 09/03/17 without any erythema overlying the site of insertion poor skin turgor - Neurological Exam Neurological exam: Alert, CN II-XII Intact, Oriented x3 - Psychiatric Exam Psychiatric exam: Normal Affect, Normal Mood - Skin Skin Exam: Dry, Warm Additional comments: Proximal right clavicle with rubbery induration and erythema overlying the region Results - Vital Signs Recent Vital Signs: Last Vital Signs Temp 98.1 F 09/26/17 14:36 Pulse 104 H 09/26/17 14:36 Resp 16 09/26/17 14:36 BP 129/80 09/26/17 14:36 Pulse Ox 100 09/26/17 14:36 - Labs Result Diagrams: 09/26/17 13:34 09/26/17 13:34 Labs: Laboratory Results - last 24 hr 09/26/17 09/26/17 09/26/17 13:34 13:34 13:34 WBC 12.5 H D RBC 3.61 L Hgb 10.4 L Hct 30.7 L MCV 85.2 MCH 28.8 MCHC 33.8 RDW 14.4 Plt Count 436 H D MPV 8.0 Neut % (Auto) 55.6 Lymph % (Auto) 24.1 Coffee % (Auto) 7.6 Eos % (Auto) 11.7 H Baso % (Auto) 1.0 Neut # (Auto) 7.0 Lymph # (Auto) 3.0 Coffee # (Auto) 0.9 H Eos # (Auto) 1.5 H Baso # (Auto) 0.1 Sodium 139 Potassium 3.9 Chloride 100 Carbon Dioxide 25 Anion Gap 17 BUN 10 Creatinine 0.6 L Est GFR ( Amer) > 60 Est GFR (Non-Af Amer) > 60 Random Glucose 151 H Lactic Acid 2.1 Calcium 8.4 L Total Bilirubin 0.3 AST 18 ALT 18 Alkaline Phosphatase 112 Total Protein 6.9 Albumin 3.4 L D Globulin 3.5 Albumin/Globulin Ratio 1.0 Urine Color Urine Clarity Urine pH Ur Specific [place] Urine Protein Urine Glucose (UA) Urine Ketones Urine Blood Urine Nitrate Urine Bilirubin Urine Urobilinogen Ur Leukocyte Esterase Urine WBC (Auto) Urine RBC (Auto) Ur Squamous Epith Cells Urine Bacteria 09/26/17 13:56 WBC RBC Hgb Hct MCV MCH MCHC RDW Plt Count MPV Neut % (Auto) Lymph % (Auto) Coffee % (Auto) Eos % (Auto) Baso % (Auto) Neut # (Auto) Lymph # (Auto) Coffee # (Auto) Eos # (Auto) Baso # (Auto) Sodium Potassium Chloride Carbon Dioxide Anion Gap BUN Creatinine Est GFR ( Amer) Est GFR (Non-Af Amer) Random Glucose Lactic Acid Calcium Total Bilirubin AST ALT Alkaline Phosphatase Total Protein Albumin Globulin Albumin/Globulin Ratio Urine Color Yellow Urine Clarity Hazy Urine pH 5.0 Ur Specific [place] 1.010 Urine Protein Negative Urine Glucose (UA) Normal Urine Ketones Negative Urine Blood 2+ H Urine Nitrate Negative Urine Bilirubin Negative Urine Urobilinogen Normal Ur Leukocyte Esterase 3+ H Urine WBC (Auto) 38 H Urine RBC (Auto) 18 H Ur Squamous Epith Cells 2 Urine Bacteria Rare Assessment & Plan - Assessment and Plan (Free Text) Plan: Right Clavicle Osteomyelitis failing antibiotic therapy Previously discharged on Invanz IV daily Given stat Vancomycin 1 gm IV and Gentamicin 80 mg IV ID consult, Dr. Monroy, help appreciated Thoracic Surgery consult, Dr. Oviedo, help appreciated Merrem 1 gm IV Q8 Cannot get Contrast Imaging at this time because the patient last took Metformin at 11 AM this morning History of Right LE DVT Continue Eliquis 5 mg PO BID SCDs contraindicated History of Diabetes Continue home insulin regimen: NPH/Regular 15 units AM NPH/Regular 14 units PM Regular ISS-medium dose Accuchecks Hypoglycemic Protocol Resumed Lisinopril 2.5 mg PO daily Resumed statin--Crestor 5 mg HS Prophylaxis Diabetic diet Eliquis 5 mg PO BID Protonix 40 mg PO daily Diabetic Diet Discussed with Dr. Candy Moeller PGY-1
[2017-09-26] MEDS ORDERED: Vancomycin 1 gm/NS 200 ml 1 GM/200 ML BAG IVPB ONE ×2 (15:30→16:30)
--- NOTE | 2017-09-26 15:33 | CP.PCM.CON ---
History of Present Illness - History of Present Illness History of Present Illness: 56 year old female with PMHx Diabetes, right clavicle osteomyelitis, DVT who presented complaining of swelling above the proximal right clavicle. Patient was admitted a month prior due to right clavicle osteomyelitis. She was discharged on 6 week course of Invanz. Despite this pain and swelling persists and has actually been worse of late Review of Systems - Constitutional Constitutional: As Per HPI - EENT Eyes: absent: As Per HPI, Blind Spots, Blurred Vision, Change in Vision, Decreased Night Vision, Diplopia, Discharge, Dry Eye, Exophthalmos, Floaters, Irritation, Itchy Eyes, Loss of Peripheral Vision, Pain, Photophobia, Requires Corrective Lenses, Sees Flashes, Spots in Vision, Tunnel Vision, Other Visual Disturbances, Loss of Vision, Other Ears: absent: As Per HPI, Decreased Hearing, Ear Discharge, Ear Pain, Tinnitus, Abnormal Hearing, Disequilibrium, Dizziness, Other Nose/Mouth/Throat: absent: As Per HPI, Epistaxis, Nasal Congestion, Nasal Discharge, Nasal Obstruction, Nasal Trauma, Nose Pain, Post Nasal Drip, Sinus Pain, Sinus Pressure, Bleeding Gums, Change in Voice, Dental Pain, Dry Mouth, Dysphagia, Halitosis, Hoarsness, Lip Swelling, Mouth Lesions, Mouth Pain, Odynophagia, Sore Throat, Throat Swelling, Tongue Swelling, Facial Pain, Neck Pain, Neck Mass, Other - Cardiovascular Cardiovascular: absent: As Per HPI, Acrocyanosis, Chest Pain, Chest Pain at Rest , Chest Pain with Activity, Claudication, Diaphoresis, Dyspnea, Dyspnea on Exertion, Edema, Irregular Heart Rhythm, Pain Radiating to Arm/Neck/Jaw, Leg Edema, Leg Ulcers, Lightheadedness, Orthopnea, Palpitations, Paroxysmal Nocturnal Dyspnea, Pedal Edema, Radiating Pain, Rapid Heart Rate, Slow Heart Rate, Syncope, Other - Respiratory Respiratory: absent: As Per HPI, Cough, Dyspnea, Hemoptysis, Dyspnea on Exertion , Wheezing, Snoring, Stridor, Pain on Inspiration, Chest Congestion, Excessive Mucous Production, Change in Mucous Color, Pain with Coughing, Other - Gastrointestinal Gastrointestinal: absent: As Per HPI, Abdominal Pain, Belching, Bloating, Change in Bowel Habits, Change in Stool Character, Coffee Ground Emesis, Constipation, Cramping, Diarrhea, Dyspepsia, Dysphagia, Early Satiety, Excessive Flatus, Fecal Incontinence, Heartburn, Hematemesis, Hematochezia, Loose Stools, Melena, Nausea, Odynophagia, Temesmus, Vomiting, Other - Genitourinary Genitourinary: As Per HPI - Reproductive: Female Reproductive:Female: absent: As Per HPI, Amenorrhea, Amenorrhea/ Control, Currently Menstual, Cycle <21 Days, Cycle >35 Days, Cycle Variable, Menses 1-7 Days, Menses >/= 8 Days, Menses Variable, Cycle > 4 Weeks Between, No Menses for 6 Months, Heavy Menses, Light Menses, Normal Menses, Spotting Between Cycles , S/P Hysterectomy, Menopausal, Post Menopausal, Premenarche, Abnormal Vaginal Bleeding, Dysmenorrhea, Dyspareunia, Genital Lesions, Genital Pruritis, Pelvic Pain, Prolapse Symptoms, Sexual Dysfunction, Vaginal Discharge, Vaginal Dryness , Vaginal Odor, Vaginal Pruritis, Other - Menstruation Menstruation: absent: As Per HPI, Amenorrhea, Amenorrhea/ Control, Currently Menstual, Cycle <21 Days, Cycle >35 Days, Cycle Variable, Menses 1-7 Days, Menses >/= 8 Days, Menses Variable, Cycle > 4 Weeks Between, No Menses for 6 Months, Heavy Menses, Light Menses, Normal Menses, Spotting Between Cycles , S/P Hysterectomy, Menopausal, Post Menopausal, Premenarche, Abnormal Vaginal Bleeding, Dysmenorrhea, Other - Musculoskeletal Musculoskeletal: As Per HPI, Joint Swelling - Integumentary Integumentary: absent: As Per HPI, Acne, Alopecia, Bleeding Lesions, Change in Hair, Change in Nails, Change in Pigmentation, Changing Lesions, Dry Skin, Erythema, Furuncle, Hirsutism, Lesions, New Lesions, Non-Healing Lesions, Photosensitivity, Pruritus, Rash, Skin Pain, Skin Ulcer, Sores, Striae, Swelling , Unusual Bruising, Wounds, Jaundice, Other - Neurological Neurological: absent: As Per HPI, Abnormal Gait, Abnormal Hearing, Abnormal Movements, Abnormal Speech, Behavioral Changes, Burning Sensations, Confusion, Convulsions, Disequilibrium, Dizziness, Numbness, Focal Weakness, Frequent Falls , Headaches, Lack of Coordination, Loss of Vision, Memory Loss, Paresthesias, Radicular Pain, Restless Legs, Sensory Deficit, Syncope, Tingling, Tremor, Vertigo, Weakness, Other Visual Disturbances, Other - Psychiatric Psychiatric: absent: As Per HPI, Abnormal Sleep Pattern, Anhedonia, Anxiety, Auditory Hallucinations, Behavioral Changes, Change in Appetite, Change in Libido, Confusion, Depression, Difficulty Concentrating, Hallucinations, Homicidal Ideation, Hopelessness, Irritability, Memory Loss, Mood Swings, Panic Attacks, Paranoia, Suicidal Ideation, Visual Hallucinations, Tactile Hallucinations, Other - Endocrine Endocrine: absent: As Per HPI, Change in Body Appearance, Change in Libido, Cold Intolorance, Deepening of Voice, Excessive Sweating, Fatigue, Flushing, Heat Intolorance, Increase in Ring/Shoe/Hat Size, Palpitations, Polydipsia, Polyphagia, Polyuria, Other - Hematologic/Lymphatic Hematologic: absent: As Per HPI, Easy Bleeding, Easy Bruising, Lymphadenopathy, Other Past Patient History - Past Medical History & Family History Past Medical History?: Yes - Past Social History Smoking Status: Never Smoked - CARDIAC Hx Hypercholesterolemia: Yes Hx Hypertension: Yes - ENDOCRINE/METABOLIC Hx Endocrine Disorders: Yes Hx Diabetes Mellitus Type 2: Yes - MUSCULOSKELETAL/RHEUMATOLOGICAL Hx Falls: No - PSYCHIATRIC Hx Substance Use: No - SURGICAL HISTORY Hx Surgeries: Yes Hx Section: Yes (x2) - ANESTHESIA Hx Anesthesia: Yes Meds Allergies/Adverse Reactions: Allergies Allergy/AdvReac Type Severity Reaction Status Date / Time ceftriaxone [From Rocephin] AdvReac ITCHING Verified 09/26/17 12:43 - Medications Medications: Current Medications Acetaminophen (Tylenol 325mg Tab) 650 mg PO Q6 PRN PRN Reason: pain. Apixaban (Eliquis) 5 mg PO BID [facility] Aspirin (Ecotrin) 81 mg PO DAILY [facility] Gentamicin Sulfate 80 mg/ (Sodium Chloride) 102 mls @ 100 mls/hr IVPB ONCE ONE PRN Reason: Protocol Stop: 09/26/17 16:16 Vancomycin/Sodium Chloride (Vancomycin 1 Gm/Ns 200 Ml) 1 gm in 200 mls @ 133.333 mls/hr IVPB ONCE ONE PRN Reason: Protocol Stop: 09/26/17 17:59 Meropenem 1 gm/ Sodium (Chloride) 100 mls @ 100 mls/hr IVPB Q8 RYAN PRN Reason: Protocol Insulin Human Isoph/Insulin Regular (Novolin 70/30 (70/30 Units/Ml) 10 Ml) 14 units SC ACD RYAN Insulin Human Isoph/Insulin Regular (Novolin 70/30 (70/30 Units/Ml) 10 Ml) 20 units SC ACB RYAN Insulin Human NPH (Novolin N) 20 unit SC HS RYAN Lisinopril (Zestril) 2.5 mg PO DAILY RYAN Pantoprazole Sodium (Protonix Ec Tab) 40 mg PO DAILY RYAN Rosuvastatin Calcium (Crestor) 5 mg PO HS RYAN Saccharomyces Boulardii (Florastor) 250 mg PO BID RYAN Physical Exam - Constitutional Appears: Chronically Ill - Head Exam Head Exam: ATRAUMATIC, NORMOCEPHALIC - Eye Exam Eye Exam: PERRL - ENT Exam ENT Exam: Mucous Membranes Dry, Normal Oropharynx - Neck Exam Neck exam: Negative for: Lymphadenopathy - Respiratory Exam Respiratory Exam: Decreased Breath Sounds - Cardiovascular Exam Cardiovascular Exam: REGULAR RHYTHM - GI/Abdominal Exam GI & Abdominal Exam: Diminished Bowel Sounds, Soft. absent: Tenderness - Rectal Exam Rectal Exam: Deferred - Exam Exam: NORMAL INSPECTION - Extremities Exam Extremities exam: Negative for: pedal edema - Back Exam Back exam: absent: CVA tenderness (L), CVA tenderness (R), paraspinal tenderness - Neurological Exam Neurological exam: Alert, CN II-XII Intact, Oriented x3, Reflexes Normal - Psychiatric Exam Psychiatric exam: Normal Mood - Skin Skin Exam: Dry Results - Vital Signs Recent Vital Signs: Last Vital Signs Temp 98.1 F 09/26/17 14:36 Pulse 104 H 09/26/17 14:36 Resp 16 09/26/17 14:36 BP 129/80 09/26/17 14:36 Pulse Ox 100 09/26/17 14:36 - Labs Result Diagrams: 09/26/17 13:34 09/26/17 13:34 Labs: Laboratory Results - last 24 hr 09/26/17 09/26/17 09/26/17 13:34 13:34 13:34 WBC 12.5 H D RBC 3.61 L Hgb 10.4 L Hct 30.7 L MCV 85.2 MCH 28.8 MCHC 33.8 RDW 14.4 Plt Count 436 H D MPV 8.0 Neut % (Auto) 55.6 Lymph % (Auto) 24.1 [place] % (Auto) 7.6 Eos % (Auto) 11.7 H Baso % (Auto) 1.0 Neut # (Auto) 7.0 Lymph # (Auto) 3.0 [place] # (Auto) 0.9 H Eos # (Auto) 1.5 H Baso # (Auto) 0.1 Sodium 139 Potassium 3.9 Chloride 100 Carbon Dioxide 25 Anion Gap 17 BUN 10 Creatinine 0.6 L Est GFR ( Amer) > 60 Est GFR (Non-Af Amer) > 60 Random Glucose 151 H Lactic Acid 2.1 Calcium 8.4 L Total Bilirubin 0.3 AST 18 ALT 18 Alkaline Phosphatase 112 Total Protein 6.9 Albumin 3.4 L D Globulin 3.5 Albumin/Globulin Ratio 1.0 Urine Color Urine Clarity Urine pH Ur Specific [place] Urine Protein Urine Glucose (UA) Urine Ketones Urine Blood Urine Nitrate Urine Bilirubin Urine Urobilinogen Ur Leukocyte Esterase Urine WBC (Auto) Urine RBC (Auto) Ur Squamous Epith Cells Urine Bacteria 09/26/17 13:56 WBC RBC Hgb Hct MCV MCH MCHC RDW Plt Count MPV Neut % (Auto) Lymph % (Auto) [place] % (Auto) Eos % (Auto) Baso % (Auto) Neut # (Auto) Lymph # (Auto) [place] # (Auto) Eos # (Auto) Baso # (Auto) Sodium Potassium Chloride Carbon Dioxide Anion Gap BUN Creatinine Est GFR ( Amer) Est GFR (Non-Af Amer) Random Glucose Lactic Acid Calcium Total Bilirubin AST ALT Alkaline Phosphatase Total Protein Albumin Globulin Albumin/Globulin Ratio Urine Color Yellow Urine Clarity Hazy Urine pH 5.0 Ur Specific [place] 1.010 Urine Protein Negative Urine Glucose (UA) Normal Urine Ketones Negative Urine Blood 2+ H Urine Nitrate Negative Urine Bilirubin Negative Urine Urobilinogen Normal Ur Leukocyte Esterase 3+ H Urine WBC (Auto) 38 H Urine RBC (Auto) 18 H Ur Squamous Epith Cells 2 Urine Bacteria Rare Assessment & Plan (1) Bacteremia, escherichia coli Status: Acute (2) Bacteremia, escherichia coli Status: Acute (3) Acute osteomyelitis of clavicle Status: Acute - Assessment and Plan (Free Text) Assessment: switch to IV Merrem reculture consider bx/ of bone
[2017-09-26] MEDS: Meropenem IV 1 gm in NS 50 ML IVPB SCH ×2 (16:45→21:20)
[2017-09-26] MEDS: (Novolin 70/30) NPH/Regular 70/30 Units/ml 10 ml vial SC SCH (16:58)
[2017-09-26] MEDS ORDERED: Glucagon Recombinant 1 mg Inj IM PRN (17:10)
[2017-09-26] MEDS ORDERED: Dextrose 50% SYRINGE Inj (50 ml) IV PRN (17:10)
[2017-09-26] MEDS: Saccharomyces Boulardi 250 mg Cap PO SCH (17:39)
--- NOTE | 2017-09-26 17:39 | CP.PCM.CON ---
History of Present Illness - History of Present Illness History of Present Illness: CT Surgery: Dr. Oviedo Pt is a 56F with PMHx of DM, HTN, & DVT who is known to our service from previous admission earlier this month. At that time, pt was diagnosed with sternoclavicular osteomyelitis & was discharged home with IV ABX via PICC. Pt is in the middle of her 6 week course of Invanz, however, started having increased pain over the R sternoclavicular area for the past few days. She also noted erythema & induration in the same area and was advised to come to the hospital. She admits to pain radiating over her entire R shoulder/neck. She's unable to raise her R arm due to pain. Denies F/C, N/V, chest pain or SOB. PMHx: as stated above PSHx: denies SocialHx: denies smoking, drugs/EtOH Review of Systems - Review of Systems All systems: reviewed and no additional remarkable complaints except (as per HPI ) Past Patient History - Past Medical History & Family History Past Medical History?: Yes - Past Social History Smoking Status: Never Smoked - CARDIAC Hx Hypercholesterolemia: Yes Hx Hypertension: Yes - ENDOCRINE/METABOLIC Hx Endocrine Disorders: Yes Hx Diabetes Mellitus Type 2: Yes - MUSCULOSKELETAL/RHEUMATOLOGICAL Hx Falls: No - PSYCHIATRIC Hx Substance Use: No - SURGICAL HISTORY Hx Surgeries: Yes Hx Section: Yes (x2) - ANESTHESIA Hx Anesthesia: Yes Meds Allergies/Adverse Reactions: Allergies Allergy/AdvReac Type Severity Reaction Status Date / Time ceftriaxone [From Rocephin] AdvReac ITCHING Verified 09/26/17 12:43 - Medications Medications: Current Medications Acetaminophen (Tylenol 325mg Tab) 650 mg PO Q6 PRN PRN Reason: pain. Apixaban (Eliquis) 5 mg PO BID RYAN Aspirin (Ecotrin) 81 mg PO DAILY RYAN Vancomycin/Sodium Chloride (Vancomycin 1 Gm/Ns 200 Ml) 1 gm in 200 mls @ 133.333 mls/hr IVPB ONCE ONE PRN Reason: Protocol Stop: 09/26/17 17:59 Meropenem (Merrem Iv 1 Gm Premix) 50 mls @ 100 mls/hr IVPB Q8 RYAN PRN Reason: Protocol Insulin Human Isoph/Insulin Regular (Novolin 70/30 (70/30 Units/Ml) 10 Ml) 14 units SC ACD RYAN Insulin Human Isoph/Insulin Regular (Novolin 70/30 (70/30 Units/Ml) 10 Ml) 15 units SC ACB RYAN Lisinopril (Zestril) 2.5 mg PO DAILY RYAN Pantoprazole Sodium (Protonix Ec Tab) 40 mg PO DAILY RYAN Rosuvastatin Calcium (Crestor) 5 mg PO HS RYAN Saccharomyces Boulardii (Florastor) 250 mg PO BID RYAN Physical Exam - Constitutional Appears: Well, No Acute Distress - Head Exam Head Exam: ATRAUMATIC, NORMOCEPHALIC - Eye Exam Eye Exam: Normal appearance - Neck Exam Additional comments: erythema/induration noted around R sternocalvicular joint; ttp, no fluctuance noted - Respiratory Exam Respiratory Exam: NORMAL BREATHING PATTERN - Cardiovascular Exam Cardiovascular Exam: RRR - GI/Abdominal Exam GI & Abdominal Exam: Soft - Neurological Exam Neurological exam: Alert, Oriented x3 - Skin Skin Exam: Dry, Warm Results - Vital Signs Recent Vital Signs: Last Vital Signs Temp 98 F 09/26/17 16:23 Pulse 101 H 09/26/17 16:23 Resp 20 09/26/17 16:23 BP 116/71 09/26/17 16:23 Pulse Ox 98 09/26/17 16:23 - Labs Result Diagrams: 09/26/17 13:34 09/26/17 13:34 Labs: Laboratory Results - last 24 hr 09/26/17 09/26/17 09/26/17 13:34 13:34 13:34 WBC 12.5 H D RBC 3.61 L Hgb 10.4 L Hct 30.7 L MCV 85.2 MCH 28.8 MCHC 33.8 RDW 14.4 Plt Count 436 H D MPV 8.0 Neut % (Auto) 55.6 Lymph % (Auto) 24.1 [place] % (Auto) 7.6 Eos % (Auto) 11.7 H Baso % (Auto) 1.0 Neut # (Auto) 7.0 Lymph # (Auto) 3.0 [place] # (Auto) 0.9 H Eos # (Auto) 1.5 H Baso # (Auto) 0.1 Sodium 139 Potassium 3.9 Chloride 100 Carbon Dioxide 25 Anion Gap 17 BUN 10 Creatinine 0.6 L Est GFR ( Amer) > 60 Est GFR (Non-Af Amer) > 60 POC Glucose (mg/dL) Random Glucose 151 H Lactic Acid 2.1 Calcium 8.4 L Total Bilirubin 0.3 AST 18 ALT 18 Alkaline Phosphatase 112 Total Protein 6.9 Albumin 3.4 L D Globulin 3.5 Albumin/Globulin Ratio 1.0 Urine Color Urine Clarity Urine pH Ur Specific [place] Urine Protein Urine Glucose (UA) Urine Ketones Urine Blood Urine Nitrate Urine Bilirubin Urine Urobilinogen Ur Leukocyte Esterase Urine WBC (Auto) Urine RBC (Auto) Ur Squamous Epith Cells Urine Bacteria 09/26/17 09/26/17 13:56 16:34 WBC RBC Hgb Hct MCV MCH MCHC RDW Plt Count MPV Neut % (Auto) Lymph % (Auto) [place] % (Auto) Eos % (Auto) Baso % (Auto) Neut # (Auto) Lymph # (Auto) [place] # (Auto) Eos # (Auto) Baso # (Auto) Sodium Potassium Chloride Carbon Dioxide Anion Gap BUN Creatinine Est GFR ( Amer) Est GFR (Non-Af Amer) POC Glucose (mg/dL) 74 Random Glucose Lactic Acid Calcium Total Bilirubin AST ALT Alkaline Phosphatase Total Protein Albumin Globulin Albumin/Globulin Ratio Urine Color Yellow Urine Clarity Hazy Urine pH 5.0 Ur Specific [place] 1.010 Urine Protein Negative Urine Glucose (UA) Normal Urine Ketones Negative Urine Blood 2+ H Urine Nitrate Negative Urine Bilirubin Negative Urine Urobilinogen Normal Ur Leukocyte Esterase 3+ H Urine WBC (Auto) 38 H Urine RBC (Auto) 18 H Ur Squamous Epith Cells 2 Urine Bacteria Rare Assessment & Plan - Assessment and Plan (Free Text) Assessment: 56F with osteomyelitis of R sternoclavicular joint Plan: - cont IV ABX - will monitor and if no improvement in the next few days pt will need debridement - cont to monitor - d/w Dr. Oviedo who agrees with Leon, PGY-3
[2017-09-26] MEDS ORDERED: (Novolin N) Insulin Human Isophane (NPH) 100 u/ml 10 ml vial SC SCH (22:00)
[2017-09-27] MEDS: Meropenem IV 1 gm in NS 50 ML IVPB SCH ×3 (05:36→21:48)
--- NOTE | 2017-09-27 07:21 | CP.PCM.PN ---
Subjective - Date & Time of Evaluation Date of Evaluation: 09/27/17 Time of Evaluation: 07:18 - Subjective Subjective: PGY-[address] Gupta. No acute events noted overnight. Patient still complains of pain in the right shoulder and right neck area. She's unable to raise her right arm due to the pain. She says the tylenol helps the pain somewhat. I told her the plan going forward - that she will receive a different antibiotic and we will monitor her progress, and if she does not improve she might need an I&D. She understood this. She denied fever, chest pain, shortness of breath, nausea, diarrhea. Objective - Vital Signs/Intake and Output Vital Signs (last 24 hours): Temp Pulse Resp BP Pulse Ox 98.9 F 99 H 20 100/64 100 09/27/17 00:00 09/27/17 00:00 09/27/17 00:00 09/27/17 00:00 09/27/17 00:00 Intake and Output: 09/27/17 09/27/17 06:59 18:59 Intake Total 980 Balance 980 - Medications Medications: Current Medications Acetaminophen (Tylenol 325mg Tab) 650 mg PO Q6 PRN PRN Reason: pain. Last Admin: 09/27/17 06:46 Dose: 650 mg Apixaban (Eliquis) 5 mg PO BID [facility] Last Admin: 09/26/17 17:39 Dose: 5 mg Aspirin (Ecotrin) 81 mg PO DAILY [facility] Dextrose (Dextrose 50% Inj) 0 ml IV STAT PRN; Protocol PRN Reason: Hypoglycemia Protocol Dextrose (Glutose 15) 15 gm PO ONCE PRN; Protocol PRN Reason: Hypoglycemia Protocol Glucagon (Glucagen Diagnostic Kit) 1 mg IM STAT PRN; Protocol PRN Reason: Hypoglycemia Protocol Meropenem (Merrem Iv 1 Gm Premix) 50 mls @ 100 mls/hr IVPB Q8 [facility] PRN Reason: Protocol Last Admin: 09/27/17 05:36 Dose: 100 mls/hr Dextrose (Dextrose 5% In Water 1000 Ml) 1,000 mls @ 0 mls/hr IV .Q0M PRN; Protocol; Per Protocol PRN Reason: Hypoglycemia Protocol Insulin Human Isoph/Insulin Regular (Novolin 70/30 (70/30 Units/Ml) 10 Ml) 14 units SC ACD [facility] Last Admin: 09/26/17 16:58 Dose: Not Given Insulin Human Isoph/Insulin Regular (Novolin 70/30 (70/30 Units/Ml) 10 Ml) 15 units SC ACB [facility] Insulin Human Regular (Novolin R) 0 unit SC ACHS [facility] PRN Reason: Protocol Lisinopril (Zestril) 2.5 mg PO DAILY [facility] Pantoprazole Sodium (Protonix Ec Tab) 40 mg PO DAILY [facility] Rosuvastatin Calcium (Crestor) 5 mg PO HS [facility] Last Admin: 09/26/17 21:20 Dose: 5 mg Saccharomyces Boulardii (Florastor) 250 mg PO BID [facility] Last Admin: 09/26/17 17:39 Dose: 250 mg - Labs Labs: 09/26/17 13:34 09/26/17 13:34 - Additional Findings Additional findings: - Constitutional Appears: No Acute Distress - Head Exam Head Exam: ATRAUMATIC, NORMOCEPHALIC - Eye Exam Eye Exam: EOMI, PERRL - ENT Exam ENT Exam: Mucous Membranes Moist - Respiratory Exam Respiratory Exam: Clear to Auscultation Bilateral, NORMAL BREATHING PATTERN. absent: Rales, Rhonchi, Wheezes - Cardiovascular Exam Cardiovascular Exam: REGULAR RHYTHM, +S1, +S2 - GI/Abdominal Exam GI & Abdominal Exam: Normal Bowel Sounds, Soft. absent: Distended, Tenderness - Extremities Exam Extremities exam: Positive for: pedal pulses present. Negative for: pedal edema Additional comments: Right Arm PICC placed on 09/03/17 without any erythema overlying the site of insertion poor skin turgor erythema/induration noted around R sternocalvicular joint; ttp, no fluctuance noted - Neurological Exam Neurological exam: Alert, CN II-XII Intact, Oriented x3 - Psychiatric Exam Psychiatric exam: Normal Affect, Normal Mood - Skin Skin Exam: Dry, Warm Additional comments: Proximal right clavicle with rubbery induration and erythema overlying the region Assessment and Plan - Assessment and Plan (Free Text) Assessment: Right Clavicle Osteomyelitis failing antibiotic therapy Previously discharged on Invanz IV daily * She received about 4 weeks of a 6 week course Given one time dose of Vancomycin 1 gm IV and Gentamicin 80 mg IV Now on Merrem 1 gm IV Q8H * Same class as Invanz however Merrem has broader spectrum of activity ID consult, Dr. Monroy, help appreciated * consider bx/ of bone Thoracic Surgery consult, Dr. Oviedo, help appreciated * will plan for OR debridement tomorrow * NPO @ [place] * Type and screen, coags * hold anticoagulation * CT angio to checkfor subclavian involvement F/U Blood Cx, Urine Cx History of Right LE DVT Continue Eliquis 5 mg PO BID SCDs contraindicated History of Diabetes Continue home insulin regimen: NPH/Regular 15 units AM NPH/Regular 14 units PM Regular ISS-medium dose Accuchecks Hypoglycemic Protocol Resumed Lisinopril 2.5 mg PO daily Resumed statin -- Crestor 5 mg HS Prophylaxis Diabetic diet Eliquis 5 mg PO BID Protonix 40 mg PO daily Discussed with Dr. Gupta
[2017-09-27] MEDS ORDERED: (Novolin 70/30) NPH/Regular 70/30 Units/ml 10 ml vial SC SCH (07:30)
[2017-09-27] MEDS: (Novolin R) Insulin Human Regular 100 units/ml vial SC SCH ×4 (07:49→21:20)
[2017-09-27 08:02] LABS: BASO # 0.1 K/uL (0.0-0.2); BASO % 1.1 % (0.0-2.0); EOS # 1.2 K/uL (0.0-0.7); EOS % 15.4 % (0.0-4.0); HEMOGLOBIN 9.7 g/dL (11.0-16.0); LYMPH # 2.2 K/uL (1.0-4.3); LYMPH % 28.9 % (20.0-40.0); MEAN CELL VOLUME 85.2 fL (81.0-99.0); MEAN PLATELET VOLUME 8.4 fL (7.2-11.7); MONO # 0.6 K/uL (0.0-0.8); MONO % 7.8 % (0.0-10.0); NEUT # 3.5 K/uL (1.8-7.0); NEUT % 46.8 % (50.0-75.0); NRBC % 0.1 % (0.0-2.0); RBC 3.36 Mil/uL (3.80-5.20); RED CELL DISTRIBUTION WIDTH 14.6 % (11.5-14.5); WHITE BLOOD COUNT 7.6 K/uL (4.8-10.8)
[2017-09-27] MEDS: (Novolin 70/30) NPH/Regular 70/30 Units/ml 10 ml vial SC SCH ×2 (08:02→16:24)
[2017-09-27 08:10] LABS: ALB/GLOB RATIO 0.9 (1.0-2.1); ALBUMIN 3.2 g/dL (3.5-5.0); ALT/SGPT 14 U/L (9-52); AST/SGOT 20 U/L (14-36); BLOOD UREA NITROGEN 8 mg/dL (7-17); CALCIUM 8.7 mg/dl (8.6-10.4); GFR AFRICAN-AMERICAN > 60; GFR NON-AFRICAN AMERICAN > 60
--- NOTE | 2017-09-27 09:02 | CP.PCM.PN ---
Subjective - Date & Time of Evaluation Date of Evaluation: 09/27/17 Time of Evaluation: 09:02 - Subjective Subjective: CT Surgery: Dr Oviedo Pt S&E. NAEO. 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 Pt denies any subjective fevers, nausea, vomiting, sob or chest pain. Explained to pt she will likely need OR debridement and we will plan for tomorrow. Objective - Vital Signs/Intake and Output Vital Signs (last 24 hours): Temp Pulse Resp BP Pulse Ox 98.6 F 100 H 20 101/60 99 09/27/17 07:43 09/27/17 07:43 09/27/17 07:43 09/27/17 07:43 09/27/17 07:43 Intake and Output: 09/27/17 09/27/17 06:59 18:59 Intake Total 980 Balance 980 - Medications Medications: Current Medications Acetaminophen (Tylenol 325mg Tab) 650 mg PO Q6 PRN PRN Reason: pain. Last Admin: 09/27/17 06:46 Dose: 650 mg Apixaban (Eliquis) 5 mg PO BID [facility] Last Admin: 09/26/17 17:39 Dose: 5 mg Aspirin (Ecotrin) 81 mg PO DAILY [facility] Dextrose (Dextrose 50% Inj) 0 ml IV STAT PRN; Protocol PRN Reason: Hypoglycemia Protocol Dextrose (Glutose 15) 15 gm PO ONCE PRN; Protocol PRN Reason: Hypoglycemia Protocol Glucagon (Glucagen Diagnostic Kit) 1 mg IM STAT PRN; Protocol PRN Reason: Hypoglycemia Protocol Meropenem (Merrem Iv 1 Gm Premix) 50 mls @ 100 mls/hr IVPB Q8 R[facility]AN PRN Reason: Protocol Last Admin: 09/27/17 05:36 Dose: 100 mls/hr Dextrose (Dextrose 5% In Water 1000 Ml) 1,000 mls @ 0 mls/hr IV .Q0M PRN; Protocol; Per Protocol PRN Reason: Hypoglycemia Protocol Insulin Human Isoph/Insulin Regular (Novolin 70/30 (70/30 Units/Ml) 10 Ml) 14 units SC ACD [facility] Last Admin: 09/26/17 16:58 Dose: Not Given Insulin Human Isoph/Insulin Regular (Novolin 70/30 (70/30 Units/Ml) 10 Ml) 15 units SC ACB [facility] Last Admin: 09/27/17 08:02 Dose: 15 units Insulin Human Regular (Novolin R) 0 unit SC ACHS [facility] PRN Reason: Protocol Last Admin: 09/27/17 07:49 Dose: Not Given Lisinopril (Zestril) 2.5 mg PO DAILY [facility] Pantoprazole Sodium (Protonix Ec Tab) 40 mg PO DAILY [facility] Rosuvastatin Calcium (Crestor) 5 mg PO HS [facility] Last Admin: 09/26/17 21:20 Dose: 5 mg Saccharomyces Boulardii (Florastor) 250 mg PO BID [facility] Last Admin: 09/26/17 17:39 Dose: 250 mg - Labs Labs: 09/27/17 07:33 09/27/17 07:33 - Constitutional Appears: Non-toxic, No Acute Distress - Eye Exam Eye Exam: Normal appearance - Respiratory Exam Respiratory Exam: absent: Accessory Muscle Use, Respiratory Distress - Cardiovascular Exam Cardiovascular Exam: REGULAR RHYTHM. absent: Tachycardia - Neurological Exam Neurological Exam: Alert, Awake, Oriented x3 - Psychiatric Exam Psychiatric exam: Normal Affect, Normal Mood - Skin Skin Exam: Normal Color, Warm Assessment and Plan - Assessment and Plan (Free Text) Assessment: 56F with osteomyelitis of the right sterno-clavicular joint Plan: will plan for OR debridement tomorrow NPO @ [place] Type and screen coags hold anticoagulation CT angio to checkfor subclavian involvement d/w Dr Ivelisse Geiger, PGY3
[2017-09-27] MEDS: Saccharomyces Boulardi 250 mg Cap PO SCH ×2 (09:20→18:00)
[2017-09-27] MEDS: Pantoprazole 40 mg EC Tab PO SCH (09:20)
[2017-09-27] MEDS ORDERED: Iodixanol 320 MG/ML 100 ML BOTTLE IV ONE (15:52)
--- NOTE | 2017-09-27 17:47 | CT ---
EXAM: CT Angiography Chest With Intravenous Contrast EXAM DATE/TIME: Exam ordered 09/27/2017 10:38 AM CLINICAL HISTORY: 56 years old, female; Condition or disease; Other: Eval for subclavian involement. ; Patient HX: Right clavicular abscess; Additional info: Eval subclavian involvement TECHNIQUE: Axial computed tomographic angiography images of the chest with intravenous contrast using pulmonary embolism protocol. All CT scans at this facility use one or more dose reduction techniques, viz.: automated exposure control; ma/kV adjustment per patient size (including targeted exams where dose is matched to indication; i.e. head); or iterative reconstruction technique. MIP reconstructed images were created and reviewed. Coronal and sagittal reformatted images were created and reviewed. CONTRAST: 100 mL of visipaque 320 administered intravenously. COMPARISON: CT - ANGIO CHEST PE PROTOCOL 2017-09-01 19:26 FINDINGS: Pulmonary arteries: Unremarkable. No pulmonary embolism. Aorta: No acute findings. No thoracic aortic aneurysm. Lungs: Unremarkable. No mass. No consolidation. Pleural space: Unremarkable. No significant effusion. No pneumothorax. Heart: Unremarkable. No cardiomegaly. No significant pericardial effusion. No evidence of RV dysfunction. Bones/joints: Small bubbles of air are noted within the right clavicular head. Irregularity of the cortex suggests bone erosion. The complex fluid collection measures approximately 3.3 transversely by 2 cm AP by 2 cm SI. Cortical thinning and irregularity is noted of the sternum at the level of the sternoclavicular joint. No acute fracture. No dislocation. Soft tissues: Phlegmonous inflammatory changes are noted anterior to the head of the clavicle and in the retrosternal space at the level of the first rib. Fluid with small bubbles of air are noted posterior to the clavicular head extending medially into the sternoclavicular joint and dissecting inferior to the clavicular head. There is inflammatory change noted of the adjacent pectoralis major muscle Lymph nodes: Unremarkable. No enlarged lymph nodes. Tubes, lines and devices:The tip of a right PICC line projects in the superior vena cava. IMPRESSION: 1. Clavicular abscess surrounding the head of the right clavicle with evidence of osteomyelitis involving the head of the clavicle and the adjacent sternum at the level of the sternoclavicular joint. Images were attached to this report and are available at [email or web address]
--- NOTE | 2017-09-27 18:36 | CP.PCM.PN ---
Subjective - Date & Time of Evaluation Date of Evaluation: 09/27/17 Time of Evaluation: 09:00 - Subjective Subjective: c/o pain no fever Objective - Vital Signs/Intake and Output Vital Signs (last 24 hours): Temp Pulse Resp BP Pulse Ox 98.9 F 101 H 20 103/55 L 99 09/27/17 15:00 09/27/17 15:00 09/27/17 15:00 09/27/17 15:00 09/27/17 15:00 Intake and Output: 09/27/17 09/27/17 06:59 18:59 Intake Total 980 500 Balance 980 500 - Medications Medications: Current Medications Acetaminophen (Tylenol 325mg Tab) 650 mg PO Q6 PRN PRN Reason: pain. Last Admin: 09/27/17 06:46 Dose: 650 mg Apixaban (Eliquis) 5 mg PO BID [facility] Last Admin: 09/27/17 09:20 Dose: 5 mg Aspirin (Ecotrin) 81 mg PO DAILY [facility] Last Admin: 09/27/17 09:20 Dose: 81 mg Dextrose (Dextrose 50% Inj) 0 ml IV STAT PRN; Protocol PRN Reason: Hypoglycemia Protocol Dextrose (Glutose 15) 15 gm PO ONCE PRN; Protocol PRN Reason: Hypoglycemia Protocol Glucagon (Glucagen Diagnostic Kit) 1 mg IM STAT PRN; Protocol PRN Reason: Hypoglycemia Protocol Meropenem (Merrem Iv 1 Gm Premix) 50 mls @ 100 mls/hr IVPB Q8 [facility]AN PRN Reason: Protocol Last Admin: 09/27/17 13:20 Dose: 100 mls/hr Dextrose (Dextrose 5% In Water 1000 Ml) 1,000 mls @ 0 mls/hr IV .Q0M PRN; Protocol; Per Protocol PRN Reason: Hypoglycemia Protocol Insulin Human Isoph/Insulin Regular (Novolin 70/30 (70/30 Units/Ml) 10 Ml) 14 units SC ACD [facility] Last Admin: 09/27/17 16:24 Dose: 14 units Insulin Human Isoph/Insulin Regular (Novolin 70/30 (70/30 Units/Ml) 10 Ml) 15 units SC ACB [facility] Last Admin: 09/27/17 08:02 Dose: 15 units Insulin Human Regular (Novolin R) 0 unit SC ACHS [facility] PRN Reason: Protocol Last Admin: 09/27/17 16:30 Dose: 2 unit Lisinopril (Zestril) 2.5 mg PO DAILY [facility] Last Admin: 09/27/17 09:20 Dose: 2.5 mg Pantoprazole Sodium (Protonix Ec Tab) 40 mg PO DAILY [facility] Last Admin: 09/27/17 09:20 Dose: 40 mg Rosuvastatin Calcium (Crestor) 5 mg PO HS [facility] Last Admin: 09/26/17 21:20 Dose: 5 mg Saccharomyces Boulardii (Florastor) 250 mg PO BID [facility] Last Admin: 09/27/17 18:00 Dose: 250 mg - Labs Labs: 09/27/17 07:33 09/27/17 07:33 - Constitutional Appears: Non-toxic, Chronically Ill - Head Exam Head Exam: NORMOCEPHALIC - Eye Exam Eye Exam: absent: Scleral icterus - ENT Exam ENT Exam: Mucous Membranes Dry - Neck Exam Neck Exam: absent: Lymphadenopathy - Respiratory Exam Respiratory Exam: Decreased Breath Sounds - Cardiovascular Exam Cardiovascular Exam: REGULAR RHYTHM - GI/Abdominal Exam GI & Abdominal Exam: Distended - Exam Exam: NORMAL INSPECTION - Extremities Exam Additional comments: swelling left SCL joint Assessment and Plan (1) Bacteremia, escherichia coli Status: Acute (2) Bacteremia, escherichia coli Status: Acute (3) Acute osteomyelitis of clavicle Status: Acute - Assessment and Plan (Free Text) Assessment: OM SCL joint right side for or in am
[2017-09-28] MEDS: Meropenem IV 1 gm in NS 50 ML IVPB SCH ×3 (05:56→21:12)
[2017-09-28 06:04] LABS: BASO % 0.3 % (0.0-2.0); EOS # 0.5 K/uL (0.0-0.7); EOS % 3.1 % (0.0-4.0); LYMPH % 13.7 % (20.0-40.0); MEAN CELL VOLUME 85.4 fL (81.0-99.0); MEAN CORPUSCULAR HGB CONC 33.9 g/dL (33.0-37.0); MEAN PLATELET VOLUME 8.7 fL (7.2-11.7); MONO # 0.4 K/uL (0.0-0.8); NEUT # 11.8 K/uL (1.8-7.0); NEUT % 79.9 % (50.0-75.0); RBC 4.14 Mil/uL (3.80-5.20); RED CELL DISTRIBUTION WIDTH 14.7 % (11.5-14.5); WHITE BLOOD COUNT 14.8 K/uL (4.8-10.8)
[2017-09-28 06:08] LABS: INR 1.2; PROTHROMBIN TIME 13.1 SECONDS (9.7-12.2)
[2017-09-28 06:25] LABS: ALB/GLOB RATIO 0.8 (1.0-2.1); ALBUMIN 3.2 g/dL (3.5-5.0); ALT/SGPT 19 U/L (9-52); AST/SGOT 17 U/L (14-36); BLOOD UREA NITROGEN 18 mg/dL (7-17); CALCIUM 8.4 mg/dl (8.6-10.4); GFR AFRICAN-AMERICAN > 60; GFR NON-AFRICAN AMERICAN > 60
[2017-09-28] MEDS: (Novolin R) Insulin Human Regular 100 units/ml vial SC SCH ×4 (08:15→21:48)
[2017-09-28] MEDS: (Novolin 70/30) NPH/Regular 70/30 Units/ml 10 ml vial SC SCH ×2 (08:15→17:23)
[2017-09-28] MEDS: Sodium Chloride 0.9% 1,000 ML IV SCH ×2 (08:44→20:13)
[2017-09-28] MEDS ORDERED: Sodium Chloride 0.9% 1,000 ML IV ONE (08:59)
[2017-09-28] MEDS: Saccharomyces Boulardi 250 mg Cap PO SCH ×2 (10:29→17:11)
[2017-09-28] MEDS: Pantoprazole 40 mg EC Tab PO SCH (10:29)
--- NOTE | 2017-09-28 12:00 | CP.PCM.PN ---
Subjective - Date & Time of Evaluation Date of Evaluation: 09/28/17 Time of Evaluation: 07:00 - Subjective Subjective: CT Surgery: Dr. Oviedo Pt seen and examined. States she's feeling ok this morning, however pt found to be tachycardic into 130-140s overnight. Denies chest pain or SOB this morning. Admits to some pain over her R sternoclavicular joint. Denies F/C. Objective - Vital Signs/Intake and Output Vital Signs (last 24 hours): Temp Pulse Resp BP Pulse Ox 97.5 F L 110 H 20 101/63 98 09/28/17 10:55 09/28/17 10:55 09/28/17 10:55 09/28/17 10:55 09/28/17 10:55 Intake and Output: 09/28/17 09/28/17 06:59 18:59 Intake Total 100 Balance 100 - Medications Medications: Current Medications Acetaminophen (Tylenol 325mg Tab) 650 mg PO Q6 PRN PRN Reason: pain. Last Admin: 09/27/17 06:46 Dose: 650 mg Apixaban (Eliquis) 5 mg PO BID [facility] Last Admin: 09/27/17 09:20 Dose: 5 mg Aspirin (Ecotrin) 81 mg PO DAILY [facility] Last Admin: 09/27/17 09:20 Dose: 81 mg Dextrose (Dextrose 50% Inj) 0 ml IV STAT PRN; Protocol PRN Reason: Hypoglycemia Protocol Dextrose (Glutose 15) 15 gm PO ONCE PRN; Protocol PRN Reason: Hypoglycemia Protocol Glucagon (Glucagen Diagnostic Kit) 1 mg IM STAT PRN; Protocol PRN Reason: Hypoglycemia Protocol Meropenem (Merrem Iv 1 Gm Premix) 50 mls @ 100 mls/hr IVPB Q8 RYAN PRN Reason: Protocol Last Admin: 09/28/17 05:56 Dose: 100 mls/hr Dextrose (Dextrose 5% In Water 1000 Ml) 1,000 mls @ 0 mls/hr IV .Q0M PRN; Protocol; Per Protocol PRN Reason: Hypoglycemia Protocol Sodium Chloride (Sodium Chloride 0.9%) 1,000 mls @ 150 mls/hr IV .Q6H40M [facility] Last Admin: 09/28/17 08:44 Dose: 150 mls/hr Insulin Human Isoph/Insulin Regular (Novolin 70/30 (70/30 Units/Ml) 10 Ml) 14 units SC ACD [facility] Last Admin: 09/27/17 16:24 Dose: 14 units Insulin Human Isoph/Insulin Regular (Novolin 70/30 (70/30 Units/Ml) 10 Ml) 15 units SC ACB [facility] Last Admin: 09/28/17 08:15 Dose: Not Given Insulin Human Regular (Novolin R) 0 unit SC ACHS [facility] PRN Reason: Protocol Last Admin: 09/28/17 08:15 Dose: Not Given Lisinopril (Zestril) 2.5 mg PO DAILY [facility] Last Admin: 09/28/17 10:29 Dose: Not Given Pantoprazole Sodium (Protonix Ec Tab) 40 mg PO DAILY [facility] Last Admin: 09/28/17 10:29 Dose: 40 mg Rosuvastatin Calcium (Crestor) 5 mg PO HS [facility] Last Admin: 09/27/17 21:47 Dose: 5 mg Saccharomyces Boulardii (Florastor) 250 mg PO BID [facility] Last Admin: 09/28/17 10:29 Dose: 250 mg - Labs Labs: 09/28/17 05:57 09/28/17 05:57 PT 13.1 SECONDS (9.7-12.2) H 09/28/17 05:57 INR 1.2 09/28/17 05:57 APTT 33 SECONDS (21-34) 09/28/17 05:57 - Constitutional Appears: Well, No Acute Distress - Eye Exam Eye Exam: Normal appearance - ENT Exam ENT Exam: Mucous Membranes Moist - Neck Exam Additional comments: erythema noted over R sternoclavicular joint; ttp - Respiratory Exam Respiratory Exam: NORMAL BREATHING PATTERN - Cardiovascular Exam Cardiovascular Exam: Tachycardia - GI/Abdominal Exam GI & Abdominal Exam: Soft. absent: Tenderness - Neurological Exam Neurological Exam: Alert, Awake, Oriented x3 - Skin Skin Exam: Dry, Warm Assessment and Plan - Assessment and Plan (Free Text) Assessment: 56F with R sternoclavicular osteomyelitis Plan: - case cancelled this morning due to pt being tachycardic in the high 120s - after discussion with anesthesia and primary team; decision made to involve cardiology to better evaluate pt's tachycardia since she has risk factors including DM, HTN, HLD - will plan for debridement on [place] after cardiac eval - d/w Dr. Ivelisse Quintero, PGY-3
--- NOTE | 2017-09-28 15:26 | CP.PCM.PN ---
Subjective - Date & Time of Evaluation Date of Evaluation: 09/28/17 Time of Evaluation: 07:25 - Subjective Subjective: PGY1 Medicine Note for Dr. Gupta Patient seen and examined at bedside this morning. Patient was found to have new on-set SVT overnight. Her surgery was cancelled and patient was transferred to telemetry. Patient states she has some palpitations but is otherwise asymptomatic. She states she feels well and wishes to have the surgery. She is upset that she did not get the surgery but she understands. She is very thirsty but has no other complaints at this time. Denies fevers, chills, nausea, vomiting, chest pain, shortness of breath or abdominal pain. Physical Exam Appears: No Acute Distress Head Exam: ATRAUMATIC, NORMOCEPHALIC Eye Exam: EOMI, PERRL ENT Exam: Mucous Membranes Moist Respiratory Exam: Clear to Auscultation Bilateral, NORMAL BREATHING PATTERN. absent: Rales, Rhonchi, Wheezes Cardiovascular Exam: Tachycardia @ 120 bpm on monitor, REGULAR RHYTHM, +S1, +S2 GI & Abdominal Exam: Normal Bowel Sounds, Soft. absent: Distended, Tenderness Extremities exam: Positive for: pedal pulses present. Negative for: pedal edema Additional comments: Right Arm PICC placed on 09/03/17 without any erythema overlying the site of insertion poor skin turgor erythema/induration noted around R sternocalvicular joint; ttp, no fluctuance noted Neurological exam: Alert, CN II-XII Intact, Oriented x3 Psychiatric exam: Normal Affect, Normal Mood Skin Exam: Dry, Warm Additional comments: Proximal right clavicle with rubbery induration and erythema overlying the region Objective - Vital Signs/Intake and Output Vital Signs (last 24 hours): Temp Pulse Resp BP Pulse Ox 97.5 F L 112 H 20 111/58 L 99 09/28/17 10:55 09/28/17 13:50 09/28/17 13:50 09/28/17 13:50 09/28/17 13:50 Intake and Output: 09/28/17 09/28/17 06:59 18:59 Intake Total 100 Balance 100 - Medications Medications: Current Medications Acetaminophen (Tylenol 325mg Tab) 650 mg PO Q6 PRN PRN Reason: pain. Last Admin: 09/27/17 06:46 Dose: 650 mg Apixaban (Eliquis) 5 mg PO BID [facility] Last Admin: 09/27/17 09:20 Dose: 5 mg Aspirin (Ecotrin) 81 mg PO DAILY [facility] Last Admin: 09/27/17 09:20 Dose: 81 mg Dextrose (Dextrose 50% Inj) 0 ml IV STAT PRN; Protocol PRN Reason: Hypoglycemia Protocol Dextrose (Glutose 15) 15 gm PO ONCE PRN; Protocol PRN Reason: Hypoglycemia Protocol Glucagon (Glucagen Diagnostic Kit) 1 mg IM STAT PRN; Protocol PRN Reason: Hypoglycemia Protocol Meropenem (Merrem Iv 1 Gm Premix) 50 mls @ 100 mls/hr IVPB Q8 [facility] PRN Reason: Protocol Last Admin: 09/28/17 13:46 Dose: 100 mls/hr Dextrose (Dextrose 5% In Water 1000 Ml) 1,000 mls @ 0 mls/hr IV .Q0M PRN; Protocol; Per Protocol PRN Reason: Hypoglycemia Protocol Sodium Chloride (Sodium Chloride 0.9%) 1,000 mls @ 150 mls/hr IV .Q6H40M [facility] Last Admin: 09/28/17 08:44 Dose: 150 mls/hr Insulin Human Isoph/Insulin Regular (Novolin 70/30 (70/30 Units/Ml) 10 Ml) 14 units SC ACD [facility] Last Admin: 09/27/17 16:24 Dose: 14 units Insulin Human Isoph/Insulin Regular (Novolin 70/30 (70/30 Units/Ml) 10 Ml) 15 units SC ACB [facility] Last Admin: 09/28/17 08:15 Dose: Not Given Insulin Human Regular (Novolin R) 0 unit SC ACHS [facility] PRN Reason: Protocol Last Admin: 09/28/17 13:46 Dose: 4 unit Lisinopril (Zestril) 2.5 mg PO DAILY [facility] Last Admin: 09/28/17 10:29 Dose: Not Given Pantoprazole Sodium (Protonix Ec Tab) 40 mg PO DAILY [facility] Last Admin: 09/28/17 10:29 Dose: 40 mg Rosuvastatin Calcium (Crestor) 5 mg PO HS [facility] Last Admin: 09/27/17 21:47 Dose: 5 mg Saccharomyces Boulardii (Florastor) 250 mg PO BID [facility] Last Admin: 09/28/17 10:29 Dose: 250 mg - Labs Labs: 09/28/17 05:57 09/28/17 05:57 PT 13.1 SECONDS (9.7-12.2) H 09/28/17 05:57 INR 1.2 09/28/17 05:57 APTT 33 SECONDS (21-34) 09/28/17 05:57 Assessment and Plan - Assessment and Plan (Free Text) Plan: Right Clavicle Osteomyelitis failing antibiotic therapy Previously discharged on Invanz IV daily * She received about 4 weeks of a 6 week course Given one time dose of Vancomycin 1 gm IV and Gentamicin 80 mg IV Now on Merrem 1 gm IV Q8H * Same class as Invanz however Merrem has broader spectrum of activity ID consult, Dr. Monroy, help appreciated * consider bx/ of bone Thoracic Surgery consult, Dr. Oviedo, help appreciated * OR cancelled this morning due to new onset SVT. * Will due cardiac work up, patient is tentatively scheduled for surgery on Sunday. f/u Blood Cx - No growth at 24 hours f/u Urine Cx - Gram Positive Cocci - f/u repeat culture New Onset SVT Cardiology consulted, Dr. Boo - help appreciated ECHO - f/u EKG Patient also experienced an episode of hypotension, 79/48 * Treated with one liter bolus of NS * Blood pressure responded to fluid bolus, BP 100/63 and HR 110. * Started on NS @150ml/hr * Transferred to Telemetry Follow up Cardiology recs. History of Right LE DVT Continue Eliquis 5 mg PO BID SCDs contraindicated History of Diabetes Continue home insulin regimen: NPH/Regular 15 units AM NPH/Regular 14 units PM Regular ISS-medium dose Accuchecks Hypoglycemic Protocol Resumed Lisinopril 2.5 mg PO daily Resumed statin -- Crestor 5 mg HS Prophylaxis Diabetic diet Eliquis 5 mg PO BID Protonix 40 mg PO daily Case discussed with Dr. Candy Dias Tobias PGY1
--- NOTE | 2017-09-28 15:38 | CP.PCM.PN ---
Subjective - Date & Time of Evaluation Date of Evaluation: 09/28/17 Time of Evaluation: 10:00 - Subjective Subjective: new onset SVT surg cancelled cont IV rx Objective - Vital Signs/Intake and Output Vital Signs (last 24 hours): Temp Pulse Resp BP Pulse Ox 97.5 F L 112 H 20 111/58 L 99 09/28/17 10:55 09/28/17 13:50 09/28/17 13:50 09/28/17 13:50 09/28/17 13:50 Intake and Output: 09/28/17 09/28/17 06:59 18:59 Intake Total 100 Balance 100 - Medications Medications: Current Medications Acetaminophen (Tylenol 325mg Tab) 650 mg PO Q6 PRN PRN Reason: pain. Last Admin: 09/27/17 06:46 Dose: 650 mg Apixaban (Eliquis) 5 mg PO BID [facility] Last Admin: 09/27/17 09:20 Dose: 5 mg Aspirin (Ecotrin) 81 mg PO DAILY [facility] Last Admin: 09/27/17 09:20 Dose: 81 mg Dextrose (Dextrose 50% Inj) 0 ml IV STAT PRN; Protocol PRN Reason: Hypoglycemia Protocol Dextrose (Glutose 15) 15 gm PO ONCE PRN; Protocol PRN Reason: Hypoglycemia Protocol Glucagon (Glucagen Diagnostic Kit) 1 mg IM STAT PRN; Protocol PRN Reason: Hypoglycemia Protocol Meropenem (Merrem Iv 1 Gm Premix) 50 mls @ 100 mls/hr IVPB Q8 RYAN PRN Reason: Protocol Last Admin: 09/28/17 13:46 Dose: 100 mls/hr Dextrose (Dextrose 5% In Water 1000 Ml) 1,000 mls @ 0 mls/hr IV .Q0M PRN; Protocol; Per Protocol PRN Reason: Hypoglycemia Protocol Sodium Chloride (Sodium Chloride 0.9%) 1,000 mls @ 150 mls/hr IV .Q6H40M [facility] Last Admin: 09/28/17 08:44 Dose: 150 mls/hr Insulin Human Isoph/Insulin Regular (Novolin 70/30 (70/30 Units/Ml) 10 Ml) 14 units SC ACD [facility] Last Admin: 09/27/17 16:24 Dose: 14 units Insulin Human Isoph/Insulin Regular (Novolin 70/30 (70/30 Units/Ml) 10 Ml) 15 units SC ACB [facility] Last Admin: 09/28/17 08:15 Dose: Not Given Insulin Human Regular (Novolin R) 0 unit SC ACHS [facility] PRN Reason: Protocol Last Admin: 09/28/17 13:46 Dose: 4 unit Lisinopril (Zestril) 2.5 mg PO DAILY [facility] Last Admin: 09/28/17 10:29 Dose: Not Given Pantoprazole Sodium (Protonix Ec Tab) 40 mg PO DAILY [facility] Last Admin: 09/28/17 10:29 Dose: 40 mg Rosuvastatin Calcium (Crestor) 5 mg PO HS [facility] Last Admin: 09/27/17 21:47 Dose: 5 mg Saccharomyces Boulardii (Florastor) 250 mg PO BID [facility] Last Admin: 09/28/17 10:29 Dose: 250 mg - Labs Labs: 09/28/17 05:57 09/28/17 05:57 PT 13.1 SECONDS (9.7-12.2) H 09/28/17 05:57 INR 1.2 09/28/17 05:57 APTT 33 SECONDS (21-34) 09/28/17 05:57 - Constitutional Appears: Non-toxic, Chronically Ill - Head Exam Head Exam: NORMOCEPHALIC - Eye Exam Eye Exam: PERRL - ENT Exam ENT Exam: Mucous Membranes Dry - Neck Exam Neck Exam: absent: Lymphadenopathy - Respiratory Exam Respiratory Exam: Decreased Breath Sounds - Cardiovascular Exam Cardiovascular Exam: REGULAR RHYTHM - GI/Abdominal Exam GI & Abdominal Exam: Distended - Rectal Exam Rectal Exam: Deferred Assessment and Plan (1) Bacteremia, escherichia coli Status: Acute (2) Bacteremia, escherichia coli Status: Acute (3) Acute osteomyelitis of clavicle Status: Acute
--- NOTE | 2017-09-28 16:25 | CP.PCM.CON ---
History of Present Illness - History of Present Illness History of Present Illness: I was asked to see patient by Dr Gupta. Patient is a 89 year old female with PMH HTN, hypercholesterolemia, DM who presents with right clavicular osteomyelitis. The patient has been treated with antibiotic therapy, and was planned for OR debridement. The patient was found to be tachycardic and the surgery was postponed. The patient was admitted to telemetry for further management. The patient denies chest pain or palpitaitons. She has no dyspnea. Review of Systems - Constitutional Constitutional: Chills - EENT Eyes: absent: As Per HPI, Blind Spots, Blurred Vision, Change in Vision, Decreased Night Vision, Diplopia, Discharge, Dry Eye, Exophthalmos, Floaters, Irritation, Itchy Eyes, Loss of Peripheral Vision, Pain, Photophobia, Requires Corrective Lenses, Sees Flashes, Spots in Vision, Tunnel Vision, Other Visual Disturbances, Loss of Vision, Other Ears: absent: As Per HPI, Decreased Hearing, Ear Discharge, Ear Pain, Tinnitus, Abnormal Hearing, Disequilibrium, Dizziness, Other Nose/Mouth/Throat: absent: As Per HPI, Epistaxis, Nasal Congestion, Nasal Discharge, Nasal Obstruction, Nasal Trauma, Nose Pain, Post Nasal Drip, Sinus Pain, Sinus Pressure, Bleeding Gums, Change in Voice, Dental Pain, Dry Mouth, Dysphagia, Halitosis, Hoarsness, Lip Swelling, Mouth Lesions, Mouth Pain, Odynophagia, Sore Throat, Throat Swelling, Tongue Swelling, Facial Pain, Neck Pain, Neck Mass, Other - Cardiovascular Cardiovascular: absent: As Per HPI, Acrocyanosis, Chest Pain, Chest Pain at Rest , Chest Pain with Activity, Claudication, Diaphoresis, Dyspnea, Dyspnea on Exertion, Edema, Irregular Heart Rhythm, Pain Radiating to Arm/Neck/Jaw, Leg Edema, Leg Ulcers, Lightheadedness, Orthopnea, Palpitations, Paroxysmal Nocturnal Dyspnea, Pedal Edema, Radiating Pain, Rapid Heart Rate, Slow Heart Rate, Syncope, Other - Respiratory Respiratory: absent: As Per HPI, Cough, Dyspnea, Hemoptysis, Dyspnea on Exertion , Wheezing, Snoring, Stridor, Pain on Inspiration, Chest Congestion, Excessive Mucous Production, Change in Mucous Color, Pain with Coughing, Other - Genitourinary Genitourinary: absent: As Per HPI, Change in Urinary Stream, Difficulty Urinating, Dysuria, Flank Pain, Hematuria, Pyuria, Nocturia, Urinary Incontinence, Urinary Frequency, Urinary Hesitance, Urinary Urgency, Voiding Freq/Small Amts, Freq UTI, Hx Renal/Bladder Calculi, Hx /Renal Surgery, Bladder Distension, Other - Musculoskeletal Musculoskeletal: absent: As Per HPI, Abnormal Gait, Arthralgias, Atrophy, Back Pain, Deformity, Joint Swelling, Limited Range of Motion, Loss of Height, Muscle Cramps, Muscle Weakness, Myalgias, Neck Pain, Numbness, Radiating Pain into Limb, Stiffness, Tingling, Other - Integumentary Integumentary: absent: As Per HPI, Acne, Alopecia, Bleeding Lesions, Change in Hair, Change in Nails, Change in Pigmentation, Changing Lesions, Dry Skin, Erythema, Furuncle, Hirsutism, Lesions, New Lesions, Non-Healing Lesions, Photosensitivity, Pruritus, Rash, Skin Pain, Skin Ulcer, Sores, Striae, Swelling , Unusual Bruising, Wounds, Jaundice, Other - Neurological Neurological: absent: As Per HPI, Abnormal Gait, Abnormal Hearing, Abnormal Movements, Abnormal Speech, Behavioral Changes, Burning Sensations, Confusion, Convulsions, Disequilibrium, Dizziness, Numbness, Focal Weakness, Frequent Falls , Headaches, Lack of Coordination, Loss of Vision, Memory Loss, Paresthesias, Radicular Pain, Restless Legs, Sensory Deficit, Syncope, Tingling, Tremor, Vertigo, Weakness, Other Visual Disturbances, Other - Psychiatric Psychiatric: absent: As Per HPI, Abnormal Sleep Pattern, Anhedonia, Anxiety, Auditory Hallucinations, Behavioral Changes, Change in Appetite, Change in Libido, Confusion, Depression, Difficulty Concentrating, Hallucinations, Homicidal Ideation, Hopelessness, Irritability, Memory Loss, Mood Swings, Panic Attacks, Paranoia, Suicidal Ideation, Visual Hallucinations, Tactile Hallucinations, Other - Endocrine Endocrine: absent: As Per HPI, Change in Body Appearance, Change in Libido, Cold Intolorance, Deepening of Voice, Excessive Sweating, Fatigue, Flushing, Heat Intolorance, Increase in Ring/Shoe/Hat Size, Palpitations, Polydipsia, Polyphagia, Polyuria, Other - Hematologic/Lymphatic Hematologic: absent: As Per HPI, Easy Bleeding, Easy Bruising, Lymphadenopathy, Other Past Patient History - Past Medical History & Family History Past Medical History?: Yes - Past Social History Smoking Status: Never Smoked - CARDIAC Hx Hypercholesterolemia: Yes Hx Hypertension: Yes - PULMONARY Hx Respiratory Disorders: No - NEUROLOGICAL Hx Neurological Disorder: No - HEENT Hx HEENT Problems: No - RENAL Hx Chronic Kidney Disease: No - ENDOCRINE/METABOLIC Hx Endocrine Disorders: Yes Hx Diabetes Mellitus Type 2: Yes - HEMATOLOGICAL/ONCOLOGICAL Hx Blood Disorders: No - INTEGUMENTARY Hx Dermatological Problems: No - MUSCULOSKELETAL/RHEUMATOLOGICAL Hx Falls: No - GASTROINTESTINAL Hx Gastrointestinal Disorders: No - GENITOURINARY/GYNECOLOGICAL Hx Genitourinary Disorders: No - PSYCHIATRIC Hx Substance Use: No - SURGICAL HISTORY Hx Surgeries: Yes Hx Section: Yes (x2) - ANESTHESIA Hx Anesthesia: Yes Meds Allergies/Adverse Reactions: Allergies Allergy/AdvReac Type Severity Reaction Status Date / Time ceftriaxone [From Rocephin] AdvReac ITCHING Verified 09/26/17 12:43 - Medications Medications: Current Medications Acetaminophen (Tylenol 325mg Tab) 650 mg PO Q6 PRN PRN Reason: pain. Last Admin: 09/27/17 06:46 Dose: 650 mg Apixaban (Eliquis) 5 mg PO BID [facility] Last Admin: 09/27/17 09:20 Dose: 5 mg Aspirin (Ecotrin) 81 mg PO DAILY [facility] Last Admin: 09/27/17 09:20 Dose: 81 mg Dextrose (Dextrose 50% Inj) 0 ml IV STAT PRN; Protocol PRN Reason: Hypoglycemia Protocol Dextrose (Glutose 15) 15 gm PO ONCE PRN; Protocol PRN Reason: Hypoglycemia Protocol Glucagon (Glucagen Diagnostic Kit) 1 mg IM STAT PRN; Protocol PRN Reason: Hypoglycemia Protocol Meropenem (Merrem Iv 1 Gm Premix) 50 mls @ 100 mls/hr IVPB Q8 RYAN PRN Reason: Protocol Last Admin: 09/28/17 13:46 Dose: 100 mls/hr Dextrose (Dextrose 5% In Water 1000 Ml) 1,000 mls @ 0 mls/hr IV .Q0M PRN; Protocol; Per Protocol PRN Reason: Hypoglycemia Protocol Sodium Chloride (Sodium Chloride 0.9%) 1,000 mls @ 150 mls/hr IV .Q6H40M [facility] Last Admin: 09/28/17 08:44 Dose: 150 mls/hr Insulin Human Isoph/Insulin Regular (Novolin 70/30 (70/30 Units/Ml) 10 Ml) 14 units SC ACD [facility] Last Admin: 09/27/17 16:24 Dose: 14 units Insulin Human Isoph/Insulin Regular (Novolin 70/30 (70/30 Units/Ml) 10 Ml) 15 units SC ACB [facility] Last Admin: 09/28/17 08:15 Dose: Not Given Insulin Human Regular (Novolin R) 0 unit SC ACHS [facility] PRN Reason: Protocol Last Admin: 09/28/17 13:46 Dose: 4 unit Lisinopril (Zestril) 2.5 mg PO DAILY [facility] Last Admin: 09/28/17 10:29 Dose: Not Given Pantoprazole Sodium (Protonix Ec Tab) 40 mg PO DAILY [facility] Last Admin: 09/28/17 10:29 Dose: 40 mg Rosuvastatin Calcium (Crestor) 5 mg PO HS [facility] Last Admin: 09/27/17 21:47 Dose: 5 mg Saccharomyces Boulardii (Florastor) 250 mg PO BID [facility] Last Admin: 09/28/17 10:29 Dose: 250 mg Physical Exam - Constitutional Appears: Non-toxic - Head Exam Head Exam: NORMAL INSPECTION - Eye Exam Eye Exam: Normal appearance - ENT Exam ENT Exam: Mucous Membranes Moist - Neck Exam Neck exam: Positive for: Full Rom - Respiratory Exam Respiratory Exam: NORMAL BREATHING PATTERN - Cardiovascular Exam Cardiovascular Exam: REGULAR RHYTHM - GI/Abdominal Exam GI & Abdominal Exam: Normal Bowel Sounds - Rectal Exam Rectal Exam: Deferred - Extremities Exam Extremities exam: Positive for: normal inspection - Back Exam Back exam: NORMAL INSPECTION - Neurological Exam Neurological exam: Alert, Oriented x3 - Psychiatric Exam Psychiatric exam: Normal Affect - Skin Skin Exam: Normal Color Results - Vital Signs Recent Vital Signs: Last Vital Signs Temp 97.5 F L 09/28/17 10:55 Pulse 112 H 09/28/17 13:50 Resp 20 09/28/17 13:50 BP 111/58 L 09/28/17 13:50 Pulse Ox 99 09/28/17 13:50 - Labs Result Diagrams: 09/28/17 05:57 09/28/17 05:57 Labs: Laboratory Results - last 24 hr 09/27/17 09/27/17 09/28/17 16:14 21:07 05:57 WBC 14.8 H D RBC 4.14 Hgb 12.0 D Hct 35.4 MCV 85.4 MCH 29.0 MCHC 33.9 RDW 14.7 H Plt Count 397 MPV 8.7 Neut % (Auto) 79.9 H Lymph % (Auto) 13.7 L [place] % (Auto) 3.0 Eos % (Auto) 3.1 Baso % (Auto) 0.3 Neut # (Auto) 11.8 H Lymph # (Auto) 2.0 [place] # (Auto) 0.4 Eos # (Auto) 0.5 Baso # (Auto) 0.0 PT INR APTT Sodium Potassium Chloride Carbon Dioxide Anion Gap BUN Creatinine Est GFR ( Amer) Est GFR (Non-Af Amer) POC Glucose (mg/dL) 174 H 166 H Random Glucose Calcium Phosphorus Magnesium Total Bilirubin AST ALT Alkaline Phosphatase Total Protein Albumin Globulin Albumin/Globulin Ratio Blood Type Antibody Screen 09/28/17 09/28/17 09/28/17 05:57 05:57 05:59 WBC RBC Hgb Hct MCV MCH MCHC RDW Plt Count MPV Neut % (Auto) Lymph % (Auto) [place] % (Auto) Eos % (Auto) Baso % (Auto) Neut # (Auto) Lymph # (Auto) [place] # (Auto) Eos # (Auto) Baso # (Auto) PT 13.1 H INR 1.2 APTT 33 Sodium 135 Potassium 3.9 Chloride 97 L Carbon Dioxide 24 Anion Gap 18 BUN 18 H Creatinine 0.6 L Est GFR ( Amer) > 60 Est GFR (Non-Af Amer) > 60 POC Glucose (mg/dL) Random Glucose 240 H Calcium 8.4 L Phosphorus 3.5 Magnesium 1.7 Total Bilirubin 0.7 AST 17 ALT 19 Alkaline Phosphatase 102 Total Protein 7.1 Albumin 3.2 L Globulin 3.9 Albumin/Globulin Ratio 0.8 L Blood Type B POSITIVE Antibody Screen Negative 09/28/17 09/28/17 06:52 11:11 WBC RBC Hgb Hct MCV MCH MCHC RDW Plt Count MPV Neut % (Auto) Lymph % (Auto) [place] % (Auto) Eos % (Auto) Baso % (Auto) Neut # (Auto) Lymph # (Auto) [place] # (Auto) Eos # (Auto) Baso # (Auto) PT INR APTT Sodium Potassium Chloride Carbon Dioxide Anion Gap BUN Creatinine Est GFR ( Amer) Est GFR (Non-Af Amer) POC Glucose (mg/dL) 249 H 265 H Random Glucose Calcium Phosphorus Magnesium Total Bilirubin AST ALT Alkaline Phosphatase Total Protein Albumin Globulin Albumin/Globulin Ratio Blood Type Antibody Screen - EKG Data EKG Interpreted by: Myself EKG shows normal: Sinus rhythm Assessment & Plan (1) Tachycardia Assessment and Plan: likley due to sepsis and volume depletion. Patient is responsing to IV fluids. The patient denies angina. Recommend continued antibiotic therapy and fluids. The patient is scheduled for a low risk procedure. There is no cardiovascular contraindication to the planned surgery. Status: Acute (2) Osteomyelitis Status: Acute
[2017-09-29] MEDS: Sodium Chloride 0.9% 1,000 ML IV SCH ×2 (04:00→13:30)
[2017-09-29] MEDS: Meropenem IV 1 gm in NS 50 ML IVPB SCH ×3 (06:39→21:21)
--- NOTE | 2017-09-29 07:28 | CP.PCM.PN ---
Subjective - Date & Time of Evaluation Date of Evaluation: 09/29/17 Time of Evaluation: 07:25 - Subjective Subjective: CT Surgery: Dr. Oviedo Pt seen and examined. No acute overnight events. Tachycardia improved. States she is feeling better and pain is well controlled. Denies any other complaints at this time. Denies N/V, F/C, chest pain or SOB. Objective - Vital Signs/Intake and Output Vital Signs (last 24 hours): Temp Pulse Resp BP Pulse Ox 97.6 F 113 H 20 114/54 L 100 09/29/17 04:15 09/29/17 04:15 09/29/17 04:15 09/29/17 04:15 09/29/17 04:15 Intake and Output: 09/29/17 09/29/17 06:59 18:59 Intake Total 1810 Balance 1810 - Medications Medications: Current Medications Acetaminophen (Tylenol 325mg Tab) 650 mg PO Q6 PRN PRN Reason: pain. Last Admin: 09/27/17 06:46 Dose: 650 mg Apixaban (Eliquis) 5 mg PO BID [facility] Last Admin: 09/27/17 09:20 Dose: 5 mg Aspirin (Ecotrin) 81 mg PO DAILY [facility] Last Admin: 09/27/17 09:20 Dose: 81 mg Dextrose (Dextrose 50% Inj) 0 ml IV STAT PRN; Protocol PRN Reason: Hypoglycemia Protocol Dextrose (Glutose 15) 15 gm PO ONCE PRN; Protocol PRN Reason: Hypoglycemia Protocol Glucagon (Glucagen Diagnostic Kit) 1 mg IM STAT PRN; Protocol PRN Reason: Hypoglycemia Protocol Meropenem (Merrem Iv 1 Gm Premix) 50 mls @ 100 mls/hr IVPB Q8 RYAN PRN Reason: Protocol Last Admin: 09/29/17 06:39 Dose: 100 mls/hr Dextrose (Dextrose 5% In Water 1000 Ml) 1,000 mls @ 0 mls/hr IV .Q0M PRN; Protocol; Per Protocol PRN Reason: Hypoglycemia Protocol Sodium Chloride (Sodium Chloride 0.9%) 1,000 mls @ 150 mls/hr IV .Q6H40M [facility] Last Admin: 09/29/17 04:00 Dose: 150 mls/hr Insulin Human Isoph/Insulin Regular (Novolin 70/30 (70/30 Units/Ml) 10 Ml) 14 units SC ACD [facility] Last Admin: 09/28/17 17:23 Dose: 14 units Insulin Human Isoph/Insulin Regular (Novolin 70/30 (70/30 Units/Ml) 10 Ml) 15 units SC ACB [facility] Last Admin: 09/28/17 08:15 Dose: Not Given Insulin Human Regular (Novolin R) 0 unit SC ACHS [facility] PRN Reason: Protocol Last Admin: 09/28/17 21:48 Dose: Not Given Lisinopril (Zestril) 2.5 mg PO DAILY [facility] Last Admin: 09/28/17 10:29 Dose: Not Given Pantoprazole Sodium (Protonix Ec Tab) 40 mg PO DAILY [facility] Last Admin: 09/28/17 10:29 Dose: 40 mg Rosuvastatin Calcium (Crestor) 5 mg PO HS [facility] Last Admin: 09/28/17 21:20 Dose: 5 mg Saccharomyces Boulardii (Florastor) 250 mg PO BID [facility] Last Admin: 09/28/17 17:11 Dose: 250 mg - Labs Labs: 09/28/17 05:57 09/28/17 05:57 PT 13.1 SECONDS (9.7-12.2) H 09/28/17 05:57 INR 1.2 09/28/17 05:57 APTT 33 SECONDS (21-34) 09/28/17 05:57 - Constitutional Appears: Well, No Acute Distress - Head Exam Head Exam: ATRAUMATIC, NORMOCEPHALIC - Eye Exam Eye Exam: Normal appearance - ENT Exam ENT Exam: Mucous Membranes Moist - Neck Exam Additional comments: erythema around R sternoclavicular joint, ttp - Respiratory Exam Respiratory Exam: NORMAL BREATHING PATTERN - Cardiovascular Exam Cardiovascular Exam: Tachycardia - GI/Abdominal Exam GI & Abdominal Exam: Soft. absent: Tenderness - Neurological Exam Neurological Exam: Alert, Awake, Oriented x3 - Skin Skin Exam: Dry, Warm Assessment and Plan - Assessment and Plan (Free Text) Assessment: 56F with osteomyelitis of R sternoclavicular joint Plan: - cont IV ABx - cont IVF hydration - plan for OR on tues for debridement; pt should be on therapeutic heparin/ lovenox anticoagulation in the meantime for her DVT - d/w Dr. Oviedo who agrees with above Leon, PGY-3
[2017-09-29 07:43] LABS: BASO % 0.4 % (0.0-2.0); EOS # 1.7 K/uL (0.0-0.7); EOS % 24.5 % (0.0-4.0); LYMPH # 1.8 K/uL (1.0-4.3); LYMPH % 25.8 % (20.0-40.0); MEAN CELL VOLUME 85.7 fL (81.0-99.0); MEAN CORPUSCULAR HEMOGLOBIN 29.2 pg (27.0-31.0); MEAN CORPUSCULAR HGB CONC 34.1 g/dL (33.0-37.0); MEAN PLATELET VOLUME 8.7 fL (7.2-11.7); MONO # 0.4 K/uL (0.0-0.8); MONO % 5.8 % (0.0-10.0); NEUT % 43.5 % (50.0-75.0); PLATELET COUNT 298 K/uL (130-400); RBC 3.17 Mil/uL (3.80-5.20); RED CELL DISTRIBUTION WIDTH 14.8 % (11.5-14.5)
--- NOTE | 2017-09-29 07:52 | CP.PCM.PN ---
Subjective - Date & Time of Evaluation Date of Evaluation: 09/29/17 Time of Evaluation: 10:08 - Subjective Subjective: PGY 2 Medicine Note- Dr. Gupta's service Patient seen and examined sitting bedside in no acute distress. Patient states that she has been ambulating about without difficulties. Patient denies chest pain, palpitations, nausea, vomiting or abdominal pain at this time. Objective - Vital Signs/Intake and Output Vital Signs (last 24 hours): Temp Pulse Resp BP Pulse Ox 97.6 F 113 H 20 114/54 L 100 09/29/17 04:15 09/29/17 04:15 09/29/17 04:15 09/29/17 04:15 09/29/17 04:15 Intake and Output: 09/29/17 09/29/17 06:59 18:59 Intake Total 1810 Balance 1810 - Medications Medications: Current Medications Acetaminophen (Tylenol 325mg Tab) 650 mg PO Q6 PRN PRN Reason: pain. Last Admin: 09/27/17 06:46 Dose: 650 mg Apixaban (Eliquis) 5 mg PO BID [facility] Last Admin: 09/27/17 09:20 Dose: 5 mg Aspirin (Ecotrin) 81 mg PO DAILY [facility] Last Admin: 09/27/17 09:20 Dose: 81 mg Dextrose (Dextrose 50% Inj) 0 ml IV STAT PRN; Protocol PRN Reason: Hypoglycemia Protocol Dextrose (Glutose 15) 15 gm PO ONCE PRN; Protocol PRN Reason: Hypoglycemia Protocol Glucagon (Glucagen Diagnostic Kit) 1 mg IM STAT PRN; Protocol PRN Reason: Hypoglycemia Protocol Meropenem (Merrem Iv 1 Gm Premix) 50 mls @ 100 mls/hr IVPB Q8 RYAN PRN Reason: Protocol Last Admin: 09/29/17 06:39 Dose: 100 mls/hr Dextrose (Dextrose 5% In Water 1000 Ml) 1,000 mls @ 0 mls/hr IV .Q0M PRN; Protocol; Per Protocol PRN Reason: Hypoglycemia Protocol Sodium Chloride (Sodium Chloride 0.9%) 1,000 mls @ 150 mls/hr IV .Q6H40M [facility] Last Admin: 09/29/17 04:00 Dose: 150 mls/hr Insulin Human Isoph/Insulin Regular (Novolin 70/30 (70/30 Units/Ml) 10 Ml) 14 units SC ACD [facility] Last Admin: 09/28/17 17:23 Dose: 14 units Insulin Human Isoph/Insulin Regular (Novolin 70/30 (70/30 Units/Ml) 10 Ml) 15 units SC ACB [facility] Last Admin: 09/28/17 08:15 Dose: Not Given Insulin Human Regular (Novolin R) 0 unit SC ACHS [facility] PRN Reason: Protocol Last Admin: 09/28/17 21:48 Dose: Not Given Lisinopril (Zestril) 2.5 mg PO DAILY [facility] Last Admin: 09/28/17 10:29 Dose: Not Given Pantoprazole Sodium (Protonix Ec Tab) 40 mg PO DAILY [facility] Last Admin: 09/28/17 10:29 Dose: 40 mg Rosuvastatin Calcium (Crestor) 5 mg PO HS [facility] Last Admin: 09/28/17 21:20 Dose: 5 mg Saccharomyces Boulardii (Florastor) 250 mg PO BID [facility] Last Admin: 09/28/17 17:11 Dose: 250 mg - Labs Labs: 09/28/17 05:57 09/28/17 05:57 PT 13.1 SECONDS (9.7-12.2) H 09/28/17 05:57 INR 1.2 09/28/17 05:57 APTT 33 SECONDS (21-34) 09/28/17 05:57 - Constitutional Appears: Non-toxic, No Acute Distress - Head Exam Head Exam: ATRAUMATIC, NORMAL INSPECTION, NORMOCEPHALIC - Eye Exam Eye Exam: EOMI, PERRL Additional comments: xanthelasmas noted on eyelids bilaterally - ENT Exam ENT Exam: Mucous Membranes Moist - Neck Exam Neck Exam: Full ROM - Respiratory Exam Respiratory Exam: NORMAL BREATHING PATTERN - Cardiovascular Exam Cardiovascular Exam: Tachycardia, +S1, +S2 - GI/Abdominal Exam GI & Abdominal Exam: Soft, Normal Bowel Sounds. absent: Tenderness - Extremities Exam Extremities Exam: Full ROM, Normal Inspection - Back Exam Back Exam: Full ROM - Neurological Exam Neurological Exam: Alert, Awake, CN II-XII Intact, Oriented x3 - Psychiatric Exam Psychiatric exam: Normal Affect, Normal Mood - Skin Skin Exam: Erythema, Intact, Warm Additional comments: erythematous induration noted near the right sternoclavicular joint, mildly tender to touch Assessment and Plan - Assessment and Plan (Free Text) Assessment: 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 Monroy, help appreciated * consider bone biopsy Thoracic Surgery consult, Dr. Oviedo, help appreciated * Surgery cancelled due to new onset tachycardia- suspected SVT. * Cardiology Consulted- Presentation likely not due to cardiac etiology. Suspected sepsis and volume depletion. Low risk procedure without cardiac contraindications. * Patient is tentatively for surgical debridement Sunday. Blood Cx -(09/26) No growth at 24 hours Urine Cx -(09/26) Gram Positive Cocci - f/u repeat culture Tachycardia Asymptomatic. Currently on Telemetry- Continue to monitor Cardiology consulted, Dr. Boo - Help appreciated. Kindly refer to aforementioned. ECHO - f/u Follow up Cardiology recommendations. History of Right LE DVT Continue Eliquis 5 mg PO BID, ASA 81 mg PO daily SCDs contraindicated History of Diabetes Continue home insulin regimen: NPH/Regular 15 units AM NPH/Regular 14 units PM Regular ISS-medium dose Accuchecks Hypoglycemic Protocol Resumed Lisinopril 2.5 mg PO daily Resumed Statin - Crestor 5 mg HS Prophylaxis Diabetic diet Eliquis 5 mg PO BID - ( Hold prior to procedure on .) Protonix 40 mg PO daily Case discussed with attending. All management and planning per Dr. Candy Bell, PGY 2
[2017-09-29 07:54] LABS: WHITE BLOOD COUNT 6.9 K/uL (4.8-10.8)
[2017-09-29 07:55] LABS: HEMOGLOBIN 9.3 g/dL (11.0-16.0)
[2017-09-29 08:17] LABS: ALB/GLOB RATIO 0.8 (1.0-2.1); ALBUMIN 2.4 g/dL (3.5-5.0); ALT/SGPT 22 U/L (9-52); AST/SGOT 24 U/L (14-36); BLOOD UREA NITROGEN 12 mg/dL (7-17); CALCIUM 7.8 mg/dl (8.6-10.4); GFR AFRICAN-AMERICAN > 60; GFR NON-AFRICAN AMERICAN > 60
[2017-09-29] MEDS: (Novolin 70/30) NPH/Regular 70/30 Units/ml 10 ml vial SC SCH ×2 (08:18→17:27)
[2017-09-29] MEDS: (Novolin R) Insulin Human Regular 100 units/ml vial SC SCH ×4 (08:19→21:21)
[2017-09-29] MEDS: Saccharomyces Boulardi 250 mg Cap PO SCH ×2 (09:47→17:27)
[2017-09-29] MEDS: Pantoprazole 40 mg EC Tab PO SCH (09:47)
[2017-09-29 09:56] LABS: EOSINOPHIL 24 % (0-4); LYMPHOCYTE 27 % (20-40); MONOCYTE 6 % (0-10); NEUTROPHIL 43 % (50-75); PLATELET ESTIMATE NORMAL (NORMAL); TOTAL CELLS COUNTED 100
[2017-09-29 09:57] LABS: ANISOCYTOSIS SLIGHT; HYPOCHROMIC SLIGHT; POLYCHROMIC SLIGHT
[2017-09-29] MEDS ORDERED: Potassium Chloride 20 mEq ER Tab PO ONE (10:00)
--- NOTE | 2017-09-29 14:52 | CP.PCM.PN ---
Subjective - Date & Time of Evaluation Date of Evaluation: 09/29/17 Time of Evaluation: 09:00 - Subjective Subjective: c/o pain and swelling Objective - Vital Signs/Intake and Output Vital Signs (last 24 hours): Temp Pulse Resp BP Pulse Ox 98.3 F 111 H 18 105/70 97 09/29/17 07:59 09/29/17 12:16 09/29/17 07:59 09/29/17 09:56 09/29/17 07:59 Intake and Output: 09/29/17 09/29/17 06:59 18:59 Intake Total 1810 Balance 1810 - Medications Medications: Current Medications Acetaminophen (Tylenol 325mg Tab) 650 mg PO Q6 PRN PRN Reason: pain. Last Admin: 09/27/17 06:46 Dose: 650 mg Apixaban (Eliquis) 5 mg PO BID [facility] Last Admin: 09/29/17 09:47 Dose: 5 mg Aspirin (Ecotrin) 81 mg PO DAILY [facility] Last Admin: 09/29/17 09:47 Dose: 81 mg Dextrose (Dextrose 50% Inj) 0 ml IV STAT PRN; Protocol PRN Reason: Hypoglycemia Protocol Dextrose (Glutose 15) 15 gm PO ONCE PRN; Protocol PRN Reason: Hypoglycemia Protocol Glucagon (Glucagen Diagnostic Kit) 1 mg IM STAT PRN; Protocol PRN Reason: Hypoglycemia Protocol Meropenem (Merrem Iv 1 Gm Premix) 50 mls @ 100 mls/hr IVPB Q8 [facility] PRN Reason: Protocol Last Admin: 09/29/17 13:28 Dose: 100 mls/hr Sodium Chloride (Sodium Chloride 0.9%) 1,000 mls @ 150 mls/hr IV .[id number] [facility] Last Admin: 09/29/17 13:30 Dose: 150 mls/hr Insulin Human Isoph/Insulin Regular (Novolin 70/30 (70/30 Units/Ml) 10 Ml) 14 units SC ACD [facility]AN Last Admin: 09/28/17 17:23 Dose: 14 units Insulin Human Isoph/Insulin Regular (Novolin 70/30 (70/30 Units/Ml) 10 Ml) 15 units SC ACB [facility]AN Last Admin: 09/29/17 08:18 Dose: 15 units Insulin Human Regular (Novolin R) 0 unit SC ACHS [facility] PRN Reason: Protocol Last Admin: 09/29/17 12:51 Dose: 3 unit Lisinopril (Zestril) 2.5 mg PO DAILY [facility] Last Admin: 09/29/17 09:56 Dose: Not Given Pantoprazole Sodium (Protonix Ec Tab) 40 mg PO DAILY [facility] Last Admin: 09/29/17 09:47 Dose: 40 mg Rosuvastatin Calcium (Crestor) 5 mg PO HS [facility] Last Admin: 09/28/17 21:20 Dose: 5 mg Saccharomyces Boulardii (Florastor) 250 mg PO BID [facility] Last Admin: 09/29/17 09:47 Dose: 250 mg - Labs Labs: 09/29/17 07:16 09/29/17 07:16 PT 13.1 SECONDS (9.7-12.2) H 09/28/17 05:57 INR 1.2 09/28/17 05:57 APTT 33 SECONDS (21-34) 09/28/17 05:57 - Constitutional Appears: Non-toxic, Chronically Ill - Head Exam Head Exam: NORMOCEPHALIC - Eye Exam Eye Exam: PERRL - ENT Exam ENT Exam: Mucous Membranes Dry - Neck Exam Neck Exam: absent: Lymphadenopathy - Respiratory Exam Respiratory Exam: Decreased Breath Sounds - Cardiovascular Exam Cardiovascular Exam: REGULAR RHYTHM - GI/Abdominal Exam GI & Abdominal Exam: Distended, Soft - Rectal Exam Rectal Exam: Deferred - Exam Exam: NORMAL INSPECTION Assessment and Plan (1) Bacteremia, escherichia coli Status: Acute (2) Bacteremia, escherichia coli Status: Acute (3) Acute osteomyelitis of clavicle Status: Acute
[2017-09-30] MEDS: Meropenem IV 1 gm in NS 50 ML IVPB SCH ×3 (05:30→21:23)
[2017-09-30] MEDS: Sodium Chloride 0.9% 1,000 ML IV SCH ×4 (05:44→20:58)
--- NOTE | 2017-09-30 07:44 | CP.PCM.PN ---
Subjective - Date & Time of Evaluation Date of Evaluation: 09/30/17 Time of Evaluation: 10:45 - Subjective Subjective: PGY-2 Medicine Note- Dr. Gupta's service Patient seen and examined in no acute distress. Patient states that she has been ambulating about without difficulties. Per nursing, patient reported dry, itchy skin on her legs and face. Patient has been applying a lotion to the affected areas. She desires a different cream. Patient denies chest pain, palpitations, nausea, vomiting , headaches or abdominal pain at this time. Objective - Vital Signs/Intake and Output Vital Signs (last 24 hours): Temp Pulse Resp BP Pulse Ox 98.4 F 103 H 20 96/56 L 97 09/29/17 23:05 09/29/17 23:30 09/29/17 23:05 09/29/17 23:05 09/29/17 23:05 Intake and Output: 09/30/17 09/30/17 06:59 18:59 Intake Total 1200 Balance 1200 - Medications Medications: Current Medications Acetaminophen (Tylenol 325mg Tab) 650 mg PO Q6 PRN PRN Reason: pain. Last Admin: 09/29/17 22:32 Dose: 650 mg Apixaban (Eliquis) 5 mg PO BID [facility] Last Admin: 09/29/17 17:27 Dose: 5 mg Aspirin (Ecotrin) 81 mg PO DAILY [facility] Last Admin: 09/29/17 09:47 Dose: 81 mg Dextrose (Dextrose 50% Inj) 0 ml IV STAT PRN; Protocol PRN Reason: Hypoglycemia Protocol Dextrose (Glutose 15) 15 gm PO ONCE PRN; Protocol PRN Reason: Hypoglycemia Protocol Glucagon (Glucagen Diagnostic Kit) 1 mg IM STAT PRN; Protocol PRN Reason: Hypoglycemia Protocol Meropenem (Merrem Iv 1 Gm Premix) 50 mls @ 100 mls/hr IVPB Q8 RYAN PRN Reason: Protocol Last Admin: 09/30/17 05:30 Dose: 100 mls/hr Sodium Chloride (Sodium Chloride 0.9%) 1,000 mls @ 75 mls/hr IV .[id number] [facility] Insulin Human Isoph/Insulin Regular (Novolin 70/30 (70/30 Units/Ml) 10 Ml) 14 units SC ACD [facility] Last Admin: 09/29/17 17:27 Dose: 14 units Insulin Human Isoph/Insulin Regular (Novolin 70/30 (70/30 Units/Ml) 10 Ml) 15 units SC ACB [facility] Last Admin: 09/29/17 08:18 Dose: 15 units Insulin Human Regular (Novolin R) 0 unit SC ACHS [facility] PRN Reason: Protocol Last Admin: 09/29/17 21:21 Dose: Not Given Lisinopril (Zestril) 2.5 mg PO DAILY [facility] Last Admin: 09/29/17 09:56 Dose: Not Given Pantoprazole Sodium (Protonix Ec Tab) 40 mg PO DAILY [facility] Last Admin: 09/29/17 09:47 Dose: 40 mg Rosuvastatin Calcium (Crestor) 5 mg PO HS [facility] Last Admin: 09/29/17 21:21 Dose: 5 mg Saccharomyces Boulardii (Florastor) 250 mg PO BID [facility] Last Admin: 09/29/17 17:27 Dose: 250 mg - Labs Labs: 09/29/17 07:16 09/29/17 07:16 PT 13.1 SECONDS (9.7-12.2) H 09/28/17 05:57 INR 1.2 09/28/17 05:57 APTT 33 SECONDS (21-34) 09/28/17 05:57 - Constitutional Appears: Non-toxic, No Acute Distress - Head Exam Head Exam: ATRAUMATIC, NORMAL INSPECTION, NORMOCEPHALIC - Eye Exam Eye Exam: EOMI, PERRL Additional comments: xanthelasmas noted on eyelids bilaterally - ENT Exam ENT Exam: Mucous Membranes Moist - Neck Exam Neck Exam: Full ROM - Respiratory Exam Respiratory Exam: NORMAL BREATHING PATTERN - Cardiovascular Exam Cardiovascular Exam: Tachycardia, +S1, +S2 - GI/Abdominal Exam GI & Abdominal Exam: Soft, Normal Bowel Sounds - Extremities Exam Extremities Exam: Full ROM, Normal Inspection - Back Exam Back Exam: Full ROM - Neurological Exam Neurological Exam: Alert, Awake, CN II-XII Intact, Oriented x3 - Psychiatric Exam Psychiatric exam: Normal Affect, Normal Mood - Skin Skin Exam: Dry (shins), Erythema, Intact, Warm Additional comments: erythematous induration noted near the right sternoclavicular joint, mildly tender to touch; left sided facial rash noted Assessment and Plan - Assessment and Plan (Free Text) Assessment: 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 Monroy, help appreciated * consider bone biopsy Thoracic Surgery consult, Dr. Oviedo, help appreciated * Surgery cancelled due to new onset tachycardia- suspected SVT. * Cardiology Consulted- Presentation likely not due to cardiac etiology. Suspected sepsis and volume depletion. Low risk procedure without cardiac contraindications. * Patient is tentatively for surgical debridement Sunday. Blood Cx -(09/26) No growth at 24 hours Urine Cx -(09/26) Gram Positive Cocci. Asymptomatic - f/u repeat culture Tachycardia Asymptomatic. Currently on Telemetry- Continue to monitor Cardiology consulted, Dr. Boo - Help appreciated. Kindly refer to aforementioned. ECHO performed in August (2017)- EF approx 60%, with normal diastolic filling pressures. Valves evaluated with normal leaflets. No significant incompetence. Refer to complete report. Follow up Cardiology recommendations. History of Right LE DVT Holding Eliquis 5 mg; Heparin coverage for today through 10/01/17, then Hold for procedure ASA 81 mg PO daily SCDs contraindicated History of Diabetes Continue home insulin regimen: NPH/Regular 15 units AM NPH/Regular 14 units PM Regular ISS-medium dose Accuchecks Hypoglycemic Protocol Resumed Lisinopril 2.5 mg PO daily Resumed Statin - Crestor 5 mg HS Pruritus Likely eczematous Recommendations for A and D ointment to be applied to affected areas of the lower extremities at this time. After cleansing affected areas with lukewarm water, may apply A and D to the affected areas of the legs to seal in moisture Patient may apply Hydrocortisone ointment BID to affected area of the face Continue to monitor Prophylaxis Diabetic diet Eliquis 5 mg PO BID - (Holding 48 hrs prior to procedure on .) Heparin coverage for today through 10/01/17, then Hold for procedure Protonix 40 mg PO daily Case discussed with attending. All management and planning per Dr. Candy Bell, PGY 2
[2017-09-30 07:56] LABS: BASO % 0.6 % (0.0-2.0); EOS # 1.8 K/uL (0.0-0.7); EOS % 25.6 % (0.0-4.0); HEMOGLOBIN 9.3 g/dL (11.0-16.0); LYMPH # 1.9 K/uL (1.0-4.3); LYMPH % 27.1 % (20.0-40.0); MEAN CELL VOLUME 86.3 fL (81.0-99.0); MEAN CORPUSCULAR HEMOGLOBIN 29.5 pg (27.0-31.0); MEAN CORPUSCULAR HGB CONC 34.2 g/dL (33.0-37.0); MEAN PLATELET VOLUME 8.8 fL (7.2-11.7); MONO # 0.6 K/uL (0.0-0.8); MONO % 8.6 % (0.0-10.0); NEUT # 2.6 K/uL (1.8-7.0); NEUT % 38.1 % (50.0-75.0); PLATELET COUNT 320 K/uL (130-400); RBC 3.14 Mil/uL (3.80-5.20); WHITE BLOOD COUNT 6.9 K/uL (4.8-10.8)
[2017-09-30 08:06] LABS: ALB/GLOB RATIO 0.9 (1.0-2.1); ALBUMIN 2.7 g/dL (3.5-5.0); ALT/SGPT 16 U/L (9-52); AST/SGOT 33 U/L (14-36); BLOOD UREA NITROGEN 12 mg/dL (7-17); CALCIUM 8.4 mg/dl (8.6-10.4); GFR AFRICAN-AMERICAN > 60; GFR NON-AFRICAN AMERICAN > 60
[2017-09-30] MEDS: (Novolin R) Insulin Human Regular 100 units/ml vial SC SCH ×4 (08:51→21:25)
[2017-09-30] MEDS: (Novolin 70/30) NPH/Regular 70/30 Units/ml 10 ml vial SC SCH ×2 (08:52→18:09)
--- NOTE | 2017-09-30 08:54 | CP.PCM.PN ---
Subjective - Date & Time of Evaluation Date of Evaluation: 09/30/17 Time of Evaluation: 08:51 - Subjective Subjective: CT surgery progress note for Dr. Maribel Alexander, PGY-1 Pt S & E at bedside. Pt reports some pain at right medial clavicle overnight, alleviated by Tylenol. Denies F & C, N & V, other complaints. Knows about plans for OR Monday 10/02. Objective - Vital Signs/Intake and Output Vital Signs (last 24 hours): Temp Pulse Resp BP Pulse Ox 97.7 F 90 20 104/67 97 09/30/17 08:25 09/30/17 08:25 09/30/17 08:25 09/30/17 08:25 09/30/17 08:25 Intake and Output: 09/30/17 09/30/17 06:59 18:59 Intake Total 1200 Balance 1200 - Medications Medications: Current Medications Acetaminophen (Tylenol 325mg Tab) 650 mg PO Q6 PRN PRN Reason: pain. Last Admin: 09/29/17 22:32 Dose: 650 mg Apixaban (Eliquis) 5 mg PO BID [facility] Last Admin: 09/29/17 17:27 Dose: 5 mg Aspirin (Ecotrin) 81 mg PO DAILY [facility] Last Admin: 09/29/17 09:47 Dose: 81 mg Dextrose (Dextrose 50% Inj) 0 ml IV STAT PRN; Protocol PRN Reason: Hypoglycemia Protocol Dextrose (Glutose 15) 15 gm PO ONCE PRN; Protocol PRN Reason: Hypoglycemia Protocol Glucagon (Glucagen Diagnostic Kit) 1 mg IM STAT PRN; Protocol PRN Reason: Hypoglycemia Protocol Meropenem (Merrem Iv 1 Gm Premix) 50 mls @ 100 mls/hr IVPB Q8 [facility]YAN PRN Reason: Protocol Last Admin: 09/30/17 05:30 Dose: 100 mls/hr Sodium Chloride (Sodium Chloride 0.9%) 1,000 mls @ 75 mls/hr IV .[id number] [facility] Insulin Human Isoph/Insulin Regular (Novolin 70/30 (70/30 Units/Ml) 10 Ml) 14 units SC ACD [facility] Last Admin: 09/29/17 17:27 Dose: 14 units Insulin Human Isoph/Insulin Regular (Novolin 70/30 (70/30 Units/Ml) 10 Ml) 15 units SC ACB [facility] Last Admin: 09/29/17 08:18 Dose: 15 units Insulin Human Regular (Novolin R) 0 unit SC ACHS [facility] PRN Reason: Protocol Last Admin: 09/29/17 21:21 Dose: Not Given Lisinopril (Zestril) 2.5 mg PO DAILY [facility] Last Admin: 09/29/17 09:56 Dose: Not Given Pantoprazole Sodium (Protonix Ec Tab) 40 mg PO DAILY [facility] Last Admin: 09/29/17 09:47 Dose: 40 mg Rosuvastatin Calcium (Crestor) 5 mg PO HS [facility] Last Admin: 09/29/17 21:21 Dose: 5 mg Saccharomyces Boulardii (Florastor) 250 mg PO BID [facility] Last Admin: 09/29/17 17:27 Dose: 250 mg - Labs Labs: 09/30/17 07:27 09/30/17 07:27 PT 13.1 SECONDS (9.7-12.2) H 09/28/17 05:57 INR 1.2 09/28/17 05:57 APTT 33 SECONDS (21-34) 09/28/17 05:57 - Constitutional Appears: Non-toxic, No Acute Distress - Head Exam Head Exam: ATRAUMATIC, NORMAL INSPECTION, NORMOCEPHALIC - Eye Exam Eye Exam: EOMI, Normal appearance - ENT Exam ENT Exam: Mucous Membranes Moist, Normal Exam - Neck Exam Neck Exam: Full ROM, Normal Inspection - Respiratory Exam Respiratory Exam: NORMAL BREATHING PATTERN. absent: Chest Wall Tenderness, Respiratory Distress - Cardiovascular Exam Cardiovascular Exam: Tachycardia (low 100's), +S1, +S2 - GI/Abdominal Exam GI & Abdominal Exam: Soft. absent: Tenderness - Extremities Exam Extremities Exam: Normal Inspection. absent: Pedal Edema - Neurological Exam Neurological Exam: Alert, Awake, CN II-XII Intact, Oriented x3 - Psychiatric Exam Psychiatric exam: Normal Affect, Normal Mood - Skin Skin Exam: Dry, Warm. absent: Normal Color Additional comments: Right medial clavicle with erythema, prominence, non tender area approximately 6cm in diameter- more prominent than left medial clavicle Assessment and Plan - Assessment and Plan (Free Text) Assessment: 56F with osteomyelitis of R sternoclavicular joint Plan: Cont IV Abx Cont IVF Hold Eliquis until OR Can be on heparin or Lovenox if needed for DVT- can be held prior to surgery Plan for OR 4/3 for debridement Catherine, PGY-1
[2017-09-30] MEDS: Pantoprazole 40 mg EC Tab PO SCH (09:49)
[2017-09-30] MEDS: Saccharomyces Boulardi 250 mg Cap PO SCH ×2 (09:49→17:15)
[2017-09-30 10:14] LABS: TOTAL CELLS COUNTED 100
[2017-09-30 10:15] LABS: ANISOCYTOSIS SLIGHT; EOSINOPHIL 23 % (0-4); LYMPHOCYTE 30 % (20-40); MONOCYTE 6 % (0-10); NEUTROPHIL 41 % (50-75); PLATELET ESTIMATE NORMAL (NORMAL)
[2017-09-30 10:16] LABS: MICROCYTOSIS SLIGHT; OVALOCYTES SLIGHT; POLYCHROMIC SLIGHT
[2017-09-30] MEDS: Hydrocortisone 0.5% Cream(30 gm) TOP SCH ×2 (12:37→17:53)
[2017-09-30] MEDS: Vitamin A/D oint 60G TP SCH (17:15)
[2017-10-01] MEDS: Meropenem IV 1 gm in NS 50 ML IVPB SCH ×3 (05:21→21:38)
[2017-10-01 07:09] LABS: BASO # 0.1 K/uL (0.0-0.2); BASO % 0.8 % (0.0-2.0); EOS # 1.6 K/uL (0.0-0.7); EOS % 21.6 % (0.0-4.0); LYMPH # 2.6 K/uL (1.0-4.3); LYMPH % 34.5 % (20.0-40.0); MEAN CELL VOLUME 85.3 fL (81.0-99.0); MEAN CORPUSCULAR HEMOGLOBIN 29.3 pg (27.0-31.0); MEAN CORPUSCULAR HGB CONC 34.3 g/dL (33.0-37.0); MEAN PLATELET VOLUME 8.9 fL (7.2-11.7); MONO # 0.5 K/uL (0.0-0.8); MONO % 6.3 % (0.0-10.0); NEUT # 2.8 K/uL (1.8-7.0); NEUT % 36.8 % (50.0-75.0); NRBC % 0.1 % (0.0-2.0); PLATELET COUNT 356 K/uL (130-400); RBC 3.43 Mil/uL (3.80-5.20); RED CELL DISTRIBUTION WIDTH 15.1 % (11.5-14.5); WHITE BLOOD COUNT 7.6 K/uL (4.8-10.8)
[2017-10-01 07:13] LABS: INR 1.1; PROTHROMBIN TIME 12.2 SECONDS (9.7-12.2)
[2017-10-01] MEDS: (Novolin R) Insulin Human Regular 100 units/ml vial SC SCH ×4 (07:18→21:39)
[2017-10-01 07:39] LABS: ALB/GLOB RATIO 0.9 (1.0-2.1); ALBUMIN 3.2 g/dL (3.5-5.0); ALT/SGPT 16 U/L (9-52); AST/SGOT 30 U/L (14-36); BLOOD UREA NITROGEN 14 mg/dL (7-17); CALCIUM 8.9 mg/dl (8.6-10.4); GFR AFRICAN-AMERICAN > 60; GFR NON-AFRICAN AMERICAN > 60
--- NOTE | 2017-10-01 07:58 | CP.PCM.PN ---
Subjective - Date & Time of Evaluation Date of Evaluation: 10/01/17 Time of Evaluation: 07:53 - Subjective Subjective: PGY-[address] Gupta Patient seen and examined in no acute distress. No acute events noted overnight. Patient offers no complaints - she is aware about the debridement sceduled for tomorrow AM. Patient denies chest pain, palpitations, nausea, vomiting , headaches or abdominal pain at this time. Objective - Vital Signs/Intake and Output Vital Signs (last 24 hours): Temp Pulse Resp BP Pulse Ox 98.9 F 114 H 20 114/71 97 10/01/17 04:25 10/01/17 04:25 10/01/17 04:25 10/01/17 04:25 10/01/17 04:25 Intake and Output: 10/01/17 10/01/17 06:59 18:59 Intake Total 800 Balance 800 - Medications Medications: Current Medications Acetaminophen (Tylenol 325mg Tab) 650 mg PO Q6 PRN PRN Reason: pain. Last Admin: 09/29/17 22:32 Dose: 650 mg Apixaban (Eliquis) 5 mg PO BID [facility] Last Admin: 09/29/17 17:27 Dose: 5 mg Aspirin (Ecotrin) 81 mg PO DAILY [facility] Last Admin: 09/29/17 09:47 Dose: 81 mg Dextrose (Dextrose 50% Inj) 0 ml IV STAT PRN; Protocol PRN Reason: Hypoglycemia Protocol Dextrose (Glutose 15) 15 gm PO ONCE PRN; Protocol PRN Reason: Hypoglycemia Protocol Glucagon (Glucagen Diagnostic Kit) 1 mg IM STAT PRN; Protocol PRN Reason: Hypoglycemia Protocol Heparin Sodium (Porcine) (Heparin) 5,000 units SC Q12 [facility] Stop: 10/01/17 20:00 Last Admin: 09/30/17 22:05 Dose: 5,000 units Hydrocortisone (Cortizone 0.5%) 0 ea TOP BID [facility] Last Admin: 09/30/17 17:53 Dose: 1 appl Meropenem (Merrem Iv 1 Gm Premix) 50 mls @ 100 mls/hr IVPB Q8 [facility]AN PRN Reason: Protocol Last Admin: 10/01/17 05:21 Dose: 100 mls/hr Sodium Chloride (Sodium Chloride 0.9%) 1,000 mls @ 75 mls/hr IV .[id number] [facility] Last Admin: 09/30/17 20:58 Dose: Not Given Insulin Human Isoph/Insulin Regular (Novolin 70/30 (70/30 Units/Ml) 10 Ml) 14 units SC ACD [facility] Last Admin: 09/30/17 18:09 Dose: 14 units Insulin Human Isoph/Insulin Regular (Novolin 70/30 (70/30 Units/Ml) 10 Ml) 15 units SC ACB [facility] Last Admin: 09/30/17 08:52 Dose: 15 units Insulin Human Regular (Novolin R) 0 unit SC ACHS [facility] PRN Reason: Protocol Last Admin: 10/01/17 07:18 Dose: Not Given Lisinopril (Zestril) 2.5 mg PO DAILY [facility] Last Admin: 09/30/17 09:50 Dose: 2.5 mg Pantoprazole Sodium (Protonix Ec Tab) 40 mg PO DAILY [facility] Last Admin: 09/30/17 09:49 Dose: 40 mg Rosuvastatin Calcium (Crestor) 5 mg PO HS [facility] Last Admin: 09/30/17 21:23 Dose: 5 mg Saccharomyces Boulardii (Florastor) 250 mg PO BID [facility] Last Admin: 09/30/17 17:15 Dose: 250 mg Vitamin A (Vitamin A&D) 1 applic TP BID [facility] Last Admin: 09/30/17 17:15 Dose: 1 applic - Labs Labs: 10/01/17 06:54 10/01/17 06:54 PT 12.2 SECONDS (9.7-12.2) 10/01/17 06:54 INR 1.1 10/01/17 06:54 APTT 34 SECONDS (21-34) 10/01/17 06:54 - Additional Findings Additional findings: - Constitutional Appears: Non-toxic, No Acute Distress - Head Exam Head Exam: ATRAUMATIC, NORMAL INSPECTION, NORMOCEPHALIC - Eye Exam Eye Exam: EOMI, PERRL Additional comments: xanthelasmas noted on eyelids bilaterally - ENT Exam ENT Exam: Mucous Membranes Moist - Neck Exam Neck Exam: Full ROM - Respiratory Exam Respiratory Exam: NORMAL BREATHING PATTERN - Cardiovascular Exam Cardiovascular Exam: Tachycardia, +S1, +S2 - GI/Abdominal Exam GI & Abdominal Exam: Soft, Normal Bowel Sounds - Extremities Exam Extremities Exam: Full ROM, Normal Inspection - Back Exam Back Exam: Full ROM - Neurological Exam Neurological Exam: Alert, Awake, CN II-XII Intact, Oriented x3 - Psychiatric Exam Psychiatric exam: Normal Affect, Normal Mood - Skin Skin Exam: Dry (shins), Erythema, Intact, Warm Additional comments: erythematous induration noted near the right sternoclavicular joint, mildly tender to touch; left sided facial rash noted Assessment and Plan - Assessment and Plan (Free Text) Assessment: 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 Monroy, help appreciated * consider bone biopsy Thoracic Surgery consult, Dr. Oviedo, help appreciated * Surgery cancelled due to new onset tachycardia- suspected SVT. * Cardiology Consulted- Presentation likely not due to cardiac etiology. Suspected sepsis and volume depletion. Low risk procedure without cardiac contraindications. * Patient is for surgical debridement Sunday10/02/17 Blood Cx -(09/26) No growth at 24 hours Urine Cx -(09/26) Gram Positive Cocci. Asymptomatic - repeat culture 09/28/17 NEGATIVE Tachycardia Asymptomatic. Currently on Telemetry- Continue to monitor Cardiology consulted, Dr. Boo - Help appreciated. Kindly refer to aforementioned. * Likely due to sepsis and volume depletion * There is no cardiovascular contraindication to the planned surgery. ECHO performed in August (2017)- EF approx 60%, with normal diastolic filling pressures. Valves evaluated with normal leaflets. No significant incompetence. Refer to complete report. Follow up Cardiology recommendations. History of Right LE DVT Holding Eliquis 5 mg; Heparin coverage for today through 10/01/17, then Hold for procedure ASA 81 mg PO daily SCDs contraindicated History of Diabetes Continue home insulin regimen: NPH/Regular 15 units AM NPH/Regular 14 units PM Regular ISS-medium dose Accuchecks Hypoglycemic Protocol Resumed Lisinopril 2.5 mg PO daily Resumed Statin - Crestor 5 mg HS Pruritus Likely eczematous Recommendations for A and D ointment to be applied to affected areas of the lower extremities at this time. After cleansing affected areas with lukewarm water, may apply A and D to the affected areas of the legs to seal in moisture Patient may apply Hydrocortisone ointment BID to affected area of the face Continue to monitor Prophylaxis Diabetic diet Eliquis 5 mg PO BID - (Holding 48 hrs prior to procedure on .) Heparin coverage for today through 10/01/17, then Hold for procedure Protonix 40 mg PO daily Case discussed with attending. All management and planning per Dr. Gupta
--- NOTE | 2017-10-01 08:00 | CP.PCM.PN ---
Subjective - Date & Time of Evaluation Date of Evaluation: 10/01/17 Time of Evaluation: 07:00 - Subjective Subjective: CT Surgery: Dr. Oviedo Pt seen and examined. No acute overnight events. Pt states she's feeling a lot better, pain around her right sternoclavicular joint is improved. Denies F/C, chest pain or SOB. Objective - Vital Signs/Intake and Output Vital Signs (last 24 hours): Temp Pulse Resp BP Pulse Ox 98.9 F 114 H 20 114/71 97 10/01/17 04:25 10/01/17 04:25 10/01/17 04:25 10/01/17 04:25 10/01/17 04:25 Intake and Output: 10/01/17 10/01/17 06:59 18:59 Intake Total 800 Balance 800 - Medications Medications: Current Medications Acetaminophen (Tylenol 325mg Tab) 650 mg PO Q6 PRN PRN Reason: pain. Last Admin: 09/29/17 22:32 Dose: 650 mg Apixaban (Eliquis) 5 mg PO BID [facility] Last Admin: 09/29/17 17:27 Dose: 5 mg Aspirin (Ecotrin) 81 mg PO DAILY [facility] Last Admin: 09/29/17 09:47 Dose: 81 mg Dextrose (Dextrose 50% Inj) 0 ml IV STAT PRN; Protocol PRN Reason: Hypoglycemia Protocol Dextrose (Glutose 15) 15 gm PO ONCE PRN; Protocol PRN Reason: Hypoglycemia Protocol Glucagon (Glucagen Diagnostic Kit) 1 mg IM STAT PRN; Protocol PRN Reason: Hypoglycemia Protocol Heparin Sodium (Porcine) (Heparin) 5,000 units SC Q12 [facility] Stop: 10/01/17 20:00 Last Admin: 09/30/17 22:05 Dose: 5,000 units Hydrocortisone (Cortizone 0.5%) 0 ea TOP BID [facility] Last Admin: 09/30/17 17:53 Dose: 1 appl Meropenem (Merrem Iv 1 Gm Premix) 50 mls @ 100 mls/hr IVPB Q8 [facility] PRN Reason: Protocol Last Admin: 10/01/17 05:21 Dose: 100 mls/hr Sodium Chloride (Sodium Chloride 0.9%) 1,000 mls @ 75 mls/hr IV .[id number] [facility] Last Admin: 09/30/17 20:58 Dose: Not Given Insulin Human Isoph/Insulin Regular (Novolin 70/30 (70/30 Units/Ml) 10 Ml) 14 units SC ACD [facility] Last Admin: 09/30/17 18:09 Dose: 14 units Insulin Human Isoph/Insulin Regular (Novolin 70/30 (70/30 Units/Ml) 10 Ml) 15 units SC ACB [facility] Last Admin: 09/30/17 08:52 Dose: 15 units Insulin Human Regular (Novolin R) 0 unit SC ACHS [facility] PRN Reason: Protocol Last Admin: 10/01/17 07:18 Dose: Not Given Lisinopril (Zestril) 2.5 mg PO DAILY [facility] Last Admin: 09/30/17 09:50 Dose: 2.5 mg Pantoprazole Sodium (Protonix Ec Tab) 40 mg PO DAILY [facility] Last Admin: 09/30/17 09:49 Dose: 40 mg Rosuvastatin Calcium (Crestor) 5 mg PO HS [facility] Last Admin: 09/30/17 21:23 Dose: 5 mg Saccharomyces Boulardii (Florastor) 250 mg PO BID [facility] Last Admin: 09/30/17 17:15 Dose: 250 mg Vitamin A (Vitamin A&D) 1 applic TP BID [facility] Last Admin: 09/30/17 17:15 Dose: 1 applic - Labs Labs: 10/01/17 06:54 10/01/17 06:54 PT 12.2 SECONDS (9.7-12.2) 10/01/17 06:54 INR 1.1 10/01/17 06:54 APTT 34 SECONDS (21-34) 10/01/17 06:54 - Constitutional Appears: Well, No Acute Distress - Eye Exam Eye Exam: Normal appearance - ENT Exam ENT Exam: Mucous Membranes Moist - Respiratory Exam Respiratory Exam: NORMAL BREATHING PATTERN - Cardiovascular Exam Cardiovascular Exam: Tachycardia - GI/Abdominal Exam GI & Abdominal Exam: Soft. absent: Distended, Tenderness - Extremities Exam Extremities Exam: Full ROM - Neurological Exam Neurological Exam: Alert, Awake, Oriented x3 - Skin Skin Exam: Dry, Warm Assessment and Plan - Assessment and Plan (Free Text) Assessment: 56F with R sternoclavicular joint osteomyelitis Plan: - OR tomorrow for debridement - Keep NPO past midnight - d/w Dr. Oviedo who agrees with above Leon, PGY-3
[2017-10-01 08:16] LABS: BANDS 1 % (0-2); BASOPHIL 2 % (0-2); EOSINOPHIL 21 % (0-4); LYMPHOCYTE 25 % (20-40); MONOCYTE 8 % (0-10); NEUTROPHIL 43 % (50-75); PLATELET ESTIMATE NORMAL (NORMAL); TOTAL CELLS COUNTED 100
[2017-10-01 08:17] LABS: ANISOCYTOSIS SLIGHT; LARGE PLATELETS PRESENT
[2017-10-01] MEDS: (Novolin 70/30) NPH/Regular 70/30 Units/ml 10 ml vial SC SCH ×2 (08:31→17:08)
[2017-10-01] MEDS: Saccharomyces Boulardi 250 mg Cap PO SCH ×2 (10:53→17:08)
[2017-10-01] MEDS: Pantoprazole 40 mg EC Tab PO SCH (10:53)
[2017-10-01] MEDS: Hydrocortisone 0.5% Cream(30 gm) TOP SCH ×2 (10:54→17:11)
[2017-10-01] MEDS: Vitamin A/D oint 60G TP SCH ×2 (10:54→17:11)
--- NOTE | 2017-10-01 11:15 | CP.PCM.PN ---
Subjective - Date & Time of Evaluation Date of Evaluation: 10/01/17 Time of Evaluation: 09:00 - Subjective Subjective: LESS PAIN FOR OR TOMORROW Objective - Vital Signs/Intake and Output Vital Signs (last 24 hours): Temp Pulse Resp BP Pulse Ox 9.2 F L 102 H 20 124/76 98 10/01/17 08:18 10/01/17 08:18 10/01/17 08:18 10/01/17 08:18 10/01/17 08:18 Intake and Output: 10/01/17 10/01/17 06:59 18:59 Intake Total 800 Balance 800 - Medications Medications: Current Medications Acetaminophen (Tylenol 325mg Tab) 650 mg PO Q6 PRN PRN Reason: pain. Last Admin: 10/01/17 10:53 Dose: 650 mg Apixaban (Eliquis) 5 mg PO BID [facility] Last Admin: 09/29/17 17:27 Dose: 5 mg Aspirin (Ecotrin) 81 mg PO DAILY [facility] Last Admin: 09/29/17 09:47 Dose: 81 mg Dextrose (Dextrose 50% Inj) 0 ml IV STAT PRN; Protocol PRN Reason: Hypoglycemia Protocol Dextrose (Glutose 15) 15 gm PO ONCE PRN; Protocol PRN Reason: Hypoglycemia Protocol Glucagon (Glucagen Diagnostic Kit) 1 mg IM STAT PRN; Protocol PRN Reason: Hypoglycemia Protocol Heparin Sodium (Porcine) (Heparin) 5,000 units SC Q12 [facility] Stop: 10/01/17 20:00 Last Admin: 10/01/17 10:54 Dose: 5,000 units Hydrocortisone (Cortizone 0.5%) 0 ea TOP BID [facility] Last Admin: 10/01/17 10:54 Dose: 1 appl Meropenem (Merrem Iv 1 Gm Premix) 50 mls @ 100 mls/hr IVPB Q8 RYAN PRN Reason: Protocol Last Admin: 10/01/17 05:21 Dose: 100 mls/hr Sodium Chloride (Sodium Chloride 0.9%) 1,000 mls @ 75 mls/hr IV .[id number] [facility] Last Admin: 09/30/17 20:58 Dose: Not Given Insulin Human Isoph/Insulin Regular (Novolin 70/30 (70/30 Units/Ml) 10 Ml) 14 units SC ACD [facility] Last Admin: 09/30/17 18:09 Dose: 14 units Insulin Human Isoph/Insulin Regular (Novolin 70/30 (70/30 Units/Ml) 10 Ml) 15 units SC ACB [facility] Last Admin: 10/01/17 08:31 Dose: 15 units Insulin Human Regular (Novolin R) 0 unit SC ACHS [facility] PRN Reason: Protocol Last Admin: 10/01/17 07:18 Dose: Not Given Lisinopril (Zestril) 2.5 mg PO DAILY [facility] Last Admin: 10/01/17 10:57 Dose: 2.5 mg Pantoprazole Sodium (Protonix Ec Tab) 40 mg PO DAILY [facility] Last Admin: 10/01/17 10:53 Dose: 40 mg Rosuvastatin Calcium (Crestor) 5 mg PO HS [facility] Last Admin: 09/30/17 21:23 Dose: 5 mg Saccharomyces Boulardii (Florastor) 250 mg PO BID [facility] Last Admin: 10/01/17 10:53 Dose: 250 mg Vitamin A (Vitamin A&D) 1 applic TP BID [facility] Last Admin: 10/01/17 10:54 Dose: 1 applic - Labs Labs: 10/01/17 06:54 10/01/17 06:54 PT 12.2 SECONDS (9.7-12.2) 10/01/17 06:54 INR 1.1 10/01/17 06:54 APTT 34 SECONDS (21-34) 10/01/17 06:54 - Constitutional Appears: Non-toxic, Chronically Ill - Head Exam Head Exam: NORMOCEPHALIC - Eye Exam Eye Exam: PERRL - ENT Exam ENT Exam: Mucous Membranes Dry - Neck Exam Neck Exam: absent: Lymphadenopathy - Respiratory Exam Respiratory Exam: Decreased Breath Sounds - Cardiovascular Exam Cardiovascular Exam: REGULAR RHYTHM - GI/Abdominal Exam GI & Abdominal Exam: Distended, Soft - Rectal Exam Rectal Exam: Deferred - Exam Exam: NORMAL INSPECTION - Extremities Exam Extremities Exam: absent: Pedal Edema - Back Exam Back Exam: absent: CVA tenderness (L), CVA tenderness (R) - Neurological Exam Neurological Exam: Alert, Awake, Oriented x3 - Psychiatric Exam Psychiatric exam: Normal Mood Assessment and Plan (1) Bacteremia, escherichia coli Status: Acute (2) Bacteremia, escherichia coli Status: Acute (3) Acute osteomyelitis of clavicle Status: Acute - Assessment and Plan (Free Text) Assessment: RX RENEWED
--- NOTE | 2017-10-01 21:15 | CARD ---
APPROVED REPORT EKG Measurement Heart [id number] <Conclusion> Sinus tachycardia Otherwise normal ECG
[2017-10-02] MEDS: Meropenem IV 1 gm in NS 50 ML IVPB SCH ×3 (06:01→21:05)
[2017-10-02] MEDS: Sodium Chloride 0.9% 1,000 ML IV SCH ×2 (06:01)
[2017-10-02 06:12] LABS: BASO % 0.1 % (0.0-2.0); EOS # 1.5 K/uL (0.0-0.7); EOS % 20.4 % (0.0-4.0); HEMOGLOBIN 9.8 g/dL (11.0-16.0); LYMPH # 2.1 K/uL (1.0-4.3); LYMPH % 29.3 % (20.0-40.0); MEAN CORPUSCULAR HEMOGLOBIN 29.5 pg (27.0-31.0); MEAN CORPUSCULAR HGB CONC 34.3 g/dL (33.0-37.0); MEAN PLATELET VOLUME 8.5 fL (7.2-11.7); MONO # 0.6 K/uL (0.0-0.8); MONO % 8.5 % (0.0-10.0); NEUT % 41.7 % (50.0-75.0); PLATELET COUNT 326 K/uL (130-400); RBC 3.31 Mil/uL (3.80-5.20); RED CELL DISTRIBUTION WIDTH 14.9 % (11.5-14.5); WHITE BLOOD COUNT 7.3 K/uL (4.8-10.8)
[2017-10-02 06:34] LABS: ALB/GLOB RATIO 0.9 (1.0-2.1); ALT/SGPT 15 U/L (9-52); AST/SGOT 18 U/L (14-36); BLOOD UREA NITROGEN 12 mg/dL (7-17); CALCIUM 8.6 mg/dl (8.6-10.4); GFR AFRICAN-AMERICAN > 60; GFR NON-AFRICAN AMERICAN > 60
[2017-10-02] MEDS ORDERED: Bupivacaine 0.25% Inj(30mL) ONE (07:36)
[2017-10-02] MEDS ORDERED: Propofol 10 mg/ml Inj (20 ML) ONE (07:50)
[2017-10-02] MEDS ORDERED: Midazolam 2 MG/2 ML VIAL ONE (07:50)
[2017-10-02] MEDS: (Novolin 70/30) NPH/Regular 70/30 Units/ml 10 ml vial SC SCH ×2 (08:13→17:33)
[2017-10-02] MEDS: (Novolin R) Insulin Human Regular 100 units/ml vial SC SCH ×4 (08:14→21:06)
[2017-10-02 08:26] LABS: BASOPHIL 1 % (0-2); EOSINOPHIL 24 % (0-4); LYMPHOCYTE 31 % (20-40); MONOCYTE 4 % (0-10); NEUTROPHIL 39 % (50-75); REACTIVE LYMPHOCYTES 1 % (0-0); TOTAL CELLS COUNTED 100
[2017-10-02 08:27] LABS: HYPOCHROMIC SLIGHT; PLATELET ESTIMATE NORMAL (NORMAL)
--- NOTE | 2017-10-02 08:39 | PCM.SURG1 ---
Surgeon's Initial Post Op Note - Surgeon's Notes Surgeon: Dr. Oviedo Sewing Teacher: Dr. Quintero, PGY-3, Dr. Mcgovern PGY-3, Daniel Izquierdo MS3 Type of Anesthesia: General LMA Anesthesia Administered By: Dr. Chacon Pre-Operative Diagnosis: R sternoclavicular joint osteomyelitis Operative Findings: See operative report Post-Operative Diagnosis: Same Operation Performed: Removal of R chest wall abscess & Debridement of sternoclavicular joint with resection of necrotic bone Specimen/Specimens Removed: Parts of clavicle Estimated Blood Loss: EBL {In ML}: 20 Blood Products Given: N/A Drains Used: No Drains Post-Op Condition: Good Date of Surgery/Procedure: 10/02/17 Time of Surgery/Procedure: 08:39
[2017-10-02] MEDS ORDERED: Morphine 4 MG/ML VIAL IVP PRN (08:42)
[2017-10-02] MEDS ORDERED: HYDROmorphone 0.5 mg/0.5 ml ISec IVP PRN ×2 (08:42→11:28)
[2017-10-02] MEDS ORDERED: HYDROmorphone 1 mg/ml ISec ONE (08:52)
--- NOTE | 2017-10-02 09:08 | CP.PCM.PN ---
Subjective - Date & Time of Evaluation Date of Evaluation: 10/02/17 Time of Evaluation: 09:03 - Subjective Subjective: PGY-[address] Gupta. No acute events overnight noted. Patient is s/p OR with Dr Oviedo for debridement of right clavicle abscess. She was sleeping comfortably. She stated pain occurs with movement. Son was at bedside. Otherwise she offered no other complaints and denied chest pain, shortness of breath and fevers. Objective - Vital Signs/Intake and Output Vital Signs (last 24 hours): Temp Pulse Resp BP Pulse Ox 98.3 F 98 H 20 114/70 98 10/02/17 07:20 10/02/17 07:20 10/02/17 07:20 10/02/17 07:20 10/02/17 07:20 Intake and Output: 10/02/17 10/02/17 06:59 18:59 Intake Total 1175 350 Balance 1175 350 - Medications Medications: Current Medications Acetaminophen (Tylenol 325mg Tab) 650 mg PO Q6 PRN PRN Reason: pain. Last Admin: 10/01/17 10:53 Dose: 650 mg Apixaban (Eliquis) 5 mg PO BID [facility] Last Admin: 09/29/17 17:27 Dose: 5 mg Aspirin (Ecotrin) 81 mg PO DAILY [facility] Last Admin: 09/29/17 09:47 Dose: 81 mg Dextrose (Dextrose 50% Inj) 0 ml IV STAT PRN; Protocol PRN Reason: Hypoglycemia Protocol Dextrose (Glutose 15) 15 gm PO ONCE PRN; Protocol PRN Reason: Hypoglycemia Protocol Glucagon (Glucagen Diagnostic Kit) 1 mg IM STAT PRN; Protocol PRN Reason: Hypoglycemia Protocol Hydrocortisone (Cortizone 0.5%) 0 ea TOP BID [facility] Last Admin: 10/01/17 17:11 Dose: 1 appl Hydromorphone HCl (Dilaudid) 0.5 mg IVP Q5M PRN PRN Reason: Pain, severe (8-10) Stop: 10/02/17 10:43 Meropenem (Merrem Iv 1 Gm Premix) 50 mls @ 100 mls/hr IVPB Q8 RYAN PRN Reason: Protocol Last Admin: 10/02/17 06:01 Dose: 100 mls/hr Insulin Human Isoph/Insulin Regular (Novolin 70/30 (70/30 Units/Ml) 10 Ml) 14 units SC ACD [facility] Last Admin: 10/01/17 17:08 Dose: 14 units Insulin Human Isoph/Insulin Regular (Novolin 70/30 (70/30 Units/Ml) 10 Ml) 15 units SC ACB [facility] Last Admin: 10/02/17 08:13 Dose: Not Given Insulin Human Regular (Novolin R) 0 unit SC ACHS [facility] PRN Reason: Protocol Last Admin: 10/02/17 08:14 Dose: Not Given Lisinopril (Zestril) 2.5 mg PO DAILY [facility] Last Admin: 10/01/17 10:57 Dose: 2.5 mg Morphine Sulfate (Morphine) 2 mg IVP Q4 PRN PRN Reason: Pain, severe (8-10) Oxycodone/Acetaminophen (Percocet 5/325 Mg Tab) 1 tab PO Q4H PRN PRN Reason: Pain, moderate (4-7) Stop: 10/05/17 08:42 Pantoprazole Sodium (Protonix Ec Tab) 40 mg PO DAILY [facility] Last Admin: 10/01/17 10:53 Dose: 40 mg Rosuvastatin Calcium (Crestor) 5 mg PO HS [facility] Last Admin: 10/01/17 21:38 Dose: 5 mg Saccharomyces Boulardii (Florastor) 250 mg PO BID [facility] Last Admin: 10/01/17 17:08 Dose: 250 mg Vitamin A (Vitamin A&D) 1 applic TP BID [facility] Last Admin: 10/01/17 17:11 Dose: 1 applic - Labs Labs: 10/02/17 06:07 10/02/17 06:07 PT 12.2 SECONDS (9.7-12.2) 10/01/17 06:54 INR 1.1 10/01/17 06:54 APTT 34 SECONDS (21-34) 10/01/17 06:54 - Additional Findings Additional findings: - Constitutional Appears: Non-toxic, No Acute Distress - Head Exam Head Exam: ATRAUMATIC, NORMAL INSPECTION, NORMOCEPHALIC - Eye Exam Eye Exam: EOMI, PERRL Additional comments: xanthelasmas noted on eyelids bilaterally - ENT Exam ENT Exam: Mucous Membranes Moist - Neck Exam Neck Exam: Full ROM - Respiratory Exam Respiratory Exam: NORMAL BREATHING PATTERN - Cardiovascular Exam Cardiovascular Exam: Tachycardia, +S1, +S2 - GI/Abdominal Exam GI & Abdominal Exam: Soft, Normal Bowel Sounds - Extremities Exam Extremities Exam: Full ROM, Normal Inspection - Back Exam Back Exam: Full ROM - Neurological Exam Neurological Exam: Alert, Awake, CN II-XII Intact, Oriented x3 - Psychiatric Exam Psychiatric exam: Normal Affect, Normal Mood - Skin Skin Exam: Dry (shins), Erythema, Intact, Warm Additional comments: erythematous induration noted near the right sternoclavicular joint, mildly tender to touch; left sided facial rash noted Assessment and Plan - Assessment and Plan (Free Text) Assessment: 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 Monroy, help appreciated * consider bone biopsy Thoracic Surgery consult, Dr. Oviedo, help appreciated * Surgery cancelled due to new onset tachycardia- suspected SVT. * Cardiology Consulted- Presentation likely not due to cardiac etiology. Suspected sepsis and volume depletion. Low risk procedure without cardiac contraindications. * POD #0: Removal of R chest wall abscess & Debridement of sternoclavicular joint with resection of necrotic bone Blood Cx (09/26) NEGATIVE Urine Cx (09/26) Gram Positive Cocci. Asymptomatic * repeat culture 09/28/17 NEGATIVE Dilaudid 0.5mg IVP Q6H PRN for severe pain Percocet 5/325 1 tab Q4H PRN for severe pain Tachycardia Asymptomatic. Currently on Telemetry- Continue to monitor Cardiology consulted, Dr. Boo - Help appreciated. Kindly refer to aforementioned. * Likely due to sepsis and volume depletion * There is no cardiovascular contraindication to the planned surgery. ECHO performed in August (2017)- EF approx 60%, with normal diastolic filling pressures. Valves evaluated with normal leaflets. No significant incompetence. Refer to complete report. Follow up Cardiology recommendations. History of Right LE DVT Holding Eliquis 5 mg (restart 10/03/17); Heparin coverage for today through 10/01/17 , then Hold for procedure Holding ASA 81 mg PO daily (restart 10/03/17) SCDs contraindicated History of Diabetes Continue home insulin regimen: NPH/Regular 15 units AM NPH/Regular 14 units PM Regular ISS-medium dose Accuchecks Hypoglycemic Protocol Resumed Lisinopril 2.5 mg PO daily Resumed Statin - Crestor 5 mg HS Pruritus Likely eczematous Recommendations for A and D ointment to be applied to affected areas of the lower extremities at this time. After cleansing affected areas with lukewarm water, may apply A and D to the affected areas of the legs to seal in moisture Patient may apply Hydrocortisone ointment BID to affected area of the face Continue to monitor Prophylaxis Diabetic diet Eliquis 5 mg PO BID - (Holding 48 hrs prior to procedure on .) Heparin coverage for today through 10/01/17, then Hold for procedure Protonix 40 mg PO daily Case discussed with attending. All management and planning per Dr. Gupta
[2017-10-02] MEDS: Saccharomyces Boulardi 250 mg Cap PO SCH ×2 (10:12→17:33)
[2017-10-02] MEDS: Hydrocortisone 0.5% Cream(30 gm) TOP SCH ×2 (10:12→20:42)
[2017-10-02] MEDS: Vitamin A/D oint 60G TP SCH ×2 (10:13→17:34)
[2017-10-02] MEDS: Pantoprazole 40 mg EC Tab PO SCH (10:38)
[2017-10-02] MEDS: Oxycodone/Acetaminophen 5/325 mg Tab PO PRN ×2 (10:42→21:03)
--- NOTE | 2017-10-02 11:00 | CP.PCM.PN ---
Subjective - Date & Time of Evaluation Date of Evaluation: 10/02/17 Time of Evaluation: 08:00 - Subjective Subjective: s/p debridement await cultures Objective - Vital Signs/Intake and Output Vital Signs (last 24 hours): Temp Pulse Resp BP Pulse Ox 98.5 F 88 11 L 130/67 100 10/02/17 09:45 10/02/17 09:45 10/02/17 09:45 10/02/17 09:45 10/02/17 09:45 Intake and Output: 10/02/17 10/02/17 06:59 18:59 Intake Total 1175 450 Balance 1175 450 - Medications Medications: Current Medications Acetaminophen (Tylenol 325mg Tab) 650 mg PO Q6 PRN PRN Reason: pain. Last Admin: 10/01/17 10:53 Dose: 650 mg Apixaban (Eliquis) 5 mg PO BID [facility] Last Admin: 09/29/17 17:27 Dose: 5 mg Aspirin (Ecotrin) 81 mg PO DAILY [facility] Last Admin: 09/29/17 09:47 Dose: 81 mg Dextrose (Dextrose 50% Inj) 0 ml IV STAT PRN; Protocol PRN Reason: Hypoglycemia Protocol Dextrose (Glutose 15) 15 gm PO ONCE PRN; Protocol PRN Reason: Hypoglycemia Protocol Glucagon (Glucagen Diagnostic Kit) 1 mg IM STAT PRN; Protocol PRN Reason: Hypoglycemia Protocol Hydrocortisone (Cortizone 0.5%) 0 ea TOP BID [facility] Last Admin: 10/02/17 10:12 Dose: Not Given Meropenem (Merrem Iv 1 Gm Premix) 50 mls @ 100 mls/hr IVPB Q8 RYAN PRN Reason: Protocol Last Admin: 10/02/17 06:01 Dose: 100 mls/hr Insulin Human Isoph/Insulin Regular (Novolin 70/30 (70/30 Units/Ml) 10 Ml) 14 units SC ACD [facility] Last Admin: 10/01/17 17:08 Dose: 14 units Insulin Human Isoph/Insulin Regular (Novolin 70/30 (70/30 Units/Ml) 10 Ml) 15 units SC ACB [facility] Last Admin: 10/02/17 08:13 Dose: Not Given Insulin Human Regular (Novolin R) 0 unit SC ACHS RYAN PRN Reason: Protocol Last Admin: 10/02/17 08:14 Dose: Not Given Lisinopril (Zestril) 2.5 mg PO DAILY [facility] Last Admin: 10/02/17 10:38 Dose: 2.5 mg Morphine Sulfate (Morphine) 2 mg IVP Q4 PRN PRN Reason: Pain, severe (8-10) Oxycodone/Acetaminophen (Percocet 5/325 Mg Tab) 1 tab PO Q4H PRN PRN Reason: Pain, moderate (4-7) Stop: 10/05/17 08:42 Last Admin: 10/02/17 10:42 Dose: 1 tab Pantoprazole Sodium (Protonix Ec Tab) 40 mg PO DAILY [facility] Last Admin: 10/02/17 10:38 Dose: 40 mg Rosuvastatin Calcium (Crestor) 5 mg PO HS [facility] Last Admin: 10/01/17 21:38 Dose: 5 mg Saccharomyces Boulardii (Florastor) 250 mg PO BID [facility] Last Admin: 10/02/17 10:12 Dose: Not Given Vitamin A (Vitamin A&D) 1 applic TP BID [facility] Last Admin: 10/02/17 10:13 Dose: Not Given - Labs Labs: 10/02/17 06:07 10/02/17 06:07 PT 12.2 SECONDS (9.7-12.2) 10/01/17 06:54 INR 1.1 10/01/17 06:54 APTT 34 SECONDS (21-34) 10/01/17 06:54 - Constitutional Appears: Non-toxic, Chronically Ill - Head Exam Head Exam: NORMOCEPHALIC - Eye Exam Eye Exam: PERRL - ENT Exam ENT Exam: Mucous Membranes Dry - Neck Exam Neck Exam: absent: Lymphadenopathy - Respiratory Exam Respiratory Exam: Decreased Breath Sounds - Cardiovascular Exam Cardiovascular Exam: REGULAR RHYTHM, +S1, +S2 - GI/Abdominal Exam GI & Abdominal Exam: Distended, Soft Assessment and Plan (1) Bacteremia, escherichia coli Status: Acute (2) Bacteremia, escherichia coli Status: Acute (3) Acute osteomyelitis of clavicle Status: Acute - Assessment and Plan (Free Text) Assessment: cont rx as ordered
--- NOTE | 2017-10-02 18:53 | OP ---
PROCEDURE DATE: 10/02/2017 PREOPERATIVE DIAGNOSIS: Chest wall abscess. PROCEDURE: Incision and drainage of chest wall abscess. SURGEON: Tay Oviedo MD STRAW BOSS: Dr. Motta. REFERRING DOCTOR: Dr. Gupta. INDICATIONS FOR SURGERY: This is a 56-year-old who came in with cellulitis on the upper sternum in the midline and slightly over to the right. It appeared that the sternoclavicular joint on the right was infected. She was placed on antibiotics. A PICC line was placed and she was sent home on intravenous antibiotics. It seemed to get better, but she came in now after about 4 weeks with fever again. White count was slightly elevated and there was a red elevated area over this portion of her chest. CT scan demonstrated that it was localized to the sternum. For these reasons, we decided to operate, to I and D the wound. She understood and consented. FINDINGS: The clavicular head was more or less fractured and disintegrated in a number of areas. There was some purulent discharge and inflammatory response surrounding it and there was good hemostasis at the completion. DESCRIPTION OF PROCEDURE: After general endotracheal anesthesia was applied, the entire chest was washed with antibiotic solution and draped in a sterile manner. We made a transverse incision over the right sternoclavicular joint about 4 to 5 cm, extended this down using cautery for good hemostasis. We entered a small pocket just at the periosteum of the clavicle on the right. We cultured this area. We cleaned this out extensively. With a rongeur, we removed the portion of the clavicle distally and proximally. It appeared that there was good hemostasis and we left the wound open, to be treated with a wound VAC in 48 hours. Tay Oviedo MD
[2017-10-03] MEDS: Oxycodone/Acetaminophen 5/325 mg Tab PO PRN ×3 (06:32→21:07)
[2017-10-03] MEDS: Meropenem IV 1 gm in NS 50 ML IVPB SCH ×3 (06:32→21:09)
[2017-10-03 06:53] LABS: BASO # 0.1 K/uL (0.0-0.2); BASO % 1.1 % (0.0-2.0); EOS # 1.6 K/uL (0.0-0.7); EOS % 17.4 % (0.0-4.0); HEMOGLOBIN 10.5 g/dL (11.0-16.0); LYMPH # 2.7 K/uL (1.0-4.3); LYMPH % 29.8 % (20.0-40.0); MEAN CELL VOLUME 86.2 fL (81.0-99.0); MEAN CORPUSCULAR HEMOGLOBIN 29.1 pg (27.0-31.0); MEAN CORPUSCULAR HGB CONC 33.7 g/dL (33.0-37.0); MEAN PLATELET VOLUME 8.2 fL (7.2-11.7); MONO # 0.6 K/uL (0.0-0.8); MONO % 7.1 % (0.0-10.0); NEUT # 4.1 K/uL (1.8-7.0); NEUT % 44.6 % (50.0-75.0); NRBC % 0.1 % (0.0-2.0); RBC 3.59 Mil/uL (3.80-5.20); RED CELL DISTRIBUTION WIDTH 15.1 % (11.5-14.5); WHITE BLOOD COUNT 9.1 K/uL (4.8-10.8)
[2017-10-03 07:21] LABS: ALB/GLOB RATIO 0.9 (1.0-2.1); ALBUMIN 3.3 g/dL (3.5-5.0); ALT/SGPT 17 U/L (9-52); AST/SGOT 20 U/L (14-36); BLOOD UREA NITROGEN 10 mg/dL (7-17); GFR AFRICAN-AMERICAN > 60; GFR NON-AFRICAN AMERICAN > 60
[2017-10-03] MEDS: (Novolin R) Insulin Human Regular 100 units/ml vial SC SCH ×4 (07:30→21:09)
--- NOTE | 2017-10-03 08:50 | CP.PCM.PN ---
Subjective - Date & Time of Evaluation Date of Evaluation: 10/03/17 Time of Evaluation: 08:47 - Subjective Subjective: PGY-[address] Gupta. No acute events overnight noted. Patient is s/p OR with Dr Oviedo for debridement of right clavicle abscess POD#1. She was resting comfortably. She stated pain occurs with movement. Otherwise she offered no other complaints and denied chest pain, shortness of breath and fevers. Objective - Vital Signs/Intake and Output Vital Signs (last 24 hours): Temp Pulse Resp BP Pulse Ox 97.1 F L 96 H 18 111/70 98 10/03/17 07:15 10/03/17 07:15 10/03/17 07:15 10/03/17 07:15 10/03/17 07:15 Intake and Output: 10/03/17 10/03/17 06:59 18:59 Intake Total 1300 Balance 1300 - Medications Medications: Current Medications Acetaminophen (Tylenol 325mg Tab) 650 mg PO Q6 PRN PRN Reason: pain. Last Admin: 10/02/17 16:04 Dose: 650 mg Apixaban (Eliquis) 5 mg PO BID [facility] Last Admin: 09/29/17 17:27 Dose: 5 mg Aspirin (Ecotrin) 81 mg PO DAILY [facility] Last Admin: 09/29/17 09:47 Dose: 81 mg Dextrose (Dextrose 50% Inj) 0 ml IV STAT PRN; Protocol PRN Reason: Hypoglycemia Protocol Dextrose (Glutose 15) 15 gm PO ONCE PRN; Protocol PRN Reason: Hypoglycemia Protocol Glucagon (Glucagen Diagnostic Kit) 1 mg IM STAT PRN; Protocol PRN Reason: Hypoglycemia Protocol Hydrocortisone (Cortizone 0.5%) 0 ea TOP BID [facility] Last Admin: 10/02/17 20:42 Dose: Not Given Hydromorphone HCl (Dilaudid) 0.5 mg IVP Q6H PRN PRN Reason: Pain, severe (8-10) Meropenem (Merrem Iv 1 Gm Premix) 50 mls @ 100 mls/hr IVPB Q8 RYAN PRN Reason: Protocol Last Admin: 10/03/17 06:32 Dose: 100 mls/hr Insulin Human Isoph/Insulin Regular (Novolin 70/30 (70/30 Units/Ml) 10 Ml) 14 units SC ACD [facility] Last Admin: 10/02/17 17:33 Dose: 14 units Insulin Human Isoph/Insulin Regular (Novolin 70/30 (70/30 Units/Ml) 10 Ml) 15 units SC ACB [facility] Last Admin: 10/02/17 08:13 Dose: Not Given Insulin Human Regular (Novolin R) 0 unit SC ACHS [facility] PRN Reason: Protocol Last Admin: 10/03/17 07:30 Dose: Not Given Lisinopril (Zestril) 2.5 mg PO DAILY [facility] Last Admin: 10/02/17 10:38 Dose: 2.5 mg Oxycodone/Acetaminophen (Percocet 5/325 Mg Tab) 1 tab PO Q4H PRN PRN Reason: Pain, moderate (4-7) Stop: 10/05/17 08:42 Last Admin: 10/03/17 06:32 Dose: 1 tab Pantoprazole Sodium (Protonix Ec Tab) 40 mg PO DAILY [facility] Last Admin: 10/02/17 10:38 Dose: 40 mg Rosuvastatin Calcium (Crestor) 5 mg PO [facility] Last Admin: 10/02/17 21:03 Dose: 5 mg Saccharomyces Boulardii (Florastor) 250 mg PO BID [facility] Last Admin: 10/02/17 17:33 Dose: 250 mg Vitamin A (Vitamin A&D) 1 applic TP BID [facility] Last Admin: 10/02/17 17:34 Dose: Not Given - Labs Labs: 10/03/17 06:45 10/03/17 06:45 PT 12.2 SECONDS (9.7-12.2) 10/01/17 06:54 INR 1.1 10/01/17 06:54 APTT 34 SECONDS (21-34) 10/01/17 06:54 - Additional Findings Additional findings: - Constitutional Appears: Non-toxic, No Acute Distress - Head Exam Head Exam: ATRAUMATIC, NORMAL INSPECTION, NORMOCEPHALIC - Eye Exam Eye Exam: EOMI, PERRL Additional comments: xanthelasmas noted on eyelids bilaterally - ENT Exam ENT Exam: Mucous Membranes Moist - Neck Exam Neck Exam: Full ROM - Respiratory Exam Respiratory Exam: NORMAL BREATHING PATTERN - Cardiovascular Exam Cardiovascular Exam: Tachycardia, +S1, +S2 - GI/Abdominal Exam GI & Abdominal Exam: Soft, Normal Bowel Sounds - Extremities Exam Extremities Exam: Full ROM, Normal Inspection - Back Exam Back Exam: Full ROM - Neurological Exam Neurological Exam: Alert, Awake, CN II-XII Intact, Oriented x3 - Psychiatric Exam Psychiatric exam: Normal Affect, Normal Mood - Skin Skin Exam: Dry (shins), Erythema, Intact, Warm Additional comments: right sternoclavicular joint covered with dressing c/d/i Assessment and Plan - Assessment and Plan (Free Text) Assessment: 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 Monroy, help appreciated Thoracic Surgery consult, Dr. Oviedo, help appreciated * Surgery cancelled due to new onset tachycardia- suspected SVT. * Cardiology Consulted- Presentation likely not due to cardiac etiology. Suspected sepsis and volume depletion. Low risk procedure without cardiac contraindications. * POD #1: Removal of R chest wall abscess & Debridement of sternoclavicular joint with resection of necrotic bone Blood Cx (09/26) NEGATIVE Urine Cx (09/26) Gram Positive Cocci. Asymptomatic * repeat culture 09/28/17 NEGATIVE F/U Right Clavicle Cx: Dilaudid 0.5mg IVP Q6H PRN for severe pain Percocet 5/325 1 tab Q4H PRN for severe pain Tachycardia Asymptomatic. Currently on Telemetry- Continue to monitor Cardiology consulted, Dr. Boo - Help appreciated. Kindly refer to aforementioned. * Likely due to sepsis and volume depletion * There is no cardiovascular contraindication to the planned surgery. ECHO performed in August (2017)- EF approx 60%, with normal diastolic filling pressures. Valves evaluated with normal leaflets. No significant incompetence. Refer to complete report. Follow up Cardiology recommendations. History of Right LE DVT Holding Eliquis 5 mg (restart 10/03/17); Heparin coverage for today through 10/01/17 , then Hold for procedure Holding ASA 81 mg PO daily (restart 10/03/17) SCDs contraindicated History of Diabetes Continue home insulin regimen: NPH/Regular 15 units AM NPH/Regular 14 units PM Regular ISS-medium dose Accuchecks Hypoglycemic Protocol Resumed Lisinopril 2.5 mg PO daily Resumed Statin - Crestor 5 mg HS Pruritus Likely eczematous Recommendations for A and D ointment to be applied to affected areas of the lower extremities at this time. After cleansing affected areas with lukewarm water, may apply A and D to the affected areas of the legs to seal in moisture Patient may apply Hydrocortisone ointment BID to affected area of the face Continue to monitor Prophylaxis Diabetic diet Eliquis 5 mg PO BID - (Holding 48 hrs prior to procedure on .) Heparin coverage for today through 10/01/17, then Hold for procedure Protonix 40 mg PO daily Case discussed with attending. All management and planning per Dr. Gupta
[2017-10-03] MEDS: (Novolin 70/30) NPH/Regular 70/30 Units/ml 10 ml vial SC SCH ×2 (08:53→17:37)
[2017-10-03] MEDS ORDERED: Enoxaparin 30 mg Syringe SC SCH (10:00)
[2017-10-03] MEDS: Hydrocortisone 0.5% Cream(30 gm) TOP SCH ×2 (10:20→17:38)
[2017-10-03] MEDS: Pantoprazole 40 mg EC Tab PO SCH (10:20)
[2017-10-03] MEDS: Saccharomyces Boulardi 250 mg Cap PO SCH ×2 (10:20→17:37)
[2017-10-03] MEDS: Vitamin A/D oint 60G TP SCH ×2 (10:21→17:38)
--- NOTE | 2017-10-03 15:24 | CP.PCM.PN ---
Subjective - Date & Time of Evaluation Date of Evaluation: 10/03/17 Time of Evaluation: 10:00 - Subjective Subjective: CT Surgery: Dr. Oviedo Pt seen and examined. No acute overnight events. s/p debridement of R sternoclavicular osteo, POD#1. States she feels well this morning, pain is well controlled and she has no other complaints at this time. Denies F/C. Objective - Vital Signs/Intake and Output Vital Signs (last 24 hours): Temp Pulse Resp BP Pulse Ox 97.1 F L 93 H 18 111/70 98 10/03/17 07:15 10/03/17 11:56 10/03/17 07:15 10/03/17 07:15 10/03/17 07:15 Intake and Output: 10/03/17 10/03/17 06:59 18:59 Intake Total 1300 Balance 1300 - Medications Medications: Current Medications Acetaminophen (Tylenol 325mg Tab) 650 mg PO Q6 PRN PRN Reason: pain. Last Admin: 10/02/17 16:04 Dose: 650 mg Apixaban (Eliquis) 5 mg PO BID [facility] Last Admin: 10/03/17 10:20 Dose: 5 mg Aspirin (Ecotrin) 81 mg PO DAILY [facility] Last Admin: 10/03/17 10:20 Dose: 81 mg Dextrose (Dextrose 50% Inj) 0 ml IV STAT PRN; Protocol PRN Reason: Hypoglycemia Protocol Dextrose (Glutose 15) 15 gm PO ONCE PRN; Protocol PRN Reason: Hypoglycemia Protocol Glucagon (Glucagen Diagnostic Kit) 1 mg IM STAT PRN; Protocol PRN Reason: Hypoglycemia Protocol Hydrocortisone (Cortizone 0.5%) 0 ea TOP BID [facility] Last Admin: 10/03/17 10:20 Dose: Not Given Hydromorphone HCl (Dilaudid) 0.5 mg IVP Q6H PRN PRN Reason: Pain, severe (8-10) Meropenem (Merrem Iv 1 Gm Premix) 50 mls @ 100 mls/hr IVPB Q8 [facility] PRN Reason: Protocol Last Admin: 10/03/17 13:33 Dose: 100 mls/hr Insulin Human Isoph/Insulin Regular (Novolin 70/30 (70/30 Units/Ml) 10 Ml) 14 units SC ACD [facility] Last Admin: 10/02/17 17:33 Dose: 14 units Insulin Human Isoph/Insulin Regular (Novolin 70/30 (70/30 Units/Ml) 10 Ml) 15 units SC ACB [facility] Last Admin: 10/03/17 08:53 Dose: 15 units Insulin Human Regular (Novolin R) 0 unit SC ACHS [facility] PRN Reason: Protocol Last Admin: 10/03/17 12:55 Dose: 4 unit Lisinopril (Zestril) 2.5 mg PO DAILY [facility] Last Admin: 10/03/17 10:20 Dose: 2.5 mg Oxycodone/Acetaminophen (Percocet 5/325 Mg Tab) 1 tab PO Q4H PRN PRN Reason: Pain, moderate (4-7) Stop: 10/05/17 08:42 Last Admin: 10/03/17 12:59 Dose: 1 tab Pantoprazole Sodium (Protonix Ec Tab) 40 mg PO DAILY [facility] Last Admin: 10/03/17 10:20 Dose: 40 mg Rosuvastatin Calcium (Crestor) 5 mg PO HS [facility] Last Admin: 10/02/17 21:03 Dose: 5 mg Saccharomyces Boulardii (Florastor) 250 mg PO BID [facility] Last Admin: 10/03/17 10:20 Dose: 250 mg Vitamin A (Vitamin A&D) 1 applic TP BID [facility] Last Admin: 10/03/17 10:21 Dose: Not Given - Labs Labs: 10/03/17 06:45 10/03/17 06:45 PT 12.2 SECONDS (9.7-12.2) 10/01/17 06:54 INR 1.1 10/01/17 06:54 APTT 34 SECONDS (21-34) 10/01/17 06:54 - Constitutional Appears: Well, No Acute Distress - Head Exam Head Exam: ATRAUMATIC, NORMOCEPHALIC - Eye Exam Eye Exam: Normal appearance - ENT Exam ENT Exam: Mucous Membranes Moist - Neck Exam Additional comments: R neck incision s/p debridement with packing; serosang drainage - Respiratory Exam Respiratory Exam: NORMAL BREATHING PATTERN - Cardiovascular Exam Cardiovascular Exam: Tachycardia - GI/Abdominal Exam GI & Abdominal Exam: Soft. absent: Tenderness - Neurological Exam Neurological Exam: Alert, Awake, Oriented x3 Assessment and Plan - Assessment and Plan (Free Text) Assessment: 56F with R sternoclavicular osteo s/p debridement & abscess drainage; POD#1 Plan: - will plan for wound vac tomorrow or sunday; pt will need vac therapy fdc - cont IV ABX per ID recs; will be DC with PICC - d/w Dr. Oviedo who agrees with above Leon, PGY-3
[2017-10-04] MEDS: Meropenem IV 1 gm in NS 50 ML IVPB SCH ×3 (05:37→22:06)
[2017-10-04 07:33] LABS: BASO # 0.1 K/uL (0.0-0.2); BASO % 1.1 % (0.0-2.0); EOS # 1.7 K/uL (0.0-0.7); EOS % 18.1 % (0.0-4.0); HEMOGLOBIN 10.8 g/dL (11.0-16.0); LYMPH % 32.9 % (20.0-40.0); MEAN CELL VOLUME 86.3 fL (81.0-99.0); MEAN CORPUSCULAR HEMOGLOBIN 29.4 pg (27.0-31.0); MEAN PLATELET VOLUME 8.7 fL (7.2-11.7); MONO # 0.6 K/uL (0.0-0.8); MONO % 6.3 % (0.0-10.0); NEUT # 3.9 K/uL (1.8-7.0); NEUT % 41.6 % (50.0-75.0); NRBC % 0.1 % (0.0-2.0); RBC 3.69 Mil/uL (3.80-5.20); RED CELL DISTRIBUTION WIDTH 15.4 % (11.5-14.5); WHITE BLOOD COUNT 9.3 K/uL (4.8-10.8)
[2017-10-04 07:59] LABS: ALB/GLOB RATIO 0.9 (1.0-2.1); ALBUMIN 3.4 g/dL (3.5-5.0); ALT/SGPT 20 U/L (9-52); AST/SGOT 33 U/L (14-36); BLOOD UREA NITROGEN 11 mg/dL (7-17); CALCIUM 9.3 mg/dl (8.6-10.4); GFR AFRICAN-AMERICAN > 60; GFR NON-AFRICAN AMERICAN > 60
[2017-10-04] MEDS: (Novolin 70/30) NPH/Regular 70/30 Units/ml 10 ml vial SC SCH ×2 (08:35→17:16)
[2017-10-04] MEDS: (Novolin R) Insulin Human Regular 100 units/ml vial SC SCH ×4 (08:35→22:33)
--- NOTE | 2017-10-04 10:00 | CP.PCM.PN ---
<Mirta Matute - Last Filed: 10/04/17 15:05> Subjective - Date & Time of Evaluation Date of Evaluation: 10/04/17 Time of Evaluation: 09:35 - Subjective Subjective: PGY-[address] Burk Patient seen and examined at bedside. No acute events reported overnight. Patient complains of pain at the surgical site. Otherwise patient is tolerating diet well. She denies fever, chills, shortness of breath, chest pain, nausea, vomiting, or diarrhea. Objective - Vital Signs/Intake and Output Vital Signs (last 24 hours): Temp Pulse Resp BP Pulse Ox 98 F 101 H 20 106/70 100 10/04/17 04:05 10/04/17 07:24 10/04/17 04:05 10/04/17 04:05 10/04/17 04:05 Intake and Output: 10/04/17 10/04/17 06:59 18:59 Intake Total 1150 Balance 1150 - Medications Medications: Current Medications Acetaminophen (Tylenol 325mg Tab) 650 mg PO Q6 PRN PRN Reason: pain. Last Admin: 10/02/17 16:04 Dose: 650 mg Apixaban (Eliquis) 5 mg PO BID [facility] Last Admin: 10/03/17 17:36 Dose: 5 mg Aspirin (Ecotrin) 81 mg PO DAILY [facility] Last Admin: 10/03/17 10:20 Dose: 81 mg Dextrose (Dextrose 50% Inj) 0 ml IV STAT PRN; Protocol PRN Reason: Hypoglycemia Protocol Dextrose (Glutose 15) 15 gm PO ONCE PRN; Protocol PRN Reason: Hypoglycemia Protocol Glucagon (Glucagen Diagnostic Kit) 1 mg IM STAT PRN; Protocol PRN Reason: Hypoglycemia Protocol Hydrocortisone (Cortizone 0.5%) 0 ea TOP BID [facility] Last Admin: 10/03/17 17:38 Dose: Not Given Meropenem (Merrem Iv 1 Gm Premix) 50 mls @ 100 mls/hr IVPB Q8 [facility] PRN Reason: Protocol Last Admin: 10/04/17 05:37 Dose: 100 mls/hr Insulin Human Isoph/Insulin Regular (Novolin 70/30 (70/30 Units/Ml) 10 Ml) 14 units SC ACD [facility] Last Admin: 10/03/17 17:37 Dose: 14 units Insulin Human Isoph/Insulin Regular (Novolin 70/30 (70/30 Units/Ml) 10 Ml) 15 units SC ACB [facility] Last Admin: 10/04/17 08:35 Dose: 15 units Insulin Human Regular (Novolin R) 0 unit SC ACHS [facility] PRN Reason: Protocol Last Admin: 10/04/17 08:35 Dose: 2 unit Lisinopril (Zestril) 2.5 mg PO DAILY [facility] Last Admin: 10/03/17 10:20 Dose: 2.5 mg Oxycodone/Acetaminophen (Percocet 5/325 Mg Tab) 1 tab PO Q4H PRN PRN Reason: Pain, moderate (4-7) Stop: 10/05/17 08:42 Last Admin: 10/03/17 21:07 Dose: 1 tab Pantoprazole Sodium (Protonix Ec Tab) 40 mg PO DAILY [facility] Last Admin: 10/03/17 10:20 Dose: 40 mg Rosuvastatin Calcium (Crestor) 5 mg PO HS [facility] Last Admin: 10/03/17 21:07 Dose: 5 mg Saccharomyces Boulardii (Florastor) 250 mg PO BID [facility] Last Admin: 10/03/17 17:37 Dose: 250 mg Vitamin A (Vitamin A&D) 1 applic TP BID [facility] Last Admin: 10/03/17 17:38 Dose: Not Given - Labs Labs: 10/04/17 07:27 10/04/17 07:27 PT 12.2 SECONDS (9.7-12.2) 10/01/17 06:54 INR 1.1 10/01/17 06:54 APTT 34 SECONDS (21-34) 10/01/17 06:54 - Additional Findings Additional findings: - Constitutional Appears: Non-toxic, No Acute Distress - Head Exam Head Exam: ATRAUMATIC, NORMAL INSPECTION, NORMOCEPHALIC - Eye Exam Eye Exam: EOMI, PERRL Additional comments: xanthelasmas - ENT Exam ENT Exam: Mucous Membranes Moist - Neck Exam Neck Exam: Full ROM - Respiratory Exam Respiratory Exam: NORMAL BREATHING PATTERN - Cardiovascular Exam Cardiovascular Exam: Tachycardia, +S1, +S2 - GI/Abdominal Exam GI & Abdominal Exam: Soft, Normal Bowel Sounds - Extremities Exam Extremities Exam: Full ROM, Normal Inspection - Back Exam Back Exam: Full ROM - Neurological Exam Neurological Exam: Alert, Awake, CN II-XII Intact, Oriented x3 - Psychiatric Exam Psychiatric exam: Normal Affect, Normal Mood - Skin Skin Exam: Dry (shins), Erythema, Intact, Warm Additional comments: right sternoclavicular joint island dressing clean, dry and intact Assessment and Plan - Assessment and Plan (Free Text) Assessment: 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 Monroy, help appreciated Thoracic Surgery consult, Dr. Oviedo, help appreciated * Surgery team plan for jail wound vac * Cardiology Consulted- Presentation likely not due to cardiac etiology. Suspected sepsis and volume depletion. Low risk procedure without cardiac contraindications. Blood Cx (09/26) NEGATIVE Urine Cx (09/26) Gram Positive Cocci. Asymptomatic * repeat culture 09/28/17 NEGATIVE Right Clavicle Cx: No growth after 24 hours Percocet 5/325 1 tab Q4H PRN for severe pain Wound vac form signed, start tomorrow Tachycardia Asymptomatic, stable discontinue Telemetry discontinue fluid Cardiology consulted, Dr. Boo - Help appreciated. Kindly refer to aforementioned. * Likely due to sepsis and volume depletion * There is no cardiovascular contraindication to the planned surgery. ECHO performed in August (2017)- EF approx 60%, with normal diastolic filling pressures. Valves evaluated with normal leaflets. No significant incompetence. Refer to complete report. Follow up Cardiology recommendations. History of Right LE DVT Resumed Eliquis 5 mg Resumed ASA 81 mg PO daily SCDs contraindicated History of Diabetes Continue home insulin regimen: NPH/Regular 15 units AM NPH/Regular 14 units PM Regular ISS-medium dose Accuchecks Hypoglycemic Protocol Resumed Lisinopril 2.5 mg PO daily Resumed Statin - Crestor 5 mg HS Pruritus Likely eczematous Recommendations for A and D ointment to be applied to affected areas of the lower extremities at this time. After cleansing affected areas with lukewarm water, may apply A and D to the affected areas of the legs to seal in moisture Patient may apply Hydrocortisone ointment BID to affected area of the face Continue to monitor Prophylaxis Diabetic diet Eliquis 5 mg PO BID - resumed Protonix 40 mg PO daily Case discussed with attending. All management and planning per Dr. Burk <Kiera Burk S - Last Filed: 10/04/17 18:36> Objective - Vital Signs/Intake and Output Vital Signs (last 24 hours): Temp Pulse Resp BP Pulse Ox 98.2 F 97 H 20 117/72 100 10/04/17 15:35 10/04/17 15:35 10/04/17 15:35 10/04/17 15:35 10/04/17 15:35 Intake and Output: 10/04/17 10/04/17 06:59 18:59 Intake Total 1150 Balance 1150 - Medications Medications: Current Medications Acetaminophen (Tylenol 325mg Tab) 650 mg PO Q6 PRN PRN Reason: pain. Last Admin: 10/04/17 11:33 Dose: 650 mg Apixaban (Eliquis) 5 mg PO BID [facility] Last Admin: 10/04/17 17:17 Dose: 5 mg Aspirin (Ecotrin) 81 mg PO DAILY [facility] Last Admin: 10/04/17 11:33 Dose: 81 mg Dextrose (Dextrose 50% Inj) 0 ml IV STAT PRN; Protocol PRN Reason: Hypoglycemia Protocol Dextrose (Glutose 15) 15 gm PO ONCE PRN; Protocol PRN Reason: Hypoglycemia Protocol Glucagon (Glucagen Diagnostic Kit) 1 mg IM STAT PRN; Protocol PRN Reason: Hypoglycemia Protocol Hydrocortisone (Cortizone 0.5%) 0 ea TOP BID [facility] Last Admin: 10/04/17 17:18 Dose: 1 appl Meropenem (Merrem Iv 1 Gm Premix) 50 mls @ 100 mls/hr IVPB Q8 [facility] PRN Reason: Protocol Last Admin: 10/04/17 13:48 Dose: 100 mls/hr Insulin Human Isoph/Insulin Regular (Novolin 70/30 (70/30 Units/Ml) 10 Ml) 14 units SC ACD [facility] Last Admin: 10/04/17 17:16 Dose: 14 units Insulin Human Isoph/Insulin Regular (Novolin 70/30 (70/30 Units/Ml) 10 Ml) 15 units SC ACB [facility] Last Admin: 10/04/17 08:35 Dose: 15 units Insulin Human Regular (Novolin R) 0 unit SC ACHS [facility] PRN Reason: Protocol Last Admin: 10/04/17 17:16 Dose: 2 unit Lisinopril (Zestril) 2.5 mg PO DAILY [facility] Last Admin: 10/04/17 11:33 Dose: 2.5 mg Morphine Sulfate (Morphine) 0.5 mg IVP Q8H PRN PRN Reason: Pain, severe (8-10) Last Admin: 10/04/17 13:47 Dose: 0.5 mg Oxycodone/Acetaminophen (Percocet 5/325 Mg Tab) 1 tab PO Q4H PRN PRN Reason: Pain, moderate (4-7) Stop: 10/05/17 08:42 Last Admin: 10/03/17 21:07 Dose: 1 tab Pantoprazole Sodium (Protonix Ec Tab) 40 mg PO DAILY [facility] Last Admin: 10/04/17 11:33 Dose: 40 mg Rosuvastatin Calcium (Crestor) 5 mg PO HS [facility] Last Admin: 10/03/17 21:07 Dose: 5 mg Saccharomyces Boulardii (Florastor) 250 mg PO BID [facility] Last Admin: 10/04/17 17:17 Dose: 250 mg Vitamin A (Vitamin A&D) 1 applic TP BID [facility] Last Admin: 10/04/17 17:19 Dose: 1 applic - Labs Labs: 10/04/17 07:27 10/04/17 07:27 PT 12.2 SECONDS (9.7-12.2) 10/01/17 06:54 INR 1.1 10/01/17 06:54 APTT 34 SECONDS (21-34) 10/01/17 06:54 Attending/Attestation - Attestation I have personally seen and examined this patient.: Yes I have fully participated in the care of the patient.: Yes I have reviewed all pertinent clinical information, including history, physical exam and plan: Yes Notes (Text): 10/04/17 18:36 case seen adn husseinw staff and as ordered
[2017-10-04] MEDS: Pantoprazole 40 mg EC Tab PO SCH (11:33)
[2017-10-04] MEDS: Saccharomyces Boulardi 250 mg Cap PO SCH ×2 (11:33→17:17)
[2017-10-04] MEDS: Vitamin A/D oint 60G TP SCH ×2 (11:34→17:19)
[2017-10-04] MEDS: Hydrocortisone 0.5% Cream(30 gm) TOP SCH ×2 (11:34→17:18)
[2017-10-04] MEDS: Morphine 4 MG/ML VIAL IVP PRN ×2 (13:47→22:06)
--- NOTE | 2017-10-04 13:49 | CP.PCM.PN ---
Subjective - Date & Time of Evaluation Date of Evaluation: 10/04/17 Time of Evaluation: 13:48 - Subjective Subjective: CT Surgery: Dr. Oviedo Pt seen and examined. No acute overnight events. States she's feeling a lot better. Pain has resolved and she is not having any fevers. Tolerating her diet & ambulating. Denies N/V. Objective - Vital Signs/Intake and Output Vital Signs (last 24 hours): Temp Pulse Resp BP Pulse Ox 98 F 101 H 20 106/70 100 10/04/17 04:05 10/04/17 07:24 10/04/17 04:05 10/04/17 04:05 10/04/17 04:05 Intake and Output: 10/04/17 10/04/17 06:59 18:59 Intake Total 1150 Balance 1150 - Medications Medications: Current Medications Acetaminophen (Tylenol 325mg Tab) 650 mg PO Q6 PRN PRN Reason: pain. Last Admin: 10/04/17 11:33 Dose: 650 mg Apixaban (Eliquis) 5 mg PO BID [facility] Last Admin: 10/04/17 11:33 Dose: 5 mg Aspirin (Ecotrin) 81 mg PO DAILY [facility] Last Admin: 10/04/17 11:33 Dose: 81 mg Dextrose (Dextrose 50% Inj) 0 ml IV STAT PRN; Protocol PRN Reason: Hypoglycemia Protocol Dextrose (Glutose 15) 15 gm PO ONCE PRN; Protocol PRN Reason: Hypoglycemia Protocol Glucagon (Glucagen Diagnostic Kit) 1 mg IM STAT PRN; Protocol PRN Reason: Hypoglycemia Protocol Hydrocortisone (Cortizone 0.5%) 0 ea TOP BID [facility] Last Admin: 10/04/17 11:34 Dose: Not Given Meropenem (Merrem Iv 1 Gm Premix) 50 mls @ 100 mls/hr IVPB Q8 [facility] PRN Reason: Protocol Last Admin: 10/04/17 05:37 Dose: 100 mls/hr Insulin Human Isoph/Insulin Regular (Novolin 70/30 (70/30 Units/Ml) 10 Ml) 14 units SC ACD [facility] Last Admin: 10/03/17 17:37 Dose: 14 units Insulin Human Isoph/Insulin Regular (Novolin 70/30 (70/30 Units/Ml) 10 Ml) 15 units SC ACB [facility] Last Admin: 10/04/17 08:35 Dose: 15 units Insulin Human Regular (Novolin R) 0 unit SC ACHS [facility] PRN Reason: Protocol Last Admin: 10/04/17 12:59 Dose: 3 unit Lisinopril (Zestril) 2.5 mg PO DAILY [facility] Last Admin: 10/04/17 11:33 Dose: 2.5 mg Morphine Sulfate (Morphine) 0.5 mg IVP Q8H PRN PRN Reason: Pain, severe (8-10) Oxycodone/Acetaminophen (Percocet 5/325 Mg Tab) 1 tab PO Q4H PRN PRN Reason: Pain, moderate (4-7) Stop: 10/05/17 08:42 Last Admin: 10/03/17 21:07 Dose: 1 tab Pantoprazole Sodium (Protonix Ec Tab) 40 mg PO DAILY [facility] Last Admin: 10/04/17 11:33 Dose: 40 mg Rosuvastatin Calcium (Crestor) 5 mg PO HS [facility] Last Admin: 10/03/17 21:07 Dose: 5 mg Saccharomyces Boulardii (Florastor) 250 mg PO BID [facility] Last Admin: 10/04/17 11:33 Dose: 250 mg Vitamin A (Vitamin A&D) 1 applic TP BID [facility] Last Admin: 10/04/17 11:34 Dose: Not Given - Labs Labs: 10/04/17 07:27 10/04/17 07:27 PT 12.2 SECONDS (9.7-12.2) 10/01/17 06:54 INR 1.1 10/01/17 06:54 APTT 34 SECONDS (21-34) 10/01/17 06:54 - Constitutional Appears: Well, No Acute Distress - Head Exam Head Exam: ATRAUMATIC, NORMOCEPHALIC - Eye Exam Eye Exam: Normal appearance - ENT Exam ENT Exam: Mucous Membranes Moist - Neck Exam Additional comments: R sternoclavicular osteo s/p debridement, wound bed clean with minimal drainage. - Respiratory Exam Respiratory Exam: NORMAL BREATHING PATTERN - Cardiovascular Exam Cardiovascular Exam: Tachycardia - GI/Abdominal Exam GI & Abdominal Exam: Soft. absent: Tenderness - Neurological Exam Neurological Exam: Alert, Awake, Oriented x3 - Skin Skin Exam: Dry, Warm Assessment and Plan - Assessment and Plan (Free Text) Assessment: 56F s/p Debridement of sternoclavicular osteomyelitis & abscess drainage; POD#2 Plan: - plan for wound vac placement tomorrow - can be DC home after vac with outpt vac changes - cont IV ABX per ID recs as outpt - d/w Dr. Ivelisse Quintero, PGY-3
--- NOTE | 2017-10-04 18:37 | CP.PCM.PN ---
Subjective - Date & Time of Evaluation Date of Evaluation: 10/04/17 Objective - Vital Signs/Intake and Output Vital Signs (last 24 hours): Temp Pulse Resp BP Pulse Ox 98.2 F 97 H 20 117/72 100 10/04/17 15:35 10/04/17 15:35 10/04/17 15:35 10/04/17 15:35 10/04/17 15:35 Intake and Output: 10/04/17 10/04/17 06:59 18:59 Intake Total 1150 Balance 1150 - Medications Medications: Current Medications Acetaminophen (Tylenol 325mg Tab) 650 mg PO Q6 PRN PRN Reason: pain. Last Admin: 10/04/17 11:33 Dose: 650 mg Apixaban (Eliquis) 5 mg PO BID [facility] Last Admin: 10/04/17 17:17 Dose: 5 mg Aspirin (Ecotrin) 81 mg PO DAILY [facility] Last Admin: 10/04/17 11:33 Dose: 81 mg Dextrose (Dextrose 50% Inj) 0 ml IV STAT PRN; Protocol PRN Reason: Hypoglycemia Protocol Dextrose (Glutose 15) 15 gm PO ONCE PRN; Protocol PRN Reason: Hypoglycemia Protocol Glucagon (Glucagen Diagnostic Kit) 1 mg IM STAT PRN; Protocol PRN Reason: Hypoglycemia Protocol Hydrocortisone (Cortizone 0.5%) 0 ea TOP BID [facility] Last Admin: 10/04/17 17:18 Dose: 1 appl Meropenem (Merrem Iv 1 Gm Premix) 50 mls @ 100 mls/hr IVPB Q8 [facility] PRN Reason: Protocol Last Admin: 10/04/17 13:48 Dose: 100 mls/hr Insulin Human Isoph/Insulin Regular (Novolin 70/30 (70/30 Units/Ml) 10 Ml) 14 units SC ACD [facility] Last Admin: 10/04/17 17:16 Dose: 14 units Insulin Human Isoph/Insulin Regular (Novolin 70/30 (70/30 Units/Ml) 10 Ml) 15 units SC ACB [facility] Last Admin: 10/04/17 08:35 Dose: 15 units Insulin Human Regular (Novolin R) 0 unit SC ACHS [facility] PRN Reason: Protocol Last Admin: 10/04/17 17:16 Dose: 2 unit Lisinopril (Zestril) 2.5 mg PO DAILY [facility] Last Admin: 10/04/17 11:33 Dose: 2.5 mg Morphine Sulfate (Morphine) 0.5 mg IVP Q8H PRN PRN Reason: Pain, severe (8-10) Last Admin: 10/04/17 13:47 Dose: 0.5 mg Oxycodone/Acetaminophen (Percocet 5/325 Mg Tab) 1 tab PO Q4H PRN PRN Reason: Pain, moderate (4-7) Stop: 10/05/17 08:42 Last Admin: 10/03/17 21:07 Dose: 1 tab Pantoprazole Sodium (Protonix Ec Tab) 40 mg PO DAILY [facility] Last Admin: 10/04/17 11:33 Dose: 40 mg Rosuvastatin Calcium (Crestor) 5 mg PO HS [facility] Last Admin: 10/03/17 21:07 Dose: 5 mg Saccharomyces Boulardii (Florastor) 250 mg PO BID [facility] Last Admin: 10/04/17 17:17 Dose: 250 mg Vitamin A (Vitamin A&D) 1 applic TP BID [facility] Last Admin: 10/04/17 17:19 Dose: 1 applic - Labs Labs: 10/04/17 07:27 10/04/17 07:27 PT 12.2 SECONDS (9.7-12.2) 10/01/17 06:54 INR 1.1 10/01/17 06:54 APTT 34 SECONDS (21-34) 10/01/17 06:54 Assessment and Plan - Assessment and Plan (Free Text) Plan: ight Clavicle Osteomyelitis refractory to antibiotic therapy POD #2: Removal of R chest wall abscess & Debridement of sternoclavicular joint with resection of necrotic bone Previously discharged on Invanz IV daily * She received about 4 weeks of a 6 week course Meropenem 1gm IV Q8 * Same class as Invanz however Merrem has broader spectrum of activity ID consult, Dr. Monroy, help appreciated Thoracic Surgery consult, Dr. Oviedo, help appreciated * Surgery team plan for [employer] wound vac * Cardiology Consulted- Presentation likely not due to cardiac etiology. Suspected sepsis and volume depletion. Low risk procedure without cardiac contraindications. Blood Cx (09/26) NEGATIVE Urine Cx (09/26) Gram Positive Cocci. Asymptomatic * repeat culture 09/28/17 NEGATIVE Right Clavicle Cx: No growth after 24 hours Percocet 5/325 1 tab Q4H PRN for severe pain Wound vac form signed, start tomorrow Tachycardia Asymptomatic, stable discontinue Telemetry discontinue fluid Cardiology consulted, Dr. Boo - Help appreciated. Kindly refer to aforementioned. * Likely due to sepsis and volume depletion * There is no cardiovascular contraindication to the planned surgery. ECHO performed in August (2017)- EF approx 60%, with normal diastolic filling pressures. Valves evaluated with normal leaflets. No significant incompetence. Refer to complete report. Follow up Cardiology recommendations. History of Right LE DVT Resumed Eliquis 5 mg Resumed ASA 81 mg PO daily SCDs contraindicated History of Diabetes Continue home insulin regimen: NPH/Regular 15 units AM NPH/Regular 14 units PM Regular ISS-medium dose Accuchecks Hypoglycemic Protocol Resumed Lisinopril 2.5 mg PO daily Resumed Statin - Crestor 5 mg HS Pruritus Likely eczematous Recommendations for A and D ointment to be applied to affected areas of the lower extremities at this time. After cleansing affected areas with lukewarm water, may apply A and D to the affected areas of the legs to seal in moisture Patient may apply Hydrocortisone ointment BID to affected area of the face Continue to monitor Prophylaxis Diabetic diet Eliquis 5 mg PO BID - resumed Protonix 40 mg PO daily
[2017-10-05] MEDS: Meropenem IV 1 gm in NS 50 ML IVPB SCH ×2 (05:22→13:24)
[2017-10-05 06:44] LABS: BASO # 0.1 K/uL (0.0-0.2); BASO % 1.3 % (0.0-2.0); EOS # 1.3 K/uL (0.0-0.7); EOS % 14.2 % (0.0-4.0); HEMOGLOBIN 10.7 g/dL (11.0-16.0); LYMPH # 2.7 K/uL (1.0-4.3); LYMPH % 29.4 % (20.0-40.0); MEAN CELL VOLUME 85.6 fL (81.0-99.0); MEAN CORPUSCULAR HEMOGLOBIN 29.3 pg (27.0-31.0); MEAN CORPUSCULAR HGB CONC 34.3 g/dL (33.0-37.0); MEAN PLATELET VOLUME 8.7 fL (7.2-11.7); MONO # 0.6 K/uL (0.0-0.8); MONO % 6.9 % (0.0-10.0); NEUT # 4.5 K/uL (1.8-7.0); NEUT % 48.2 % (50.0-75.0); RBC 3.64 Mil/uL (3.80-5.20); RED CELL DISTRIBUTION WIDTH 15.4 % (11.5-14.5); WHITE BLOOD COUNT 9.3 K/uL (4.8-10.8)
[2017-10-05 06:48] LABS: ALB/GLOB RATIO 0.9 (1.0-2.1); ALBUMIN 3.6 g/dL (3.5-5.0); ALT/SGPT 22 U/L (9-52); AST/SGOT 19 U/L (14-36); BLOOD UREA NITROGEN 14 mg/dL (7-17); CALCIUM 9.2 mg/dl (8.6-10.4); GFR AFRICAN-AMERICAN > 60; GFR NON-AFRICAN AMERICAN > 60
--- NOTE | 2017-10-05 07:52 | CP.PCM.PN ---
Subjective - Date & Time of Evaluation Date of Evaluation: 10/05/17 Time of Evaluation: 09:00 - Subjective Subjective: PGY-[address] Burk Patient seen and examined at bedside. No acute events reported overnight. Patient reports to have constipation of 2 days and finally pass a small amount of stool this morning. She denies fever, chills, shortness of breath, chest pain , nausea, vomiting, or diarrhea. Objective - Vital Signs/Intake and Output Vital Signs (last 24 hours): Temp Pulse Resp BP Pulse Ox 97.9 F 106 H 20 110/68 96 10/05/17 00:00 10/05/17 00:00 10/05/17 00:00 10/05/17 00:00 10/05/17 00:00 Intake and Output: 10/05/17 10/05/17 06:59 18:59 Intake Total 430 Balance 430 - Medications Medications: Current Medications Acetaminophen (Tylenol 325mg Tab) 650 mg PO Q6 PRN PRN Reason: pain. Last Admin: 10/04/17 11:33 Dose: 650 mg Apixaban (Eliquis) 5 mg PO BID [facility] Last Admin: 10/04/17 17:17 Dose: 5 mg Aspirin (Ecotrin) 81 mg PO DAILY [facility] Last Admin: 10/04/17 11:33 Dose: 81 mg Dextrose (Dextrose 50% Inj) 0 ml IV STAT PRN; Protocol PRN Reason: Hypoglycemia Protocol Dextrose (Glutose 15) 15 gm PO ONCE PRN; Protocol PRN Reason: Hypoglycemia Protocol Glucagon (Glucagen Diagnostic Kit) 1 mg IM STAT PRN; Protocol PRN Reason: Hypoglycemia Protocol Hydrocortisone (Cortizone 0.5%) 0 ea TOP BID [facility] Last Admin: 10/04/17 17:18 Dose: 1 appl Meropenem (Merrem Iv 1 Gm Premix) 50 mls @ 100 mls/hr IVPB Q8 [facility] PRN Reason: Protocol Last Admin: 10/05/17 05:22 Dose: 100 mls/hr Insulin Human Isoph/Insulin Regular (Novolin 70/30 (70/30 Units/Ml) 10 Ml) 14 units SC ACD [facility] Last Admin: 10/04/17 17:16 Dose: 14 units Insulin Human Isoph/Insulin Regular (Novolin 70/30 (70/30 Units/Ml) 10 Ml) 15 units SC ACB [facility] Last Admin: 10/04/17 08:35 Dose: 15 units Insulin Human Regular (Novolin R) 0 unit SC ACHS [facility] PRN Reason: Protocol Last Admin: 10/04/17 22:33 Dose: Not Given Lisinopril (Zestril) 2.5 mg PO DAILY [facility] Last Admin: 10/04/17 11:33 Dose: 2.5 mg Morphine Sulfate (Morphine) 0.5 mg IVP Q8H PRN PRN Reason: Pain, severe (8-10) Last Admin: 10/04/17 22:06 Dose: 0.5 mg Oxycodone/Acetaminophen (Percocet 5/325 Mg Tab) 1 tab PO Q4H PRN PRN Reason: Pain, moderate (4-7) Stop: 10/05/17 08:42 Last Admin: 10/03/17 21:07 Dose: 1 tab Pantoprazole Sodium (Protonix Ec Tab) 40 mg PO DAILY [facility] Last Admin: 10/04/17 11:33 Dose: 40 mg Rosuvastatin Calcium (Crestor) 5 mg PO HS [facility] Last Admin: 10/04/17 22:06 Dose: 5 mg Saccharomyces Boulardii (Florastor) 250 mg PO BID [facility] Last Admin: 10/04/17 17:17 Dose: 250 mg Vitamin A (Vitamin A&D) 1 applic TP BID [facility] Last Admin: 10/04/17 17:19 Dose: 1 applic - Labs Labs: 10/05/17 06:23 10/05/17 06:23 PT 12.2 SECONDS (9.7-12.2) 10/01/17 06:54 INR 1.1 10/01/17 06:54 APTT 34 SECONDS (21-34) 10/01/17 06:54 - Additional Findings Additional findings: - Constitutional Appears: Non-toxic, No Acute Distress - Head Exam Head Exam: ATRAUMATIC, NORMAL INSPECTION, NORMOCEPHALIC - Eye Exam Eye Exam: EOMI, PERRL Additional comments: xanthelasmas - ENT Exam ENT Exam: Mucous Membranes Moist - Neck Exam Neck Exam: Full ROM - Respiratory Exam Respiratory Exam: NORMAL BREATHING PATTERN - Cardiovascular Exam Cardiovascular Exam: Tachycardia, +S1, +S2 - GI/Abdominal Exam GI & Abdominal Exam: Soft, Normal Bowel Sounds - Extremities Exam Extremities Exam: Full ROM, Normal Inspection - Back Exam Back Exam: Full ROM - Neurological Exam Neurological Exam: Alert, Awake, CN II-XII Intact, Oriented x3 - Psychiatric Exam Psychiatric exam: Normal Affect, Normal Mood - Skin Skin Exam: Dry (shins), Erythema, Intact, Warm Additional comments: right sternoclavicular joint island dressing clean, dry and intact Assessment and Plan - Assessment and Plan (Free Text) Assessment: 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 Monroy, help appreciated Thoracic Surgery consult, Dr. Oviedo, help appreciated * Surgery team plan for clinical services consultant wound vac * Cardiology Consulted- Presentation likely not due to cardiac etiology. Suspected sepsis and volume depletion. Low risk procedure without cardiac contraindications. Blood Cx (09/26) NEGATIVE Urine Cx (09/26) Gram Positive Cocci. Asymptomatic * repeat culture 09/28/17 NEGATIVE Right Clavicle Cx: negative for growth Percocet 5/325 1 tab Q4H PRN for severe pain Wound vac placed by surgery Tachycardia Asymptomatic, stable discontinue Telemetry discontinue fluid Cardiology consulted, Dr. Boo - Help appreciated. Kindly refer to aforementioned. * Likely due to sepsis and volume depletion * There is no cardiovascular contraindication to the planned surgery. ECHO performed in August (2017)- EF approx 60%, with normal diastolic filling pressures. Valves evaluated with normal leaflets. No significant incompetence. Refer to complete report. Follow up Cardiology recommendations. History of Right LE DVT Resumed Eliquis 5 mg Resumed ASA 81 mg PO daily SCDs contraindicated History of Diabetes Continue home insulin regimen: NPH/Regular 15 units AM NPH/Regular 14 units PM Regular ISS-medium dose Accuchecks Hypoglycemic Protocol Resumed Lisinopril 2.5 mg PO daily Resumed Statin - Crestor 5 mg HS Pruritus Likely eczematous Recommendations for A and D ointment to be applied to affected areas of the lower extremities at this time. After cleansing affected areas with lukewarm water, may apply A and D to the affected areas of the legs to seal in moisture Patient may apply Hydrocortisone ointment BID to affected area of the face Continue to monitor Prophylaxis Diabetic diet Eliquis 5 mg PO BID - resumed Protonix 40 mg PO daily Patient is medically stable to be discharged per Dr. Burk Case discussed with attending. All management and planning per Dr. Burk
[2017-10-05] MEDS ORDERED: POLYETHYLENE GLYCOL 3350 17 GM/Dose PACKET PO ONE (08:16)
[2017-10-05] MEDS: (Novolin R) Insulin Human Regular 100 units/ml vial SC SCH ×3 (08:35→17:35)
[2017-10-05] MEDS: (Novolin 70/30) NPH/Regular 70/30 Units/ml 10 ml vial SC SCH ×2 (08:36→17:36)
--- NOTE | 2017-10-05 10:17 | CP.PCM.PN ---
Subjective - Date & Time of Evaluation Date of Evaluation: 10/05/17 Time of Evaluation: 08:00 - Subjective Subjective: CT Surgery: Dr. Oviedo Pt seen and examined. Doing well this morning, no acute overnight events. States she feels well and pain is resolved. She is tolerating her diet, ambulating & denies F/C. Denies chest pain or SOB. Objective - Vital Signs/Intake and Output Vital Signs (last 24 hours): Temp Pulse Resp BP Pulse Ox 98.0 F 100 H 18 117/73 98 10/05/17 07:20 10/05/17 07:20 10/05/17 07:20 10/05/17 07:20 10/05/17 07:20 Intake and Output: 10/05/17 10/05/17 06:59 18:59 Intake Total 430 Balance 430 - Medications Medications: Current Medications Acetaminophen (Tylenol 325mg Tab) 650 mg PO Q6 PRN PRN Reason: pain. Last Admin: 10/04/17 11:33 Dose: 650 mg Apixaban (Eliquis) 5 mg PO BID [facility] Last Admin: 10/04/17 17:17 Dose: 5 mg Aspirin (Ecotrin) 81 mg PO DAILY [facility] Last Admin: 10/04/17 11:33 Dose: 81 mg Dextrose (Dextrose 50% Inj) 0 ml IV STAT PRN; Protocol PRN Reason: Hypoglycemia Protocol Dextrose (Glutose 15) 15 gm PO ONCE PRN; Protocol PRN Reason: Hypoglycemia Protocol Docusate Sodium (Colace) 100 mg PO PRN ONE Stop: 10/05/17 12:01 Glucagon (Glucagen Diagnostic Kit) 1 mg IM STAT PRN; Protocol PRN Reason: Hypoglycemia Protocol Hydrocortisone (Cortizone 0.5%) 0 ea TOP BID [facility] Last Admin: 10/04/17 17:18 Dose: 1 appl Meropenem (Merrem Iv 1 Gm Premix) 50 mls @ 100 mls/hr IVPB Q8 [facility] PRN Reason: Protocol Last Admin: 10/05/17 05:22 Dose: 100 mls/hr Insulin Human Isoph/Insulin Regular (Novolin 70/30 (70/30 Units/Ml) 10 Ml) 14 units SC ACD [facility] Last Admin: 10/04/17 17:16 Dose: 14 units Insulin Human Isoph/Insulin Regular (Novolin 70/30 (70/30 Units/Ml) 10 Ml) 15 units SC ACB [facility] Last Admin: 10/05/17 08:36 Dose: 15 units Insulin Human Regular (Novolin R) 0 unit SC ACHS [facility] PRN Reason: Protocol Last Admin: 10/05/17 08:35 Dose: 2 unit Lisinopril (Zestril) 2.5 mg PO DAILY [facility] Last Admin: 10/04/17 11:33 Dose: 2.5 mg Morphine Sulfate (Morphine) 0.5 mg IVP Q8H PRN PRN Reason: Pain, severe (8-10) Last Admin: 10/04/17 22:06 Dose: 0.5 mg Pantoprazole Sodium (Protonix Ec Tab) 40 mg PO DAILY [facility] Last Admin: 10/04/17 11:33 Dose: 40 mg Rosuvastatin Calcium (Crestor) 5 mg PO HS [facility] Last Admin: 10/04/17 22:06 Dose: 5 mg Saccharomyces Boulardii (Florastor) 250 mg PO BID [facility] Last Admin: 10/04/17 17:17 Dose: 250 mg Vitamin A (Vitamin A&D) 1 applic TP BID [facility] Last Admin: 10/04/17 17:19 Dose: 1 applic - Labs Labs: 10/05/17 06:23 10/05/17 06:23 PT 12.2 SECONDS (9.7-12.2) 10/01/17 06:54 INR 1.1 10/01/17 06:54 APTT 34 SECONDS (21-34) 10/01/17 06:54 - Constitutional Appears: Well, No Acute Distress - Head Exam Head Exam: ATRAUMATIC, NORMOCEPHALIC - Eye Exam Eye Exam: Normal appearance - ENT Exam ENT Exam: Mucous Membranes Moist - Neck Exam Additional comments: R sternoclavicular wound bed clean, dry with no active drainage, 6x3x5 cm - Cardiovascular Exam Cardiovascular Exam: Tachycardia - GI/Abdominal Exam GI & Abdominal Exam: Soft. absent: Tenderness - Neurological Exam Neurological Exam: Alert, Awake, Oriented x3 - Skin Skin Exam: Dry, Warm Assessment and Plan - Assessment and Plan (Free Text) Assessment: 56F with sternoclavicular osteomyelitis s/p debridement; POD#3 Plan: - wound vac placement today - ok to DC from surgical standpoint, outpt f/u with Dr. Oviedo in 1-2 weeks - cont IV ABX per ID recs - d/w Dr. Ivelisse Quintero, PGY-3
[2017-10-05] MEDS: Pantoprazole 40 mg EC Tab PO SCH (10:18)
[2017-10-05] MEDS: Saccharomyces Boulardi 250 mg Cap PO SCH ×2 (10:20→17:36)
[2017-10-05] MEDS: Hydrocortisone 0.5% Cream(30 gm) TOP SCH ×2 (10:21→17:37)
[2017-10-05] MEDS: Vitamin A/D oint 60G TP SCH ×2 (10:21→17:37)
[2017-10-05 16:43] VITALS: BP 101/67; PULSE 91; RESP 20; TEMP 98.3; O2SAT 100
--- NOTE | 2017-10-05 17:37 | CP.PCM.PN ---
Subjective - Date & Time of Evaluation Date of Evaluation: 10/05/17 Time of Evaluation: 10:20 - Subjective Subjective: clinically same Objective - Vital Signs/Intake and Output Vital Signs (last 24 hours): Temp Pulse Resp BP Pulse Ox 98.3 F 91 H 20 101/67 100 10/05/17 15:41 10/05/17 15:41 10/05/17 15:41 10/05/17 15:41 10/05/17 15:41 Intake and Output: 10/05/17 10/05/17 06:59 18:59 Intake Total 430 Balance 430 - Medications Medications: Current Medications Acetaminophen (Tylenol 325mg Tab) 650 mg PO Q6 PRN PRN Reason: pain. Last Admin: 10/05/17 10:46 Dose: 650 mg Apixaban (Eliquis) 5 mg PO BID [facility] Last Admin: 10/05/17 10:18 Dose: 5 mg Aspirin (Ecotrin) 81 mg PO DAILY [facility] Last Admin: 10/05/17 10:18 Dose: 81 mg Dextrose (Dextrose 50% Inj) 0 ml IV STAT PRN; Protocol PRN Reason: Hypoglycemia Protocol Dextrose (Glutose 15) 15 gm PO ONCE PRN; Protocol PRN Reason: Hypoglycemia Protocol Glucagon (Glucagen Diagnostic Kit) 1 mg IM STAT PRN; Protocol PRN Reason: Hypoglycemia Protocol Hydrocortisone (Cortizone 0.5%) 0 ea TOP BID [facility] Last Admin: 10/05/17 10:21 Dose: Not Given Meropenem (Merrem Iv 1 Gm Premix) 50 mls @ 100 mls/hr IVPB Q8 [facility]AN PRN Reason: Protocol Last Admin: 10/05/17 13:24 Dose: 100 mls/hr Insulin Human Isoph/Insulin Regular (Novolin 70/30 (70/30 Units/Ml) 10 Ml) 14 units SC ACD [facility] Last Admin: 10/04/17 17:16 Dose: 14 units Insulin Human Isoph/Insulin Regular (Novolin 70/30 (70/30 Units/Ml) 10 Ml) 15 units SC ACB [facility] Last Admin: 10/05/17 08:36 Dose: 15 units Insulin Human Regular (Novolin R) 0 unit SC ACHS [facility] PRN Reason: Protocol Last Admin: 10/05/17 13:24 Dose: 6 unit Lisinopril (Zestril) 2.5 mg PO DAILY [facility] Last Admin: 10/05/17 10:21 Dose: 2.5 mg Morphine Sulfate (Morphine) 0.5 mg IVP Q8H PRN PRN Reason: Pain, severe (8-10) Last Admin: 10/04/17 22:06 Dose: 0.5 mg Pantoprazole Sodium (Protonix Ec Tab) 40 mg PO DAILY [facility] Last Admin: 10/05/17 10:18 Dose: 40 mg Rosuvastatin Calcium (Crestor) 5 mg PO HS [facility] Last Admin: 10/04/17 22:06 Dose: 5 mg Saccharomyces Boulardii (Florastor) 250 mg PO BID [facility] Last Admin: 10/05/17 10:20 Dose: 250 mg Vitamin A (Vitamin A&D) 1 applic TP BID [facility] Last Admin: 10/05/17 10:21 Dose: Not Given - Labs Labs: 10/05/17 06:23 10/05/17 06:23 PT 12.2 SECONDS (9.7-12.2) 10/01/17 06:54 INR 1.1 10/01/17 06:54 APTT 34 SECONDS (21-34) 10/01/17 06:54 - Constitutional Appears: Well - Head Exam Head Exam: ATRAUMATIC, NORMAL INSPECTION, NORMOCEPHALIC - Eye Exam Eye Exam: EOMI, Normal appearance, PERRL Pupil Exam: NORMAL ACCOMODATION, PERRL - ENT Exam ENT Exam: Mucous Membranes Moist, Normal Exam - Neck Exam Neck Exam: Full ROM, Normal Inspection. absent: Lymphadenopathy - Respiratory Exam Respiratory Exam: Decreased Breath Sounds - Cardiovascular Exam Cardiovascular Exam: REGULAR RHYTHM, +S1, +S2 - GI/Abdominal Exam GI & Abdominal Exam: Soft, Diminished Bowel Sounds - Rectal Exam Rectal Exam: Deferred
--- NOTE | 2017-10-05 18:02 | CP.PCM.PN ---
Subjective - Date & Time of Evaluation Date of Evaluation: 10/05/17 Time of Evaluation: 08:00 - Subjective Subjective: pt is s/p debridement of infected right clavicle cultures so far neg Had ESBL E Coli bacteremia upon presentation 1 month ago- failed IV Invanz would cont merrem for 3-6 weeks with weekly CRP/ESR Objective - Vital Signs/Intake and Output Vital Signs (last 24 hours): Temp Pulse Resp BP Pulse Ox 98.3 F 91 H 20 101/67 100 10/05/17 15:41 10/05/17 15:41 10/05/17 15:41 10/05/17 15:41 10/05/17 15:41 Intake and Output: 10/05/17 10/05/17 06:59 18:59 Intake Total 430 Balance 430 - Medications Medications: Current Medications Acetaminophen (Tylenol 325mg Tab) 650 mg PO Q6 PRN PRN Reason: pain. Last Admin: 10/05/17 10:46 Dose: 650 mg Apixaban (Eliquis) 5 mg PO BID [facility] Last Admin: 10/05/17 17:36 Dose: 5 mg Aspirin (Ecotrin) 81 mg PO DAILY [facility] Last Admin: 10/05/17 10:18 Dose: 81 mg Dextrose (Dextrose 50% Inj) 0 ml IV STAT PRN; Protocol PRN Reason: Hypoglycemia Protocol Dextrose (Glutose 15) 15 gm PO ONCE PRN; Protocol PRN Reason: Hypoglycemia Protocol Glucagon (Glucagen Diagnostic Kit) 1 mg IM STAT PRN; Protocol PRN Reason: Hypoglycemia Protocol Hydrocortisone (Cortizone 0.5%) 0 ea TOP BID [facility] Last Admin: 10/05/17 17:37 Dose: 1 appl Meropenem (Merrem Iv 1 Gm Premix) 50 mls @ 100 mls/hr IVPB Q8 [facility] PRN Reason: Protocol Last Admin: 10/05/17 13:24 Dose: 100 mls/hr Insulin Human Isoph/Insulin Regular (Novolin 70/30 (70/30 Units/Ml) 10 Ml) 14 units SC ACD [facility] Last Admin: 10/05/17 17:36 Dose: 14 units Insulin Human Isoph/Insulin Regular (Novolin 70/30 (70/30 Units/Ml) 10 Ml) 15 units SC ACB [facility] Last Admin: 10/05/17 08:36 Dose: 15 units Insulin Human Regular (Novolin R) 0 unit SC ACHS [facility] PRN Reason: Protocol Last Admin: 10/05/17 17:35 Dose: 2 unit Lisinopril (Zestril) 2.5 mg PO DAILY [facility] Last Admin: 10/05/17 10:21 Dose: 2.5 mg Morphine Sulfate (Morphine) 0.5 mg IVP Q8H PRN PRN Reason: Pain, severe (8-10) Last Admin: 10/04/17 22:06 Dose: 0.5 mg Pantoprazole Sodium (Protonix Ec Tab) 40 mg PO DAILY [facility] Last Admin: 10/05/17 10:18 Dose: 40 mg Rosuvastatin Calcium (Crestor) 5 mg PO HS [facility] Last Admin: 10/04/17 22:06 Dose: 5 mg Saccharomyces Boulardii (Florastor) 250 mg PO BID [facility] Last Admin: 10/05/17 17:36 Dose: 250 mg Vitamin A (Vitamin A&D) 1 applic TP BID [facility] Last Admin: 10/05/17 17:37 Dose: 1 applic - Labs Labs: 10/05/17 06:23 10/05/17 06:23 PT 12.2 SECONDS (9.7-12.2) 10/01/17 06:54 INR 1.1 10/01/17 06:54 APTT 34 SECONDS (21-34) 10/01/17 06:54 - Constitutional Appears: Non-toxic, Chronically Ill - Head Exam Head Exam: NORMOCEPHALIC - Eye Exam Eye Exam: PERRL - ENT Exam ENT Exam: Mucous Membranes Dry - Neck Exam Neck Exam: absent: Lymphadenopathy - Respiratory Exam Respiratory Exam: Decreased Breath Sounds - Cardiovascular Exam Cardiovascular Exam: REGULAR RHYTHM - GI/Abdominal Exam GI & Abdominal Exam: Distended - Rectal Exam Rectal Exam: Deferred - Exam Exam: NORMAL INSPECTION - Extremities Exam Extremities Exam: absent: Pedal Edema Additional comments: + wound vac - Back Exam Back Exam: absent: CVA tenderness (L), CVA tenderness (R), paraspinal tenderness - Neurological Exam Neurological Exam: Alert, Awake, Oriented x3 Neuro motor strength exam: Left Upper Extremity: 4, Right Upper Extremity: 4, Left Lower Extremity: 4, Right Lower Extremity: 4 - Psychiatric Exam Psychiatric exam: Normal Mood - Skin Skin Exam: Dry Assessment and Plan (1) Bacteremia, escherichia coli Status: Acute (2) Bacteremia, escherichia coli Status: Acute (3) Acute osteomyelitis of clavicle Status: Acute - Assessment and Plan (Free Text) Assessment: pt is s/p debridement of infected right clavicle cultures so far neg Had ESBL E Coli bacteremia upon presentation 1 month ago- failed IV Invanz would cont merrem for 3-6 weeks with weekly CRP/ESR
== END 2017-10-05 20:45 | disposition home or self-care (01) | DRG 854 ==
LOC: C.ER 12:35 → C.9E 13:55 → C.3T 14:32 → C.6T 09-28 10:42
PROVIDERS: ADMIT Internal Medicine; ATTEND Internal Medicine Nephrology
PROC: 0PD Upper Bones, Extraction (ICD-10-PCS; principal; 2017-10-02 07:45)
DX: A41.9 Sepsis, unspecified organism (principal); I47.1 Supraventricular tachycardia; L02.213 Cutaneous abscess of chest wall; M86.111 Other acute osteomyelitis, right shoulder; E11.69 Type 2 diabetes mellitus with other specified complication; E78.00 Pure hypercholesterolemia, unspecified; E86.9 Volume depletion, unspecified; I10 Essential (primary) hypertension; K59.00 Constipation, unspecified; Z53.9 Procedure and treatment not carried out, unspecified reason; Z79.4 Long term (current) use of insulin; Z86.718 Personal history of other venous thrombosis and embolism